=== PATIENT | female | born 1960 | race Caucasian/White ===

== ENCOUNTER → 2018-07-14 10:28 | Outpatient (CLI) | payer OTHER, SELFPAY ==
--- NOTE | 2018-07-14 10:30 | STE_ITS ---
Reason For Study: CHEST PAIN Stress Results Protocol: Mike Protocol Maximum Predicted HR: 161 bpm Target HR: 137 bpm % Maximum Predicted HR: 93 % DurationHeart Rate Stage (mm:ss) (bpm) BP BASELINE 81 128/82 STAGE 1 3:00 105 191/84 STAGE 2 3:00 118 194/84 STAGE 3 1:31 150 / RECOVERY 84 148/84 Stress Duration: 7:31 mm:ss Maximum Stress HR: 150 bpm Baseline Echocardiogram Findings Stress Echo Wall motion Data Resting WM Intermediate WM Stress WM Resting Wall Motion Wall Motion Stress No regional wall motion No regional wall motion abnormalities noted. abnormalities noted. Ejection Fraction 55 %. Ejection Fraction 70 %. Stress Results Normal blood pressure response to exercise. Exercise was stopped due to fatigue. Interpretation Summary Exercise stress echo. Stress protocol. Resting EKG demonstrates normal sinus rhythm with a rate of 64 bpm normal intervals and noted resting blood pressure 128/82 mmHg. The patient exercised according to regular Mike protocol for total duration of 7 minutes and 31 seconds. The maximum heart rate attained was 155 bpm which was 96% of maximum predicted heart rate the maximum workload was 10.1 metabolic equivalents. The patient maintained sinus rhythm throughout the recording at rest there were no ST or T wave changes noted suggest ischemia peak exercise no ST or T wave changes were noted suggest ischemia. The resting blood pressure was 128/82 with a peak blood pressure 194/84. Rate pressure product was 23,400. No clinical angina was noted the test was terminated due to leg fatigue. Stress echocardiographic images. The resting stress echocardiogram demonstrated ejection fraction of 55% with a peak ejection fraction of 70%. No wall motion abnormalities were noted. No ischemia was noted. Conclusion: Normal stress echocardiographic test with no evidence of ischemia. Ordering Physician: Mohamud Juarez Referring Physician: Mohamud Juarez Performed By: Briana Pete, RDCS, RVT
== END ==
PROVIDERS: Family Provider Student in an Organized Health Care Education/Training Program; PCP Student in an Organized Health Care Education/Training Program; Referring Provider Internal Medicine Cardiovascular Disease; Visit Provider Internal Medicine Cardiovascular Disease
DX: I25.10 Atherosclerotic heart disease of native coronary artery without angina pectoris (principal)
CPT/HCPCS: 93017; 93350

== ENCOUNTER → 2020-07-19 09:50 | Outpatient (CLI) | payer OTHER, SELFPAY ==
[2019-06-25 13:23] VITALS: BMI 32.5
== END ==
PROVIDERS: PCP Student in an Organized Health Care Education/Training Program; Referring Provider Internal Medicine Gastroenterology; Visit Provider Internal Medicine Gastroenterology
DX: Z11.59 Encounter for screening for other viral diseases (principal)
CPT/HCPCS: 87635; C9803; U0003

== ENCOUNTER → 2021-06-29 07:07 | Outpatient (CLI) | payer OTHER, SELFPAY ==
--- NOTE | 2021-06-29 17:14 | STRESSREP ---
Stress Test Report Exercise mild ideal perfusion stress test. 60-year-old lady with a history of chest pain pain Stress protocol: Resting EKG demonstrates normal sinus rhythm with a rate of 64 bpm resting blood pressure is 142/84 mmHg. The patient exercised according to regular Mike protocol for total duration of 6 minutes and 11 seconds the maximum heart rate attained was 139 bpm which was 87% of max impact on heart rate the maximum workload was 7.5 metabolic equivalents. At rest there were no ST or T wave changes noted to suggest abnormal flow reserve or ischemia and at peak exercise upsloping ST changes were noted with did not meet the criteria for ischemia. No clinical angina was noted. The maximum blood pressure was 170/70 mmHg. The test was terminated due to dyspnea and fatigue. Myocardial perfusion protocol. 14.0 mCi of technetium 99m sestamibi was injected at rest. The patient exercised according to regular Mike protocol and at peak exercise 44.7 mCi of technetium 99m sestamibi was injected stress images were obtained stress and rest images were reconstructed in comparing the short axis vertical long and horizontal long axis. Gated images were also obtained. Perfusion SPECT analysis: Review of the stress images demonstrate normal uptake of tracer noted in all areas of the myocardium. The resting images similarly demonstrate normal uptake of tracer noted in all areas of the myocardium. No areas of reversibility are noted to suggest ischemia. Gated SPECT analysis: The gated ejection fraction is 66%. Conclusion: Normal exercise myocardial perfusion stress protocol. Preserved ejection fraction. Good functional capacity.
== END ==
PROVIDERS: PCP Student in an Organized Health Care Education/Training Program; Referring Provider Physician Assistant Medical; Visit Provider Physician Assistant Medical
DX: R07.9 Chest pain, unspecified (principal); I25.10 Atherosclerotic heart disease of native coronary artery without angina pectoris; E78.5 Hyperlipidemia, unspecified; I10 Essential (primary) hypertension
CPT/HCPCS: 78452; 93017; A9500; A4216

== ENCOUNTER → 2021-08-21 13:30 | Outpatient (CLI) | payer OTHER, SELFPAY ==
--- NOTE | 2021-08-21 13:34 | MRI_ITS ---
STUDY: MRI RIGHT FOREFOOT WITHOUT CONTRAST REASON FOR EXAM: Female, 60 years old. RT FOOT PAIN, PLANTAR PLATE INJURY,CAPSULITIS TECHNIQUE: Standardized fat and water weighted pulse sequences were obtained in all 3 orthogonal planes. COMPARISON: None. FINDINGS: The first through fourth MTP plantar plates are normal in signal and thickness without a demonstrated tear or intrasubstance signal abnormality. A small 2.9 mm focal tear of the plantar plate beneath the fifth metatarsal head on the tibial side is present, within associated 2 mm posttraumatic cyst beneath the torn fibers. No visualized plantar fibroma or an interdigital neuroma. There is moderate degenerative arthrosis with a joint of effusion of the metatarsophalangeal joint of the hallux with capsular distension. There is a bipartite tibial sesamoid. Normal interphalangeal joint of the hallux. Normal proximal and distal phalanges of the great toe. Normal medial and lateral heads of the flexor hallucis brevis tendons. Normal flexor and extensor hallucis longus tendons. Normal second through fifth metatarsophalangeal (MTP) joints. Normal interphalangeal joints of the second through fifth toes. Normal proximal, middle and distal phalanges of the second through fifth toes. Normal first through fourth intermetatarsal spaces. Normal flexor and extensor tendons of the second through fifth toes. Normal visualized metatarsi. Normal intrinsic muscles of the forefoot. There is no demonstrated soft tissue abnormality. MRI/Lower Ext/No Jt/w/o IMPRESSION: 1. A small 2.9 mm focal tear of the plantar plate beneath the fifth metatarsal head on the tibial side is present, within associated 2 mm posttraumatic cyst beneath the torn fibers. 2. 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 Electronically Signed: Mode Cohen MD at 22:47 EST , Service support ,
== END ==
PROVIDERS: PCP Student in an Organized Health Care Education/Training Program; Visit Provider Podiatrist
DX: M77.51 Other enthesopathy of right foot and ankle (principal); S89.91XA Unspecified injury of right lower leg, initial encounter; M79.671 Pain in right foot
CPT/HCPCS: 73718

== ENCOUNTER 2022-08-01 10:46 | Outpatient (RCR) | payer OTHER, SELFPAY ==
--- NOTE | 2022-08-01 12:54 | HP.PTEVAL_ITS ---
Patient's Visit Information WESTON RODRIGUEZ is a 61 year old F referred to Physical Therapy by Dr. Luis A Brown DPM with a diagnosis of Achilles Tendonitits. Date of Evaluation: 08/01/22 Physical Therapist: Gail Thibodeaux DPT - Visit Plan Frequency: 1x/Week Duration: 4 Weeks Plan: Patient to be compliant with HEP of stretching, eccentrics, night splint, heel lift and orthotics at home- will follow up in 4 weeks or sooner if able to get a new pair of orthotics - Subjective Patient reports that the back of her left heel is really sore- it has been bothering her since last Oct- aggravated by jogging across the street. Pain is located in the heel in the Achilles- no radiating pain- does have some N/T in the toes but that is not new to this issue. Describes the pain as sharp- the pain is mostly there but gets worse at time. Worst: 12/10 Agg: running on it, standing for to long, hard floors. Best: 09/11 Eases: Meloxicam. He gave her a heel lift but she does not wear shoes as often as she should. She works from home and does not wear her shoes or orthotics and she stands all day. They did give her a night splint she wore it for a few days and it didn't help so she stopped wearing it. They did take x-rays but no MRI- showed some heel spurs. They gave her exercises but she has not done a lot of them. Before she gets out of bed in the AM she does move her feet around to get them warmed. Does have pain when she steps out of bed- most noticeable and then if she gets up after sitting for a period of time. Sleep: not disturbed lately but has had times when they bother her at night- laying on her back and resting the heel on the bed. PMHx/Meds: no changes since saw MD- scanned into the chart. - Objective Posture: fair throughout. Gait: no deviation noted- mild pes planus in running shoes. HR/TR: good no pain or deviation- Eccentric no pain or deviation. SLS: 5-10 sec then puts her other foot down for righting. Observation: pes planus increased in SLS. ROM: WFL in all planes of the LE. Strength: Knee: 5/5 Ankle: 5/5. Flex: HS: moderate, Gastroc: moderate, Solues: moderate. Palpation: tender along achilles insertion. Edema: none noted - Balance/Special Test Scores Lower Extremity Functional Score: 59 - Goals Goal 1:: Patient will be I with HEP and progression Goal Time Frame: 4-6 Weeks Goal 2:: Patient will report 80% improvement Goal Time Frame: 4-6 Weeks - Rehabilitation Potential Physical Therapy Diagnosis: Patient presents with hypomobility- she has decreased flexibility and inflammation along the Achilles tendon leading to increased pain with ADL's Rehabilitation Potential: Fair - Anticipated Interventions Patient/Client Instruction: Educate patient on: Benefits of Fitness Program Thank you for the opportunity to evaluate your patient. For Medicare and Medicare HMO plans, please review the plan of care and approve it. It will need to be FAXED BACK to us at [phone] for Medicare purposes. For Medicare only, by signing this I certify the plan of care. Please let me know if there are questions or concerns regarding this plan of care. Physician Signature:____ Date:
--- NOTE | 2022-11-26 08:14 | HP.PT.NRP ---
WESTON RODRIGUEZ was seen in my office for initial evaluation on 08/01/22. The following Plan of Care was established for this patient: Initial Frequency: 1x/Week Initial Duration: 4 Weeks Patient/Client Instruction: Educate patient on: Benefits of Fitness Program This patient was last seen in our office . Pertinent comments regarding their Physical therapy will appear below: Patient has not attended PT in over 30 days- appropriate to be d/c from PT and return to MD as appropriate At this point I will be discontinuing this patient from physical therapy. I would be happy to see this patient again in the future if found appropriate by the physician. Thank you! Gail Thibodeaux DPT Balance/Gait/Functional tests - Balance/Special Test Scores Lower Extremity Functional Score: 59
== END 2022-08-01 19:00 | disposition home or self-care (01) ==
LOC: PT 10:46
PROVIDERS: PCP Student in an Organized Health Care Education/Training Program; Referring Provider Podiatrist; Visit Provider Podiatrist
DX: M76.62 Achilles tendinitis, left leg (principal)
CPT/HCPCS: 97110; 97161

== ENCOUNTER → 2022-08-29 | Outpatient (CLI) | payer OTHER, SELFPAY ==
--- NOTE | 2022-08-29 08:43 | CT_ITS ---
STUDY: CARDIAC CALCIUM SCORING - CT CHEST REASON FOR EXAM: Female, 61 years old. CHEST PAIN-CHEST OVER READ ONLY RADIATION DOSAGE (If Supplied By Facility): CTDIvol = ( 24.25 ) mGy, DLP = ( 1146.41 ) mGycm TECHNIQUE: Axial non-enhanced images were acquired through the heart for the sole purpose of measuring coronary artery calcium. Individualized dose optimization techniques were used for this CT. COMPARISON: None. FINDINGS: This portion of the report is being generated solely for the evaluation of noncoronary artery structures which have been assessed on plain another report. Visualized lungs are unremarkable. Heart is normal in size. Normal pericardium. There are coronary artery calcifications. Normal visualized aortic arch and pulmonary arteries. No evidence of mediastinal or hilar lymphadenopathy. Normal visualized chest wall. There are degenerative changes of the visualized thoracic spine. Mild fatty infiltration of the liver. The upper abdomen is otherwise grossly normal. CT/Limited Chest CT Cardiac Only IMPRESSION: No evidence of significant anatomic abnormality. Electronically Signed: Yadiel Perez DO at 18:24 EST ,
[2022-08-29 09:01] VITALS: BP 144/77; PULSE 54; RESP 16; TEMP 36.3; O2SAT 98; BMI 33.3
[2022-08-29 09:14] VITALS: BP 144/77; PULSE 54
[2022-08-29] MEDS: Nitroglycerin SL (ED/IMG/CATH) 0.4 MG TABLET SL (09:14)
[2022-08-29 09:19] VITALS: BP 131/69; PULSE 63; RESP 16; O2SAT 98
[2022-08-29 09:25] VITALS: BP 112/74; PULSE 52; RESP 16; O2SAT 100
--- NOTE | 2022-09-18 15:09 | CCTA.WCONT ---
CCTA w/Cont Coronary Arteries Date of Study:: 08/29/22 Coronary artery risk After informed consent was obtained the patient was brought to the radiology suite in the postabsorptive nonsedated state. Heart rate was noted to be adequate. The patient was administered 100 cc of intravenous contrast agent. Gated images were obtained and reconstructed and displayed. Calcium score was not obtained due to insurance not approval. LEFT MAIN CORONARY ARTERY: This arose from the left coronary cusp and bifurcates into left anterior descending artery and left circumflex artery. [] LEFT ANTERIOR DESCENDING CORONARY ARTERY: The left anterior descending artery was a medium size vessel with proximal area of calcification as well as mid segment area of calcification. This was noted to be eccentric and moderate in severity. The mid to distal left anterior descending artery was free of any significant stenosis. [] LEFT CIRCUMFLEX CORONARY ARTERY: The left circumflex artery was a nondominant vessel with mild mid segment calcification noted. No high-grade stenosis was noted. [] RIGHT CORONARY ARTERY: The right coronary artery was a dominant vessel arising from the right coronary cusp with mild focal stenosis noted in the midsegment. It terminated with the posterior descending artery and posterior lateral vessel. CORONARY CALCIUM SCORE: Not obtained Conclusion: Moderate calcification noted in the midsegment of the left anterior descending artery and mild calcification noted in the mid circumflex artery. []
== END | disposition home or self-care (01) ==
LOC: CT 08:30
PROVIDERS: PCP Student in an Organized Health Care Education/Training Program; Visit Provider Nurse Practitioner Gerontology
DX: I25.10 Atherosclerotic heart disease of native coronary artery without angina pectoris (principal); E78.5 Hyperlipidemia, unspecified; K76.0 Fatty (change of) liver, not elsewhere classified
CPT/HCPCS: 75574; 76380; Q9967

== ENCOUNTER → 2023-04-01 | Outpatient (CLI) | payer OTHER, SELFPAY ==
--- NOTE | 2023-04-01 12:42 | STRESSREP ---
Stress Test Report Exercise myocardial perfusion stress test. 62-year-old lady with a history of coronary artery disease and chest pain Stress protocol: Resting EKG demonstrates sinus rhythm with a rate of 59 bpm resting blood pressure is 124/82 mmHg. The patient exercised according to the regular Mike protocol for a total duration of 6 minutes attaining a maximum heart rate of 125 bpm which was 80% of maximum predicted heart rate; the maximum workload was 7 metabolic equivalents. At rest there were no ST or T wave changes noted to suggest ischemia and at peak exercise upsloping ST changes only were noted which did not meet the criteria for ischemia. No clinical angina was noted, though the patient did experience some chest tightness which she said got better. The test was terminated due to the target heart rate being achieved/fatigue. The peak blood pressure was 170/80 mmHg. Rate-pressure product was 20,900. Myocardial perfusion protocol. 14.3 mCi of technetium 99m sestamibi was injected at rest. The patient exercised according to regular Mike protocol for total duration of 6 minutes and at peak exercise 44.1 mCi of technetium 99m sestamibi was injected stress images were obtained stress and rest images were reconstructed in comparing the short axis vertical long and horizontal long axis. Gated images were also obtained. Perfusion SPECT analysis: Review of the stress images demonstrate normal uptake of tracer noted in all areas of the myocardium. The resting images similarly demonstrate normal uptake of tracer noted in all areas of the myocardium. No areas of reversibility are noted to suggest ischemia no previous infarct was noted. Gated SPECT analysis: The gated ejection fraction is 74%. Conclusion: Normal exercise myocardial perfusion stress test at a moderate workload Preserved ejection fraction ejection fraction. Mild chest tightness of unclear significance.
== END | disposition home or self-care (01) ==
LOC: CVS 07:18
PROVIDERS: PCP Student in an Organized Health Care Education/Training Program; Referring Provider Internal Medicine Cardiovascular Disease; Visit Provider Internal Medicine Cardiovascular Disease
DX: I25.10 Atherosclerotic heart disease of native coronary artery without angina pectoris (principal); E78.5 Hyperlipidemia, unspecified; I10 Essential (primary) hypertension
CPT/HCPCS: 78452; 93017; A9500; A4216

== ENCOUNTER → 2023-06-05 | Outpatient (CLI) | payer OTHER, SELFPAY ==
--- NOTE | 2023-06-05 12:00 | RAD_ITS ---
STUDY: X-RAY CHEST REASON FOR EXAM: Female, 62 years old. Chest pain. TECHNIQUE: Frontal and lateral views of the chest. COMPARISON: None. FINDINGS: The lungs are clear and expanded. There is no demonstrated pleural abnormality. Normal size heart. Normal mediastinum and francisco. Normal visualized pulmonary arteries. Mild aortic tortuosity. Normal visualized thoracic spine. Normal visualized ribs, clavicles, and shoulders. No abnormality of the visualized soft tissue structures of the upper abdomen. RAD/Chest PA and Lateral IMPRESSION: No active or acute cardiopulmonary disease. Electronically Signed: Antony Jurado MD at 12:41 EDT ,
== END | disposition home or self-care (01) ==
LOC: RAD 11:59
PROVIDERS: PCP Student in an Organized Health Care Education/Training Program; Referring Provider Physician Assistant Medical; Visit Provider Physician Assistant Medical
DX: I25.10 Atherosclerotic heart disease of native coronary artery without angina pectoris (principal); R07.9 Chest pain, unspecified
CPT/HCPCS: 71046

== ENCOUNTER 2023-08-02 07:23 | Day surgery (SDC) | payer OTHER, SELFPAY ==
--- NOTE | 2023-07-31 09:35 | PCM.HP.BLA ---
History and Physical Date of Admission: 08/08/23 Maureen Townsend is a 62-year-old female who presents here today for a cardiac catheterization. She has a history of moderate coronary artery disease, hypertension and hyperlipidemia. She underwent a cardiac catheterization in 2012 which demonstrated 60 to 70% stenosis of a large diagonal vessel. Underwent FFR which was 0.87. In 2017 she underwent a stress test which demonstrated no evidence of ischemia on a stress echo and then a stress test in June 2021 where he exercised for 7.5 METS with no evidence of ischemia. She had a Coronary CT which demonstrated Moderate calcification noted in the midsegment of the left anterior descending artery and mild calcification noted in the mid circumflex artery. She underwent a stress test in march, there was not obvious ischemia but she did have chest pain with exertion. This was concerning for angina. Heart cath was discussed at that time. Pt wanted to think about pursueing this and discuss further at her appt today. She does still have left arm discomfort that does radiate to her chest. This does go away at rest. She has also been diagnosed with a hiatal hernia. She does not have any worsening shortness of breath. She does not have any palpitations. She does not have any lightheadedness or dizziness. Intake Vital Signs See EMR Allergies See EMR Medications See EMR [facility] Medical History Atherosclerosis of coronary artery of [place] heart without angina pectoris Essential (primary) hypertension GERD (gastroesophageal reflux disease) Hiatal hernia HLD (hyperlipidemia) Hypothyroidism Obesity Surgical History History of carpal tunnel surgery History of [facility] History of left heart catheterization (05/07/13) History of thyroid surgery Hx laparoscopic cholecystectomy Family History Mother CAD (coronary artery disease) HypertensionFather CAD (coronary artery disease) Hypertension CVA (cerebral vascular accident)Brother CAD (coronary artery disease) Stents Myocardial infarction, Onset Age: 64Brother CAD (coronary artery disease) CABG Myocardial infarctionOther Atherosclerosis of coronary artery of [place] heart without angina pectoris Essential (primary) hypertension HLD (hyperlipidemia) Social History Smoking Status: Never smoker alcohol intake: never substance use type: does not use caffeine: Yes what type of physical activity do you participate in: walking seatbelt use: sometimes do you feel safe at home: Yes additional social history: [employer] Patient is currently unemployed ROS Const Const: Negative for fatigue, weakness, fever(s) or headache(s) Eyes Eyes: Negative for blind spots, loss of peripheral vision or transient loss of vision ENT ENT: Negative for headache(s), dizziness, tinnitus, Nosebleed/epistaxis or balance problems Cardio Chest Pain: Yes Palpitations: No Edema: None Muscle aches with walking: None Resp Respiratory: Negative for SOB with activity, SOB at rest, SOB orthopnea\SOB lying down or Cough GI GI: Negative nausea, vomiting, heartburn or vomiting blood/hematemesis : Negative for hematuria Musc Musc: Negative for muscle aches/ myalgia, muscle weakness, joint pain or balance problems Neuro Neuro: Negative for dizziness, lightheadedness, near syncope, syncope, orthostatic symptoms, headache(s) or weakness Yoshi Hematologic/Lymphatic: Negative for easy bleeding Endo Endo: Negative for fatigue Cardiology Exam Const Appearance: cooperative, healthy appearing, comfortable, no acute distress and well developed Orientation: alert, awake and oriented x3 Head Head: normal to inspection Ears: hearing grossly normal bilaterally Nose: external nose normal Face and Sinus: face symmetric Mouth: oral mucosae normal, lip normal and moist mucous membranes Eyes General: appearance normal, both eyes and all related structures Eyelids: eyelids normal Conjunctivae: conjunctivae normal Pupils: PERRL EOM: EOM intact bilaterally Neck Neck: normal visual inspection and trachea midline; Negative no JVD Carotids: Negative bruit Chest Chest inspection: normal inspection of the chest Auscultation: Bilateral: Clear to Auscultation Cardio Palpation: normal PMI Rate: regular rate Rhythm: regular rhythm Heart sounds: S1 normal and S2 normal; Negative rub, gallop or murmur GI GI: soft, no hepatosplenomegaly and bowel sounds present Neuro General: patient alert, patient awake, patient oriented x3 and CN's II-XI intact bilaterally Extremities Pulses: Normal: Right Posterior Tibial Pulse, Left Posterior Tibial Pulse, Right Radial Pulse and Left Radial Pulse Lower Extremity Edema: None: Bilateral Psych Psychological: normal affect Supplemental Info Supplemental Information Exercise myocardial perfusion stress test 03/2023: 62-year-old lady with a history of coronary artery disease and chest pain Stress protocol: Resting EKG demonstrates sinus rhythm with a rate of 59 bpm resting blood pressure is 124/82 mmHg. The patient exercised according to the regular Mike protocol for a total duration of 6 minutes attaining a maximum heart rate of 125 bpm which was 80% of maximum predicted heart rate; the maximum workload was 7 metabolic equivalents. At rest there were no ST or T wave changes noted to suggest ischemia and at peak exercise upsloping ST changes only were noted which did not meet the criteria for ischemia. No clinical angina was noted, though the patient did experience some chest tightness which she said got better. The test was terminated due to the target heart rate being achieved/fatigue. The peak blood pressure was 170/80 mmHg. Rate-pressure product was 20,900. Myocardial perfusion protocol. 14.3 mCi of technetium 99m sestamibi was injected at rest. The patient exercised according to regular Mike protocol for total duration of 6 minutes and at peak exercise 44.1 mCi of technetium 99m sestamibi was injected stress images were obtained stress and rest images were reconstructed in comparing the short axis vertical long and horizontal long axis. Gated images were also obtained. Perfusion SPECT analysis: Review of the stress images demonstrate normal uptake of tracer noted in all areas of the myocardium. The resting images similarly demonstrate normal uptake of tracer noted in all areas of the myocardium. No areas of reversibility are noted to suggest ischemia no previous infarct was noted. Gated SPECT analysis: The gated ejection fraction is 74%. Conclusion: Normal exercise myocardial perfusion stress test at a moderate workload Preserved ejection fraction ejection fraction. Mild chest tightness of unclear significance. CTA 09/2022: Moderate calcification noted in the midsegment of the left anterior descending artery and mild calcification noted in the mid circumflex artery. EXERCISE MYOCARDIAL PERFUSION STRESS TEST 06/29/2021 Stress protocol: Resting EKG demonstrates normal sinus rhythm with a rate of 64 bpm resting blood pressure is 142/84 mmHg.? The patient exercised according to regular Mike protocol for total duration of 6 minutes and 11 seconds the maximum heart rate attained was 139 bpm which was 87% of max impact on heart rate the maximum workload was 7.5 metabolic equivalents.? At rest there were no ST or T wave changes noted to suggest abnormal flow reserve or ischemia and at peak exercise upsloping ST changes were noted with did not meet the criteria for ischemia.? No clinical angina was noted.? The maximum blood pressure was 170/70 mmHg.? The test was terminated due to dyspnea and fatigue. Perfusion SPECT analysis: Review of the stress images demonstrate normal uptake of tracer noted in all areas of the myocardium.? The resting images similarly demonstrate normal uptake of tracer noted in all areas of the myocardium.? No areas of reversibility are noted to suggest ischemia. Gated SPECT analysis: The gated ejection fraction is 66%. Conclusion: Normal exercise myocardial perfusion stress protocol. Preserved ejection fraction. Good functional capacity. STRESS ECHOCARDIOGRAM 07/14/2018 ? Stress Echo Wall motion Data ? Resting WM ? Intermediate WM ? Stress WM Resting Wall Motion? Wall Motion Stress No regional wall motion? No regional wall motion abnormalities noted. ? abnormalities noted. Ejection Fraction 55 %.? Ejection Fraction 70 %. Stress Results Normal blood pressure response to exercise. Exercise was stopped due to fatigue. Interpretation Summary Exercise stress echo. Stress protocol. Resting EKG demonstrates normal sinus rhythm with a rate of 64 bpm normal intervals and noted resting blood pressure 128/82 mmHg. The patient exercised according to regular Mike protocol for total duration of 7 minutes and 31 seconds. The maximum heart rate attained was 155 bpm which was 96% of maximum predicted heart rate the maximum workload was 10.1 metabolic equivalents. The patient maintained sinus rhythm throughout the recording at rest there were no ST or T wave changes noted suggest ischemia peak exercise no ST or T wave changes were noted suggest ischemia. The resting blood pressure was 128/82 with a peak blood pressure 194/84. Rate pressure product was 23,400. No clinical angina was noted the test was terminated due to leg fatigue. Stress echocardiographic images. The resting stress echocardiogram demonstrated ejection fraction of 55% with a peak ejection fraction of 70%. No wall motion abnormalities were noted. No ischemia was noted. Conclusion: Normal stress echocardiographic test with no evidence of ischemia. Assessment and Plan Assessment and Plan (1) Atherosclerosis of coronary artery of [place] heart without angina pectoris: Status: Chronic Plan: With patients symptoms of angina on her stress test despite negative images, concerned that this could be a false negative on the images as she does have known CAD and had moderate disease at her last heart cath in 2018. Would like to pursue a diagnostic heart cath. Pt is agreeable with this. (2) Coronary artery calcification seen on CAT scan: Status: Acute (3) Chest pain:
[2023-07-31 10:45] LABS: Absolute Lymphocyte Count 1.84 X10^3/uL (0.83-4.51); Absolute Neutrophil Count 3.7 X10^3/uL (2.0-7.7); Basophil# 0.04 X10^3/uL; Basophil% 0.6 % (0-1); Eosinophils% 3.1 % (0-5); Hematocrit 45.4 % (37-47); Hemoglobin 14.5 g/dL (12.0-15.0); Lymphocyte # 1.84 X10^3/ul (0.83-4.51); Lymphocyte % 28.8 % (19-41); Mean Corp Hgb Conc 31.9 g/dL (32-36); Mean Corpuscular Hgb 30.7 pg (27.0-32.0); Mean Corpuscular Volume 96.2 fL (81-99); Monocyte# 0.59 X10^3/uL; Monocyte% 9.2 % (0-10); NRBC Flagged by Analyzer 0 % (0-5); Platelet Count 226 K/mm3 (150-450); RBC Distribution Width CV 11.9 % (11.6-14.6); RBC Distribution Width SD 42.1 fl (35.1-43.9); Red Blood Count 4.72 M/mm3 (4.2-5.4); White Blood Count 6.4 K/mm3 (4.4-11.0)
[2023-07-31 10:57] LABS: Partial Thromboplast Time 30.1 Seconds (24.1-36.2); Prothrombin Time (Protime)PT. 13.7 SECONDS (11.7-14.9)
[2023-07-31 11:01] LABS: ALB/GLOB Ratio 0.9 RATIO (0.9-2.4); AST(SGOT) 17 U/L (15-37); Alanine Aminotransfer ALT/SGPT 32 U/L (13-56); Albumin, Serum 3.5 g/dL (3.2-5.0); Alkaline Phosphatase 89 U/L (45-117); Anion Gap 3 (5-15); BUN 18 mg/dL (7-18); BUN/Creat Ratio 23.6 RATIO (10-20); Calcium,Total 9.1 mg/dL (8.5-10.1); Chloride 108 mmol/L (98-107); Cholesterol 222 mg/dL (200); Creatinine, Serum 0.76 mg/dL (0.55-1.02); EST Glomerular Filtration Rate 81 mL/min (>60); Est Glom Filt Rate - Afr Amer 98 mL/min (>60); Globulin 3.8 g/dL (2.2-4.2); Glucose 94 mg/dL (74-106); High Density Lipoprotein 61 mg/dL; Potassium 4.5 mmol/L (3.5-5.1); Protein, Total 7.3 g/dL (6.4-8.2); Sodium Level 140 mmol/L (136-145); Triglycerides 122 mg/dL; Very Low Density Lipoprotein 24 mg/dL (5-40)
[2023-08-01 07:41] VITALS: BMI 32.9
--- NOTE | 2023-08-02 09:34 | CL.D_ITS ---
Patient Name: WESTON RODRIGUEZ Study Date: 08/02/2023 Performing: Mohamud Juarez MD Ht: 65 inches 165.1 cm : 1960 Wt: 198 lbs 89.81 kg Age: 62 Gender: female BSA: 1.97 PROCEDURE(S) PERFORMED DC01-(04622)LHC/COR/LV CLINICAL PROFILE AND INDICATIONS Indications: Worsening Angina Heart Failure: None Stress/Imaging Date: 03/13/23Stress Test with SPECT MPI: Positive Intermediate Risk CAD Presentations: Unstable angina. CONCLUSIONS Moderately severe mid LAD disease with mild calcification present and minimal disease in the rest of the vessels. RECOMMENDATIONS Referred for immediate PCI DESCRIPTION OF PROCEDURE The patient arrived to the procedure lab. The risks and benefits of the procedure as well as a full description of our services here and current unavailability of surgical backup were fully explained to the patient and/or their significant other prior to the catheterization. The Timeout was completed, verifying the correct patient and procedure. The patient's procedural site was prepped and draped in the usual fashion. Local anesthetic was given subcutaneously to right radial region with Lidocaine 2%. Using a modified Seldinger technique, arterial access was obtained via the right radial artery, a 6Fr sheath was inserted. Right Coronary Artery selective angiography was then performed in multiple views using a 5 Fr. 4.0 [place] catheter. Left Coronary Artery selective angiography was performed in multiple views using a 5 Fr. 4.0 [place] catheter. Left Ventriculography was performed in MOSER projection using a 5 Fr. Pigtail catheter. LV to AO pullback pressures were then recorded. CORONARY ANGIOGRAPHY DOMINANCE: Right Dominant LEFT HEART ASSESSMENT Left Ventricular Ejection Fraction: by LV Gram 60 % Normal LV wall motion Normal Left Ventricular systolic function LEFT MAIN: Angiographically normal LEFT ANTERIOR DESCENDING ARTERY: Moderate calcification CIRCUMFLEX ARTERY: Mild calcification, Mild luminal irregularities less than 30% RIGHT CORONARY ARTERY: Mild luminal irregularities COMPLICATIONS PROCEDURE MEDICATIONS Fentanyl 50 mcg IV Versed 1 mg IV Versed 1 mg IV Oxygen: 2 L/min via nasal cannula Brilinta 180 mg PO @ 08/02/2023 09:27:05 Heparin given IA 08/02/2023 09:14:18 Heparin 4000 unit(s) IV 08/02/2023 09:30:15 SUMMARY OF HEMODYNAMIC DATA Time AIR REST ECG 07:59:36 AO 140/66 (97) SA 09:17:16 LV 135/4, 13 09:22:38 LV 123/4, 14 09:22:47 LV 122/2, 12 09:23:37 LVp 120/0, 12 09:23:43 AOp 129/56 (84) 09:23:50 Signed By Mohamud Juarez MD On 08/02/2023 09:33:13 Mohamud Juarez MD
--- NOTE | 2023-08-02 10:44 | CL.I_ITS ---
Patient Name: WESTON RODRIGUEZ Study Date: 08/02/2023 Performing: Shanice Lewis MD Ht: 65 inches 165.1 cm : 1960 Wt: 198 lbs 89.81 kg Age: 62 Gender: female BSA: 1.97 PROCEDURE(S) PERFORMED IC12-(23941/[id number])ADRIANE W/WO PTCA, SINGLE CORONARY ARTERY CLINICAL PROFILE AND CO-MORBIDITIES Indications: Worsening Angina Heart Failure: None Stress/Imaging Date: 03/13/23 Stress Test with SPECT MPI: Positive Intermediate Risk CAD Presentations: Unstable angina. CONCLUSIONS Successful ADRIANE to pLAD RECOMMENDATIONS DESCRIPTION OF PROCEDURE The patient arrived to the procedure lab. The risks and benefits of the procedure as well as a full description of our services here and current unavailability of surgical backup were fully explained to the patient and/or their significant other prior to the catheterization. The Timeout was completed, verifying the correct patient and procedure. The patient's procedural site was prepped and draped in the usual fashion. Local anesthetic was given subcutaneously to right radial region with Lidocaine 2% Using a modified Seldinger technique,arterial access was obtained via the right radial artery, a 6Fr sheath was inserted. Right Coronary Artery selective angiography was then performed in multiple views using a 5 Fr. 4.0 [place] catheter. Left Coronary Artery selective angiography was performed in multiple views using a 5 Fr. 4.0 [place] catheter. Left Ventriculography was performed in MOSER projection using a 5 Fr. Pigtail catheter. LV to AO pullback pressures were then recorded.The images were reviewed and options discussed. A decision was then made to proceed with an Intervention, IVUS or other adjunct procedure. xb3 Guide catheter was inserted and engaged into the LCA. bmw Guide wire was advanced to the LAD. xb3 Guide catheter was exchanged for a jl 3.5 runthrough Guide wire was advanced to the LAD 2.5 x 20 sc euphora Balloon catheter was inserted. Balloon catheter was advanced across lesion in the LAD, proximal. PTCA balloon inflated at 8 atms for 12 secs. PTCA balloon inflated at 8 atms for 8 secs. PTCA balloon inflated at 10 atms for 12 secs. Angiogram performed post balloon dilatation. 2.5 x 38 frontier Drug Eluting stent was inserted. Drug Eluting stent was advanced across the lesion in the LAD, proximal. Angiogram performed post stent deployment. 2.75 x 15 nc emerge Balloon catheter was inserted. Balloon catheter was inserted post stent. PTCA balloon inflated at 14 atms for 21 secs. PTCA balloon inflated at 18 atms for 27 secs. Angiogram performed post balloon dilatation. The arterial sheath was pulled and a TR Band was applied for hemostasis INTERVENTION INFORMATION LESION SITE: LAD (Proximal) Lesion Complexity: High/C, chronic total occlusion: No, lesion at bifurcation: Yes, thrombus present: No, lesion length: 35 mm, culprit lesion: Yes, Previously treated lesion: No Pre Stenosis: 80 % Pre intervention RUI flow: 3 PROCEDURE: Drug Eluting Stent with pre and post dilatation Post Stenosis: 0 % Post intervention RUI flow: 3 Lesion Devices: Perez .014 190cm BMW [place] Straight Cordis 6 Fr XB3.0 100cm Guide Catheter Medtronic SC EUPHORA RX 2.5x20 BALLOON Medtronic 6 Fr JL3.5 100cm Guide Catheter Terumo .014 180cm Runthrough Extra Floppy straight Medtronic 2.50 x 38 MATTY FRONTIER ADRIANE [employer] [place] EMERGE MR 2.75x15 BALLOON COMPLICATIONS No Complications PROCEDURE MEDICATIONS Fentanyl 50 mcg IV Versed 1 mg IV Versed 1 mg IV Oxygen: 2 L/min via nasal cannula Brilinta 180 mg PO @ 08/02/2023 09:27:05 Heparin given IA 08/02/2023 09:14:18 Heparin 4000 unit(s) IV 08/02/2023 09:30:15 Nitro 100 mcg IC 08/02/2023 09:56:47 SUMMARY OF HEMODYNAMIC DATA Time AIR REST ECG 07:59:36 AO 140/66 (97) SA 09:17:16 LV 135/4, 13 09:22:38 LV 123/4, 14 09:22:47 LV 122/2, 12 09:23:37 LVp 120/0, 12 09:23:43 AOp 129/56 (84) 09:23:50 Signed By Shanice Lewis MD On 08/02/2023 10:44:16 Shanice Lewis MD
--- NOTE | 2023-08-02 12:12 | CRPHASE1 ---
Patient Communication Patient Information PHII Cardiac Rehab Discussed with Patient:: Yes Guide to Cardiac Rehab Given to Patient:: Yes Cardiac Rehab Facility Choice List Given to Patient:: Yes Communication to Cardiac Rehab Choice Program [facility] CR PHII:: Communication Given to CR Certified Neurodiagnostic Technologist:: Baljeet Lewis Cardiac Rehabilitation Info Program Information Cardiac Rehabilitation Program Information: Cardiac Rehab The cardiac rehab team at [facility] consists of highly skilled exercise physiologists, nurses, respiratory therapists and physicians working together with you. Our purpose is to help you have a full recovery and achieve the goals you set for yourself. Over the years many of our patients have returned to activities they assumed they would never do again! We can help restore your confidence and motivation to make lifestyle changes that can have a significant impact on your health and quality of life! We can help answer questions and concerns you may have about exercise, lifestyle, medications, diet, stress and anxiety which are common following a hospitalization. WE monitor ECG and vital signs during exercise and discuss your progress with you and report to your physician(s). Cardiac Rehab is proven to help reduce readmissions, improve functional capacity and lower recurrence of problems with your heart. Our Cardiac Rehab program is Certified by the [place] [employer]-Vascular and Pulmonary [employer] (AACVPR) and Accredited by the [place] [employer] through our [facility]. You can contact us at . We invite you to call us with your questions or to get started in our program. If you have other questions or concerns be sure to ask your physician/provider during your follow-up visit. WE look forward to seeing you!
--- NOTE | 2023-08-02 12:14 | CRPH1.INSTRU ---
General Education Discussed with Patient CAD and cardiac anatomy and function:: Patient communicates acknowledgment Explanation of diagnoses and procedures:: Patient communicates acknowledgment Sign/Symptoms of NE:: Patient communicates acknowledgment Antiplatelet therapy: Patient communicates acknowledgment Proper use of NTG-SL: Patient communicates acknowledgment Emergency procedures and activation of EMS: Patient communicates acknowledgment Compliance of all prescribed medications: Patient communicates acknowledgment Smoking Risk Factors Patient Nicotine/Smoking Risk Factors Are:: Non-smoker Recommendations Recommendations Include:: Previous smoker; encourage continued cessation Dyslipidemia Risk Factors Patient Dyslipidemia Risk Factors Are:: Total Cholesterol, Triglycerides, HDL and LDL Overweight/Obesity Risk Factors Patient Overweight/Obesity Risk Factors Are:: BMI Normal [18-25 & < 65 years old], BMI Normal [24-29 & > 65 years old], Overweight = 26-29 and Obesity - > or = 30 Recommendations Recommendations Include:: Weight loss of 5-10%, Reduced calorie diet and Exercise 5-7 times/week Response Code Overweight/Obesity:: Patient communicates acknowledgment Hypertension Recommendations Recommendations Include:: Maintain BP <130/85, BP <130/80 if diabetic, DASH dietary guidelines, Decrease/maintain normal body weight and Moderation of ETOH Heart Disease Risk Factors Patient Heart Disease Risk Factors Are:: Family history of heart disease < 65 years old Response Code Heart Disease Response Code:: Patient communicates acknowledgment Diabetes Risk Factors Patient Diabetes Risk Factors Are:: No documented hx of diabetes and Elevated blood sugars Recommendations Recommendations Include:: Diabetic dietary guidelines and Decrease/maintain body weight Metabolic Syndrome Recommendations Recommendations Include:: Encouraged follow-up with Primary Care Physician Sedentary Risk Factors Patient Sedentary Risk Factors Are:: Lack of regular exercise Recommendations Recommendations Include:: Aerobic exercise 5-7 times/week for 20-30 minutes continuously, Benefits of regular exercise, Discussed home walking program and Monitored Outpatient Cardiac Rehab Response Code Sedentary Response Code:: Patient communicates acknowledgment Stress Risk Factors Patient Stress Risk Factors Are:: Patient denies stress as a risk factor Recommendations Recommendations Include:: Identification of stressors, and assessment of coping skills and Stress management techniques Response Code Stress Response Code:: Patient communicates acknowledgment
== END 2023-08-02 15:50 | disposition home or self-care (01) ==
PROVIDERS: Physician Assistant Medical; PCP Student in an Organized Health Care Education/Training Program; Referring Provider Internal Medicine Cardiovascular Disease; Visit Provider Internal Medicine Cardiovascular Disease
DX: I25.10 Atherosclerotic heart disease of native coronary artery without angina pectoris (principal); I10 Essential (primary) hypertension; R53.83 Other fatigue; E78.5 Hyperlipidemia, unspecified; K21.9 Gastro-esophageal reflux disease without esophagitis; K44.9 Diaphragmatic hernia without obstruction or gangrene; E03.9 Hypothyroidism, unspecified; Z82.49 Family history of ischemic heart disease and other diseases of the circulatory system
CPT/HCPCS: 36415; 80053; 80061; 85025; 85610; 85730; 92928; 93005; 93458; 99152; 99153; C1874; J7040; Q9967; C1725; C1769; C1887; C1894; C9600; J1327

== ENCOUNTER 2024-11-13 05:49 | Day surgery (SDC) | payer MEDICARE, OTHER, SELFPAY ==
--- NOTE | 2024-11-12 11:02 | PAT.ANE_ITS ---
Pre-Assessment Diagnosis/Proposed Procedure Planned Operative Procedure(s): RIGHT FOOT BUNIONECTOMY WITH SECOND THIRD AND FOURTH HAMMERTOE REPAIR Anesthesia History Anesthesia History - plastic sewer: Anesthesia History - plastic sewer Hx Hospitalization No 11/12/24 09:26 Any Problems With Anesthesia No 11/12/24 09:26 Cholinesterase deficiency No 11/12/24 09:26 You/Your Family Experience No 11/12/24 09:26 fever (hyperthermia) with Relationship Recent Exposure to Contagious No 08/19/13 06:49 Disease Does patient have nerve No 11/12/24 09:26 stimulator Patient instructed to have device shut off --Does patient have Pacemaker or ICD? When Was Last Pacemaker Check QUESTION #4 FULL TEXT: You/Your Family Experience fever (hyperthermia) with Anesthesia Last Oral Intake Last Oral intake: Last Oral Intake NPO since Meds taken in AM with sips of water? Meds patient instructed to take am of surgery PONV PONV - plastic sewer: PONV - plastic sewer Female Yes 11/12/24 09:26 HX of Motion Sickness Yes 11/12/24 09:26 HX of N/V After Surgery No 11/12/24 09:26 Non-Smoker Yes 11/12/24 09:26 Duration of Surgery greater Yes 11/12/24 09:26 than 60 minutes Number of Risk Factors 4 11/12/24 09:26 PONV Score Severe Risk 11/12/24 09:26 Height & Weight Height & Weight: Anesthesia: Height & Weight Height 5 ft 5 in 08/10/24 11:07 Respiratory Assessment Respiratory Assessment - plastic sewer: Respiratory Tract Infection Hx - plastic sewer Hx Respiratory Tract Infection No 11/12/24 09:26 STOP Sleep Apnea STOP Sleep Apnea - plastic sewer: STOP Sleep Apnea - plastic sewer Hx Hypertension Yes: CONTROLLED WITH MED 11/12/24 09:26 Hx Sleep Apnea No 11/12/24 09:26 CPAP No 08/19/13 08:07 BIPAP No 08/19/13 06:57 Do you snore loudly (louder Yes 11/12/24 09:26 than talking or can be heard Do you often feel tired/ No 11/12/24 09:26 fatigued/ sleepy during daytime? Has anyone observed you stop No 11/12/24 09:26 breathing during sleep? STOP Results Positive 11/12/24 09:26 QUESTION #5 FULL TEXT : Do you snore loudly (louder than talking or can be heard through closed doors)? 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 Specify any problems Hx of Preganancy in last 3 No 11/12/24 09:26 Months Nurse Filling Out Transfusion DSCHRIBER 11/12/24 09:26 & Questions: Date: 11/12/24 11/12/24 09:26 Time: 11/12/24 09:26 Patient unable to answer at this time (ie. confused, unrespo /Reproduction History /Reproductive History - plastic sewer: /Reproductive Hx- plastic sewer Hx Now No 11/12/24 09:26 Gestational Age (in weeks): EDC: Hx Hx Para Hx Section SAB No 11/12/24 09:26 Active Medications Active Medications: Current Medications Generic Name Dose Route Start Last Admin Trade Name Freq PRN Reason Stop Dose Admin Cefazolin Sodium 2 gm/ N/A 20 mls @ 400 mls/hr 11/13/24 07:30 IV 11/13/24 07:32 PREOP ONE [facility] Medical History (Updated 11/12/24 @ 09:34 by Jeri Suresh) Wears glasses Post-menopausal Arthritis Fatty liver High cholesterol Easy bruising Back pain History of hiatal hernia Non-smoker Shortness of breath on exertion History of pain when walking History of stress test Cardiology follow-up encounter GERD (gastroesophageal reflux disease) Hypothyroidism Obesity Atherosclerosis of coronary artery of [place] heart without angina pectoris HLD (hyperlipidemia) Essential (primary) hypertension Home Medications ?Medication ?Instructions ?Recorded ?Last Taken ?Type multivitamin,xt-pbtb-hduiawlh 1 tab PO DAILY 06/25/19 Unknown History (Complete Multivitamin tablet) levothyroxine 112 mcg tablet 112 mcg PO DAILY 07/19/20 08/02/23 History nitroglycerin 0.4 mg sublingual 0.4 mg sublingual Q5-1 5M PRN chest 04/04/23 Unknown Rx tablet (Nitrostat) pain #25 tabs aspirin 81 mg tablet,delayed 81 mg PO DAILY 08/14/23 0 11/08/24 History release metoprolol tartrate 25 mg tablet 12.5 mg (1/2 x 25 mg) PO BID #90 07/29/24 Unknown Rx tabs pravastatin 10 mg tablet 10 mg PO QHS #90 tabs Unknown Rx calcium 600 mg (as 2 tab PO QDAY 08/10/24 Unkno wn History carbonate)-vitamin D3 20 mcg (800 unit) tablet glucosamine 750 ec-mgvnfcydbbt-qyr 1 tab PO BID Unknown History no1 644 mg-C 30 mg-luis 1 mg tablet (Osteo Bi-Flex Triple Strength) turmeric root extract 500 mg 500 mg PO BID 08/10/24 Un known History capsule vitamin B complex 1 tab PO QDAY 08/10/24 Unkno wn History elderberry fruit 200 mg capsule 200 mg PO DAILY Unknown History pantoprazole 40 mg tablet,delayed 40 mg PO DAILY 11/12 Unknown History release (Protonix) zinc gluconate 50 mg tablet 50 mg PO DAILY 11/12/24 Un known History Allergy/AdvReac Type Severity Reaction Status Date / Time triamterene (Triamterene) Allergy Rash Verified 11/12/24 09:23 venom-honey bee (bee venom Allergy Swelling Verified 11/12/24 09:23 (honey bee)) Family History Mother CAD (coronary artery disease) Hypertension Father CAD (coronary artery disease) Hypertension CVA (cerebral vascular accident) Brother CAD (coronary artery disease) Stents Myocardial infarction, Onset Age: 64 Brother CAD (coronary artery disease) CABG Myocardial infarction Other Atherosclerosis of coronary artery of [place] heart without angina pectoris Essential (primary) hypertension HLD (hyperlipidemia) Surgical History (Updated 11/12/24 @ 09:34 by Jeri Suresh) History of esophagogastroduodenoscopy (EGD) Hx of colonoscopy Hx of parathyroidectomy Stented coronary artery (08/02/23) History of left heart catheterization (05/07/13) Hx laparoscopic cholecystectomy History of LAVH History of carpal tunnel surgery Social History Smoking Status: Never smoker alcohol intake: never substance use type: does not use caffeine: Yes what type of physical activity do you participate in: walking seatbelt use: sometimes do you feel safe at home: Yes 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 She underwent a cardiac catheterization in 2012 which demonstrated 60 to 70% stenosis of a large diagonal vessel. Underwent FFR which was 0.87. In 2017 she underwent a stress test which demonstrated no evidence of ischemia on a stress echo and then a stress test in June 2021 where he exercised for 7.5 METS with no evidence of ischemia. She had a Coronary CT which demonstrated Moderate calcification noted in the midsegment of the left anterior descending artery and mild calcification noted in the mid circumflex artery. She underwent a stress test in march, there was not obvious ischemia but she did have chest pain with exertion. This was concerning for angina. On account of continual symptoms despite a negative stress test, she underwent a heart catheterization on 08/02/2023 that showed left main is angiographically normal, LAD with moderate calcification, circumflex with mild luminal irregularities less than 30%, and RCA with mild luminal irregularities. She proceeded with drug-eluting stent to proximal LAD. Ejection fraction was reported at 60%. Recommendation Anesthesia Recommendation Anesthesia recommendation: OPTIMIZED for anesthesia (Cleared by cardiology, clearance in chart )
[2024-11-13] VITALS (11 sets, daily range): BP systolic 116–161; BP diastolic 57–80; PULSE 61–84; RESP 16; TEMP 36.5–37.4; O2SAT 93–97; BMI 34.1
[2024-11-13] MEDS: 0.9% Normal Saline (1000mL) 1,000 ML 15 ML IV (06:35)
--- NOTE | 2024-11-13 07:13 | PCM.PRE.AN2 ---
ASA Classification* ASA Classification ASA Classification: 2 Assessment & Plan Anesthesia* Anesthesia Assessment Anesthesia Assessment: Discussed sedation and/or anesthesia options, risks, benefits, and alternatives with patient/parents/legal guardian/POA. Questions invited. The patient/parents/legal guardian/POA seems to understand and agrees to proceed with anesthesia plan. Reviewed the physical assessment, medical history, allergy history and patient home medications list prior to surgery/procedure/anesthetic and documented any changes. Performed airway and anesthesia risk assessments. Anesthesia Type Anesthesia Type: General and Block Anesthesia Focused Assessment* Temperature: 99.3 F Pulse Rate: 61 Blood Pressure: 134/77 Respiratory Rate: 16 Pulse Ox: 97 Airway Assessment Mouth opens: >3 cm Mallampati Score: II Focused Labs Anesthesia Preop lab: CBC WBC 6.4 K/mm3 (4.4-11.0) 07/31/23 10:24 07/31/23 RBC 4.72 M/mm3 (4.2-5.4) 07/31/23 10:24 07/31/23 Hgb 14.5 g/dL (12.0-15.0) 07/31/23 10:24 07/31/23 Hct 45.4 % (37-47) 07/31/23 10:24 07/31/23 Plt Count 226 K/mm3 (150-450) 07/31/23 10:24 07/31/23 CHEMISTRY Potassium 4.5 mmol/L (3.5-5.1) 07/31/23 10:24 07/31/23 Sodium 140 mmol/L (136-145) 07/31/23 10:24 07/31/23 BUN 18 mg/dL (7-18) 07/31/23 10:24 07/31/23 Creatinine 0.76 mg/dL (0.55-1.02) 07/31/23 10:24 07/31/23 Glucose 94 mg/dL (74-106) 07/31/23 10:24 07/31/23 COAG PT 13.7 SECONDS (11.7-14.9) 07/31/23 10:24 07/31/23 Pre-Assessment Diagnosis/Proposed Procedure Planned Operative Procedure(s): RIGHT FOOT BUNIONECTOMY WITH SECOND THIRD AND FOURTH HAMMERTOE REPAIR Anesthesia History 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 When Was Last Pacemaker Check QUESTION #4 FULL TEXT: You/Your Family Experience fever (hyperthermia) with Anesthesia Last Oral Intake Last Oral intake: Last Oral Intake NPO since 02:00 11/13/24 06:28 Meds taken in AM with sips of Yes 11/13/24 06:28 water? Meds patient instructed to LEVOTHYROXINE 11/13/24 06:28 take am of surgery METOPROLOL PANTOPRAZOLE LAST ASA 11/08/24 PONV PONV - mail caller: PONV - mail caller Female Yes 11/12/24 09:26 HX of Motion Sickness Yes 11/12/24 09:26 HX of N/V After Surgery No 11/12/24 09:26 Non-Smoker Yes 11/12/24 09:26 Duration of Surgery greater Yes 11/12/24 09:26 than 60 minutes Number of Risk Factors 4 11/12/24 09:26 PONV Score Severe Risk 11/12/24 09:26 Height & Weight Height & Weight: Anesthesia: Height & Weight Height 5 ft 5 in 11/13/24 06:28 Weight: 93.1 kg 11/13/24 06:28 Body Mass Index (BMI) 34.1 11/13/24 06:28 Respiratory Assessment Respiratory Assessment - mail caller: Respiratory Tract Infection Hx - mail caller Hx Respiratory Tract Infection No 11/12/24 09:26 STOP Sleep Apnea STOP Sleep Apnea - mail caller: STOP Sleep Apnea - mail caller Hx Hypertension Yes: CONTROLLED WITH MED 11/12/24 09:26 Hx Sleep Apnea No 11/12/24 09:26 CPAP No 08/19/13 08:07 BIPAP No 08/19/13 06:57 Do you snore loudly (louder Yes 11/12/24 09:26 than talking or can be heard Do you often feel tired/ No 11/12/24 09:26 fatigued/ sleepy during daytime? Has anyone observed you stop No 11/12/24 09:26 breathing during sleep? STOP Results Positive 11/12/24 09:26 QUESTION #5 FULL TEXT : Do you snore loudly (louder than talking or can be heard through closed doors)? 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 Specify any problems Hx of Preganancy in last 3 No 11/12/24 09:26 Months Nurse Filling Out Transfusion DSCHRIBER 11/12/24 09:26 & Questions: Date: 11/12/24 11/12/24 09:26 Time: 09:28 11/12/24 09:26 Patient unable to answer at this time (ie. confused, unrespo /Reproduction History /Reproductive History - mail caller: /Reproductive Hx- mail caller Hx Now No 11/12/24 09:26 Gestational Age (in weeks): EDC: Hx Hx Para Hx Section SAB No 11/12/24 09:26 Active Medications Active Medications: Current Medications Generic Name Dose Route Start Last Admin Trade Name Freq PRN Reason Stop Dose Admin Cefazolin Sodium 2 gm/ N/A 20 mls @ 400 mls/hr 11/13/24 07:30 IV 11/13/24 07:32 PREOP ONE Sodium Chloride 1,000 mls @ 15 mls/hr 11/13/24 06:05 11/13/24 06:35 IV 15 mls/hr .Q48H CINTHIA Administration PFSH Medical History Wears glasses Post-menopausal Arthritis Fatty liver High cholesterol Easy bruising Back pain History of hiatal hernia Non-smoker Shortness of breath on exertion History of pain when walking History of stress test Cardiology follow-up encounter GERD (gastroesophageal reflux disease) Hypothyroidism Obesity Atherosclerosis of coronary artery of [place] heart without angina pectoris HLD (hyperlipidemia) Essential (primary) hypertension Home Medications ?Medication ?Instructions ?Recorded ?Last Taken ?Type multivitamin,rl-jedj-qoceebxx 1 tab PO DAILY 06/25/19 11/12/24 History (Complete Multivitamin tablet) levothyroxine 112 mcg tablet 112 mcg PO DAILY 07/19/20 11/13/24 History nitroglycerin 0.4 mg sublingual 0.4 mg sublingual Q5-15M PRN chest 04/04/23 Unknown Rx tablet (Nitrostat) pain #25 tabs aspirin 81 mg tablet,delayed 81 mg PO DAILY 08/14/23 11/08/24 History release metoprolol tartrate 25 mg tablet 12.5 mg (1/2 x 25 mg) PO BID #90 07/29/24 11/13/24 Rx tabs pravastatin 10 mg tablet 10 mg PO QHS #90 tabs 07/29/24 11/12/24 Rx calcium 600 mg (as 2 tab PO QDAY 08/10/24 11/12/24 History carbonate)-vitamin D3 20 mcg (800 unit) tablet glucosamine 750 dq-rtosftratzl-tbn 1 tab PO BID 08/10/24 11/12/24 History no1 644 mg-C 30 mg-luis 1 mg tablet (Osteo Bi-Flex Triple Strength) turmeric root extract 500 mg 500 mg PO BID 08/10/24 11/12/24 History capsule vitamin B complex 1 tab PO QDAY 08/10/24 11/12/24 History elderberry fruit 200 mg capsule 200 mg PO DAILY 11/12/24 11/11/24 History pantoprazole 40 mg tablet,delayed 40 mg PO DAILY 11/12/24 11/13/24 History release (Protonix) zinc gluconate 50 mg tablet 50 mg PO DAILY 11/12/24 11/12/24 History Allergy/AdvReac Type Severity Reaction Status Date / Time triamterene (Triamterene) Allergy Rash Verified 11/12/24 09:23 venom-honey bee (bee venom Allergy Swelling Verified 11/12/24 09:23 (honey bee)) Family History Mother CAD (coronary artery disease) Hypertension Father CAD (coronary artery disease) Hypertension CVA (cerebral vascular accident) Brother CAD (coronary artery disease) Stents Myocardial infarction, Onset Age: 64 Brother CAD (coronary artery disease) CABG Myocardial infarction Other Atherosclerosis of coronary artery of [place] heart without angina pectoris Essential (primary) hypertension HLD (hyperlipidemia) Surgical History History of esophagogastroduodenoscopy (EGD) Hx of colonoscopy Hx of parathyroidectomy Stented coronary artery (08/02/23) History of left heart catheterization (05/07/13) Hx laparoscopic cholecystectomy History of LAVH History of carpal tunnel surgery Social History Smoking Status: Never smoker alcohol intake: never substance use type: does not use caffeine: Yes what type of physical activity do you participate in: walking seatbelt use: sometimes do you feel safe at home: Yes 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
--- NOTE | 2024-11-13 07:30 | RAD_ITS ---
EXAM: XR Right Foot, 2 Views CLINICAL INDICATION: RT FOOT BUNYONECTOMY AND 2ND 3RD AND 4TH HAMMERTOE CORRECTION TECHNIQUE: Frontal and lateral views of the right foot. COMPARISON: No relevant prior studies available. FINDINGS: BONES/JOINTS: Multiple spot images were used intraoperatively. Fixation hardware noted of the 1st tarsometatarsal joint via fixation plate and screws. Fixation screws of the 2nd, 3rd, and 4th middle phalanx. No acute fracture. No dislocation. OTHER FINDINGS: Total fluoroscopy time 121.3 seconds. Total radiation dose 2.29 mGy. 5 spot images were obtained. RAD/Foot 2 Views IMPRESSION: Intraoperative fluoroscopic spot images as above. Please refer to the operativ e note for further details. Reading Location: [facility]
[2024-11-13] MEDS: Cefazolin 2 GM in Syringe IV (07:50)
--- NOTE | 2024-11-13 10:28 | OP.PCM_ITS ---
Operative Report (Standard) Operative Information Date of Procedure: 11/13/24 Pre-Operative Diagnosis: 1) Hallux Valgus, Right foot 2) Hammertoes to digits 2,3,4 right foot Post-Operative Diagnosis: same Surgery/Procedure Performed: 1) Bunionectomy via lapiplasty, right foot 2) hammertoe correction x3 via PIPJ arthrodesis right 2nd, 3rd and 4th toes supervisor instrument maintenance: Yes Structural Draftsman: MAURICIO Tasks completed by conservation assistant: Opening, Closing and Implanting device Type of Anesthesia: General RN Documented Start/Stop Times: Operation Date: 11/13/24 07:30 Case Time Into Pre-Op 11/13/24 06:02 Anesthesia Start 11/13/24 07:35 Into Room 11/13/24 07:35 Procedure Start 11/13/24 07:58 Procedure End 11/13/24 10:10 Anesthesia End 11/13/24 10:14 Out of Room 11/13/24 10:14 Into Recovery 11/13/24 10:17 Procedure Start Time: 07:45 Procedure Stop Time: 10:15 Select all DRAINS/GRAFTS/IMPLANTS that apply: None and Implanted device Implanted device details: [employer] phalinx x3, 2 4 prong speed plates treami Estimated Blood Loss: minimal Specimen collected: No Description of surgery: Preoperative Diagnosis: * Right foot hallux valgus (bunion deformity) * Right first TMT joint arthritis * Hammertoes of the 2nd, 3rd, and 4th toes * Right second to fourth toe deformities requiring correction Postoperative Diagnosis: * Right foot hallux valgus * Right first TMT joint arthritis * Hammertoes of the 2nd, 3rd, and 4th toes Procedure Performed: * Right Foot Bunionectomy via Lapiplasty * First TMT Joint Fusion with 2 Treace Speedplates * Hammertoe Repairs to Toes 2, 3, and 4 * PIPJ Arthrodesis using [employer] Phalanx Implants * MPJ Capsulotomies Indications for Surgery: The patient is a [64] year-old female who presented with significant right foot hallux valgus deformity, associated with first TMT joint arthritis. The patient also exhibited hammertoes affecting the 2nd, 3rd, and 4th toes, leading to difficulty with gait, footwear, and significant discomfort. Conservative treatments, including orthotics and shoe modifications, were unsuccessful in managing the symptoms. Given the severity of the deformity and the failure of conservative management, surgical correction was recommended and consent was obtained. Procedure Details: The patient was positioned supine on the operating table with the right foot draped in a sterile fashion. General anesthesia was administered, and the extremity was prepped and draped in the usual sterile manner. A thigh tourniquet was placed on the right thigh and inflated to 300 mmHg prior to making the incision. Fluoroscopy was used throughout the case for guidance and verification of appropriate alignment and positioning. * Bunionectomy via Lapiplasty: A longitudinal incision was made over the dorsomedial aspect of the first tarsometatarsal joint. Dissection was carried down to the capsule and periosteum. The first TMTJ was exposed, and dissected out. The metatarsal was then repositioned using a Lapiplasty system reducing IM 1,2. A medial release was performed, and the first metatarsal was realigned into proper position. The alignment was confirmed fluoroscopically. * First TMT Joint Fusion with Treace Speedplates: The first TMT joint was identified, and joint surfaces were prepared for fusion. using the guided saw cuts, then flushing, followed by subchondral drilling with a 2.0 drill bit. Two Treace Speedplates were used for fixation of the first TMT joint, placed in a 90/90 orientation for optimal stability. One plate was placed dorsally, and the other plate was placed medially. The joint surfaces were appropriately compressed, and the plates were secured with screws to ensure fusion. The po sition was again confirmed fluoroscopically, and adequate joint alignment was noted. * Hammertoe Repair and PIPJ Arthrodesis: For toes 2, 3, and 4, each toe was approached through a dorsal incision. The appropriate tendons and joint capsules were released to correct the hammertoe deformity. Phalangeal head resections were performed, followed by PIPJ arthrodesis using [employer] Phalanx implants. The implants were secured in place, ensuring proper alignment and fixation. The joints were stabilized in the corrected position, and final alignment was confirmed under fluoroscopy. * MPJ Capsulotomies: Capsular releases were performed at the metatarsophalangeal joints of the second, third, and fourth toes to allow for optimal joint alignment and improve postoperative function. The capsules were re- approximated after the correction of the hammertoe deformities. Hemostasis: Hemostasis was achieved using electrocautery throughout the procedure. No significant bleeding complications were noted. The thigh tourniquet was released prior to the closure of the incisions, and hemostasis was carefully verified. The surgical site was irrigated thoroughly with saline. Closure: The incisions were closed in layers with absorbable sutures for deep tissues and non-absorbable sutures for skin closure. Sterile dressings and a surgical boot were applied to the right foot. Postoperative Plan: * The patient will be placed in a splint for 2 weeks non-weightbearing, then be transferred to a boot for protected weightbearing * Follow-up appointments will be scheduled to monitor the healing of the foot and evaluate fusion at the first TMT joint. * Pain management with NSAIDs and narcotics as needed. * Physical therapy will be initiated once fusion has progressed and weight- bearing is permitted. * The patient will be instructed on wound care and signs of infection to watch for. Complications: There were no intraoperative complications. The patient tolerated the procedure well. Surgical Findings: as dictated above Complications Complications: No
--- NOTE | 2024-11-13 11:00 | PCM.POST.ANE ---
Anesthesia: Postop Eval I Current Vital Signs Temperature: 97.7 F Pulse Rate: 61 Blood Pressure: 116/70 Respiratory Rate: 16 Pulse Ox: 97 Oxygen Delivery Method: Room Air Assessment Airway patent: Yes Spontaneous unlabored respirations: Yes nausea: No Vomiting: No Anesthesia Complication: No Fluid Hydration Crystalloid volume administer (ml): 200 Total IV fluid infused: 200 Progress Note Anesthesia document: Postop Eval 1 completed: Yes
--- NOTE | 2024-11-13 15:15 | PCM.POSTANE2 ---
Anesthesia Postop Eval I Sum Postop Eval Completion status Anesthesia document: Postop Eval 1 completed: Yes Anesthesia Postop Eval I Summary Anesthesia Postop Eval I Summary: Anesthesia Postop Eval I: Assessment Summary Airway patent Yes 11/13/24 14:45 Spontaneous unlabored Yes 11/13/24 14:45 respirations Mental status nausea No 11/13/24 14:45 Vomiting No 11/13/24 14:45 Anesthesia Postop Eval I: Fluid Summary Crystalloid volume administer 200 11/13/24 14:45 (ml) Colloids volume administered ( ml) Blood Product volume administered (ml) Total IV fluid infused 200 11/13/24 14:45 Anesthesia Postop Eval I: Summary Notes Anesthesia Complication No 11/13/24 14:45 Anesthesia Complication Comment: Post-operative progress note Anesthesia: Postop Eval II Evaluation Mental status: Awake Pain Level: 0 nausea: No Vomiting: No
== END 2024-11-13 12:07 | disposition home or self-care (01) ==
LOC: SDC 05:51 → AC 05:52
PROVIDERS: PCP Student in an Organized Health Care Education/Training Program; Referring Provider Podiatrist; Visit Provider Podiatrist
PROC: (CPT 28292; principal; 2024-11-13 07:15)
DX: M20.11 Hallux valgus (acquired), right foot (principal); M20.41 Other hammer toe(s) (acquired), right foot; M19.071 Primary osteoarthritis, right ankle and foot; I25.10 Atherosclerotic heart disease of native coronary artery without angina pectoris; I10 Essential (primary) hypertension; E03.9 Hypothyroidism, unspecified; E78.2 Mixed hyperlipidemia; Z95.5 Presence of coronary angioplasty implant and graft; Z79.02 Long term (current) use of antithrombotics/antiplatelets; Z79.82 Long term (current) use of aspirin; Z79.890 Hormone replacement therapy; Z79.899 Other long term (current) drug therapy
CPT/HCPCS: 28740; 28285 ×3; 28270 ×3; 64450; 73620; 76000; C1713; J2405

== ENCOUNTER → 2024-12-17 | Outpatient (CLI) | payer MEDICARE, OTHER, SELFPAY | END | disposition home or self-care (01) | LOC: LABSPEC 16:33 | PROVIDERS: PCP Student in an Organized Health Care Education/Training Program; Visit Provider Surgery | DX: L97.512 Non-pressure chronic ulcer of other part of right foot with fat layer exposed (principal) | CPT/HCPCS: 87070; 87075; 87077; 87205 ==

== ENCOUNTER 2025-02-02 16:17 | Emergency (ER) | payer MEDICARE, OTHER, SELFPAY ==
[2025-02-02 16:19] VITALS: BP 140/81; PULSE 56; RESP 18; TEMP 36.5; O2SAT 99; BMI 34.1
--- NOTE | 2025-02-02 16:55 | ED.VIS.LOWEX ---
HPI History of Present Illness Chief Complaint: Edema Narrative Narrative: Six 4-year-old female past medical history of coronary artery disease with stenting, states she had foot surgery by Dr. Brown 2 months ago. Over the last few weeks she may have started having increased swelling of her right lower extremity as she has been more immobile. She denies any chest pain or shortness of breath. She went saw her cover maker today who wrote for outpatient ultrasound. She presents to the emergency department with positive DVT study. It was reported that the right peroneal vein is dilated noncompressible from the mid calf to the ankle. The proximal portion is compressible. [facility] Medical History Wears glasses Post-menopausal Arthritis Fatty liver High cholesterol Easy bruising Back pain History of hiatal hernia Non-smoker Shortness of breath on exertion History of pain when walking History of stress test Cardiology follow-up encounter GERD (gastroesophageal reflux disease) Hypothyroidism Obesity Atherosclerosis of coronary artery of pala heart without angina pectoris HLD (hyperlipidemia) Essential (primary) hypertension Home Medications ?Medication ?Instructions ?Recorded ?Last Taken ?Type multivitamin,[id number] 1 tab PO DAILY 06/25/19 11/12/24 History (Complete Multivitamin tablet) levothyroxine 112 mcg tablet 112 mcg PO DAILY 07/19/20 11/13/24 History nitroglycerin 0.4 mg sublingual 0.4 mg sublingual Q5-15M PRN chest 04/04/23 Unknown Rx tablet (Nitrostat) pain #25 tabs metoprolol tartrate 25 mg tablet 12.5 mg (1/2 x 25 mg) PO BID #90 07/29/24 11/13/24 Rx tabs pravastatin 10 mg tablet 10 mg PO QHS #90 tabs 07/29/24 11/12/24 Rx calcium 600 mg (as 2 tab PO QDAY 08/10/24 11/12/24 History carbonate)-vitamin D3 20 mcg (800 unit) tablet glucosamine 750 vj-[id number] 1 tab PO BID 08/10/24 11/12/24 History no1 644 mg-C 30 mg-luis 1 mg tablet (Osteo Bi-Flex Triple Strength) turmeric root extract 500 mg 500 mg PO BID 08/10/24 11/12/24 History capsule vitamin B complex 1 tab PO QDAY 08/10/24 11/12/24 History elderberry fruit 200 mg capsule 200 mg PO DAILY 11/12/24 11/11/24 History pantoprazole 40 mg tablet,delayed 40 mg PO DAILY 11/12/24 11/13/24 History release (Protonix) zinc gluconate 50 mg tablet 50 mg PO DAILY 11/12/24 11/12/24 History acetaminophen 500 mg capsule 500 mg PO Q6H PRN fever or pain 11/13/24 Unknown Rx #30 caps aspirin 81 mg tablet,delayed 162 mg (2 x 81 mg) PO DAILY 14 11/13/24 Unknown Rx release days #28 tabs ibuprofen 600 mg tablet 600 mg PO Q6H PRN fever or pain 11/13/24 Unknown Rx #30 tabs oxycodone 5 mg tablet 5 mg PO Q4H PRN pain 7 days #42 11/13/24 Unknown Rx tabs apixaban 5 mg (74 tabs) tablets in See Rx Instructions PO .COMPLEX 02/02/25 Unknown Rx a dose pack (Eliquis DVT-PE Treat #74 tabs 30D Start) Allergy/AdvReac Type Severity Reaction Status Date / Time triamterene (Triamterene) Allergy Rash Verified 02/02/25 16:18 venom-honey bee (bee venom Allergy Swelling Verified 02/02/25 16:18 (honey bee)) Family History Mother CAD (coronary artery disease) Hypertension Father CAD (coronary artery disease) Hypertension CVA (cerebral vascular accident) Brother CAD (coronary artery disease) Stents Myocardial infarction, Onset Age: 64 Brother CAD (coronary artery disease) CABG Myocardial infarction Other Atherosclerosis of coronary artery of pala heart without angina pectoris Essential (primary) hypertension HLD (hyperlipidemia) Surgical History History of esophagogastroduodenoscopy (EGD) Hx of colonoscopy Hx of parathyroidectomy Stented coronary artery (08/02/23) History of left heart catheterization (05/07/13) Hx laparoscopic cholecystectomy History of LAVH History of carpal tunnel surgery Social History Smoking Status: Never smoker alcohol intake: never substance use type: does not use caffeine: Yes what type of physical activity do you participate in: walking seatbelt use: sometimes do you feel safe at home: Yes additional social history: [employer] Patient is currently unemployed ROS ROS ED ROS Narrative Review of systems positive for right lower extremity swelling postoperatively. Positive pain. No chest pain, no shortness of breath. Denies other symptoms. EXAM Physical Exam Narrative Exam Narrative: Afebrile. Vital signs noted. Nontoxic-appearing. Cardiovascular examination reveals mild bradycardia. Lungs clear to auscultation bilaterally. Abdomen soft and nontender with normoactive bowel sounds. Neurological examination is nonfocal, nonlateralizing. Right lower extremity is wrapped in Lavelle bandage with postoperative shoe. Mild swelling noted diffusely. Const Vital Signs: 02/02/25 16:19 02/02/25 16:27 Temperature 97.7 F L Temperature Source Temporal Pulse Rate 56 L Respiratory Rate 18 Respiratory Pattern Normal Blood Pressure 140/81 H Blood Pressure Mean 100 Pulse Ox 99 Oxygen Delivery Method Room Air MDM MDM MDM Narrative Medical decision making narrative: I do not feel differential diagnosis is applicable here. I do not feel she requires lab work or CT scanning of the chest. I reviewed the venous Doppler report and as stated previously she has a right peroneal vein that is dilated and noncompressible from mid calf to ankle. Although it is below the knee, she will be started on Eliquis and given her first dose of 10 mg here. She was told of the risk of intracranial hemorrhage and GI bleeding. She should stop her baby aspirin as she will be anticoagulated. She was referred to Dr. May for further management of the DVT. Return instructions to the emergency department were reviewed. Disposition is discharged home in stable condition. History & Record Review Discussion w/independent historian: Patient Discharge Plan Triage Chief Complaint: Edema ED Provider: Jason Philip Dx/Rx/DC Orders Clinical Impression: DVT (deep venous thrombosis), History of foot surgery Instructions: ED Deep Vein Thrombosis (DVT) Prescriptions: New Eliquis DVT-PE Treat 30D Start 5 mg (74 tabs) tablets,dose pack See Rx Instructions .ROUTE .COMPLEX Qty: 74 0RF Rx Instructions: orally per package directions No Action Complete Multivitamin Tablet 1 tab PO DAILY levothyroxine 112 mcg tablet 112 mcg PO DAILY Patient Comments: TAKE 1 TABLET BY MOUTH ONCE DAILY turmeric root extract 500 mg capsule 500 mg PO BID Osteo Bi-Flex Triple Strength 750 mg-644 mg- 30 mg-1 mg tablet 1 tab PO BID vitamin B complex Tablet 1 tab PO QDAY calcium carbonate-vitamin D3 600 mg-20 mcg (800 unit) tablet 2 tab PO QDAY elderberry fruit 200 mg capsule 200 mg PO DAILY pantoprazole [Protonix] 40 mg tablet,delayed release (DR/EC) 40 mg PO DAILY zinc gluconate 50 mg tablet 50 mg PO DAILY oxycodone 5 mg tablet 5 mg PO Q4H PRN (Reason: pain) 7 Days Qty: 42 0RF aspirin 81 mg tablet,delayed release (DR/EC) 162 mg PO DAILY 14 Days Qty: 28 0RF acetaminophen 500 mg capsule 500 mg PO Q6H PRN (Reason: fever or pain) Qty: 30 0RF ibuprofen 600 mg tablet 600 mg PO Q6H PRN (Reason: fever or pain) Qty: 30 0RF nitroglycerin [Nitrostat] 0.4 mg tablet, sublingual 0.4 mg sublingual Q5-15M PRN (Reason: chest pain) Qty: 25 3RF Rx Instructions: do not exceed 3 doses per episode metoprolol tartrate 25 mg tablet 12.5 mg PO BID Qty: 90 3RF pravastatin 10 mg tablet 10 mg PO QHS Qty: 90 3RF Primary Care Provider: Vijay Park Referrals: Trevin May MD [Med Staff - Active Staff] - 1-2 Weeks Vijay Park DO [Primary Care Provider] - Activity Restrictions/Additional Instructions: Take your Eliquis as directed. Return with chest pain, shortness of breath, new or worsening symptoms. You may need to stop taking your baby aspirin as you are all already be on a blood thinner. Print Language: Mohawk Disposition Disposition: Home, Self Care
[2025-02-02] MEDS: APIXABAN 5 MG TABLET 10 MG PO (17:03)
== END 2025-02-02 17:15 | disposition home or self-care (01) ==
PROVIDERS: Emergency Provider Emergency Medicine; PCP Student in an Organized Health Care Education/Training Program; Visit Provider Emergency Medicine
DX: I82.401 Acute embolism and thrombosis of unspecified deep veins of right lower extremity (principal); I25.10 Atherosclerotic heart disease of native coronary artery without angina pectoris; E78.00 Pure hypercholesterolemia, unspecified; I10 Essential (primary) hypertension; Z95.5 Presence of coronary angioplasty implant and graft; E03.9 Hypothyroidism, unspecified; Z79.890 Hormone replacement therapy; Z79.899 Other long term (current) drug therapy; K21.9 Gastro-esophageal reflux disease without esophagitis; Z79.82 Long term (current) use of aspirin; Z90.49 Acquired absence of other specified parts of digestive tract
CPT/HCPCS: 99282

== ENCOUNTER → 2025-02-02 | Outpatient (CLI) | payer MEDICARE, OTHER, SELFPAY ==
--- NOTE | 2025-02-02 15:34 | VDLE_ITS ---
Reason For Study Reason For Study: SWELLING RIGHT LEFT GSV is normal. GSV is normal. CFV is compressible, spontaneous, phasic, competent CFV is compressible, spontaneous, phasic, competent, and demonstrates normal augmentation. and demonstrates normal augmentation. FV is compressible, spontaneous, phasic, competent FV is compressible, spontaneous, phasic, competent and demonstrates normal augmentation. and demonstrates normal augmentation. POP V is compressible, spontaneous, phasic, competent POP V is compressible, spontaneous, phasic, competent and demonstrates normal augmentation. and demonstrates normal augmentation. T/P Trunk is compressible. T/P Trunk is compressible. PTV is compressible. PTV is compressible. RT PerV is DILATED & NONCOMPRESSIBLE from mid calf to LT PerV is compressible. ankle. Prox RT PerV is compressible. Procedure This is a venous duplex using B-mode, color flow and spectral Doppler. Exam performed in department. A preliminary report was called and/or faxed to Dr. Brown @ 16:00. Instructed to take PT to ED. VL/Venous Duplex US - Héctor Extrem Interpretation Summary Acute deep vein thrombosis is noted in the right peroneal vein. Deep veins of the left lower extremity are patent and compressible segmentally. There is no evidence of left lower extremity deep vein thrombosis. The bilateral great saphenous veins appear house nt and compressible segmentally. Ordering Physician: Luis A Brown Referring Physician: Vijay Park Performed By: Venessa Maher, ISSACCS, RVT
== END | disposition home or self-care (01) ==
LOC: CVS 14:58
PROVIDERS: PCP Student in an Organized Health Care Education/Training Program; Referring Provider Podiatrist; Visit Provider Podiatrist
DX: M79.604 Pain in right leg (principal); M79.605 Pain in left leg; R22.41 Localized swelling, mass and lump, right lower limb; R22.42 Localized swelling, mass and lump, left lower limb
CPT/HCPCS: 93970

== ENCOUNTER → 2025-03-22 | Outpatient (CLI) | payer MEDICARE, OTHER, SELFPAY ==
--- NOTE | 2025-03-22 10:02 | VDLE_ITS ---
Reason For Study Reason For Study: Pain RLE RIGHT LEFT GSV is normal. CFV is compressible, spontaneous, phasic, competent, CFV is compressible, spontaneous, phasic, competent and demonstrates normal augmentation. and demonstrates normal augmentation. FV is compressible, spontaneous, phasic, competent and demonstrates normal augmentation. POP V is compressible, spontaneous, phasic, competent and demonstrates normal augmentation. T/P Trunk is compressible. PTV is compressible. Rt mid PeroV and Rt SoleusV are DILATED and NON COMPRESSIBLE consistent with acute DVT. SFJ is competent and measures 0.87cm x 0.87 cm. GSV proximal thigh measures 0.42cm x 0.50 cm. GSV at knee measures 0.38cm x 0.46 cm. GSV is competent throughout. SSV mid calf is competent and measures 0.21cm x 0.21 cm. Procedure This is a venous duplex using B-mode, color flow and spectral Doppler. Exam performed in department. A preliminary report was called and/or faxed to Dr. Yadira Gayle. VL/Venous Duplex US, Unilateral Interpretation Summary Acute deep vein thrombosis noted in the right peroneal vein, unchanged from pre vious study. Acute deep vein thrombosis noted in the right soleus vein, new since prior stud y. Negative for reflux. Ordering Physician: Lyssa Montgomery Referring Physician: Vijay Park Performed By: Briana Pete, ISSACCS, RVT
== END | disposition home or self-care (01) ==
PROVIDERS: PCP Student in an Organized Health Care Education/Training Program; Referring Provider Physician Assistant; Visit Provider Physician Assistant
DX: R60.0 Localized edema (principal); I82.409 Acute embolism and thrombosis of unspecified deep veins of unspecified lower extremity
CPT/HCPCS: 93971

== ENCOUNTER → 2025-03-29 | Outpatient (CLI) | payer MEDICARE, OTHER, SELFPAY ==
--- NOTE | 2025-03-29 13:49 | VDLE_ITS ---
Reason For Study Reason For Study: Pain RLE RIGHT LEFT GSV is normal. CFV is compressible, spontaneous, phasic, competent, CFV is compressible, spontaneous, phasic, competent and demonstrates normal augmentation. and demonstrates normal augmentation. FV is compressible, spontaneous, phasic, competent and demonstrates normal augmentation. POP V is compressible, spontaneous, phasic, competent and demonstrates normal augmentation. T/P Trunk is compressible. PTV is compressible. Rt PeroV mid and Rt Soleus V are NON COMPRESSIBLE. Procedure This is a venous duplex using B-mode, color flow and spectral Doppler. Exam performed in department. A preliminary report was called and/or faxed to Lyssa HERNANDEZ. VL/Venous Duplex US, Unilateral Interpretation Summary Acute deep vein thrombosis noted in the right peroneal vein, soleus vein. Unchanged from prior study. Ordering Physician: Lyssa Montgomery Referring Physician: Vijay Park Performed By: Briana Pete, [place], RVT
== END | disposition home or self-care (01) ==
LOC: CVS 13:46
PROVIDERS: PCP Student in an Organized Health Care Education/Training Program; Referring Provider Physician Assistant; Visit Provider Physician Assistant
DX: M79.604 Pain in right leg (principal); I82.409 Acute embolism and thrombosis of unspecified deep veins of unspecified lower extremity
CPT/HCPCS: 93971

== ENCOUNTER → 2025-04-07 | Outpatient (CLI) | payer MEDICARE, OTHER, SELFPAY ==
--- NOTE | 2025-04-07 09:54 | VDLE_ITS ---
Reason For Study Reason For Study: Swelling RIGHT LEFT GSV is normal. CFV is compressible, spontaneous, phasic, competent, CFV is compressible, spontaneous, phasic, competent and demonstrates normal augmentation. and demonstrates normal augmentation. FV is compressible, spontaneous, phasic, competent and demonstrates normal augmentation. POP V is compressible, spontaneous, phasic, competent and demonstrates normal augmentation. T/P Trunk is compressible. PTV is compressible. Rt PeroV mid and Rt Soleus V are NON COMPRESSIBLE. Procedure This is a venous duplex using B-mode, color flow and spectral Doppler. Exam performed in department. VL/Venous Duplex US, Unilateral Interpretation Summary Acute deep vein thrombosis noted in the right peroneal vein, soleus vein. Unchanged from prior study. Ordering Physician: Lyssa Montgomery Referring Physician: Lyssa Montgomery Performed By: Kavya Winters RVT
--- NOTE | 2025-04-07 09:54 | VDLE_ITS ---
Reason For Study Reason For Study: Swelling RIGHT LEFT GSV is normal. CFV is compressible, spontaneous, phasic, competent, CFV is compressible, spontaneous, phasic, competent and demonstrates normal augmentation. and demonstrates normal augmentation. FV is compressible, spontaneous, phasic, competent and demonstrates normal augmentation. POP V is compressible, spontaneous, phasic, competent and demonstrates normal augmentation. T/P Trunk is compressible. PTV is compressible. Rt PeroV mid and Rt Soleus V are NON COMPRESSIBLE. Procedure This is a venous duplex using B-mode, color flow and spectral Doppler. Exam performed in department. VL/Venous Duplex US, Unilateral Interpretation Summary Acute deep vein thrombosis noted in the right peroneal vein, soleus vein. Unchanged from prior study. Ordering Physician: Lyssa Montgomery Referring Physician: Lyssa Montgomery Performed By: Kavya Winters RVT
== END | disposition home or self-care (01) ==
LOC: CVS 09:53
PROVIDERS: PCP Student in an Organized Health Care Education/Training Program; Referring Provider Physician Assistant; Visit Provider Physician Assistant
DX: M79.604 Pain in right leg (principal)
CPT/HCPCS: 93971

== ENCOUNTER → 2025-04-27 | Outpatient (CLI) | payer MEDICARE, OTHER, SELFPAY ==
--- NOTE | 2025-04-27 12:46 | VDLE_ITS ---
Reason For Study Reason For Study: Right leg DVT RIGHT LEFT GSV is normal. CFV is compressible, spontaneous, phasic, competent, CFV is compressible, spontaneous, phasic, competent and demonstrates normal augmentation. and demonstrates normal augmentation. FV is compressible, spontaneous, phasic, competent and demonstrates normal augmentation. POP V is compressible, spontaneous, phasic, competent and demonstrates normal augmentation. T/P Trunk is compressible. PTV is compressible. PeroV is partially compressible and no longer dilated. Soleus V is NONCOMPRESSIBLE. Procedure This is a venous duplex using B-mode, color flow and spectral Doppler. Exam performed in department. Compared to 04/07/2025. VL/Venous Duplex US, Unilateral Interpretation Summary Acute deep vein thrombosis noted in the right peroneal vein, soleus vein. Partial resolution from prior study. Ordering Physician: Lyssa Montgomery Referring Physician: Vijay Park Performed By: Vicenta Cervantes RVT
== END | disposition home or self-care (01) ==
LOC: CVS 12:46
PROVIDERS: PCP Student in an Organized Health Care Education/Training Program; Referring Provider Physician Assistant; Visit Provider Physician Assistant
DX: M79.89 Other specified soft tissue disorders (principal); I82.409 Acute embolism and thrombosis of unspecified deep veins of unspecified lower extremity
CPT/HCPCS: 93971

== ENCOUNTER → 2025-07-20 | Outpatient (CLI) | payer MEDICARE, OTHER, SELFPAY ==
--- OUTSIDE RECORDS SUMMARY | 2025-07-20 07:06 | XMS RPT_ITS | CCD ---
Author Organization [facility] Care Team Providers Care Auto Technician Name Role Phone DeFinNamita lipscomb Y Unavailable Unavailable DeFinIam lipscombumi Y Unavailable Unavailable Vijay Park DO Primary Care Provider Vijay Park DO Primary Care Provider Vijay Park DO Primary Care Provider Vijay Park DO Primary Care Provider Dr. Vijay Park Primary Care Provider Michele WILDER, TOÑO Duval Other Provider Dr. Mohamud Juarez Attending Provider Dr. Vijay Park Primary Care Provider Dr. Mohamud Juarez Attending Provider Dr. Mohamud Juarez Referring Provider Dr. Mohamud Juarez Other Provider Dr. Vijay Park Primary Care Provider Dr. Vijay Park Referring Provider Des HERNANDEZ, PA Susi Faustin Attending Provider Dr. Mohamud Juarez Attending Provider Dr. Mohamud Juarez Referring Provider Dr. Mohamud Juarez Other Provider Vijay Park DO Primary Care Provider Yari Moore APRN.CNP Unavailable Orquidea Leong APRN.CNP Unavailable Park DO, Dr. Vijay Primary Care Provider [phone] Dr. Vijay Park DO Referring Provider Charlie Pham Attending Provider Stephanie DPM, Dr. Gunn Attending Provider Stephanie DPM, Dr. Gunn Referring Provider Xavier MURRAY, Dr. Linares Primary Care Provider Nidhi JONES, Dr. Hernandez Attending Provider Moore RECORDING STUDIO SET UP WORKER.LAST INSERTER, Yari Leal Unavailable Yadira JONES, Dr. Zhong Attending Provider Tamera JONES, Jason Attending Provider Jason Philip MD Emergency Provider Nathaly RECORDING STUDIO SET UP WORKER.LAST INSERTER, Asia Sullivan Unavailable Xavier MURRAY, Dr. Linares Referring Provider Lyssa Delgado Attending Provider Xavier MURRAY, Dr. Linares Primary Care Provider Stephanie DPM, Dr. Gunn Attending Provider Stephanie ARANA, Dr. Gunn Referring Provider Lyssa Delgado Referring Provider [phone] Xavier MURRAY, Dr. Linares Primary Care Provider Charlie Pham Attending Provider YARI MOORE Attending Unavailabl e VIJAY PARK Primary Care Unavailable VIJAY PARK Referring Unavailable VIJAY PARK Primary Care Unavailable VIJAY PARK Referring Unavailable VIAJY PARK Primary Care Unavailable LEIGH PAL Attending Unavailable VIJAY PARK L Referring Unavailable PARKVIJAY L Primary Care Unavailable DARIUSZ TSAI Attending Unavailable DARIUSZ TSAI Referring Unavailable VIJAY PARK Primary Care Unavailable LEIGH PAL Attending Unavailable LEIGH PAL Referring Unavailable VIJAY PARK Primary Care Unavailable PARK, VIJAY L Primary Care Unavailable LEIGH PAL Referring Unavailable PARK, VIJAY L Primary Care Unavailable DARIUSZ TSAI Attending Unavailable PARK, VIJAY L Primary Care Unavailable PARK, VIJAY L Referring Unavailable PARK, VIJAY L Primary Care Unavailable DARIUSZ TSAI Attending Unavailable PARK, VIJAY L Referring Unavailable PARK, VIJAY L Primary Care Unavailable PARK, VIJAY L Referring Unavailable PARK, VIJAY L Primary Care Unavailable MATTHEW BERMEO Attending Unavailable PARK, VIJAY L Primary Care Unavailable YARI MOORE Attending Unavailabl e PARK, VIJAY L Primary Care Unavailable FRANCK DESAI Referring Unavailable PARK, VIJAY L Primary Care Unavailable PARK, VIJAY L Attending Unavailable PARK, VIJAY L Primary Care Unavailable PARK, VIJAY L Referring Unavailable PARK, VIJAY L Primary Care Unavailable Trevin May Attending Unavailable Valentina, Lyssa Referring Unavailable Park, Vijay Primary Care Unavailable Park, Vijay Primary Care Unavailable Montgomery, Lyssa Referring Unavailable Montgomery, Lyssa Attending Unavailable Park, Vijay Primary Care Unavailable Montgomery, Lyssa Attending Unavailable Montgomery, Lyssa Referring Unavailable Trevin May Attending Unavailable Montgomery, Lyssa Referring Unavailable Prak, Vijay Primary Care Unavailable Park, Vijay Primary Care Unavailable Trevin May Attending Unavailable Montgomery, Lyssa Referring Unavailable Park, Vijay Primary Care Unavailable Park, Vijay Referring Unavailable Charlie Pete Attending Unavailable Park, Vijay Referring Unavailable Park, Vijay Primary Care Unavailable Charlie Pete Attending Unavailable Park, Vijay Primary Care Unavailable Park, Vijay Referring Unavailable RoofCharlie Attending Unavailable Park, Vijay Referring Unavailable Park, Vijay Primary Care Unavailable Montgomery, Lyssa Attending Unavailable Park, Vijay Primary Care Unavailable YadiraTrevin Attending Unavailable Montgomery, Lyssa Referring Unavailable Trevin May Attending Unavailable Luis A Brown Referring Unavailable Park, Vijay Primary Care Unavailable Park, Vijay Primary Care Unavailable David Terrell Attending Unavailable Luis A Brown Referring Unavailable Luis A Brown Attending Unavailable Park, Vijay Primary Care Unavailable Montgomery, Lyssa Referring Unavailable Montgomery, Lyssa Attending Unavailable Park, Vijay Primary Care Unavailable Montgomery, Lyssa Referring Unavailable Montgomery, Lyssa Attending Unavailable Park, Vijay Primary Care Unavailable Reodica, Jason Attending Unavailable Vijay Park Primary Care Unavailable Vijay Park Primary Care Unavailable Luis A Brown Referring Unavailable Luis A Brown Attending Unavailable Allergies Allergy Classification Reported Allergen(s) Allergy Type Date of Onset Reaction(s) Facility (2 sources) Bee/Wasp/Ant venom; Translations: [BEESTINGS] allergy to substance 05-05-20 13 [facility] Work Phone: (20 sources) Grass pollen; Translations: [GRASS POLLEN] Drug Allergy 03-14-20 20 Other: See Comments [facility] (20 sources) hydroCHLOROthiazide / Triamterene; Translations: [TRIAMTERENE-HYDROCHLO ROTHIAZID] Drug Allergy 09-01-20 10 Rash [facility] (20 sources) Bees; Translations: [BEES] Propensity to adverse reactions 12-25-19 [facility] Work Phone: (13 sources) Triamterene Drug Allergy 08-29-20 22 [facility] (13 sources) venom-honey bee Allergy to substance 08-29-20 [facility] (1 source) Triamterene Drug Allergy 07-12-20 [facility] (1 source) venom-honey bee Drug allergy (disorder) 07-12-20 [facility] Medications Current Medications Medication Drug Class(es) Dates Sig (Normalized) Sig (Original) acetaminophen 500 mg oral capsule (10 sources) Start: 11-13-2024 take 1 capsule by mouth every six hours as needed for pain Acetaminophen 500 mg capsule Active 500 mg PO EVERY 6 HOURS as needed for fever or pain 30 November 13, 2024 12:00am aspirin 81 mg delayed release oral tablet (20 sources) Nonsteroidal Anti-inflammatory Drug Start: 05-11-2025 take 1 tablet by mouth once daily Aspirin 81 mg tablet,delayed release (DR/EC) Active 81 mg PO DAILY May 11, 2025 9:51am Start: 11-13-2024 End: 05-11-2025 take 2 tablets by mouth once daily Aspirin 81 mg tablet,delayed release (DR/EC) Discontinued 162 mg PO DAILY 28 14 0 November 13, 2024 12:00am May 11, 2025 9:54am Start: 08-14-2023 End: 11-13-2024 take 1 tablet by mouth once daily Aspirin 81 mg tablet,delayed release (DR/EC) Discontinued 81 mg PO DAILY August 14, 2023 4:56pm November 13, 2024 10:24am Start: 06-05-2023 End: 08-14-2023 take 1 tablet by mouth every other day Aspirin 81 mg tablet,delayed release (DR/EC) Discontinued 81 mg PO .qod June 05, 2023 11:01am August 14, 2023 4:56pm Start: 07-16-2013 End: 06-05-2023 take 1 tablet by mouth once daily Aspirin 81 MG tablet Discontinued 81 mg PO DAILY@0800 July 16, 2013 1:00am June 05, 2023 11:01am Start: 05-13-2013 take 1 tablet by jovani th once daily ASPIRIN 81 MG TABS One tablet by mouth daily ASPIRIN [id number] Mohamud Juarez MD Comment on above: Take 81 mg by mouth. aspirin 1000 mg / caffeine 150 mg oral powder (20 sources) Platelet Aggregation Inhibitor, Nonsteroidal Anti-inflammatory Drug, Central Nervous System Stimulant, Methylxanthine Start: 06-05-2023 aspirin-caffeine 1,000-150 mg pwpk .qod 06/05/2023 Active Comment on above: .qod calcium carbonate 1500 mg / cholecalciferol 800 unt oral tablet (20 sources) Vitamin D Start: 08-10-2024 Calcium Carbonate-Vitamin D3 600 mg-20 mcg (800 unit) tablet Active 2 {tbl} PO daily August 10, 2024 12:14pm Start: 07-16-2013 End: 08-10-2024 Calcium Carbonate-Vitamin D3 1 TAB tablet Discontinued 1 {tbl} PO TWICE DAILY WITH MEALS July 16, 2013 1:00am August 10, 2024 12:16pm Start: 07-16-2013 take 1 tablet by jovani th twice daily at mealtime Calcium Carbonate-Vitamin D3 Active 1 TABLET PO TWICE DAILY WITH MEALS July 16, 2013 12:00am Start: 12-05-2012 take 1 tablet by jovani th three times daily Calcium Carbonate-Vitamin D3 500 mg(1,250mg) -600 unit Chew Take 1 tablet by mouth three times daily. 0 12/05/2012 Active Comment on above: Take 1 tablet by jovani th three times daily. clopidogrel 75 mg oral tablet (20 sources) P2Y12 Platelet Inhibitor Start: 06-24-2024 clopidogrel (PLAVIX) 75 mg tablet TAKE 4 TABLETS BY MOUTH ON DAY ONE, THEN TAKE 1 TABLET DAILY BEGINNING ON DAY TWO. 06/24/2024 Active Start: 03-13-2024 End: 10-19-2024 take 2 tablets by mouth once daily Clopidogrel (Plavix) 75 mg tablet Discontinued 75 mg PO DAILY 93 3 March 13, 2024 12:00am October 19, 2024 10:15pm 300mg (4 pills) day 1, 75mg (1 pill) daily starting day 2 Cranberry (1 source) Non-Standardized Food Allergenic Extract, Non-Standardized Plant Allergenic Extract Start: 05-11-2025 take 1 capsule by mouth twice daily at mealtime Cranberry 500 mg capsule Active 500 mg PO TWICE A DAY May 11, 2025 12:00am administer with meals dexamethasone phosphate 1 mg/ml ophthalmic solution (20 sources) Corticosteroid Start: 07-10-2023 take 1 drop(s) into the eye(s) twice daily as needed dexAMETHasone 0.1 % ophthalmic solution Indications: Eczema of external ear, bilateral 1 Drop two times a day as needed. Into bilateral outer ear canal 5 mL 5 07/10/2023 Active Start: 04-18-2021 End: 07-08-2023 take 1 drop(s) into the eye(s) twice daily as needed dexAMETHasone 0.1 % ophthalmic solution Indications: Eczema of external ear, bilateral 1 Drop two times a day as needed. Into bilateral outer ear canal 5 mL 5 07/10/2023 Active Comment on above: 1 Drop twice daily a s needed. Into bilateral outer ear canal 1 Drop two times a d ay as needed. Into bilateral outer ear canal diclofenac sodium 0.01 mg/mg topical gel (20 sources) Nonsteroidal Anti-inflammatory Drug Start: End: apply 0.5 g topically four times daily as needed diclofenac (VOLTAREN) 1 % topical gel Indications: Bilateral hand pain Apply 0.5 g to affected area four times daily as needed. 100 g 1 08/22/2022 Active Comment on above: Apply 0.5 g to affec henrique area four times daily as needed. elderberry fruit 200 mg oral capsule (11 sources) Start: 5 End: 5 take 1 capsule by mouth once daily as needed Elderberry Fruit 200 mg capsule Active 200 mg PO DAILY as needed May 11, 2025 9:52am estradiol 0.1 mg/ml vaginal cream (20 sources) Estrogen Start: 5 estradiol (ESTRACE) 0.01 % (0.1 mg/gram) vaginal cream Use fingertip amount vaginally nightly x 2 weeks then every other night x 2 weeks then 1-3x weekly 1 Tube 3 04/06/2015 Active Comment on above: Use fingertip amount vaginally nightly x 2 weeks then every other night x 2 weeks then 1-3x weekly Cgohssyo-Dtks-Bqw0- C-Luis-Bosw (Osteo Bi-Flex Triple Strength) 750 mg-644 mg- 30 mg-1 mg tablet (10 sources) Start: 4 Yuwnhdvg-Aysv-Ldu4 -C-Luis-Bosw (Osteo Bi-Flex Triple Strength) 750 mg-644 mg- 30 mg-1 mg tablet Active 1 {tbl} PO TWICE A DAY August 10, 2024 1:00am ibuprofen 600 mg oral tablet (10 sources) Nonsteroidal Anti-inflammatory Drug Start: 5 take 1 tablet by mouth every six hours as needed for pain Ibuprofen 600 mg tablet Active 600 mg PO EVERY 6 HOURS as needed for fever or pain 30 November 13, 2024 12:00am 24 hr metoprolol succinate 25 mg extended release oral tablet (20 sources) beta-Adrenergic Eliecer Start: 5 take 1 tablet by mouth once daily Metoprolol Succinate 25 mg tablet extended release 24 hr Active 25 mg PO DAILY May 11, 2025 12:00am Start: 06-13-2021 End: 06-13-2021 take 1 tablet by mouth once daily Metoprolol Tartrate 25 mg tablet Discontinued 25 mg PO DAILY June 13, 2021 11:25am June 13, 2021 11:46am Start: 07-03-2018 End: 05-11-2025 Metoprolol Tartrate 25 mg ta blet Discontinued 12.5 mg PO TWICE A DAY 90 July 29, 2024 9:04am May 11, 2025 10:16am Start: 07-03-2018 End: 06-28-2022 take 12.5 mg by mouth twice daily Metoprolol Tartrate Discontinued 12.5 MG PO TWICE A DAY August 21, 2021 10:15am June 28, 2022 12:01pm Start: 06-19-2018 End: 07-03-2018 Metoprolol Tartrate 50 mg ta blet Discontinued 25 mg PO DAILY June 19, 2018 1:28pm July 03, 2018 11:33am Start: 06-19-2018 End: 07-03-2018 take 25 mg by mouth once daily Metoprolol Tartrate Dis continued 25 MG PO DAILY June 19, 2018 12:28pm July 03, 2018 10:33am Start: 12-08-2013 take 1 tablet by jovani th once daily TOPROL XL 25 MG [id number] One tablet by mouth daily METOPROLOL SUCCINATE [id number] Mohamud Juarez MD Start: 12-08-2013 take 0.5 tablet by m out twice daily METOPROLOL TARTRATE 25 MG TABS 1/2 tablet by mouth twice daily METOPROLOL TARTRATE [id number] Susi Nunes PA-C Start: 07-16-2013 End: 06-19-2018 take 1 tablet by mouth once daily Metoprolol Tartrate 50 MG tablet Discontinued 50 mg PO DAILY July 16, 2013 1:00am June 19, 2018 1:29pm Start: 05-13-2013 take 1 tablet by jovani th once daily TOPROL XL 50 MG [id number] One tablet by mouth daily METOPROLOL SUCCINATE [id number] Mohamud Juarez MD Comment on above: Take 25 mg by mouth once daily. MULTIVIT-MINERALS/FERROUS FUM (MULTI VITAMIN ORAL) (20 sources) MULTIVIT-MINERAL S/FERROUS FUM (MULTI VITAMIN ORAL) Take by mouth. Active MULTIVIT-MINERAL S/FERROUS FUM (MULTI VITAMIN ORAL) Take by mouth. 0 Active Comment on above: Take by mouth. Multivitamin,Oz-Xqmq-Zvzg rals (Complete Multivitamin) tablet (20 sources) Start: 06-25-2019 Multivitamin,T x-Iron-Mine rals (Complete Multivitamin) tablet Active 1 {tbl} PO DAILY June 25, 2019 1:25pm Start: 06-25-2019 take 1 tablet by jovani th once daily Multivitamin,Sn-Ogmg-Mwtrsdaw (Complete Multivitamin) tablet Active 1 TABLET PO DAILY June 25, 2019 12:25pm Start: 06-25-2019 take 1 tablet by jovani th once daily Multivitamin,Rg-Rstt-Udubnenq (Complete Multivitamin) tablet Active 1 TABLET PO DAILY June 25, 2019 1:25pm Start: 10-27-2018 End: 06-25-2019 Multivitamin,Pq-Omwz-Dddggpl s (Complete Multivitamin) tablet Discontinued 1 {tbl} PO DAILY October 27, 2018 1:00am June 25, 2019 1:26pm Start: 10-27-2018 End: 06-25-2019 take 1 tablet by mouth once daily Multivitamin,Oq-Fvpz-Squrpunk (Complete Multivitamin) tablet Discontinued 1 TABLET PO DAILY October 27, 2018 12:00am June 25, 2019 12:26pm Start: 10-27-2018 End: 06-25-2019 take 1 tablet by mouth once daily Multivitamin,Tt-Mqsv-Bwhledzi (Complete Multivitamin) tablet Discontinued 1 TABLET PO DAILY October 27, 2018 1:00am June 25, 2019 1:26pm nitrofurantoin, macrocrystals 25 mg / nitrofurantoin, monohydrate 75 mg oral capsule (1 source) Nitrofuran Antibacterial Start: 11-03-2024 End: 11-08-2024 take 1 capsule by mouth twice daily nitrofurantoin monohydrate and macrocrystal (MACROBID) 100 mg capsule Indications: Burning with urination Take 1 capsule by mouth two times a day for 5 days. 10 capsule 11/03/2024 11/08/2024 Active nitroglycerin 0.4 mg sublingual tablet (12 sources) Nitrate Vasodilator Start: 04-04-2023 Nitroglycerin (Nitrostat) 0.4 mg tablet, sublingual Active 0.4 mg SL every 5 to 15 minutes as needed for chest pain 24 11April 04, 2023 12:00am do not exceed 3 doses per episode Start: 04-04-2023 Nitroglycerin (Nitrostat) 0.4 mg tablet, sublingual Active 0.4 MG SL every 5 to 15 minutes April 03, 2023 11:00pm do not exceed 3 doses per episode pantoprazole 40 mg delayed release oral tablet (20 sources) Proton Pump Inhibitor Start: 11-12-2024 take 1 tablet by mouth once daily Pantoprazole (Protonix) 40 mg tablet,delayed release (DR/EC) Active 40 mg PO DAILY November 12, 2024 12:00am Start: 07-19-2020 End: 06-13-2021 take 1 tablet by mouth once daily Pantoprazole 40 mg tablet,delayed release (DR/EC) Discontinued 40 mg PO DAILY July 19, 2020 1:00am June 13, 2021 11:26am levothyroxine sodium 0.112 mg oral tablet (20 sources) l-Thyroxine Start: 07-19-2020 End: 06-24-2024 take 1 tablet by mouth once daily levothyroxine (SYNTHROID) 112 mcg tablet Take 1 tablet by mouth once daily. 90 tablet 3 06/24/2024 Active Start: 06-19-2018 End: 07-19-2020 Levothyroxine 100 mcg tablet Discontinued 112 ug PO DAILY June 19, 2018 1:26pm July 19, 2020 3:23pm Start: 06-19-2018 End: 07-19-2020 take 112 ug by mouth once daily Levothyroxine Discontinued 112 MCG PO DAILY June 19, 2018 12:26pm July 19, 2020 2:23pm Start: 05-05-2013 End: 06-19-2018 take 1 tablet by mouth once daily Levothyroxine 100 MCG tablet Discontinued 100 ug PO DAILY July 16, 2013 1:00am June 19, 2018 1:29pm Start: 05-05-2013 take 1 tablet by jovani th once daily LEVOTHYROXINE SODIUM 112 MCG TABS One tablet by mouth daily LEVOTHYROXINE SODIUM [id number] Susi Nunes PA-C Comment on above: Take 1 tablet by jovani th once daily. Xymepqm-Qqpr-Vuaae- Oreg-Capryl (1 source) Start: 06-05-2023 take 1 capsule by mouth once daily Fnitpnt-Srvn-Ttawr-O reg-Capryl Active 55892 CAP PO DAILY June 04, 2023 11:00pm Turmeric Root Extract 500 mg capsule (11 sources) Start: 05-11-2025 take 1 capsule by mouth once daily Turmeric Root Extract 500 mg capsule Active 500 mg PO daily May 11, 2025 9:53am Start: 08-10-2024 End: 05-11-2025 take 1 capsule by mouth twice daily Turmeric Root Extract 500 mg capsule Discontinued 500 mg PO TWICE A DAY August 10, 2024 1:00am May 11, 2025 9:54am Start: 08-10-2024 take 1 capsule by mo ut twice daily Turmeric Root Extract 500 mg capsule Active 500 mg PO TWICE A DAY August 10, 2024 1:00am Vitamin B Complex tablet (10 sources) Start: 08-10-2024 Vitamin B Comp kathryn tablet Active 1 {tbl} PO daily August 10, 2024 1:00am Completed/Discontinued Medications Medication Drug Class(es) Dates Sig (Normalized) Sig (Original) acetaminophen 300 mg / HYDROcodone bitartrate 5 mg oral tablet (20 sources) Opioid Agonist Start: 08-19-2013 End: 06-19-2018 Hydrocodone-Acetami nophen 1 EACH tablet Discontinued 1 {tbl} PO EVERY 6 HOURS NEEDED as needed for Pain August 19, 2013 1:00am June 19, 2018 1:26pm Start: 08-19-2013 End: 06-19-2018 take 1 tablet by mouth every six hours as needed Hydrocodone-Acetaminophen Discontinued 1 TABLET PO EVERY 6 HOURS NEEDED August 19, 2013 12:00am June 19, 2018 12:26pm Start: 07-22-2013 End: 08-14-2013 Hydrocodone-Acetaminophen (V icodin 5-300 Mg Tablet) 1 EACH tablet Discontinued 1 - 2 {tbl} PO EVERY 6 HOURS NEEDED as needed for Pain July 22, 2013 1:00am August 14, 2013 10:14am apixaban 5 mg oral tablet (20 sources) Factor Xa Inhibitor Start: 03-03-2025 End: 05-11-2025 take 1 tablet by mouth twice daily Apixaban (Eliquis) 5 mg tablet Discontinued 5 mg PO TWICE A DAY 60 March 03, 2025 12:00am May 11, 2025 9:51am Start: 02-02-2025 apixaban (ELIQ UIS) 5 mg (74 tabs) .COMPLEX 02/02/2025 Active Start: 02-02-2025 End: 02-24-2025 take 1 tablet by mouth once Apixaban (Eliquis Dvt-Pe T reat 30d Start) 5 mg (74 tabs) tablets,dose pack Discontinued 0 PO .COMPLEX 74 0 February 02, 2025 12:00am February 24, 2025 11:42am orally per package directions atenolol 25 mg oral tablet (4 sources) beta-Adrenergic Eliecer Start: 05-05-2013 End: 05-13-2013 take 1 tablet by mouth once daily ATENOLOL 25 MG TABS One tablet by mouth daily ATENOLOL [id number] Mohamud Juarez MD atorvastatin 10 mg oral tablet (6 sources) HMG-CoA Reductase Inhibitor Start: 05-13-2013 End: 06-18-2017 take 1 tablet by mouth every other day ATORVASTATIN CALCIUM 10 MG TABS One tablet by mouth every other day ATORVASTATIN CALCIUM [id number] Mohamud Juarez MD betamethasone 3 mg/ml / betamethasone acetate 3 mg/ml injectable suspension (4 sources) Corticosteroid Start: 02-18-2025 End: 02-18-2025 betamethasone acetate-betamethas one sodium phosphate 6 mg injection (CELESTONE) Start: 02-18-2025 End: 02-18-2025 6 mg, Injection - FOR ORTHO USE ONLY, ONCE, 1 dose, Starting on Giulia 02/18/25 at 0857, Until Giulia 02/18/25 at 0857 calcium carbonate / vitamin D (4 sources) Start: 05-05-2013 take 1 tablet by mouth three times daily CALCIUM + D 600-200 MG-UNIT TABS One tablet by mouth three times daily (had parathyroid removed) CALCIUM CARBONATE-VITAMIN D Mohamud Juarez MD Start: 05-05-2013 take 1 tablet by jovani three times daily CALCIUM + D 600-200 MG-UNIT TABS One tablet by mouth three times daily (had parathyroid removed) CALCIUM CARBONATE-VITAMIN D Mireille Ribeiro RN esomeprazole 20 mg delayed release oral capsule (4 sources) Proton Pump Inhibitor Start: 05-13-2013 End: 06-18-2017 take 1 tablet by mouth once daily NEXIUM 20 MG CPDR One tablet by mouth daily ESOMEPRAZOLE MAGNESIUM [id number] Mohamud Juarez MD glucosamine 1000 mg oral tablet (20 sources) Start: 06-18-2017 take 1 tablet by mouth once daily GLUCOSAMINE HCL TABS One tablet by mouth daily GLUCOSAMINE HCL TABS Mohamud Juarez MD GLUCOSAMINE HCL (GLUCOSAMINE, BULK, MISC) Active GLUCOSAMINE HCL (GLUCOSAMINE, BULK, MISC) 24 hr isosorbide mononitrate 30 mg extended release oral tablet (10 sources) Start: 12-07-2014 End: 03-13-2016 ISOSORBIDE MONONITRATE ER 30 MG [id number] One tablet by mouth daily- pt has not started yet ISOSORBIDE MONONITRATE [id number] Mohamud Juarez MD Start: 12-07-2014 take 1 tablet by jovani th once daily ISOSORBIDE MONONITRATE ER 30 MG [id number] One tablet by mouth daily ISOSORBIDE MONONITRATE [id number] BÁRBARA IrvinC Start: 12-07-2014 take 1 tablet by jovani th once daily IMDUR 30 MG [id number] One tablet by mouth daily ISOSORBIDE MONONITRATE [id number] Mohamud Juarez MD lansoprazole 30 mg extended release oral tablet (2 sources) Proton Pump Inhibitor Start: 05-13-2013 take 1 tablet by mouth once daily LANSOPRAZOLE 30 MG TBDP One tablet by mouth daily LANSOPRAZOLE Mireille Ribeiro RN 10 ml lidocaine hydrochloride 10 mg/ml injection (4 sources) Antiarrhythmic, Amide Local Anesthetic Start: 02-18-2025 End: 02-18-2025 lidocaine (PF) 10 mg/mL (1 %) 4 mL injection (XYLOCAINE) Start: 02-18-2025 End: 02-18-2025 4 mL, Injection - FOR ORTHO USE ONLY, ONCE, 1 dose, Starting on Giulia 02/18/25 at 0857, Until Giulia 02/18/25 at 0857 lisinopril 2.5 mg oral tablet (4 sources) Angiotensin Converting Enzyme Inhibitor Start: 05-05-2013 End: 05-13-2013 take 1 tablet by mouth once daily LISINOPRIL 2.5 MG TABS One tablet by mouth daily LISINOPRIL [id number] Mohamud Juarez MD lovastatin 40 mg oral tablet (4 sources) HMG-CoA Reductase Inhibitor Start: 05-13-2013 End: 03-20-2016 take 1 tablet by mouth once daily at bedtime LOVASTATIN 40 MG TABS One tablet by mouth daily at bedtime LOVASTATIN [id number] Mohamud Juarez MD meloxicam 7.5 mg oral tablet (14 sources) Nonsteroidal Anti-inflammatory Drug Start: 03-14-2020 End: 10-16-2023 take 1 tablet by mouth once daily at mealtime meloxicam (MOBIC) 7.5 mg tablet Indications: Primary osteoarthritis of both knees Take 1 tablet by mouth once daily. Take with food. 30 tablet 3 03/14/2020 10/16/2023 Discontinued Comment on above: Take 1 tablet by jovani th once daily. Take with food. MULTIPLE VITAMIN (2 sources) Start: 03-13-2016 take 1 tablet by mouth once daily MULTIVITAMINS TABS One tablet by mouth daily MULTIPLE VITAMIN Mohamud Juarez MD omeprazole 20 mg delayed release oral capsule (15 sources) Proton Pump Inhibitor Start: 05-13-2013 End: 06-19-2018 take 1 capsule by mouth once daily Omeprazole 20 MG capsule Discontinued 20 mg PO DAILY July 16, 2013 1:00am June 19, 2018 1:29pm oxyCODONE hydrochloride 5 mg oral tablet (10 sources) Opioid Agonist Start: 11-13-2024 End: 05-11-2025 take 1 tablet by mouth every four hours as needed for pain Oxycodone 5 mg tablet Discontinued 5 mg PO Q4H as needed for pain 42 7 0 November 13, 2024 May 11, 2025 9:53am Other acute postprocedural pain Other acute postprocedural pain pravastatin sodium 10 mg oral tablet (20 sources) HMG-CoA Reductase Inhibitor Start: 06-05-2023 End: 07-29-2024 take 1 tablet by mouth at bedtime Pravastatin 10 mg tablet Discontinued 10 mg PO AT BEDTIME 30 3 June 24, 2024 10:58am July 29, 2024 1:37pm Comment on above: Take 10 mg by mouth once daily. rivaroxaban 20 mg oral tablet (6 sources) Factor Xa Inhibitor Start: 02-24-2025 End: 03-03-2025 take 1 tablet by mouth once daily at mealtime Rivaroxaban (Xarelto) 20 mg tablet Discontinued 20 mg PO daily 30 February 24, 2025 12:00am March 03, 2025 11:16am must administer with a meal/food simvastatin 10 mg oral tablet (20 sources) HMG-CoA Reductase Inhibitor Start: 04-18-2021 End: 10-16-2023 take 1 tablet by mouth once daily at bedtime simvastatin (ZOCOR) 10 mg tablet Indications: Coronary artery disease involving modoc coronary artery of modoc heart without angina pectoris Take 1 tablet by mouth daily at bedtime. 90 tablet 1 02/19/2023 10/16/2023 Discontinued Start: 06-25-2019 End: 06-05-2023 take 1 tablet by mouth every other day Simvastatin 10 mg tablet Discontinued 10 mg PO .QOD June 25, 2019 12:00am June 05, 2023 11:30am Start: 06-19-2018 End: 06-25-2019 take 10 mg by mouth at bedtime Simvastatin 20 mg table t Discontinued 10 mg PO AT BEDTIME June 19, 2018 1:29pm June 25, 2019 1:26pm Start: 06-19-2018 End: 06-25-2019 take 10 mg by mouth at bedtime Simvastatin Discontinue d 10 MG PO AT BEDTIME June 19, 2018 12:29pm June 25, 2019 12:26pm Start: 05-13-2013 End: 06-19-2018 take 1 tablet by mouth at bedtime Simvastatin 20 MG tablet Discontinued 20 mg PO AT BEDTIME July 16, 2013 1:00am June 19, 2018 1:29pm Start: 05-13-2013 take 1 tablet by jovani th once daily SIMVASTATIN 20 MG TABS One tablet by mouth daily SIMVASTATIN [id number] Mohamud Juarez MD Comment on above: Take 1 tablet by jovani th daily at bedtime. sulfamethoxazole 800 mg / trimethoprim 160 mg oral tablet (2 sources) Dihydrofolate Reductase Inhibitor Antibacterial, Sulfonamide Antimicrobial Start: 07-16-20 End: 07-21-20 take 1 tablet by mouth twice daily sulfamethoxazole-tr imethoprim (BACTRIM DS) 800-160 mg per tablet Indications: Recurrent UTI (urinary tract infection) Take 1 tablet by mouth twice daily for 5 days. 10 tablet 0 07/16/2022 07/21/2022 Comment on above: Take 1 tablet by jovani th twice daily for 5 days. ticagrelor 90 mg oral tablet (20 sources) Start: 08-02-20 End: 03-13-20 24 take 1 tablet by mouth every twelve hours Ticagrelor 90 mg tablet Discontinued 90 mg PO Q12H 180 3 August 14, 2023 5:29pm March 13, 2024 10:59am End: 09-23-2024 take 1 tablet by mouth twice daily ticagrelor (BRILINTA) 90 mg tablet Take 90 mg by mouth two times a day. 09/23/2024 Discontinued Comment on above: Take 90 mg by mouth two times a day. Yeahbbms-Yfoa-Wlbto- Oreg-Capry 100 mg-150 mg- 50 mg-150 mg capsule (10 sources) Start: 06-05-2023 End: 08-10-2024 take 1 capsule by mouth once daily Omstnrvd-Tedu-Hbctr-Or eg-Capry 100 mg-150 mg- 50 mg-150 mg capsule Discontinued [id number] NMA PO DAILY June 05, 2023 12:00am August 10, 2024 12:15pm zinc gluconate 50 mg oral tablet (10 sources) Start: 11-12-2024 End: 05-11-2025 take 1 tablet by mouth once daily Zinc Gluconate 50 mg tablet Discontinued 50 mg PO DAILY November 12, 2024 12:00am May 11, 2025 9:53am Problems Active Problems Problem Classification Problem Date Documented Da te Episodic/Chronic Acquired foot deformities (1 source) Hallux valgus (acquired), right foot; Translations: [Hallux valgus (acquired), right foot] Onset: 11-27-2024 Chronic Allergic reactions (1 source) Irritant contact dermatitis caused by detergent; Translations: [Irritant contact dermatitis due to detergents] 11-12-2024 Episodic Cardiac dysrhythmias (4 sources) Sinus bradycardia; Translations: [Ventricular premature beats] Onset: 05-05-2013 05-05-2013 Chronic Chronic ulcer of skin (1 source) Non-pressure chronic ulcer of other part of right foot with fat layer exposed; Translations: [Non-pressure chronic ulcer of other part of right foot with fat layer exposed] Onset: 12-18-2024 Chronic Coronary atherosclerosis and other heart disease (20 sources) Atherosclerotic heart disease of [place] coronary artery without angina pectoris; Translations: [Coronary arteriosclerosis] Onset: 05-13-2013 05-13-2013 Chronic Coronary atherosclerosis and other heart disease (13 sources) Stented coronary artery; Translations: [Presence of coronary angioplasty implant and graft] Onset: 08-02-2023 08-14-2023 Episodic Comment on above: [place] 2.5 X 38 mm ADRIANE to pLAD 08/02/2023; Disorders of lipid metabolism (20 sources) Hyperlipidemia; Translations: [Mixed hyperlipidemia] Onset: 12-24-2005 Resolved: 09-10-2008 05-05-2013 Chronic Esophageal disorders (20 sources) Ramirez's esophagus; Translations: [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] Onset: 07-10-2013 07-10-2013 Chronic Essential hypertension (20 sources) Hypertensive disorder; Translations: [Benign essential hypertension] Onset: 12-24-2005 05-05-2013 Chronic Comment on above: CONTROLLED WITH MED Genitourinary symptoms and ill-defined conditions (3 sources) Dysuria; Translations: [Dysuria] Episodic Nonspecific chest pain (16 sources) Chest pain, unspecified; Translations: [Chest pain] Onset: 05-05-2013 05-05-2013 Episodic Nutritional deficiencies (20 sources) Vitamin D deficiency; Translations: [Vitamin D deficiency, unspecified] Onset: 10-16-2023 10-16-2023 Chronic Osteoarthritis (20 sources) Primary gonarthrosis, bilateral; Translations: [Bilateral primary osteoarthritis of knee] Onset: 08-03-2015 08-03-2015 Chronic Other aftercare (1 source) Anticoagulant effect; Translations: [custodial (current) use of anticoagulants] 02-18-2025 Episodic Other connective tissue disease (1 source) Other specified soft tissue disorders; Translations: [Other specified soft tissue disorders] Onset: 05-05-2025 Episodic Other connective tissue disease (1 source) Pain in right leg; Translations: [Pain in right leg] Onset: 04-16-2025 Episodic Other endocrine disorders (20 sources) Hyperparathyroidism; Translations: [Hyperparathyroidism, unspecified] Onset: 12-02-2012 12-02-2012 Chronic Other gastrointestinal disorders (20 sources) Irritable bowel syndrome; Translations: [Irritable bowel syndrome without diarrhea] Onset: 12-24-2005 09-07-2008 Chronic Other lower respiratory disease (2 sources) Cough; Translations: [Acute cough] 08-22-2024 Episodic Other nervous system disorders (20 sources) Carpal tunnel syndrome; Translations: [Carpal tunnel syndrome, unspecified upper limb] Onset: 07-10-2013 07-10-2013 Chronic Other nervous system disorders (2 sources) Other chronic pain; Translations: [Chronic pain of right ankle] Onset: 07-10-2022 Chronic Other nervous system disorders (10 sources) Acute postoperative pain; Translations: [Other acute postprocedural pain] 11-13-2024 Episodic Other non-traumatic joint disorders (11 sources) Joint pain; Translations: [Pain in unspecified joint] 01-08-2025 Episodic Other non-traumatic joint disorders (1 source) Chronic ankle pain; Translations: [Pain in right ankle and joints of right foot] 04-28-2025 Episodic Other non-traumatic joint disorders (1 source) Pain in right ankle and joints of right foot; Translations: [Chronic pain of right ankle] Onset: 04-28-2025 Episodic Other nutritional; endocrine; and metabolic disorders (20 sources) Obesity; Translations: [Obesity, unspecified] Onset: 04-25-2007 09-07-2008 Chronic Other nutritional; endocrine; and metabolic disorders (1 source) Body mass index (BMI) 34.0-34.9, adult; Translations: [Class 1 obesity with body mass index (BMI) of 34.0 to 34.9 in adult, unspecified obesity type, unspecified whether serious comorbidity present] Onset: 09-07-2008 Chronic Other skin disorders (2 sources) Eruption; Translations: [Rash and other nonspecific skin eruption] 04-28-2025 Episodic Other skin disorders (1 source) Rash and other nonspecific skin eruption; Translations: [Rash and nonspecific skin eruption] Onset: 04-28-2025 Episodic Other upper respiratory infections (1 source) Acute upper respiratory infection; Translations: [Acute upper respiratory infection, unspecified] 08-22-2024 Episodic Residual codes; unclassified (1 source) Preoperative state 10-19-2024 Episodic Residual codes; unclassified (8 sources) History of operative procedure on foot; Translations: [Other specified postprocedural states] 02-02-2025 Episodic Systemic lupus erythematosus and connective tissue disorders (2 sources) Mucous membrane dryness; Translations: [Sicca syndrome, unspecified] Onset: 04-28-2025 04-28-2025 Chronic Thyroid disorders (20 sources) Acquired hypothyroidism; Translations: [Hypothyroidism, unspecified] Onset: 09-10-2008 08-03-2015 Chronic Unclassified (14 sources) Body mass index (BMI) 35.0-35.9, adult; Translations: [Body mass index (BMI) 32.0-32.9, adult] Onset: 05-06-2013 Resolved: 08-16-2015 05-13-2013 Chronic Unclassified (6 sources) Long-term drug therapy; Translations: [Long-term (current) use of other medications] Onset: 08-05-2013 Resolved: 06-29-2015 08-05-2013 Unclassified (1 source) Class 1 obesity with body mass index (BMI) of 34.0 to 34.9 in adult, unspecified obesity type, unspecified whether serious comorbidity present; Translations: [Class 1 obesity with body mass index (BMI) of 34.0 to 34.9 in adult, unspecified obesity type, unspecified whether serious comorbidity present] Onset: 09-07-2008 Unclassified (1 source) Acute cough; Translations: [Acute cough] Onset: 08-22-2024 Past or Other Problems Problem Classification Problem Date Documented Da te Episodic/Chronic Abdominal pain (20 sources) Epigastric pain; Translations: [Epigastric pain] Onset: 09-23-2024 09-23-2024 Episodic Acquired foot deformities (20 sources) Acquired deformity of toe; Translations: [Acquired deformities of toe(s), unspecified, unspecified foot] Onset: 04-18-2021 04-18-2021 Episodic Biliary tract disease (20 sources) Biliary dyskinesia; Translations: [Other specified diseases of gallbladder] Onset: 07-10-2013 07-10-2013 Episodic Coagulation and hemorrhagic disorders (20 sources) Spontaneous bruising; Translations: [Spontaneous ecchymoses] Onset: 10-16-2023 10-16-2023 Episodic Diabetes mellitus without complication (20 sources) Impaired fasting glycemia; Translations: [Impaired fasting glucose] Onset: 06-26-2007 09-10-2008 Episodic Headache; including migraine (20 sources) Frequent headache; Translations: [Frequent headaches] Onset: 10-16-2023 10-16-2023 Episodic Immunizations and screening for infectious disease (14 sources) Encounter for immunization; Translations: [Other specified vaccinations against streptococcus pneumoniae [pneumococcus]] Onset: 09-23-2024 09-23-2024 Episodic Malaise and fatigue (2 sources) Fatigue; Translations: [Other fatigue] Onset: 05-06-2013 05-06-2013 Episodic Other aftercare (1 source) custodial (current) use of anticoagulants; Translations: [Anticoagulated on Eliquis] Onset: 02-18-2025 Episodic Other bone disease and musculoskeletal deformities (20 sources) Senile osteopenia; Translations: [Other specified disorders of bone density and structure, unspecified site] Onset: 07-10-2022 Episodic Other bone disease and musculoskeletal deformities (1 source) Other specified disorders of bone density and structure, unspecified site; Translations: [Osteopenia, senile] Onset: 07-10-2022 Episodic Other connective tissue disease (20 sources) Pain of bilateral hands; Translations: [Pain in right hand] Onset: 10-16-2023 Episodic Other connective tissue disease (20 sources) Pain in both feet; Translations: [Pain in right foot] Onset: 10-16-2023 10-16-2023 Episodic Other ear and sense organ disorders (20 sources) Disorder of external ear; Translations: [Acute eczematoid otitis externa, unspecified ear] Onset: 08-03-2015 08-03-2015 Episodic Other ear and sense organ disorders (20 sources) Eczema of external auditory canal; Translations: [Acute eczematoid otitis externa, bilateral] Onset: 04-18-2021 04-18-2021 Episodic Other gastrointestinal disorders (20 sources) History of Ramirez's esophagus; Translations: [Personal history of other diseases of the digestive system] Onset: 08-03-2015 08-03-2015 Episodic Other gastrointestinal disorders (20 sources) Abdominal bloating; Translations: [Abdominal distension (gaseous)] Onset: 09-23-2024 09-23-2024 Episodic Other gastrointestinal disorders (1 source) Abdominal distension (gaseous); Translations: [Bloating] Onset: 09-23-2024 Episodic Other lower respiratory disease (1 source) Cough Onset: 08-22-2024 Episodic Other nervous system disorders (20 sources) Paresthesia of foot ; Translations: [Paresthesia of skin] Onset: 04-18-2021 04-18-2021 Episodic Other non-traumatic joint disorders (20 sources) Pain in right knee; Translations: [Pain in joint, lower leg] Onset: 03-13-2017 03-13-2017 Episodic Other non-traumatic joint disorders (20 sources) Chronic pain of right upper limb; Translations: [Pain in right shoulder] Onset: 10-28-2018 10-28-2018 Episodic Other non-traumatic joint disorders (1 source) Pain in left knee; Translations: [Chronic pain of both knees] Onset: 07-10-2022 Episodic Other non-traumatic joint disorders (1 source) Pain in unspecified joint; Translations: [Arthralgia, unspecified joint] Onset: 01-08-2025 Episodic Other screening for suspected conditions (not mental disorders or infectious disease) (20 sources) Patient encounter status; Translations: [Encounter for screening mammogram for malignant neoplasm of breast] Onset: 10-28-2018 Episodic Phlebitis; thrombophlebitis and thromboembolism (16 sources) Deep venous thrombosis; Translations: [Acute embolism and thrombosis of unspecified deep veins of unspecified lower extremity] Onset: 02-11-2025 02-02-2025 Episodic Residual codes; unclassified (20 sources) Postmenopausal state; Translations: [Asymptomatic menopausal state] Onset: 09-23-2024 09-23-2024 Episodic Residual codes; unclassified (1 source) Asymptomatic menopausal state; Translations: [Post-menopausal] Onset: 09-23-2024 Episodic Residual codes; unclassified (1 source) Localized edema; Translations: [Localized edema] Onset: 03-25-2025 Episodic Unclassified (6 sources) FH: Hypertension; Translations: [Family history of stroke] Onset: 05-06-2013 07-05-2015 Episodic Urinary tract infections (20 sources) Recurrent urinary tract infection; Translations: [Urinary tract infection, site not specified] Onset: 12-24-2005 Resolved: 04-25-2007 Episodic Results Test Name Value Interpretation Reference Range Facility Cardiology Visit Reporton Cardiology Visit Report [facility] [address] [place] [address] OFFICE VISIT Date of Service: 07/12/25 MR#: [id number] Acct: [id number] Name: MAUREEN RODRIGUEZ Rep #: [id number] : 1960 Provider: TOÑO che Age/Sex: 64/F Location: [facility] Status: Signed HPI HPI History of Present Illness Details: Maureen Rodriguez is a 64-year-old female that presents here today for a cardiovascular follow-up. She has a history of moderate coronary artery disease, hypertension and hyperlipidemia. She underwent a cardiac catheterization in 2012 which demonstrated 60 to 70% stenosis of a large diagonal vessel. Underwent FFR which was 0.87. In 2017 she underwent a stress test which demonstrated no evidence of ischemia on a stress echo and then a stress test in June 2021 where he exercised for 7.5 METS with no evidence of ischemia. She had a Coronary CT which demonstrated Moderate calcification noted in the midsegment of the left anterior descending artery and mild calcification noted in the mid circumflex artery. She underwent a stress test in march, there was not obvious ischemia but she did have chest pain with exertion. This was concerning for angina. On account of continual symptoms despite a negative stress test, she underwent a heart catheterization on 08/02/2023 that showed left main is angiographically normal, LAD with moderate calcification, circumflex with mild luminal irregularities less than 30%, and RCA with mild luminal irregularities. She proceeded with drug- eluting stent to proximal LAD. Ejection fraction was reported at 60%. She acknowledges weekly sharp, chest pressure. This occurs almost daily. This is noted when she lies down in bed. She attributes this to her her diet. This is located midsternal and last for minutes. This improves with Tums or other antacid, time, walking, and sitting in a chair. She denies it with exertion. She denies palpitations or lower extremity edema. She states shortness of breath with activity. She denies shortness of breath at rest, orthopnea, cough, or PND. She denies lightheadedness, dizziness, near-syncope, syncope, weakness, or fatigue. 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 Is patient in pain?: No Allergies triamterene (Triamterene) Allergy (Verified 07/12/25 10:05) Rash venom-honey bee (bee venom (honey bee)) Allergy (Verified 07/12/25 10:05) Swelling Medications ???Medication ???Instructions ???Recorded ???Confirmed ???Type multivitamin,zb-thkr-jetxyjj s 1 tab PO DAILY 06/25/19 07/12/25 H istory (Complete Multivitamin tablet) levothyroxine 112 mcg tablet 112 mcg PO DAILY 07/19/20 07/12/25 History nitroglycerin 0.4 mg sublingual 0.4 mg sublingual Q5-15M PRN chest 04/04/23 07/12/25 Rx tablet (Nitrostat) pain #25 tabs pravastatin 10 mg tablet 10 mg PO QHS #90 tabs 07/29/2406/26 Rx calcium 600 mg (as 2 tab PO QDAY 08/10/24 07/12/25 Hi story carbonate)-vitamin D3 20 mcg (800 unit) tablet glucosamine 750 dv-yocllaxadbr-zny 1 tab PO BID 08/10/24 07/12/25 H istory no1 644 mg-C 30 mg-luis 1 mg tablet (Osteo Bi-Flex Triple Strength) vitamin B complex 1 tab PO QDAY 08/10/24 07/12/25 Hi story pantoprazole 40 mg tablet,delayed 40 mg PO DAILY 11/12/24 07/12/25 History release (Protonix) acetaminophen 500 mg capsule 500 mg PO Q6H PRN fever or pain 07/12/25 Rx #30 caps ibuprofen 600 mg tablet 600 mg PO Q6H PRN fever or pain 07/12/25 Rx #30 tabs aspirin 81 mg tablet,delayed 81 mg PO DAILY 05/11/25 07/12/25 H istory release cranberry 500 mg capsule 500 mg PO BID 05/11/25 07/12/25 Hi story elderberry fruit 200 mg capsule 200 mg PO DAILY PRN 05/11/2507/12 History metoprolol succinate 25 mg 25 mg PO DAILY #90 tabs 05/11/25 1 09/11/24 Rx tablet,extended release 24 hr turmeric root extract 500 mg 500 mg PO QDAY 05/11/25 07/12/25 H istory capsule Have you fallen in the past year?: No PFSH Medical History DVT (deep venous thrombosis) Wears glasses Post-menopausal Arthritis Fatty liver High cholesterol Easy bruising Back pain History of hiatal hernia Non-smoker Shortness of breath on exertion History of pain when walking History of stress test Cardiology follow-up encounter GERD (gastroesophageal reflux disease) Hypothyroidism Obesity Atherosclerosis of coronary artery of [place] heart without angin (more content not included)... Normal [facility] CNOVon 06-07-2025 OV Office Visit (ORTHWS ) MAUREEN RODRIGUEZ ([id number]) 1960 F NFR Date Time Provider Department 06/07/25 10:30 AM DARIUSZ TSAI During your visit today, we recorded the following information about you: Dariusz Tsai MD 06/07/2025 12:11 PM Signed AMB ROOMING INTAKE FLOWSHEET DATA Pain Pain Level: 3 Pain Location: Knee-Left (knee right) Description: Sharp, Dull Duration Amount of Time: 5 Duration Units: Weeks Frequency: Continuous Intervention/Comfort measure: Massage, Heat, Medication, Reposition Large Joint Arthro/Inj: bilateral knee joints 06/07/2025 11:03 AM The procedure site was prepped in the usual sterile fashion. Site: bilateral knee joints Medications (Right): 3 mL hyaluronate sodium, stabilized 60 mg/3 mL Medications (Left): 3 mL hyaluronate sodium, stabilized 60 mg/3 mL Outcome: Tolerated well, no immediate complications Post-injection instructions were reviewed with the patient and the patient voiced understanding of these instructions. Informed Consent Consent Obtained: Verbal [place]oy Protocol A moment to CARE was completed. SIGN IN Personnel directly involved with the procedure wore the appropriate PPE. Special Equipment: N/A Patient/Surrogate Stated/Verified: Patient name, Date of , Relevant allergies and Intended procedure TIME OUT Relevant labs, photos, and/or imaging studies have been reviewed. Consent documented and matches the intended procedure. Correct side/site marked and visible. Medications required for procedure verified. No fire risk assessment and interventions applicable. No implant(s) inserted. SIGN OUT No specimen collected. All instruments, equipment, possible retained foreign bodies accounted for. No post-procedure POC communication to the patient or surrogate applicable. No post-procedure POC communication to the patient's multidisciplinary team (including the bedside nurse for hospitalized patients) applicable. Nalini Joe MA 06/07/2025 12:11 PM Signed Durolane injection into bilateral knees. Right knee LOT # [id number] EXP 08/01/2027 Left knee LOT # [id number] EXP 08/01/2027 Nalini Joe MA Allergies As of Date: 06/07/2025 Noted Allergy Reaction BEES 12/24/2005 Comments: possibly GRASS POLLEN 03/14/2020 14 - Other: See Comments Comments: Sneezing, itchy eyes TRIAMTERENE-HYDROCHLOROTHIAZ ID 09/01/2010 2 - Rash Comments: photodermatitis Date Reviewed: 06/07/2025 Reviewed by: Jane Russo MA - Fully Assessed Primary Visit Diagnosis:Primary osteoarthritis of both knees [M17.0] Other Visit Diagnosis:Chronic pain of both knees [M25.561, M25.562, G89.29] Order(s):Large Joint Arthro/Inj: bilateral knee joints [CYS351] Order #: [id number] [] hyaluronate sodium, stabilized syrg 3 mL (DUROLANE)Disp: Rfl: [] hyaluronate sodium, stabilized syrg 3 mL (DUROLANE)Disp: Rfl: Prescriptions as of 06/07/2025 - levothyroxine (SYNTHROID) 112 mcg tablet Take 1 tablet by mouth once daily. - pravastatin (PRAVACHOL) 10 mg tablet Take 10 mg by mouth once daily. - dexAMETHasone 0.1 % ophthalmic solution 1 Drop two times a day as needed. Into bilateral outer ear canal - diclofenac (VOLTAREN) 1 % topical gel Apply 0.5 g to affected area four times daily as needed. - GLUCOSAMINE HCL (GLUCOSAMINE, BULK, MISC) - MULTIVIT-MINERALS/FERROUS FUM (MULTI VITAMIN ORAL) Take by mouth. - estradiol (ESTRACE) 0.01 % (0.1 mg/gram) vaginal cream Use fingertip amount vaginally nightly x 2 weeks then every other night x 2 weeks then 1-3x weekly - metoprolol succinate XL, long acting, 25 mg 24 hr tablet Take 25 mg by mouth once daily. - Aspirin 81 mg Tab Take 81 mg by mouth. - Calcium Carbonate-Vitamin D3 500 mg(1,250mg) -600 unit Chew Take 1 tablet by mouth three times daily. Problem List As Of Date 06/07/2025 Noted Resolved BENIGN HYPERTENSION [I10] 12/24/2005 Hyperlipidemia, mixed [E78.2] 12/24/2005 IRRITABLE COLON [K58.9] 12/24/2005 URIN TRACT INFECTION NOS [N39.0] 12/24/2005 04/25/2007 OBESITY NOS [E66.9] 04/25/2007 IMPAIRED FASTING GLUCOSE [R73.01] 06/26/2007 HYPERLIPIDEMIA NEC/NOS [E78.5] 09/10/2008 09/10/2008 Acquired hypothyroidism [E03.9] 09/10/2008 Hyperparathyroidism [E21.3] 12/02/2012 Carpal tunnel syndrome [G56.00] 07/10/2013 Ramirez esophagus [K22.70] 07/10/2013 Biliary dyskinesia [K82.8] 07/10/2013 Dyslipidemia [E78.5] 08/11/2013 CAD (coronary artery disease) [I25.10] 08/11/2013 Primary osteoarthritis of both knees [M17.0] 08/03/2015 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] 08/03/2015 History of Ramirez's esophagus [Z87.19] 08/03/2015 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 [K22.70] 08/04/2015 Chronic pain of both knees [M25.561, M25.562, G*03/13/2017 Osteoarthritis of knees, bilateral [M17.0] Coronary artery disease involving [place] larson*10/28/2018 Hypothyroidism, acquired [E (more content not included)... Normal [facility] Cardiology Visit Reporton Cardiology Visit Report [facility] [address] [place], [place] [address] OFFICE VISIT Date of Service: 05/11/25 MR#: [id number] Acct: [id number] Name: MAUREEN RODRIGUEZ Rep #: [id number] : 1960 Provider: TOÑO che Age/Sex: 64/F Location: [facility] Status: Signed HPI HPI History of Present Illness Details: Maureen Rodriguez is a 64-year-old female that presents here today for a cardiovascular follow-up. She has a history of moderate coronary artery disease, hypertension and hyperlipidemia. She underwent a cardiac catheterization in 2012 which demonstrated 60 to 70% stenosis of a large diagonal vessel. Underwent FFR which was 0.87. In 2017 she underwent a stress test which demonstrated no evidence of ischemia on a stress echo and then a stress test in June 2021 where he exercised for 7.5 METS with no evidence of ischemia. She had a Coronary CT which demonstrated Moderate calcification noted in the midsegment of the left anterior descending artery and mild calcification noted in the mid circumflex artery. She underwent a stress test in march, there was not obvious ischemia but she did have chest pain with exertion. This was concerning for angina. On account of continual symptoms despite a negative stress test, she underwent a heart catheterization on 08/02/2023 that showed left main is angiographically normal, LAD with moderate calcification, circumflex with mild luminal irregularities less than 30%, and RCA with mild luminal irregularities. She proceeded with drug- eluting stent to proximal LAD. Ejection fraction was reported at 60%. She acknowledges weekly sharp, chest pressure. This occurs 1-2 times per week. This is noted when she lies down in bed. She attributes this to her her diet. This is located midsternal and last for minutes. This improves with Tums or other antacid. She acknowledges palpitations that she describes as skipping and fluttering. She acknowledges right lower foot edema. She denies shortness breath activity, shortness of breath at rest, orthopnea, cough, or PND. She denies lightheadedness, dizziness, near-syncope, syncope, weakness, or fatigue. 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 Is patient in pain?: No Allergies triamterene (Triamterene) Allergy (Verified 05/11/25 09:51) Rash venom-honey bee (bee venom (honey bee)) Allergy (Verified 05/11/25 09:51) Swelling Medications ???Medication ???Instructions ???Recorded ???Confirmed ???Type multivitamin,yu-pift-euuwfor s 1 tab PO DAILY 06/25/19 05/11/25 H istory (Complete Multivitamin tablet) levothyroxine 112 mcg tablet 112 mcg PO DAILY 07/19/20 05/11/25 History nitroglycerin 0.4 mg sublingual 0.4 mg sublingual Q5-15M PRN chest 04/04/23 05/11/25 Rx tablet (Nitrostat) pain #25 tabs pravastatin 10 mg tablet 10 mg PO QHS #90 tabs 07/29/2405/27 Rx calcium 600 mg (as 2 tab PO QDAY 08/10/24 05/11/25 Hi story carbonate)-vitamin D3 20 mcg (800 unit) tablet glucosamine 750 lb-vhfvjjipwka-awq 1 tab PO BID 08/10/24 05/11/25 H istory no1 644 mg-C 30 mg-luis 1 mg tablet (Osteo Bi-Flex Triple Strength) vitamin B complex 1 tab PO QDAY 08/10/24 05/11/25 Hi story pantoprazole 40 mg tablet,delayed 40 mg PO DAILY 11/12/24 05/11/25 History release (Protonix) acetaminophen 500 mg capsule 500 mg PO Q6H PRN fever or pain 05/11/25 Rx #30 caps ibuprofen 600 mg tablet 600 mg PO Q6H PRN fever or pain 05/11/25 Rx #30 tabs aspirin 81 mg tablet,delayed 81 mg PO DAILY 05/11/25 History release cranberry 500 mg capsule 500 mg PO BID 05/11/25 05/11/25 Hi story elderberry fruit 200 mg capsule 200 mg PO DAILY PRN 05/11/2505/11 History metoprolol succinate 25 mg 25 mg PO DAILY #90 tabs 05/11/25 0 05/11/25 Rx tablet,extended release 24 hr turmeric root extract 500 mg 500 mg PO QDAY 05/11/25 05/11/25 H istory capsule Ejection fraction %: 60 Have you fallen in the past year?: No PFSH Medical History DVT (deep venous thrombosis) Wears glasses Post-menopausal Arthritis Fatty liver High cholesterol Easy bruising Back pain History of hiatal hernia Non-smoker Shortness of breath on exertion History of pain when walking History of stress test Cardiology follow-up encounter GERD (gastroesophageal reflux disease) Hypothyroidism Obesity Atherosclerosis of coronary artery of [place] heart without angina pectoris HLD (hyperlipidemia) Essential (more content not included)... Normal [facility] 04-29-2025 [facility] Telephone ([employer]) MAUREEN RODRIGUEZ ([id number]) 1960 F NFR Date Time Provider Department 04/29/25 [facility] During your visit today, we recorded the following information about you: Nadya Amos, KRZYSZTOF 04/29/2025 10:48 AM Signed Patient reports she was seen by Rheumatology yesterday and updated them of the off and on urinary sx's she has been having over the course of several weeks. Urine testing orders were placed by Rheumatology provider and completed by pt. UA result has returned. Culture still pending. Pt was advised by Rheumatology, as copied: Leigh Pal PA-C 04/29/25 9:53 AM Result Note Labs look Ok from Rheum standpoint. Urinalysis is mildly abnormal but not strongly convincing of infection. The culture is pending I would follow up with your primary care provider if you continue to have infectious symptoms. Leigh Pal PA-C Current sx's: -urine frequency -urine urgency -possible low grade temp but has not confirmed this -"a little pain" with urination -reports she feels like she can't concentrate as good as she usually does -reports she has chronic diarrhea but it has increased some -no weakness -no severe fatigue -no back/flank pain -denies confusion -no visible bleeding Patient asking if provider wishes to order anything for her at this time, while awaiting culture? Please advise patient. KRZYSZTOF Mcdermott Jordan L, DO 04/30/2025 4:39 PM Signed Her urine culture is normal appearing, no signs of UTI If she is still not feeling well, needs to be seen by a provider DO Bette Ferrara Sherrie, RN 04/30/2025 4:45 PM Signed Message left for pt to call PCP office back for message below. KRZYSZTOF Mcdermott Michelle, RN 05/01/2025 9:26 AM Signed PATIENT NOTIFIED OF INFORMATION patient is feeling alil better but will see how things go and if not completely better will come to on saturday Allergies As of Date: 04/29/2025 Noted Allergy Reaction BEES 12/24/2005 Comments: possibly GRASS POLLEN 03/14/2020 14 - Other: See Comments Comments: Sneezing, itchy eyes TRIAMTERENE-HYDROCHLOROTHIAZ ID 09/01/2010 2 - Rash Comments: photodermatitis Date Reviewed: 04/28/2025 Reviewed by: Nalini Joe MA - Fully Assessed Reason for Visit: Results [95] urinary symptoms [Other] Prescriptions as of 05/01/2025 - apixaban (ELIQUIS) 5 mg (74 tabs) .COMPLEX - levothyroxine (SYNTHROID) 112 mcg tablet Take 1 tablet by mouth once daily. - pravastatin (PRAVACHOL) 10 mg tablet Take 10 mg by mouth once daily. - dexAMETHasone 0.1 % ophthalmic solution 1 Drop two times a day as needed. Into bilateral outer ear canal - diclofenac (VOLTAREN) 1 % topical gel Apply 0.5 g to affected area four times daily as needed. - GLUCOSAMINE HCL (GLUCOSAMINE, BULK, MISC) - MULTIVIT-MINERALS/FERROUS FUM (MULTI VITAMIN ORAL) Take by mouth. - estradiol (ESTRACE) 0.01 % (0.1 mg/gram) vaginal cream Use fingertip amount vaginally nightly x 2 weeks then every other night x 2 weeks then 1-3x weekly - metoprolol succinate XL, long acting, 25 mg 24 hr tablet Take 25 mg by mouth once daily. - Aspirin 81 mg Tab Take 81 mg by mouth. - Calcium Carbonate-Vitamin D3 500 mg(1,250mg) -600 unit Chew Take 1 tablet by mouth three times daily. 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] 07/10/2013 Biliary dyskinesia [K82.8] 07/10/2013 Dyslipidemia [E78.5] 08/11/2013 CAD (coronary artery disease) [I25.10] 08/11/2013 Primary osteoarthritis of both knees [M17.0] 08/03/2015 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] 08/03/2015 History of Ramirez's esophagus [Z87.19] 08/03/2015 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 [K22.70] 08/04/2015 Chronic pain of both knees [M25.561, M25.562, G*03/13/2017 Osteoarthritis of knees, bilateral [M17.0] Coronary artery disease involving [place] larson*10/28/2018 Hypothyroidism, acquired [E03.9] 10/28/2018 Screening for osteoporosis [Z13.820] 10/28/2018 Chronic right shoulder pain [M25.511, G89.29] 10/28/2018 Acquired deformity of toe [M20.60] 04/18/2021 Paresthesia of foot, bilateral [R20.2] 04/18/2021 Eczema of external ear, 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 Normal [facility] Bacteria Ur Culton Bacteria identified Cx Nom (U) ORGANISM ID: 1 10,000 -<50,000 CFU/ml Mixed microbiota No further workup. Mixed microbiota can be due to???urine???contamination with skin bacteria at time of collection or presence of a long-term urinary catheter. If a new culture is needed, please consider re-education of the patient on proper midstream collection technique or straight catheterization for???urine???collection. Normal [facility] Comment on above: Performed By: #### 2 4356-8, 630-4 ####[facility] LABCLIA [id number] [place] [address] [place] Basic metabolic 2000 panelOr dered By: Emilee Hernandez on 04-28-2025 Anion gap [Moles/Vol] 10 mmol/L 8 - 15 mmol/L [facility] Calcium [Mass/Vol] 10.1 mg/dL 8.5 - 10. 2 mg/dL [facility] Chloride [Moles/Vol] 104 mmol/L 98 - 10 7 mmol/L [facility] CO2 [Moles/Vol] 26 mmol/L 22 - 30 mmol/L [facility] Creatinine [Mass/Vol] 0.81 mg/dL 0.58 - 0.96 mg/dL [facility] GFR/1.73 sq M.predicted among non-blacks MDRD (S/P/Bld) [Vol rate/Area] 80 mL/min/{1.73_m2} - PINF [facility] Comment on above: Estimated Glomerular Filtration Rate (eGFR) is calculated using the 2020 CKD-EPI creatinine equation. This equation utilizes serum creatinine, sex, and age as parameters. The creatinine assay has traceable calibration to isotope dilution-mass spectrometry. Refer to KDIGO guidelines for clinical interpretation. In patients with unstable renal function, e.g. those with acute kidney injury, the eGFR may not accurately reflect actual GFR. Glucose [Mass/Vol] 109 mg/dL High 74 - 99 mg/dL [facility] Comment on above: The [place] Diabete s Association (ADA) provides guidance for cutoff values for fasting glucose and random glucose. The ADA defines fasting as no caloric intake for at least 8 hours. Fasting plasma glucose results between 100 to 125 mg/dL indicate increased risk for diabetes (prediabetes). Fasting plasma glucose results greater than or equal to 126 mg/dL meet the criteria for diagnosis of diabetes. In the absence of unequivocal hyperglycemia, results should be confirmed by repeat testing. In a patient with classic symptoms of hyperglycemia or hyperglycemic crisis, random plasma glucose results greater than or equal to 200 mg/dL meet the criteria for diagnosis of diabetes. Reference: Standards of Medical Care in Diabetes 2016, [place] Diabetes Association. Diabetes Care. 2016.39(Suppl 1). Interpretation and review of laboratory results Abnormal [facility] Potassium [Moles/Vol] 4.5 mmol/L 3.7 - 5.1 mmol/L [facility] Sodium [Moles/Vol] 140 mmol/L 136 - 144 mmol/L [facility] Urea nitrogen [Mass/Vol] 22 mg/dL High 7 - 21 mg/dL [facility] Basic metabolic 2000 panelon 04-28-2025 Anion gap [Moles/Vol] 10 mmol/L Normal 8-15 [facility] Comment on above: Order Comment: Speci men Type: BLOOD SPECIMENOrdering Facility: [facility] Address: [facility] [place] [id number] Performed By: #### 2 4325-3, 29770-1 ####[facility] EDUARDOSYCAMORE MEDICAL CENTERPily [id number] [place] [address] [place] Calcium [Mass/Vol] 10.1 mg/dL Normal 8.5-10.2 [facility] Comment on above: Order Comment: Speci men Type: BLOOD SPECIMENOrdering Facility: [facility] Address: [address] [place] [address] Performed By: #### 2 4325-3, 09833-8 ####[facility] [id number] [place] [address] [place] Chloride [Moles/Vol] 104 mmol/L Normal 98-107 [facility] Comment on above: Order Comment: Speci men Type: BLOOD SPECIMENOrdering Facility: [facility] Address: [address] [place] [address] Performed By: #### 2 4325-3, 84625-4 ####[facility]ITAL[facility]CL[facility] [id number] [place] [address] [place] CO2 [Moles/Vol] 26 mmol/L Normal 22-30 [facility] Comment on above: Order Comment: Speci men Type: BLOOD SPECIMENOrdering Facility: [facility] Address: [address] [place] [address] Performed By: #### 2 4325-3, 17418-9 ####[facility]ITAL[facility]CL[facility] [id number] [place] [address] [place] Creatinine [Mass/Vol] 0.81 mg/dL Normal 0.58-0.96 [facility] Comment on above: Order Comment: Speci men Type: BLOOD SPECIMENOrdering Facility: [facility] Address: [address] [place] [address] Performed By: #### 2 4325-3, 99372-2 ####[facility]ITALNCLIA [id number] [place] [address] [place] eGFRcr SerPlBld CKD-EPI 2020 80 mL/min/1.73m??? Normal >=60 [facility] Comment on above: Order Comment: Speci men Type: BLOOD SPECIMENOrdering Facility: [facility] Address: [address] [place] [address] Result Comment: Ysabel mated Glomerular Filtration Rate (eGFR) is calculated using the 2020 CKD-EPI creatinine equation. This equation utilizes serum creatinine, sex, and age as parameters. The creatinine assay has traceable calibration to isotope dilution-mass spectrometry. Refer to KDIGO guidelines for clinical interpretation. In patients with unstable renal function, e.g. those with acute kidney injury, the eGFR may not accurately reflect actual GFR. Performed By: #### 2 4325-3, 41098-3 ####[facility] [id number] [place] [address] [place] Glucose [Mass/Vol] 109 mg/dL High 74-99 [facility] Comment on above: Order Comment: Verenice sharma Type: BLOOD SPECIMENOrdering Facility: [facility] Address: [address] [place] [address] Result Comment: The [place] Diabetes Association (ADA) provides guidance for cutoff values for fasting glucose and random glucose. The ADA defines fasting as no caloric intake for at least 8 hours. Fasting plasma glucose results between 100 to 125 mg/dL indicate increased risk for diabetes (prediabetes). Fasting plasma glucose results greater than or equal to 126 mg/dL meet the criteria for diagnosis of diabetes. In the absence of unequivocal hyperglycemia, results should be confirmed by repeat testing. In a patient with classic symptoms of hyperglycemia or hyperglycemic crisis, random plasma glucose results greater than or equal to 200 mg/dL meet the criteria for diagnosis of diabetes. Reference: Standards of Medical Care in Diabetes 2016, [place] Diabetes Association. Diabetes Care. 2016.39(Suppl 1). Performed By: #### 2 4325-3, 57520-2 ####[facility] [id number] [place] [address] [place] Potassium [Moles/Vol] 4.5 mmol/L Normal 3.7-5.1 [facility] Comment on above: Order Comment: Verenice sharma Type: BLOOD SPECIMENOrdering Facility: [facility] Address: [address] [place] [id number] Performed By: #### 2 4325-3, 03569-9 ####[facility] LISAKevinNCLIA [id number] [address] [place] Sodium [Moles/Vol] 140 mmol/L Normal 136-144 [facility] Comment on above: Order Comment: Speci men Type: BLOOD SPECIMENOrdering Facility: [facility] Address: [address] [place] [address] Performed By: #### 2 4325-3, 60661-3 ####[facility] LISACLEVELANDNCLIA [id number] [address] [place] Urea nitrogen [Mass/Vol] 22 mg/dL High 7-21 [facility] Comment on above: Order Comment: Speci men Type: BLOOD SPECIMENOrdering Facility: [facility] Address: [address] [place] [address] Performed By: #### 2 4325-3, 67814-2 ####[facility]IT[facility] [id number] [address] [place] CBC W Auto Differential pane l (Bld)on 04-28-2025 Basophils (Bld) [#/Vol] 0.04 10*3/uL [facility] Basophils/100 WBC (Bld) 0.6 % [facility] Differential cell count method Nom (Bld) Auto [facility] Eosinophils (Bld) [#/Vol] 0.35 10*3/uL [facility] Eosinophils/100 WBC (Bld) 4.9 % [facility] Erythrocyte distribution width (RBC) [Ratio] 12.2 % 11.5 - 15.0 % [facility] Hematocrit (Bld) [Volume fraction] 42.9 % 36.0 - 46.0 % [facility] Hemoglobin (Bld) [Mass/Vol] 14.3 g/dL 11.5 - 15.5 g/dL [facility] Immature granulocytes (Bld) [#/Vol] [facility] Immature granulocytes/100 WBC (Bld) 0.1 % [facility] Interpretation and review of laboratory results Abnormal [facility] Lymphocytes (Bld) [#/Vol] 1.63 10*3/uL [facility] Lymphocytes/100 WBC (Bld) 23.0 % [facility] MCH (RBC) [Entitic mass] 31.1 pg 26.0 - 34.0 pg [facility] MCHC (RBC) [Mass/Vol] 33.3 g/dL 30.5 - 36.0 g/dL [facility] MCV (RBC) [Entitic vol] 93.3 fL 80.0 - 100.0 fL [facility] Monocytes (Bld) [#/Vol] 0.62 10*3/uL NINF [facility] Monocytes/100 WBC (Bld) 8.7 % [facility] Neutrophils (Bld) [#/Vol] 4.44 10*3/uL [facility] Neutrophils/100 WBC (Bld) 62.7 % [facility] Nucleated RBC (Bld) [#/Vol] NINF [facility] Nucleated RBC/100 WBC (Bld) [Ratio] 0.0 % /100 WBC [facility] Platelet mean volume (Bld) [Entitic vol] 8.9 fL Low 9.0 - 12.7 fL [facility] Platelets (Bld) [#/Vol] 229 10*3/uL [facility] RBC (Bld) [#/Vol] 4.60 10*6/uL 3.90 - 5.2 0 m/uL [facility] WBC (Bld) [#/Vol] 7.09 10*3/uL [facility] Basophils (Bld) [#/Vol] 0.04 10*3/uL Normal <0.11 [facility] Comment on above: Order Comment: Speci men Type: BLOOD SPECIMENOrdering Facility: [facility] Address: [address] [place], [place] [address] Performed By: #### 5 7021-8 ####[facility] EDUARDO BEERUI [id number] [place] [id number] [place] [address] [place] Basophils/100 WBC (Bld) 0.6 % Normal [facility] Comment on above: Order Comment: Speci men Type: BLOOD SPECIMENOrdering Facility: [facility] Address: [address] [place] [address] Performed By: #### 5 7021-8 ####[facility] ROHITWNCLIA [id number] [place] [address] [place] Differential cell count method Nom (Bld) Auto Normal [facility] Comment on above: Order Comment: Speci men Type: BLOOD SPECIMENOrdering Facility: [facility] Address: [address] [place] [address] Performed By: #### 5 7021-8 ####[facility] MILLSARANCLIA [id number] [place] [address] [place] Eosinophils (Bld) [#/Vol] 0.35 10*3/uL Normal <0.46 [facility] Comment on above: Order Comment: Speci men Type: BLOOD SPECIMENOrdering Facility: [facility] Address: [address] [place] [address] Performed By: #### 5 7021-8 ####[facility] CENTERWNCLIA [id number] [place] [address] [place] Eosinophils/100 WBC (Bld) 4.9 % Normal [facility] Comment on above: Order Comment: Speci men Type: BLOOD SPECIMENOrdering Facility: [facility] Address: [address] [place] [address] Performed By: #### 5 7021-8 ####[facility] CENTERWNCLIA [id number] [place] [address] [place] Erythrocyte distribution width (RBC) [Ratio] 12.2 % Normal 11.5-15.0 [facility] Comment on above: Order Comment: Speci men Type: BLOOD SPECIMENOrdering Facility: [facility] Address: [address] [place] [address] Performed By: #### 5 7021-8 ####[facility] [id number] [place] [address] [place] Hematocrit (Bld) [Volume fraction] 42.9 % Normal 36.0-46.0 [facility] Comment on above: Order Comment: Speci men Type: BLOOD SPECIMENOrdering Facility: [facility] Address: [address] [place] [address] Performed By: #### 5 7021-8 ####[facility] [id number] [place] [address] [place] Hemoglobin (Bld) [Mass/Vol] 14.3 g/dL Normal 11.5-15.5 [facility] Comment on above: Order Comment: Speci men Type: BLOOD SPECIMENOrdering Facility: [facility] Address: [address] [place] [address] Performed By: #### 5 7021-8 ####[facility] [id number] [place] [address] [place] Immature granulocytes (Bld) [#/Vol] 10*3/uL Normal <0.10 [facility] Comment on above: Order Comment: Speci men Type: BLOOD SPECIMENOrdering Facility: [facility] Address: [address] [place] [address] Performed By: #### 5 7021-8 ####[facility] [id number] [place] [address] [place] Immature granulocytes/100 WBC (Bld) 0.1 % Normal [facility] Comment on above: Order Comment: Speci men Type: BLOOD SPECIMENOrdering Facility: [facility] Address: [address] [place] [address] Performed By: #### 5 7021-8 ####[facility] [id number] [place] [address] [place] Lymphocytes (Bld) [#/Vol] 1.63 10*3/uL Normal 1.00-4.00 [facility] Comment on above: Order Comment: Speci men Type: BLOOD SPECIMENOrdering Facility: [facility] Address: [address] [place] [address] Performed By: #### 5 7021-8 ####[facility] [id number] [address] STATES [facility] Lymphocytes/100 WBC (Bld) 23.0 % Normal [facility] Comment on above: Order Comment: Speci men Type: BLOOD SPECIMENOrdering Facility: [facility] Address: [address] [place] [address] Performed By: #### 5 7021-8 ####[facility] [id number] [place] [address] [place] MCH (RBC) [Entitic mass] 31.1 pg Normal 26.0-34.0 [facility] Comment on above: Order Comment: Speci men Type: BLOOD SPECIMENOrdering Facility: [facility] Address: [address] [place] [address] Performed By: #### 5 7021-8 ####[facility] [id number] [address] [place] MCHC (RBC) [Mass/Vol] 33.3 g/dL Normal 30.5-36.0 [facility] Comment on above: Order Comment: Speci men Type: BLOOD SPECIMENOrdering Facility: [facility] Address: [address] [place] [address] Performed By: #### 5 7021-8 ####[facility] [id number] [address] [place] MCV (RBC) [Entitic vol] 93.3 fL Normal 80.0-100.0 [facility] Comment on above: Order Comment: Speci men Type: BLOOD SPECIMENOrdering Facility: [facility] Address: [address] [place] [address] Performed By: #### 5 7021-8 ####[facility] MILLTOWNCLIA [id number] [place] [address] [place] Monocytes (Bld) [#/Vol] 0.62 10*3/uL Normal <0.87 [facility] Comment on above: Order Comment: Speci men Type: BLOOD SPECIMENOrdering Facility: [facility] Address: [address] [place] [address] Performed By: #### 5 7021-8 ####[facility] MILLTOWNCLIA [id number] [place] [address] [place] Monocytes/100 WBC (Bld) 8.7 % Normal [facility] Comment on above: Order Comment: Speci men Type: BLOOD SPECIMENOrdering Facility: [facility] Address: [address] [place] [address] Performed By: #### 5 7021-8 ####[facility] CENTERWNCLIA [id number] [place] [address] [place] Neutrophils (Bld) [#/Vol] 4.44 10*3/uL Normal 1.45-7.50 [facility] Comment on above: Order Comment: Speci men Type: BLOOD SPECIMENOrdering Facility: [facility] Address: [address] [place] [address] Performed By: #### 5 7021-8 ####[facility] MILLTOWNCLIA [id number] [place] [address] [place] Neutrophils/100 WBC (Bld) 62.7 % Normal [facility] Comment on above: Order Comment: Speci men Type: BLOOD SPECIMENOrdering Facility: [facility] Address: [address] [place] [address] Performed By: #### 5 7021-8 ####[facility] MILLTOWNCLIA [id number] [place] [address] [place] Nucleated RBC (Bld) [#/Vol] 10*3/uL Normal <0.01 [facility] Comment on above: Order Comment: Speci men Type: BLOOD SPECIMENOrdering Facility: [facility] Address: [address] [place] [address] Performed By: #### 5 7021-8 ####[facility] HOSPITALRUI [id number] [place] [address] [place] Nucleated RBC/100 WBC (Bld) [Ratio] 0.0 /100 WBC Normal [facility] Comment on above: Order Comment: Speci men Type: BLOOD SPECIMENOrdering Facility: [facility] Address: [address] [place] [address] Performed By: #### 5 7021-8 ####[facility] HOSPITALRUI [id number] [place] [address] [place] Platelet mean volume (Bld) [Entitic vol] 8.9 fL Low 9.0-12.7 [facility] Comment on above: Order Comment: Speci men Type: BLOOD SPECIMENOrdering Facility: [facility] Address: [address] [place] [address] Performed By: #### 5 7021-8 ####[facility] HOSPITALRUI [id number] [place] [address] [place] Platelets (Bld) [#/Vol] 229 10*3/uL Normal 150-400 [facility] Comment on above: Order Comment: Speci men Type: BLOOD SPECIMENOrdering Facility: [facility] Address: [address] [place] [address] Performed By: #### 5 7021-8 ####[facility] HOSPITALSARALIA [id number] [place] [address] [place] RBC (Bld) [#/Vol] 4.60 10*6/uL Normal 3.90-5.20 [facility] Comment on above: Order Comment: Speci men Type: BLOOD SPECIMENOrdering Facility: [facility] Address: [address] [place] [address] Performed By: #### 5 7021-8 ####[facility] HOSPITALNCLIA [id number] [place] [address] [place] [facility] [place] WBC (Bld) [#/Vol] 7.09 10*3/uL Normal 3.70-11.00 [facility] Comment on above: Order Comment: Speci men Type: BLOOD SPECIMENOrdering Facility: [facility] Address: [address] [place] [address] Performed By: #### 5 7021-8 ####[facility]ITALNCLAKE[facility] [id number] [address] [facility] CNOVon 04-28-2025 CNOV Office Visit (RHWSTR ) MAUREEN RODRIGUEZ ([id number]) 1960 F NFR Date Time Provider Department 04/28/25 10:00 AM LEIGH PAL RHWSTR During your visit today, we recorded the following information about you: Pulse Blood pressure Weight 55/minute 117/75 92.9 kg Leigh Pal PA-C 04/28/2025 10:56 AM Signed Rheumatology FOLLOW UP VISIT Date of Service: 04/28/2025 Patient: Maureen Rodriguez Medical Record: [id number] Primary Care Physician: Vijay Park DO Last Rheumatology visit: 01/21/2025 (with Leigh Pal) History of Present Illness Maureen Rodriguez is a 64 year old White female who presents on 04/28/2025 for an in-person visit for evaluation of established patient. She is currently taking diclofenac sodium. Maureen reports a current pain level of 2 . She describes the pain as Tingling. The pain is Intermittent . Interventions tried include Other: See comment (none). Maureen is RF positive - 21 (10/19/2024) and CCP negative - 13.5 (10/19/2024). Her most recent ASHLEY was negative (11/01/2014). Still has issues from R foot bunion surgery 11/13/24 done by external environmental air specialist DVT also in R leg in January after our last visit Only took 1 month of Eliquis. Now just taking baby aspirin BID due to cost. Ultrasound every few weeks to see progression Rash on R inner lower leg - non itchy. Resolving itself. Had Knee injectoins with some improvement in knee pain. Not complete esolution Planning to get another set of injections. Joint pain: bilateral knees, bilateral hands (PIPs) R ankle Frequent UTIs/ Dysuria. Symptoms come and go. Admits trying gluten avoiding diet, and feels joint pain does improve some. HPI per AI Maureen Rodriguez is a 64-year-old female with a history of bunion surgery, presenting for evaluation of persistent right foot and ankle pain, joint pain, recurrent UTIs, and xerostomia. Maureen underwent bunion surgery on 11/13, involving correction of three toes and the bunion on the right foot. Since the surgery, she has experienced persistent discomfort in the entire foot, describing it as "not right" but not severely painful. She attributes this to the surgery and notes that the issues began postoperatively. She also reports new-onset right ankle pain, which she believes is due to altered gait post-surgery. The pain is located on the top and side of the ankle and was not present before the surgery. She is currently seeing a foot and ankle specialist who has suggested steroid injections to aid in healing. On 02/02, she was diagnosed with a DVT in the right lower leg and was initially prescribed Eliquis for one month. Due to insurance issues, she switched to taking baby aspirin twice daily. She has been undergoing regular ultrasounds to monitor the DVT's progression. Recently, she developed a rash on the right inner leg, which she describes as red and dark but not pruritic. The rash appeared after a day of heat exposure and walking at a fair and is now resolving. She also reports ongoing joint pain in both knees and the PIP joints of her hands, with the middle finger being the most tender. She experiences morning stiffness lasting about 30 minutes, which improves with movement. She has been receiving knee injections, which have provided partial relief. She takes acetaminophen for pain management and cannot take NSAIDs due to her cardiac history and current anticoagulation therapy. She has a low positive rheumatoid factor but normal inflammatory markers in the past. Additionally, she reports recurrent UTI symptoms over the past few months, with symptoms currently present. She was treated for a UTI before her surgery. She also experiences significant xerostomia, which sometimes disrupts her sleep. She notes minimal dry eyes. She has a history of indigestion-type chest pain and is scheduled to see her engineering analyst next month. She has been trying to limit gluten intake and reports that it seems to help with her joint pain, though she has not been strictly gluten-free. Pain Evaluation 10/22/2024 01/18/2025 01/21/2025 02/16/2025 04/28/2025 Pain Evaluation Pain Score 3 2 4 2 Location -- Knee-Right Generalized Knee-Left -- Location Comment Bilateral knees Legs Description Aching;Sharp;Burning;Itching Aching;Sore;Stiffness Burning;Dull;Pressure;Stiffn ess;Tenderness Tingling Duration (#) 5 -- Duration (Timeframe) Years Months Months Frequency Continuous Continuous Continuous Intermittent Intervention Medication Heat;Massage;Pillow support;Positioning Medication;Heat;Massage;Pill ow support Other: See comment Data saved with a previous flowsheet row definition Rheum/Ortho Arthrocentesis Injections (last 5) 02/18/2025 08:57 Injection History Medication - Right 6 mg betamethasone acetate-betamethasone sodium phosphate 6 mg/mL Medication - Left 6 mg betamethasone acetate-betam (more content not included)... Normal [facility] CRP SerPl-ncon 04-28-2025 CRP [Mass/Vol] mg/L Normal <0.9 [facility] Comment on above: Order Comment: Speci men Type: BLOOD SPECIMENOrdering Facility: [facility] Address: [facility] [place] [address] Performed By: #### 1 988-5 ####[facility] LABIA [id number] [place] [id number] [place] ESR Westergren method (Bld) [Velocity]on 04-28-2025 ESR (Bld) [Velocity] 10 mm/h [facility] Interpretation and review of laboratory results Normal [facility] ESR (Bld) [Velocity] 10 mm/h Normal 0-20 [facility] Comment on above: Order Comment: Speci men Type: BLOOD SPECIMENOrdering Facility: [facility] Address: [address] [place] [address] Performed By: #### 4 537-7 ####[facility] LABIA [id number] [place] [address] [place] HBV core Ab Ser Qlon 025 HBV core Ab Ql (S) Negative Normal Negative [facility] Comment on above: Order Comment: Speci men Type: BLOOD SPECIMENOrdering Facility: [facility] Address: [address] [place] [address] Result Comment: No e vidence of current or past infection with Hepatitis B virus. Should recent infection be suspected, repeat testing may be considered 3-4 weeks after this draw. Performed By: #### 2 2322-2, 5195-3, 95528-8 ####[facility] LABIA [id number] [place] [address] [place] HBV surface Ab Ql (S)on 04-03 HBV surface Ab Qn (S) <8.00 Normal [facility] Comment on above: Order Comment: Speci men Type: BLOOD SPECIMENOrdering Facility: [facility] Address: [address] [place] [address] Result Comment: <8 m IU/mL: No serological evidence of immunity to Hepatitis B Virus. >/= 8 to <12 mIU/mL: No serological evidence of immunity to Hepatitis B Virus. >/= 12 mIU/mL: Consistent with serological evidence of immunity to Hepatitis B Virus. Performed By: #### 2 2322-2, 5195-3, 56995-3 ####[facility] LABIA [id number] [address] OF [place] HBV surface Ab Ser Qlon 04-03 HBV surface Ab Ql (S) Negative Normal [facility] Comment on above: Order Comment: Speci men Type: BLOOD SPECIMENOrdering Facility: [facility] Address: [address] [place] [address] Result Comment: No s erological evidence of immunity to Hepatitis B Virus. Performed By: #### 2 2322-2, 5195-3, 01927-7 ####[facility]ENTERIA [id number] [address] [facility] HBV surface Ag Ser Qlon 04-03 HBV surface Ag Ql (S) Negative Normal Negative [facility] Comment on above: Order Comment: Speci men Type: BLOOD SPECIMENOrdering Facility: [facility] Address: [address] [place] [address] Performed By: #### 2 2322-2, 5195-3, 85093-1 ####[facility] CENTERIA [id number] [address] [place] HCV Ab Ser Qlon 04-28-2025 HCV Ab Ql (S) Negative Normal Negative [facility] Comment on above: Order Comment: Speci men Type: BLOOD SPECIMENOrdering Facility: [facility] Address: [address] [place] [address] Result Comment: The result suggests no evidence of infection with Hepatitis C virus. Should recent infection be suspected, repeat testing may be considered 4-6 weeks after this draw. Performed By: #### 1 6128-1 ####[facility] LABIA [id number] [address] [place] Hepatic function 2000 panelo n 04-28-2025 Albumin [Mass/Vol] 4.1 g/dL 3.9 - 4.9 g/dL [facility] ALP [Catalytic activity/Vol] 116 U/L 34 - 123 U/L [facility] ALT [Catalytic activity/Vol] 19 U/L 7 - 38 U/L [facility] AST [Catalytic activity/Vol] 16 U/L 13 - 35 U/L [facility] Bilirubin [Mass/Vol] 0.3 mg/dL 0.2 - 1 .3 mg/dL [facility] Bilirubin.conjugated [Mass/Vol] 0.1 mg/dL NINF - 0.3 mg/dL [facility] Interpretation and review of laboratory results Normal [facility] Protein [Mass/Vol] 6.9 g/dL 6.3 - 8.0 g/dL [facility] Albumin [Mass/Vol] 4.1 g/dL Normal 3.9-4.9 [facility] Comment on above: Order Comment: Speci men Type: BLOOD SPECIMENOrdering Facility: [facility] Address: [address] [place] [address] Performed By: #### 2 4325-3, 69756-4 ####[facility] CENTERWPAYNESVILLE HOSPITALA [id number] [place] [address] [place] ALP [Catalytic activity/Vol] 116 U/L Normal 34-123 [facility] Comment on above: Order Comment: Speci men Type: BLOOD SPECIMENOrdering Facility: [facility] Address: [address] [place] [address] Performed By: #### 2 4325-3, 66832-3 ####[facility] MILLWMELIA [id number] [place] [address] [place] ALT [Catalytic activity/Vol] 19 U/L Normal 7-38 [facility] Comment on above: Order Comment: Speci men Type: BLOOD SPECIMENOrdering Facility: [facility] Address: [address] [place] [address] Performed By: #### 2 4325-3, 54089-4 ####[facility] MILLTOWNCLIA [id number] [place] [address] [place] AST [Catalytic activity/Vol] 16 U/L Normal 13-35 [facility] Comment on above: Order Comment: Speci men Type: BLOOD SPECIMENOrdering Facility: [facility] Address: [address] [place] [address] Performed By: #### 2 4325-3, 76370-1 ####[facility] HOSPITALNCMARYSE [id number] [place] [address] [place] Bilirubin [Mass/Vol] 0.3 mg/dL Normal 0.2-1.3 [facility] Comment on above: Order Comment: Speci men Type: BLOOD SPECIMENOrdering Facility: [facility] Address: [address] [place] [address] Performed By: #### 2 4325-3, 00037-6 ####[facility] HOSPITALNCMARYSE [id number] [place] [address] [place] Bilirubin.conjugated [Mass/Vol] 0.1 mg/dL Normal <0.3 [facility] Comment on above: Order Comment: Speci men Type: BLOOD SPECIMENOrdering Facility: [facility] Address: [address] [place] [address] Performed By: #### 2 4325-3, 09238-4 ####[facility]ITALANJALIA [id number] [place] [address] [place] Protein [Mass/Vol] 6.9 g/dL Normal 6.3-8.0 [facility] Comment on above: Order Comment: Speci men Type: BLOOD SPECIMENOrdering Facility: [facility] Address: [address] [place], [place] [address] Performed By: #### 2 4325-3, 28055-0 ####[facility] HOSPITALNCLIA [id number] [place] [address] [place] Urinalysis complete panel (U )on 04-28-2025 Bacteria LM.HPF (Urine sed) [#/Area] Negative Negative /HPF [facility] Bilirubin Ql (U) Negative Negative [facility] Clarity (Unsp spec) Clear Clear [facility] Color (U) Yellow Yellow [facility] Epithelial cells LM.HPF (Urine sed) [#/Area] None Seen /HPF [facility] Glucose Test strip (U) [Mass/Vol] Negative Negative [facility] Hemoglobin Ql (U) Negative Negative [facility] Hyaline casts (Urine sed) [#/Area] 0 /[LPF] 0 /LPF [facility] Interpretation and review of laboratory results Abnormal [facility] Ketones Ql (U) Negative Negative [facility] Leukocyte esterase Test strip Ql (U) 2+ Abnormal Negative [facility] Nitrite Ql (U) Negative Negative [facility] pH (U) 5.5 [pH] 5.0 - 8.0 [facility] Protein (U) [Mass/Vol] Negative Negative [facility] RBC LM.HPF (Urine sed) [#/Area] 0-2 /HPF 0-2 /HPF [facility] Specific gravity (U) [Rel density] 1.017 1.005 - 1.030 [facility] Urobilinogen Ql (U) 0.2 EU/dL 0.2-1.0 EU/dL [facility] WBC LM.HPF (Urine sed) [#/Area] /[HPF] Abnormal 0-5 /HPF [facility] This test was develo ped and its performance characteristics determined by [facility] Pathology and Laboratory Medicine [place] (-[facility]). It has not been cleared or approved by the FDA. [facility] is regulated under CLIA as qualified to perform high-complexity testing. This test is used for clinical purposes. It should not be regarded as investigational or for research. [facility] Bacteria LM.HPF (Urine sed) [#/Area] Negative Normal Negative [facility] Comment on above: Order Comment: Speci men Type: URINE SPECIMENOrdering Facility: [facility] Address: [address] [place] [address] Performed By: #### 2 4356-8, 630-4 ####[facility] LABCLIA [id number] [id number], [place] [address] [place] Bilirubin Ql (U) Negative Normal Negative [facility] Comment on above: Order Comment: Speci men Type: URINE SPECIMENOrdering Facility: [facility] Address: [facility] [place] [address] Performed By: #### 2 4356-8, 630-4 ####[facility] LABCLIA [id number] [place] [address] [place] Clarity (Unsp spec) Clear Normal Clear [facility] Comment on above: Order Comment: Speci men Type: URINE SPECIMENOrdering Facility: [facility] Address: [address] [place] [address] Performed By: #### 2 4356-8, 630-4 ####[facility] LABCLIA [id number] [address], [address] STATES OF [facility] Color (U) Yellow Normal Yellow [facility] Comment on above: Order Comment: Speci men Type: URINE SPECIMENOrdering Facility: [facility] Address: [address] [place] [address] Performed By: #### 2 4356-8, 630-4 ####[facility] LABCLIA [id number] [address] [place] Epithelial cells LM.HPF (Urine sed) [#/Area] None Seen Normal [facility] Comment on above: Order Comment: Speci men Type: URINE SPECIMENOrdering Facility: [facility] Address: [address] [place] [address] Performed By: #### 2 4356-8, 630-4 ####[facility] LABCLIA [id number] [place] [id number] [place] Glucose Test strip (U) [Mass/Vol] Negative Normal Negative [facility] Comment on above: Order Comment: Speci men Type: URINE SPECIMENOrdering Facility: [facility] Address: [address] [place] [address] Performed By: #### 2 4356-8, 630-4 ####[facility] LABCLIA [id number] [address] [place] [address] [place] Hemoglobin Ql (U) Negative Normal Negative [facility] Comment on above: Order Comment: Speci men Type: URINE SPECIMENOrdering Facility: [facility] Address: [address] [place] [address] Performed By: #### 2 4356-8, 630-4 ####[facility] LABCLIA [id number] [address] [place] [address] [place] Hyaline casts (Urine sed) [#/Area] 0 /[LPF] Normal 0 /LPF [facility] Comment on above: Order Comment: Speci men Type: URINE SPECIMENOrdering Facility: [facility] Address: [address] [place] [address] Performed By: #### 2 4356-8, 630-4 ####[facility] LABCLIA [id number] [address], [place] [address] [place] Ketones Ql (U) Negative Normal Negative [facility] Comment on above: Order Comment: Speci men Type: URINE SPECIMENOrdering Facility: [facility] Address: [address] [place] [address] Performed By: #### 2 4356-8, 630-4 ####[facility] LABCLIA [id number] [address] [place] [address] [place] Leukocyte esterase Test strip Ql (U) 2+ Abnormal Negative [facility] Comment on above: Order Comment: Speci men Type: URINE SPECIMENOrdering Facility: [facility] Address: [address] [place], [place] [address] Performed By: #### 2 4356-8, 630-4 ####[facility] LABCLIA [id number] [address] [place] [address] [place] Nitrite Ql (U) Negative Normal Negative [facility] Comment on above: Order Comment: Speci men Type: URINE SPECIMENOrdering Facility: [facility] Address: [address] [place] [address] Performed By: #### 2 4356-8, 630-4 ####[facility] LABIA [id number] [address] [address] [place] pH (U) 5.5 [pH] Normal 5.0-8.0 [facility] Comment on above: Order Comment: Speci men Type: URINE SPECIMENOrdering Facility: [facility] Address: [address] [place] [address] Performed By: #### 2 4356-8, 630-4 ####[facility] LABIA [id number] [place] [address] [place] Protein (U) [Mass/Vol] Negative Normal Negative [facility] Comment on above: Order Comment: Speci men Type: URINE SPECIMENOrdering Facility: [facility] Address: [address] [place] [address] Performed By: #### 2 4356-8, 630-4 ####[facility] LABIA [id number] [place] [address] [place] RBC LM.HPF (Urine sed) [#/Area] 0-2 /HPF Normal 0-2 /HPF [facility] Comment on above: Order Comment: Speci men Type: URINE SPECIMENOrdering Facility: [facility] Address: [address] [place] [address] Performed By: #### 2 4356-8, 630-4 ####[facility] LABIA [id number] [address], [facility] [place] Specific gravity (U) [Rel density] 1.017 Normal 1.005-1.030 [facility] Comment on above: Order Comment: Speci men Type: URINE SPECIMENOrdering Facility: [facility] Address: [address] [place] [address] Performed By: #### 2 4356-8, 630-4 ####[facility] LABCLIA [id number] [place] [id number] [place] Urobilinogen Ql (U) 0.2 EU/dL Normal 0.2-1.0 EU/dL [facility] Comment on above: Order Comment: Speci men Type: URINE SPECIMENOrdering Facility: [facility] Address: [address] [place] [address] Performed By: #### 2 4356-8, 630-4 ####[facility] LABIA [id number] [place] [id number] [place] WBC LM.HPF (Urine sed) [#/Area] /[HPF] Abnormal 0-5 /HPF [facility] Comment on above: Order Comment: Speci men Type: URINE SPECIMENOrdering Facility: [facility] Address: [address] [place] [address] Performed By: #### 2 4356-8, 630-4 ####[facility] LABIA [id number] [place] [id number] [place] Venous duplex ultrasound rep ortOrdered By: Trevin May on 04-28-2025 US Vein [facility] [address] [facility] [place] [address] Venous Duplex US, Unilateral 04/27/25 1258 MR#: [id number] Acct: [id number] Name: MAUREEN RODRIGUEZ Rep #:[id number] : 1960 64 From: Trevin Fox Attending Dr: MARY Estarda Stat us: REG CLI Ordering Dr: Lyssa Montgomery Date: Location: CVS Sex: F C Admitted: Reason For Study Reason For Study: Right leg DVT RIGHT LEFT GSV is normal. CFV is compressible, spontaneous, phasic, competent, CFV is compressible, spontaneous, phasic, competent and demonstrates normal augmentation. and demonstrates normal augmentation. FV is compressible, spontaneous, phasic, competent and demonstrates normal augmentation. POP V is compressible, spontaneous, phasic, competent and demonstrates normal augmentation. T/P Trunk is compressible. PTV is compressible. PeroV is partially compressible and no longer dilated. Soleus V is NONCOMPRESSIBLE. Procedure This is a venous duplex using B-mode, color flow and spectral Doppler. Exam performed in department. Compared to 04/07/2025. VL/Venous Duplex US, Unilateral Interpretation Summary Acute deep vein thrombosis noted in the right peroneal vein, soleus vein. Partial resolution from prior study. Ordering Physician: Lyssa Montgomery Referring Physician: Vijay Park Performed By: Vicenta Cervantes Harper 04/28/251851 Date _ Trevin May MD CC: MARY Estrada; DO Jacquelin Ruiz Date Dictated: 04/27/251257 Date Transcribed: 04/28/251851 Inspector Rag Sorting: Signed [facility] Work Phone: Venous Duplex US, Unilateral on 04-27-2025 Venous Duplex US, Unilateral [facility] [address] [place] [address] Venous Duplex US, Unilateral 04/27/25 1258 MR#: [id number] Acct: [id number] Name: MAUREEN RODRIGUEZ ANN Rep #: [id number] : 1960 64 From: Trevin May MD Attending Dr: MARY Estrada Status: REG CLI Ordering Dr: Lyssa Montgomery Date: 04/27/25 Location: CVS Sex: F C Admitted: Reason For Study Reason For Study: Right leg DVT RIGHT LEFT GSV is normal. CFV is compressible, spontaneous, phasic, competent, CFV is compressible, spontaneous, phasic, competent and demonstrates normal augmentation. and demonstrates normal augmentation. FV is compressible, spontaneous, phasic, competent and demonstrates normal augmentation. POP V is compressible, spontaneous, phasic, competent and demonstrates normal augmentation. T/P Trunk is compressible. PTV is compressible. PeroV is partially compressible and no longer dilated. Soleus V is NONCOMPRESSIBLE. Procedure This is a venous duplex using B-mode, color flow and spectral Doppler. Exam performed in department. Compared to 04/07/2025. VL/Venous Duplex US, Unilateral Interpretation Summary Acute deep vein thrombosis noted in the right peroneal vein, soleus vein. Partial resolution from prior study. Ordering Physician: Lyssa Montgomery Referring Physician: Vijay Park Performed By: Vicenta Cervantes, T 04/28/251851 Date Trevin aMy MD CC: MARY Estrada; Dr. Vijay Park DO Date Dictated: 04/27/25 1258 Date Transcribed: 04/28/251851 Inspector Rag Sorting: Signed Normal [facility] Venous Duplex US, Unilateral on 04-07-2025 Venous Duplex US, Unilateral [facility] [address] [place] [address] Venous Duplex US, Unilateral 04/07/25 1001 MR#: [id number] Acct: [id number] Name: MAUREEN RODRIGUEZ Rep #: [id number] : 1960 64 From: Trevin May MD Attending Dr: MARY Estrada Status: REG CLI Ordering Dr: Lyssa Montgomery Date: 04/07/25 Location: CVS Sex: F C Admitted: Reason For Study Reason For Study: Swelling RIGHT LEFT GSV is normal. CFV is compressible, spontaneous, phasic, competent, CFV is compressible, spontaneous, phasic, competent and demonstrates normal augmentation. and demonstrates normal augmentation. FV is compressible, spontaneous, phasic, competent and demonstrates normal augmentation. POP V is compressible, spontaneous, phasic, competent and demonstrates normal augmentation. T/P Trunk is compressible. PTV is compressible. Rt PeroV mid and Rt Soleus V are NON COMPRESSIBLE. Procedure This is a venous duplex using B-mode, color flow and spectral Doppler. Exam performed in department. VL/Venous Duplex US, Unilateral Interpretation Summary Acute deep vein thrombosis noted in the right peroneal vein, soleus vein. Unchanged from prior study. Ordering Physician: Lyssa Montgomery Referring Physician: Lyssa Montgomery Performed By: Kavya Winters, MARV 04/07/25 1109 Date Trevin May MD CC: MARY Estrada; Dr. Vijay Park DO Date Dictated: 04/07/25 1001 Date Transcribed: 04/07/251108 Inspector Rag Sorting: Signed Normal [facility] Venous duplex ultrasound rep ortOrdered By: Trevin May on 04-07-2025 US Vein [facility] [address] [place] [address] Venous Duplex US, Unilateral 04/07/25 1001 MR#: [id number] Acct: [id number] Name: MAUREEN RODRIGUEZ Rep #:[id number] : 1960 64 From: Trevin Fox Attending Dr: MARY Estrada Stat us: REG CLI Ordering Dr: Lyssa Montgomery Date: Location: CVS Sex: F C Admitted: Reason For Study Reason For Study: Swelling RIGHT LEFT GSV is normal. CFV is compressible, spontaneous, phasic, competent, CFV is compressible, spontaneous, phasic, competent and demonstrates normal augmentation. and demonstrates normal augmentation. FV is compressible, spontaneous, phasic, competent and demonstrates normal augmentation. POP V is compressible, spontaneous, phasic, competent and demonstrates normal augmentation. T/P Trunk is compressible. PTV is compressible. Rt PeroV mid and Rt Soleus V are NON COMPRESSIBLE. Procedure This is a venous duplex using B-mode, color flow and spectral Doppler. Exam performed in department. VL/Venous Duplex US, Unilateral Interpretation Summary Acute deep vein thrombosis noted in the right peroneal vein, soleus vein. Unchanged from prior study. Ordering Physician: Lyssa Montgomery Referring Physician: Lyssa Montgomery Performed By: Kavya Winters, T 04/07/25 1109 Date _ Trevin May MD CC: MARY Estrada; Dr. Vijay Park, ~ Date Dictated: 04/07/25 1001 Date Transcribed: 04/07/25 110 Inspector Rag Sorting: Signed [facility] Work Phone: Venous Duplex US, Unilateral on 03-29-2025 Venous Duplex US, Unilateral [facility] [address] [place] [address] Venous Duplex US, Unilateral 03/29/25 1358 MR#: [id number] Acct: [id number] Name: MAUREEN RODRIGUEZ Rep #: [id number] : 1960 64 From: Trevin May MD Attending Dr: MARY Estrada Status: REG CLI Ordering Dr: Lyssa Montgomery Date: 03/29/25 Location: CVS Sex: F C Admitted: Reason For Study Reason For Study: Pain RLE RIGHT LEFT GSV is normal. CFV is compressible, spontaneous, phasic, competent, CFV is compressible, spontaneous, phasic, competent and demonstrates normal augmentation. and demonstrates normal augmentation. FV is compressible, spontaneous, phasic, competent and demonstrates normal augmentation. POP V is compressible, spontaneous, phasic, competent and demonstrates normal augmentation. T/P Trunk is compressible. PTV is compressible. Rt PeroV mid and Rt Soleus V are NON COMPRESSIBLE. Procedure This is a venous duplex using B-mode, color flow and spectral Doppler. Exam performed in department. A preliminary report was called and/or faxed to Lyssa HERNANDEZ. VL/Venous Duplex US, Unilateral Interpretation Summary Acute deep vein thrombosis noted in the right peroneal vein, soleus vein. Unchanged from prior study. Ordering Physician: Lyssa Montgomery Referring Physician: Vijay Park Performed By: Chasity Pete, LAYTON, RVT 03/29/25 1719 Date Trevin May MD CC: MARY Estrada; Dr. Vijay Park DO Date Dictated: 03/29/25 1358 Date Transcribed: 03/29/251718 Inspector Rag Sorting: Signed Normal [facility] Venous duplex ultrasound rep ortOrdered By: Trevin May on 03-29-2025 US Vein [facility] [address] [place] [address] Venous Duplex US, Unilateral 03/29/25 1358 MR#: [id number] Acct: [id number] Name: MAUREEN RODRIGUEZ Rep #:[id number] : 1960 64 From: Trevin Fox Attending Dr: MARY Estrada Stat us: REG CLI Ordering Dr: Lyssa Montgomery Date: Location: CVS Sex: F C Admitted: Reason For Study Reason For Study: Pain RLE RIGHT LEFT GSV is normal. CFV is compressible, spontaneous, phasic, competent, CFV is compressible, spontaneous, phasic, competent and demonstrates normal augmentation. and demonstrates normal augmentation. FV is compressible, spontaneous, phasic, competent and demonstrates normal augmentation. POP V is compressible, spontaneous, phasic, competent and demonstrates normal augmentation. T/P Trunk is compressible. PTV is compressible. Rt PeroV mid and Rt Soleus V are NON COMPRESSIBLE. Procedure This is a venous duplex using B-mode, color flow and spectral Doppler. Exam performed in department. A preliminary report was called and/or faxed to Lyssa HERNANDEZ. VL/Venous Duplex US, Unilateral Interpretation Summary Acute deep vein thrombosis noted in the right peroneal vein, soleus vein. Unchanged from prior study. Ordering Physician: Lyssa Montgomery Referring Physician: Vijay Park Performed By: Chasity Pete, LAYTON, RVT 03/29/25 171 Date _ Trevin May MD CC: MARY Estrada; Dr. Vijay Park, ~ Date Dictated: 03/29/25 1358 Date Transcribed: 03/29/251718 Inspector Rag Sorting: Signed [facility] Work Phone: Venous Duplex US, Unilateral on 03-22-2025 Venous Duplex US, Unilateral [facility] [address] [place] [address] Venous Duplex US, Unilateral 03/22/25 1010 MR#: [id number] Acct: [id number] Name: MAUREEN RODRIGUEZ Rep #: [id number] : 1960 64 From: Trevin May MD Attending Dr: MARY Estrada Status: REG CLI Ordering Dr: Lyssa Montgomery Date: 03/22/25 Location: CVS Sex: F C Admitted: Reason For Study Reason For Study: Pain RLE RIGHT LEFT GSV is normal. CFV is compressible, spontaneous, phasic, competent, CFV is compressible, spontaneous, phasic, competent and demonstrates normal augmentation. and demonstrates normal augmentation. FV is compressible, spontaneous, phasic, competent and demonstrates normal augmentation. POP V is compressible, spontaneous, phasic, competent and demonstrates normal augmentation. T/P Trunk is compressible. PTV is compressible. Rt mid PeroV and Rt SoleusV are DILATED and NON COMPRESSIBLE consistent with acute DVT. SFJ is competent and measures 0.87cm x 0.87 cm. GSV proximal thigh measures 0.42cm x 0.50 cm. GSV at knee measures 0.38cm x 0.46 cm. GSV is competent throughout. SSV mid calf is competent and measures 0.21cm x 0.21 cm. Procedure This is a venous duplex using B-mode, color flow and spectral Doppler. Exam performed in department. A preliminary report was called and/or faxed to Dr. Yadira Gayle. VL/Venous Duplex US, Unilateral Interpretation Summary Acute deep vein thrombosis noted in the right peroneal vein, unchanged from previous study. Acute deep vein thrombosis noted in the right soleus vein, new since prior study. Negative for reflux. Ordering Physician: Lyssa Montgomery Referring Physician: Vijay Park Performed By: Chasity Pete, LAYTON, RVT 03/22/25 1210 Date Trevin May MD CC: MARY Estrada; Dr. Vijay Park DO Date Dictated: 03/22/25 1010 Date Transcribed: 03/22/25 1210 Inspector Rag Sorting: Signed Normal [facility] Venous duplex ultrasound rep ortOrdered By: Trevin May on 03-22-2025 US Vein [facility] [address] [place] [address] Venous Duplex US, Unilateral 03/22/25 1010 MR#: [id number] Acct: [id number] Name: MAUREEN RODRIGUEZ Rep #:[id number] : 1960 64 From: Trevin Fox Attending Dr: MARY Estrada Stat us: REG CLI Ordering Dr: Lyssa Montgomery Date: Location: CVS Sex: F C Admitted: Reason For Study Reason For Study: Pain RLE RIGHT LEFT GSV is normal. CFV is compressible, spontaneous, phasic, competent, CFV is compressible, spontaneous, phasic, competent and demonstrates normal augmentation. and demonstrates normal augmentation. FV is compressible, spontaneous, phasic, competent and demonstrates normal augmentation. POP V is compressible, spontaneous, phasic, competent and demonstrates normal augmentation. T/P Trunk is compressible. PTV is compressible. Rt mid PeroV and Rt SoleusV are DILATED and NON COMPRESSIBLE consistent with acute DVT. SFJ is competent and measures 0.87cm x 0.87 cm. GSV proximal thigh measures 0.42cm x 0.50 cm. GSV at knee measures 0.38cm x 0.46 cm. GSV is competent throughout. SSV mid calf is competent and measures 0.21cm x 0.21 cm. Procedure This is a venous duplex using B-mode, color flow and spectral Doppler. Exam performed in department. A preliminary report was called and/or faxed to Dr. Yadira Gayle. VL/Venous Duplex US, Unilateral Interpretation Summary Acute deep vein thrombosis noted in the right peroneal vein, unchanged from previous study. Acute deep vein thrombosis noted in the right soleus vein, new since prior study. Negative for reflux. Ordering Physician: Lyssa Montgomery Referring Physician: Vijay Park Performed By: Chasity Pete, LAYTON, RVT 03/22/25 1210 Date _ Trevin May MD CC: MARY Estrada; Dr. Vijay Park DO ~ Date Dictated: 03/22/25 1010 Date Transcribed: 03/22/25 1210 Inspector Rag Sorting: Signed [facility] Work Phone: /[facility] 02-23-2025 /[facility] Vascular Surgery [facility] [address] [place] [address] OFFICE VISIT Date of Service: 02/24/25 MR#: [id number] Acct: [id number] Name: MAUREEN RODRIGUEZ Rep #: [id number] : 1960 Provider: MARY Estrada Age/Sex: 64/F Location: [facility] Status: Signed Intake Vital Signs 02/02/25 16:19 02/24/25 11:15 Height 5 ft 5 in Weight: 205 lb 1.6 oz 204 lb BMI 34.1 BP 140/81 H 139/82 H Blood Pressure Location Lt brachial Position Sitting Respiration 18 16 Pulse 56 L 67 Pulse Source Monitor Temp 97.7 F L 98 F Temp Source Temporal Temporal Pulse Oximetry (%) 99 98 Oxygen Delivery Method room air Intake Visit Reasons: Consult DVT/[facility] ED F/U Chief Complaint: establish care Is patient in pain?: Yes Allergies triamterene (Triamterene) Allergy (Verified 02/24/25 11:17) Rash venom-honey bee (bee venom (honey bee)) Allergy (Verified 02/24/25 11:17) Swelling Medications ???Medication ???Instructions ???Recorded ???Confirmed ???Type multivitamin,rs-qnzs-jugqhbe s 1 tab PO DAILY 06/25/19 02/24/25 H istory (Complete Multivitamin tablet) levothyroxine 112 mcg tablet 112 mcg PO DAILY 07/19/20 02/24/25 History nitroglycerin 0.4 mg sublingual 0.4 mg sublingual Q5-15M PRN chest 04/04/23 02/24/25 Rx tablet (Nitrostat) pain #25 tabs metoprolol tartrate 25 mg tablet 12.5 mg (1/2 x 25 mg) PO BID #90 1 09/28/23 02/24/25 Rx tabs pravastatin 10 mg tablet 10 mg PO QHS #90 tabs 07/29/24 Rx calcium 600 mg (as 2 tab PO QDAY 08/10/24 02/24/25 Hi story carbonate)-vitamin D3 20 mcg (800 unit) tablet glucosamine 750 wx-wmdkdtzebmp-ysc 1 tab PO BID 08/10/24 02/24/25 H istory no1 644 mg-C 30 mg-luis 1 mg tablet (Osteo Bi-Flex Triple Strength) turmeric root extract 500 mg 500 mg PO BID 08/10/24 02/24/25 Hi story capsule vitamin B complex 1 tab PO QDAY 08/10/24 02/24/25 Hi story elderberry fruit 200 mg capsule 200 mg PO DAILY 11/12/24 02/24/25 History pantoprazole 40 mg tablet,delayed 40 mg PO DAILY 11/12/24 02/24/25 History release (Protonix) zinc gluconate 50 mg tablet 50 mg PO DAILY 11/12/24 02/24/25 H istory acetaminophen 500 mg capsule 500 mg PO Q6H PRN fever or pain 02/24/25 Rx #30 caps aspirin 81 mg tablet,delayed 162 mg (2 x 81 mg) PO DAILY 14 02/24/25 Rx release days #28 tabs ibuprofen 600 mg tablet 600 mg PO Q6H PRN fever or pain 02/24/25 Rx #30 tabs oxycodone 5 mg tablet 5 mg PO Q4H PRN pain 7 days #42 02/24/25 Rx tabs rivaroxaban 20 mg tablet (Xarelto) 20 mg PO QDAY #30 tabs 02/24/25 02/24/25 Rx Is last menstrual period known: No Post menopausal: Yes Patient : No Have you fallen in the past year?: No PFSH Medical History (Updated 02/24/25 @ 12:44 by MARY Estrada) DVT (deep venous thrombosis) Wears glasses Post-menopausal Arthritis Fatty liver High cholesterol Easy bruising Back pain History of hiatal hernia Non-smoker Shortness of breath on exertion History of pain when walking History of stress test Cardiology follow-up encounter GERD (gastroesophageal reflux disease) Hypothyroidism Obesity Atherosclerosis of coronary artery of [place] heart without angina pectoris HLD (hyperlipidemia) Essential (primary) hypertension Surgical History History of esophagogastroduodenoscopy (EGD) Hx of colonoscopy Hx of parathyroidectomy Stented coronary artery (08/02/23) History of left heart catheterization (05/07/13) Hx laparoscopic cholecystectomy History of LAVH History of carpal tunnel surgery Family History Mother CAD (coronary artery disease) Hypertension Father CAD (coronary artery disease) Hypertension CVA (cerebral vascular accident) Brother CAD (coronary artery disease) Stents Myocardial infarction, Onset Age: 64 Brother CAD (coronary artery disease) CABG Myocardial infarction Other Atherosclerosis of coronary artery of [place] heart without angina pectoris Essential (primary) hypertension HLD (hyperlipidemia) Social History Smoking Status: Never smoker alcohol intake: never substance use type: does not use caffeine: Yes what type of physical activity do you participate in: walking seatbelt use: sometimes do you feel safe at home: Yes 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 HPI HPI HPI: MAUREEN RODRIGUEZ, is a 64 F who presents to the office today for follow-up from recent ER visit 02/02/25 where she was diagnosed with acute DVT R peroneal vein. She was initiated on Eliquis which (more content not included)... Normal [facility] CNOVon 02-18-2025 [facility] Office Visit (ORTHWS ) MAUREEN RODRIGUEZ ([id number]) 1960 F NFR Date Time Provider Department 02/18/25 8:00 AM DARIUSZ TSAI During your visit today, we recorded the following information about you: Dariusz Tsai MD 02/18/2025 9:06 AM Addendum Dariusz Tsai MD Department of Orthopaedics Orthopaedics [address] [facility] [address] Dept: [phone] Dept February 18, 2025 CHIEF COMPLAINT: Follow Up and Knee Pain of the Right Knee and Follow Up and Knee Pain of the Left Knee (17 weeks post visit OA bilateral knees) HPI: HPI Patient here for follow up OA bilateral knees. Patient recently had foot surgery and was positive for DVT in her right leg on 02/02. She is currently on Eliquis. Patient wants to discuss having cortisone injections. Taking Tylenol for the pain and helps dull the pain. ASSESSMENT: M25.561, M25.562, G89.29 Chronic pain of both knees (primary encounter diagnosis) M17.0 Primary osteoarthritis of both knees I82.4Y9 Acute deep vein thrombosis (DVT) of proximal vein of lower extremity, unspecified laterality (HCC) Z79.01 Anticoagulated on Eliquis PLAN: Patient would Like to try cortisone injections today. We discussed the possibility of viscosupplementation as well. OBJECTIVE: Ms. Maureen Rodriguez is a pleasant 64 year old in no apparent distress. Gen:There were no vitals taken for this visit. nl development, non obese, no deformities ENT: Normocephalic, normal hearing, moist mucosa CV: Pulses:DP/PT= 2+ and symmetric, capillary refill < 2 secs, no peripheral edema/varicosities Skin: no rash, bruising or lesions. Good turgor. Psych: cooperative and appropriate, alert and oriented x 3, good mood and affect. Musculoskeletal: Mild worsening of her varus, TTP over the medial joint lines, scant, BL effusions. In addition to the comprehensive evaluation, assessment and plan outlined above, and as a distinct and separate element to the visit today, separate from her post-op DVT, we have made the determination to proceed with an injection to aid in the management of the patient's condition. We discussed the risks, benefits, alternatives and expected outcomes of this injection in detail, and the patient agreed to proceed. The procedure was performed as detailed below. Large Joint Arthro/Inj: bilateral knee joints 02/18/2025 8:57 AM The procedure site was prepped in the usual sterile fashion. Site: bilateral knee joints Medications (Right): 6 mg betamethasone acetate-betamethasone sodium phosphate 6 mg/mL Medications (Left): 6 mg betamethasone acetate-betamethasone sodium phosphate 6 mg/mL Anesthetics (Right): 4 mL lidocaine (PF) 10 mg/mL (1 %) Anesthetics (Left): 4 mL lidocaine (PF) 10 mg/mL (1 %) Outcome: Tolerated well, no immediate complications Post-injection instructions were reviewed with the patient and the patient voiced understanding of these instructions. Informed Consent Consent Obtained: Verbal [place] Protocol A moment to CARE was completed. SIGN IN Personnel directly involved with the procedure wore the appropriate PPE. Special Equipment: N/A Patient/Surrogate Stated/Verified: Patient name, Date of , Relevant allergies and Intended procedure TIME OUT Relevant labs, photos, and/or imaging studies have been reviewed. Consent documented and matches the intended procedure. Correct side/site marked and visible. Medications required for procedure verified. No fire risk assessment and interventions applicable. No implant(s) inserted. SIGN OUT No specimen collected. All instruments, equipment, possible retained foreign bodies accounted for. No post-procedure POC communication to the patient or surrogate applicable. No post-procedure POC communication to the patient's multidisciplinary team (including the bedside nurse for hospitalized patients) applicable. 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 Eczema of both external ears Essential hypertension, benign 2002 Hyperparathyroidism (HCC) Impaired fasting blood sugar 10/2014 a1c 5.7% Irritable bowel syndrome resolved mostly with cholecystectomy Osteoarthritis of knees, bilateral Other and unspecified hyperlipidemia Other premature beats 2003 symptomatic in past, atenolol helps Other specified acquired hypothyroidism 09/10/2008 Snoring Past Surgical History: PAST SURGICAL HISTORY Procedure Laterality Date ; PARATHYROIDECTOMY/EXPL PARATHYRD 12/2012 BUNIONECTOMY, LAPIDUS-TYPE Right 11/13/2024 COLONOSCOPY FLX DX W/COLLJ SPEC WHEN PFRMD 07/08/2013 Colonoscopy COLONOSCOPY FLX DX W/COLLJ SPEC WHEN PFRMD 08/05/2015 EGD 07/08/2013 (more content not included)... Normal [facility] Large Joint Arthro/Inj: bila teral knee jointson 02-18-2025 Dariusz Tsai MD 02/18/2025 9:06 AM Large Joint Arthro/Inj: bilateral knee joints 02/18/2025 8:57 AM The procedure site was prepped in the usual sterile fashion. Site: bilateral knee joints Medications (Right): 6 mg betamethasone acetate-betamethasone sodium phosphate 6 mg/mL Medications (Left): 6 mg betamethasone acetate-betamethasone sodium phosphate 6 mg/mL Anesthetics (Right): 4 mL lidocaine (PF) 10 mg/mL (1 %) Anesthetics (Left): 4 mL lidocaine (PF) 10 mg/mL (1 %) Outcome: Tolerated well, no immediate complications Post-injection instructions were reviewed with the patient and the patient voiced understanding of these instructions. Informed Consent Consent Obtained: Verbal [place] Protocol A moment to CARE was completed. SIGN IN Personnel directly involved with the procedure wore the appropriate PPE. Special Equipment: N/A Patient/Surrogate Stated/Verified: Patient name, Date of , Relevant allergies and Intended procedure TIME OUT Relevant labs, photos, and/or imaging studies have been reviewed. Consent documented and matches the intended procedure. Correct side/site marked and visible. Medications required for procedure verified. No fire risk assessment and interventions applicable. No implant(s) inserted. SIGN OUT No specimen collected. All instruments, equipment, possible retained foreign bodies accounted for. No post-procedure POC communication to the patient or surrogate applicable. No post-procedure POC communication to the patient's multidisciplinary team (including the bedside nurse for hospitalized patients) applicable. [facility] Venous duplex ultrasound rep ortOrdered By: Trevin May on 02-04-2025 US Vein [facility] Services [address] [place] [address] Venous Duplex US - Héctor Extrem 02/02/25 1538 MR#: [id number] Acct: [id number] Name: MAUREEN RODRIGUEZ Rep #:[id number] : 1960 64 From: Trevin Fox Attending Dr: Dr. Luis A Brown DPM Status: REG CLI Ordering Dr: Luis A Brown DPM Date: 02/02/25 Location: [facility]S Sex: F C Admitted: Reason For Study Reason For Study: SWELLING RIGHT LEFT GSV is normal. GSV is normal. CFV is compressible, spontaneous, phasic, competent CFV is compressible, spontaneous, phasic, competent, and demonstrates normal augmentation. and demonstrates normal augmentation. FV is compressible, spontaneous, phasic, competent FV is compressible, spontaneous, phasic, competent and demonstrates normal augmentation. and demonstrates normal augmentation. POP V is compressible, spontaneous, phasic, competent POP V is compressible, spontaneous, phasic, competent and demonstrates normal augmentation. and demonstrates normal augmentation. T/P Trunk is compressible. T/P Trunk is compressible. PTV is compressible. PTV is compressible. RT PerV is DILATED & NONCOMPRESSIBLE from mid calf to LT PerV is compressible. ankle. Prox RT PerV is compressible. Procedure This is a venous duplex using B-mode, color flow and spectral Doppler. Exam performed in department. A preliminary report was called and/or faxed to Dr. Brown @ 16:00. Instructed to take PT to ED. VL/Venous Duplex US - Héctor Extrem Interpretation Summary Acute deep vein thrombosis is noted in the right peroneal vein. Deep veins of the left lower extremity are patent and compressible segmentally. There is no evidence of left lower extremity deep vein thrombosis. The bilateral great saphenous veins appear patent and compressible segmentally. Ordering Physician: Luis A Brown Referring Physician: Vijay Park Performed By: Venessa Maher, LAYTON, RVT 02/04/25 1046 Date _ Trevin May MD CC: DPRoxie Brown; DO Jacquelin Ruiz Date Dictated: 02/02/25 1538 Date Transcribed: 02/04/25 1046 Inspector Rag Sorting: Signed [facility] Work Phone: Emergency Department Summary on 02-02-2025 Emergency Department Summary [facility] Medical Records Department [address] [place] [address] Emergency Department Summary 02/02/25 MR#: [id number] Acct: [id number] Name: MAUREEN RODRIGUEZ ANN Rep #: [id number] : 1960 64 From: Jason Philip MD PCP: Dr. Vijay Park, DO Status:REG ER Location: ED HPI History of Present Illness Chief Complaint: Edema Narrative Narrative: Six 4-year-old female past medical history of coronary artery disease with stenting, states she had foot surgery by Dr. Brown 2 months ago. Over the last few weeks she may have started having increased swelling of her right lower extremity as she has been more immobile. She denies any chest pain or shortness of breath. She went saw her adobe developer today who wrote for outpatient ultrasound. She presents to the emergency department with positive DVT study. It was reported that the right peroneal vein is dilated noncompressible from the mid calf to the ankle. The proximal portion is compressible. [facility] Medical History Wears glasses Post-menopausal Arthritis Fatty liver High cholesterol Easy bruising Back pain History of hiatal hernia Non-smoker Shortness of breath on exertion History of pain when walking History of stress test Cardiology follow-up encounter GERD (gastroesophageal reflux disease) Hypothyroidism Obesity Atherosclerosis of coronary artery of [place] heart without angina pectoris HLD (hyperlipidemia) Essential (primary) hypertension Home Medications ???Medication ???Instructions ???Recorded ???Last Taken ???Type multivitamin,du-ppzl-pkvgqyt s 1 tab PO DAILY 06/25/19 11/12/24 H istory (Complete Multivitamin tablet) levothyroxine 112 mcg tablet 112 mcg PO DAILY 07/19/20 11/13/24 History nitroglycerin 0.4 mg sublingual 0.4 mg sublingual Q5-15M PRN chest 04/04/23 Unknown Rx tablet (Nitrostat) pain #25 tabs metoprolol tartrate 25 mg tablet 12.5 mg (1/2 x 25 mg) PO BID #90 1 09/28/23 11/13/24 Rx tabs pravastatin 10 mg tablet 10 mg PO QHS #90 tabs 07/29/24 Rx calcium 600 mg (as 2 tab PO QDAY 08/10/24 11/12/24 Hi story carbonate)-vitamin D3 20 mcg (800 unit) tablet glucosamine 750 kz-jmzkptmpvvy-qfl 1 tab PO BID 08/10/24 11/12/24 H istory no1 644 mg-C 30 mg-luis 1 mg tablet (Osteo Bi-Flex Triple Strength) turmeric root extract 500 mg 500 mg PO BID 08/10/24 11/12/24 Hi story capsule vitamin B complex 1 tab PO QDAY 08/10/24 11/12/24 Hi story elderberry fruit 200 mg capsule 200 mg PO DAILY 11/12/24 11/11/24 History pantoprazole 40 mg tablet,delayed 40 mg PO DAILY 11/12/24 11/13/24 History release (Protonix) zinc gluconate 50 mg tablet 50 mg PO DAILY 11/12/24 11/12/24 H istory acetaminophen 500 mg capsule 500 mg PO Q6H PRN fever or pain Unknown Rx #30 caps aspirin 81 mg tablet,delayed 162 mg (2 x 81 mg) PO DAILY 14 Unknown Rx release days #28 tabs ibuprofen 600 mg tablet 600 mg PO Q6H PRN fever or pain Unknown Rx #30 tabs oxycodone 5 mg tablet 5 mg PO Q4H PRN pain 7 days #42 Unknown Rx tabs apixaban 5 mg (74 tabs) tablets in See Rx Instructions PO .COMPLEX 02/02/25 Unknown Rx a dose pack (Eliquis DVT-PE Treat #74 tabs 30D Start) Allergy/AdvReac Type Severity Reaction Status Date / Time triamterene (Triamterene) Allergy Rash Verified 02/02/25 16:18 venom-honey bee (bee venom Allergy Swelling Verified 02/02/25 16:18 (honey bee)) Family History Mother CAD (coronary artery disease) Hypertension Father CAD (coronary artery disease) Hypertension CVA (cerebral vascular accident) Brother CAD (coronary artery disease) Stents Myocardial infarction, Onset Age: 64 Brother CAD (coronary artery disease) CABG Myocardial infarction Other Atherosclerosis of coronary artery of [place] heart without angina pectoris Essential (primary) hypertension HLD (hyperlipidemia) Surgical History History of esophagogastroduodenoscopy (EGD) Hx of colonoscopy Hx of parathyroidectomy Stented coronary artery (08/02/23) History of left heart catheterization (05/07/13) Hx laparoscopic cholecystectomy History of LAVH History of carpal tunnel surgery Social History Smoking Status: Never smoker alcohol intake: never substance use type: does not use caffeine: Yes what type of physical activity do you participate in: walking seatbelt use: sometimes do you feel safe at home: Yes 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 Normal [facility] Venous Duplex US - Héctor Extre mon 02-02-2025 Venous Duplex US - Héctor Extrem [facility] [address] [place] [address] Venous Duplex US - Héctor Extrem 02/02/25 1538 MR#: [id number] Acct: [id number] Name: MAUREEN RODRIGUEZ Rep #: [id number] : 1960 64 From: Trevin May MD Attending Dr: Dr. Luis A Brown, DPM Status: R EG CLI Ordering Dr: Luis A Brown DPM Date: 02/02/25 Location: CVS Sex: F C Admitted: Reason For Study Reason For Study: SWELLING RIGHT LEFT GSV is normal. GSV is normal. CFV is compressible, spontaneous, phasic, competent CFV is compressible, spontaneous, phasic, competent, and demonstrates normal augmentation. and demonstrates normal augmentation. FV is compressible, spontaneous, phasic, competent FV is compressible, spontaneous, phasic, competent and demonstrates normal augmentation. and demonstrates normal augmentation. POP V is compressible, spontaneous, phasic, competent POP V is compressible, spontaneous, phasic, competent and demonstrates normal augmentation. and demonstrates normal augmentation. T/P Trunk is compressible. T/P Trunk is compressible. PTV is compressible. PTV is compressible. RT PerV is DILATED NONCOMPRESSIBLE from mid calf to LT PerV is compressible. ankle. Prox RT PerV is compressible. Procedure This is a venous duplex using B-mode, color flow and spectral Doppler. Exam performed in department. A preliminary report was called and/or faxed to Dr. Brown @ 16:00. Instructed to take PT to ED. VL/Venous Duplex US - Héctor Extrem Interpretation Summary Acute deep vein thrombosis is noted in the right peroneal vein. Deep veins of the left lower extremity are patent and compressible segmentally. There is no evidence of left lower extremity deep vein thrombosis. The bilateral great saphenous veins appear patent and compressible segmentally. Ordering Physician: Luis A Brown Referring Physician: Vijay Park Performed By: Venessa Maher RDCS, RVT 02/04/25 1046 Date Trevin May MD CC: DPRoxie Brown; Dr. Vijay Park DO Date Dictated: 02/02/25 1538 Date Transcribed: 02/04/25 104 Inspector Rag Sorting: Signed [facility] 01-21-2025 [facility] Office Visit (RHWSTR ) MAUREEN RODRIGUEZ ([id number]) 1960 F NFR Date Time Provider Department 01/21/25 1:00 PM LEIGH PAL RHWSTR During your visit today, we recorded the following information about you: Pulse Respiration Blood pressure Weight 66/minute 17/minute 158/88 92.9 kg Leigh Pal PA-C 01/21/2025 4:09 PM Signed Rheumatology CONSULTATION Date of Service: 01/21/2025 Patient: Maureen Rodriguez Medical Record: [id number] Primary Care Physician: Vijay Park DO Last Rheumatology visit: None at [facility] Referring Provider: Vijay Park [address] [facility] [address] Maureen Rodriguez is here today at request of Dr. Park specifically for consultation of my opinion in regards to the chief complaint listed below. Correspondence will be shared today via the [place] electronic health record or through regular mail, where applicable. Recording using [employer] software for draft documentation of the visit was discussed with the patient/authorized energy conservation representative; all questions welcomed and answered. Patient/authorized energy conservation representative agreed to proceed History of Present Illness Maureen is a 64-year-old female with a history of carpal tunnel syndrome, chronic knee pain, chronic shoulder pain, frequent headaches, HTN, HLD, CAD, eczema, IBS, Ramirez's esophagus, hypothyroidism, hypoparathyroidism, dyslipidemia, osteopenia, obesity, and vitamin D deficiency, presenting for evaluation of joint pain. Maureen reports a current pain level of 2 (Generalized). She describes the pain as Aching, Sore, Stiffness. The pain is Continuous . Interventions tried include Heat, Massage, Pillow support, Positioning. She is currently taking diclofenac sodium. Maureen is RF positive - 21 (10/19/2024) and CCP negative - 13.5 (10/19/2024). Her most recent ASHLEY was negative (11/01/2014). Maureen reports a long-standing history of joint pain that has gradually worsened over the years. The most affected areas are the PIP joints of both hands, with the right third PIP joint being the most painful. She experiences sharp pain in this joint occasionally. She also reports pain in her knees, right shoulder, and lower back. She notes that her knees and hands sometimes feel swollen, particularly in the mornings. Morning stiffness lasts until she starts moving around. Maureen rates her knee pain as 3-4/10 at its worst and mentions that it sometimes keeps her from sleeping. She has tried acetaminophen and Voltaren gel with minimal relief. She cannot take ibuprofen due to her history of Ramirez's esophagus and a heart stent placed in 2022. She has a family history of polymyalgia rheumatica in her mother. She denies any history of rheumatoid arthritis, lupus, Crohn's disease, or ulcerative colitis in her family. She denies oral or nasal ulcers, Raynaud's phenomenon, fevers, inflamed eyes, iritis or uveitis. She reports dry mouth and occasional itching in her eyes. She also reports occasional diarrhea and constipation but denies any blood in her stool. She denies foot pain but mentions that her knees have been hurting more since her bunion surgery on 11/13/2024. She has an appointment for knee injections on 02/18/2025. She denies any history of miscarriages or blood clots but mentions occasional numbness and tingling in the tips of her toes, particularly the big toes. She denies any unintentional weight loss but reports occasional night sweats and hot flashes. 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 She is with two grown children in their 30s. She denies smoking, alcohol use, vaping, or drug use. Recent lab work showed a low positive rheumatoid factor (21) with a negative CCP antibody. Other autoimmune workup including Sjogren's and lupus antibodies were negative. Inflammation markers (CRP and ESR) were normal. X-rays of her hands and feet showed osteoarthritis. Pain Evaluation 09/22/2024 10/19/2024 10/22/2024 01/18/2025 01/21/2025 Pain Evaluation Pain Score 4 3 2 Location Knee-Right Knee-Right -- Knee-Right Generalized Location Comment Bilateral knees Description Burning;Dull;Radiating;Tende rness Burning;Itching;Radiating;So re;Stiffness;Tenderness Aching;Sharp;Burning;Itching Aching;Sore;Stiffness Duration (#) 5 Duration (Timeframe) Months Years Months Frequency Continuous Continuous Continuous Continuous Intervention Heat Heat;Massage;Pillow support;Positioning Medication Heat;Massage;Pillow support;Positioning Patient-Entered Data PROMIS Assessments 10/15/2023 09/22/2024 01/18/2025 PROMIS Global Health - (T-Scores - the mean of general population = 50. Five points is a clinically meaningful difference.) Physical T-Score 47.7 44.9 47.7 Mental T-Score 50.8 48.3 43.5 10/15/2023 09/22/2024 01/18/2025 PROMIS CAT Pain Interference PROMIS Pain Interference T-Score ( (more content not included)... Normal [facility] CNPNon 01-21-2025 CNPN Telephone (FAMPWS) MAUREEN RODRIGUEZ ([id number]) 1960 F NFR Date Time Provider Department 01/21/25 [facility] During your visit today, we recorded the following information about you: Mica Cheung MA 01/21/2025 3:29 PM Signed Pt received a message from Dr. Park that states her recent xrays of her hands and feet "show that she has significant osteoarthritis, no signs of rheumatoid arthritis or other inflammatory arthritis". Pt was previously scheduled to see Rheumatology/Immun Disease and has appt for 01/21. Pt asking Dr. Park, if she needs to cancel this Rheumatology appt then? Please advise patient using MyChart, as she is experiencing phone issues. KRZYSZTOF Mcdermott Jordan L, DO 01/22/2025 12:13 PM Signed No, I want her to keep that appt with Film Historian DO Trish Ferrara Susan LPN 01/22/2025 2:27 PM Signed Pt. informed via my Chart. Allergies As of Date: 01/21/2025 Noted Allergy Reaction BEES 12/24/2005 Comments: possibly GRASS POLLEN 03/14/2020 14 - Other: See Comments Comments: Sneezing, itchy eyes TRIAMTERENE-HYDROCHLOROTHIAZ ID 09/01/2010 2 - Rash Comments: photodermatitis Date Reviewed: 01/21/2025 Reviewed by: Susu Ariza, KRZYSZTOF - Fully Assessed Prescriptions as of 01/22/2025 - levothyroxine (SYNTHROID) 112 mcg tablet Take 1 tablet by mouth once daily. - pravastatin (PRAVACHOL) 10 mg tablet Take 10 mg by mouth once daily. - dexAMETHasone 0.1 % ophthalmic solution 1 Drop two times a day as needed. Into bilateral outer ear canal - diclofenac (VOLTAREN) 1 % topical gel Apply 0.5 g to affected area four times daily as needed. - GLUCOSAMINE HCL (GLUCOSAMINE, BULK, MISC) - MULTIVIT-MINERALS/FERROUS FUM (MULTI VITAMIN ORAL) Take by mouth. - estradiol (ESTRACE) 0.01 % (0.1 mg/gram) vaginal cream Use fingertip amount vaginally nightly x 2 weeks then every other night x 2 weeks then 1-3x weekly - metoprolol succinate XL, long acting, 25 mg 24 hr tablet Take 25 mg by mouth once daily. - Aspirin 81 mg Tab Take 81 mg by mouth. - Calcium Carbonate-Vitamin D3 500 mg(1,250mg) -600 unit Chew Take 1 tablet by mouth three times daily. Problem List As Of Date 01/21/2025 Noted Resolved BENIGN HYPERTENSION [I10] 12/24/2005 Hyperlipidemia, mixed [E78.2] 12/24/2005 IRRITABLE COLON [K58.9] 12/24/2005 URIN TRACT INFECTION NOS [N39.0] 12/24/2005 04/25/2007 OBESITY NOS [E66.9] 04/25/2007 IMPAIRED FASTING GLUCOSE [R73.01] 06/26/2007 HYPERLIPIDEMIA NEC/NOS [E78.5] 09/10/2008 09/10/2008 Acquired hypothyroidism [E03.9] 09/10/2008 Hyperparathyroidism [E21.3] 12/02/2012 Carpal tunnel syndrome [G56.00] 07/10/2013 Ramirez esophagus [K22.70] 07/10/2013 Biliary dyskinesia [K82.8] 07/10/2013 Dyslipidemia [E78.5] 08/11/2013 CAD (coronary artery disease) [I25.10] 08/11/2013 Primary osteoarthritis of both knees [M17.0] 08/03/2015 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] 08/03/2015 History of Ramirez's esophagus [Z87.19] 08/03/2015 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 [K22.70] 08/04/2015 Chronic pain of both knees [M25.561, M25.562, G*03/13/2017 Osteoarthritis of knees, bilateral [M17.0] Coronary artery disease involving modoc larson*10/28/2018 Hypothyroidism, acquired [E03.9] 10/28/2018 Screening for osteoporosis [Z13.820] 10/28/2018 Chronic right shoulder pain [M25.511, G89.29] 10/28/2018 Acquired deformity of toe [M20.60] 04/18/2021 Paresthesia of foot, bilateral [R20.2] 04/18/2021 Eczema of external ear, 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] 04/18/2021 Osteopenia, senile [M85.80] 07/10/2022 Frequent headaches [R51.9] 10/16/2023 Vitamin D deficiency [E55.9] 10/16/2023 Spontaneous bruising [R23.3] 10/16/2023 Bilateral hand pain [M79.641, M79.642] 10/16/2023 Foot pain, bilateral [M79.671, M79.672] 10/16/2023 Abdominal pain, epigastric [R10.13] 09/23/2024 Bloating [R14.0] 09/23/2024 Post-menopausal [Z78.0] 09/23/2024 Encounter Status:Closed by KAREN MCMILLAN LPN on 01/22/25 Normal [facility] IBRAHIMA SCREENING W TOMOon 01-08 IBRAHIMA SCREENING W SHARI * * *Final Report* * * DATE OF EXAM: Jan 08 2025 9:28AM [facility] 0582 - [facility] SCREENING W SHARI / PROCEDURE REASON: Encounter for screening mammogram for malignant neoplasm of breast * * * * Physician Interpretation * * * * RESULT: [facility] [address] [id number] #[id number] - [facility] SCREENING W SHARI HISTORY: 64 year-old patient seen for screening. Patient is asymptomatic in both breasts. Patient states no personal history of breast cancer. COMPARISON STUDIES: The present examination has been compared to prior imaging studies dated 03/15/2016 (mammogram), 04/02/2017 (mammogram), 06/24/2018 (mammogram), 07/19/2022 (mammogram) and 11/06/2023 (mammogram). MAMMOGRAM TECHNIQUE: The study was acquired using full field digital technology and interpreted from soft copy. Digital Breast Tomosynthesis (DBT) images were obtained and used to assist in the interpretation of this examination. MAMMOGRAM FINDINGS: The breasts are almost entirely fatty. No suspicious masses, calcifications or other abnormalities are seen in either breast. There are no significant interval changes. IMPRESSION: There is no mammographic evidence of malignancy in either breast. Routine screening mammogram is recommended. Annual mammogram will be due in 1 year. BI-RADS Category 1: Negative RISK: Based on the Tyrer-Cuzick (TC) risk assessment model, this patient has a 4.9% lifetime risk of developing breast cancer, meaning they are at average risk for developing breast cancer. However, this is only an estimate based on available history provided on the patient's questionnaire. We encourage all patients to talk with their providers about these results, further recommendations for managing breast health, and appropriate supplemental screening options if the patient has dense breast tissue. Interpreting Radiologist: Andree Ashley M.D. Electronically signed on: 01/10/2025 Inspector Rag Sorting: LAVERNE Transcribe Date/Time: Jan 08 2025 9:17A Dictated by: ANDREE ASHLEY MD This examination was interpreted and the report reviewed and electronically signed by: ANDREE ASHLEY MD on Jan 10 2025 4:32PM EST [id number] Normal [facility] XR FOOT 3V AP/LAT/OBL BILon 01-08-2025 XR FOOT 3V AP/LAT/OBL HÉCTOR * * *Final Report* * * DATE OF EXAM: Jan 08 2025 9:06AM [id number] - XR FOOT 3V AP/LAT/OBL HÉCTOR / PROCEDURE REASON: multiple diagnoses * * * * Physician Interpretation * * * * PROCEDURE: Bilateral hands and feet INDICATION: Rheumatoid factor positive Arthralgia, unspecified joint .PT STATES BILAT HAND PAIN POSSIBLE RA (accession [id number]), PT STATES BILAT FOOT PAIN POSSIBLE RA (accession [id number]) TECHNIQUE: XR HAND 3V PA/LAT/OBL HÉCTOR, XR FOOT 3V AP/LAT/OBL HÉCTOR COMPARISON: Right hand 06/08/2020, bilateral hands 11/01/2014, right foot 01/25/2010 FINDINGS: Bilateral hands: Normal bone mineralization. No fracture or dislocation. Joint spaces are maintained. No erosions or focal soft tissue swelling. Mild osteoarthritic spurring of all DIP joints bilaterally and mild bilateral 1st CMC joint osteoarthrosis. Bilateral feet: On the right, there is 1st TMT joint arthrodesis with intact fixation hardware. Cannulated screws bridge the 2nd, 3rd and 4th PIP joints. Bilaterally there is mild osteopenia. Significant osteoarthritic change in the right tibiotalar joint with mild right-sided posterior subtalar joint osteoarthrosis. Minimal osteoarthritic changes seen in the left toes. No erosions or focal soft tissue swelling. Bilateral calcaneal spurs. IMPRESSION: Degenerative osteoarthritis. No radiographic evidence for inflammatory arthritis Inspector Rag Sorting: [facility] Transcribe Date/Time: Jan 13 2025 8:04A Dictated by : VERONA GROVES MD This examination was interpreted and the report reviewed and electronically signed by: VERONA GROVES MD on Jan 13 2025 8:08AM EST [id number] Normal [facility] XR HAND 3V PA/LAT/OBL BILon 01-08-2025 XR HAND 3V PA/LAT/OBL HÉCTOR * * *Final Report* * * DATE OF EXAM: Jan 08 2025 9:05AM [id number] - XR HAND 3V PA/LAT/OBL HÉCTOR / PROCEDURE REASON: multiple diagnoses * * * * Physician Interpretation * * * * PROCEDURE: Bilateral hands and feet INDICATION: Rheumatoid factor positive Arthralgia, unspecified joint .PT STATES BILAT HAND PAIN POSSIBLE RA (accession [id number]), PT STATES BILAT FOOT PAIN POSSIBLE RA (accession [id number]) TECHNIQUE: XR HAND 3V PA/LAT/OBL HÉCTOR, XR FOOT 3V AP/LAT/OBL HÉCTOR COMPARISON: Right hand 06/08/2020, bilateral hands 11/01/2014, right foot 01/25/2010 FINDINGS: Bilateral hands: Normal bone mineralization. No fracture or dislocation. Joint spaces are maintained. No erosions or focal soft tissue swelling. Mild osteoarthritic spurring of all DIP joints bilaterally and mild bilateral 1st CMC joint osteoarthrosis. Bilateral feet: On the right, there is 1st TMT joint arthrodesis with intact fixation hardware. Cannulated screws bridge the 2nd, 3rd and 4th PIP joints. Bilaterally there is mild osteopenia. Significant osteoarthritic change in the right tibiotalar joint with mild right-sided posterior subtalar joint osteoarthrosis. Minimal osteoarthritic changes seen in the left toes. No erosions or focal soft tissue swelling. Bilateral calcaneal spurs. IMPRESSION: Degenerative osteoarthritis. No radiographic evidence for inflammatory arthritis Inspector Rag Sorting: PSCJuve Transcribe Date/Time: Jan 13 2025 8:04A Dictated by : VERONA GROVES MD This examination was interpreted and the report reviewed and electronically signed by: VERONA GROVES MD on Jan 13 2025 8:08AM EST [id number] Normal [facility] Culture, Anaerobic Any Sourc imani 12-22-2024 CUAN No anaerobic bacteri a isolated. Normal [facility] Comment on above: Performed By: #### M 100.4001, M100.2000, M100.3000 ####[facility] [id number] [place] [place], [address] Wound Cultureon 12-20-2024 #2 Clinical correlat ion necessary, Possible skin contamination. Wound Culture Staphylococcus aureus Amount Growth 2+ Staphylococcus epidermidis Staphylococcus epidermidis Staphylococcus aureus: REACTION cefOXitin Susc Islt NEG Doxycycline Islt NAHOMY <=0.5 Clindamycin Islt NAHOMY R Clindamycin.induced Susc Islt POS Erythromycin Islt NAHOMY >=8 R Gentamicin Islt NAHOMY <=0.5 S Linezolid Islt NAHOMY 2 S Moxifloxacin Islt NAHOMY <=0.25 S Oxacillin Susc Islt 0.5 S Tetracycline Islt NAHOMY <=1 S TMP SMX Islt NAHOMY <=10 S Vancomycin Islt NAHOMY <=0.5 S Staphylococcus epidermidis: REACTION cefOXitin Susc Islt POS Doxycycline Islt NAHOMY >=16 Clindamycin Islt NAHOMY 0.25 S Clindamycin.induced Susc Islt NEG Erythromycin Islt NAHOMY >=8 R Gentamicin Islt NAHOMY <=0.5 S Linezolid Islt NAHOMY 2 S Oxacillin Susc Islt >=4 R Tetracycline Islt NAHOMY >=16 R TMP SMX Islt NAHOMY 160 R Vancomycin Islt NAHOMY 1 S Normal [facility] Comment on above: Performed By: #### M 100.4001, M100.2000, M100.3000 ####[facility] [address] [place], [address] Gram Stainon 12-18-2024 GS Positive Normal [facility] Comment on above: Performed By: #### M 100.4001, M100.2000, M100.3000 ####[facility] [address] [place], [address] Anaerobic cultureOrdered By: David Terrell on 12-17-2024 Bacteria identified Anaer cx Nom (Unsp spec) No anaerobic bacteria isolated. [facility] Gram stainOrdered By: Paul Terrell on 12-17-2024 Microscopic observation Gram stain Nom (Unsp spec) [facility] Routine wound cultureOrdered By: David Terrell on 12-17-2024 Microbial culture, routine Staphylococcus epidermidis Abnormal [facility] Foot 2 Viewson 11-13-2024 Foot 2 Views [facility] Imaging Services [address] [place] [address] Foot 2 Views MR#: [id number] Acct: [id number] Name: MAUREEN RODRIGUEZ Rep #: [id number] : 1960 F 64 From: Cesar Ingram MD PCP: Dr. Vijay Park, DO Status: [facility] Study: Foot 2 Views Date of Exam: 11/13/24 Exam# [id number] Ordering Dr: Luis A Brown DPRoxie EXAM: XR Right Foot, 2 Views CLINICAL INDICATION: RT FOOT BUNYONECTOMY AND 2ND 3RD AND 4TH HAMMERTOE CORRECTION TECHNIQUE: Frontal and lateral views of the right foot. COMPARISON: No relevant prior studies available. FINDINGS: BONES/JOINTS: Multiple spot images were used intraoperatively. Fixation hardware noted of the 1st tarsometatarsal joint via fixation plate and screws. Fixation screws of the 2nd, 3rd, and 4th middle phalanx. No acute fracture. No dislocation. OTHER FINDINGS: Total fluoroscopy time 121.3 seconds. Total radiation dose 2.29 mGy. 5 spot images were obtained. RAD/Foot 2 Views IMPRESSION: Intraoperative fluoroscopic spot images as above. Please refer to the operative note for further details. Reading Location: [facility] CC: SUMIT Brown; Dr. Vijay Park DO Inspector Rag Sorting: Signed [facility] MR/POSTOP.ANEon 11-13-2024 MR/POSTOP.[facility] Medical Records Department [address] [place] [address] Anesthesia Postop Eval I 11/13/24 1100 MR#: [id number] Acct: [id number] Name: MAUREEN RODRIGUEZ Rep #: [id number] : 1960 64 From: Gigi Rodriguez MD PCP: Dr. Vijay Park, Status:[facility] Y Race: C Location: [facility] Anesthesia: Postop Eval I Current Vital Signs Temperature: 97.7 F Pulse Rate: 61 Blood Pressure: 116/70 Respiratory Rate: 16 Pulse Ox: 97 Oxygen Delivery Method: Room Air Assessment Airway patent: Yes Spontaneous unlabored respirations: Yes nausea: No Vomiting: No Anesthesia Complication: No Fluid Hydration Crystalloid volume administer (ml): 200 Total IV fluid infused: 200 Progress Note Anesthesia document: Postop Eval 1 completed: Yes 11/13/24 1445 Date [facility] Signature[facility] Date CC: Signed [facility] MR/[id number] 11-13-2024 MR/POSTOPAN2 [facility] Medical Records Department [address] [place] [address] Anesthesia Postop Eval II 11/13/24 1515 MR#: [id number] Acct: [id number] Name: MAUREEN RODRIGUEZ Rep #: [id number] : 1960 64 From: Gigi Rodriguez MD PCP: Dr. Vijay Park, DO Status:[facility] Y Race: C Location: [facility] Anesthesia Postop Eval I Sum Postop Eval Completion status Anesthesia document: Postop Eval 1 completed: Yes Anesthesia Postop Eval I Summary Anesthesia Postop Eval I Summary: Anesthesia Postop Eval I: Assessment Summary Airway patent Yes 11/13/24 14:45 Spontaneous unlabored Yes 11/13/24 14:45 respirations Mental status nausea No 11/13/24 14:45 Vomiting No 11/13/24 14:45 Anesthesia Postop Eval I: Fluid Summary Crystalloid volume administer 200 11/13/24 14:45 (ml) Colloids volume administered ( ml) Blood Product volume administered (ml) Total IV fluid infused 200 11/13/24 14:45 Anesthesia Postop Eval I: Summary Notes Anesthesia Complication No 11/13/24 14:45 Anesthesia Complication Comment: Post-operative progress note Anesthesia: Postop Eval II Evaluation Mental status: Awake Pain Level: 0 nausea: No Vomiting: No 11/13/24 1515 Date Gigi Rodriguez MD Cosign Signature: Date CC: Signed Normal [facility] Operative Reporton 5 Operative Report [facility] Medical Records Department [address] [place] [address] Operative Report 11/13/24 1028 MR#: [id number] Acct: [id number] Name: MAUREEN RODRIGUEZ ANN Rep #: [id number] : 1960 64 From: Luis A Brown DPM PCP: Dr. Vijay Park, DO Status:[facility] Location: AC AC06-1 Operative Report (Standard) Operative Information Date of Procedure: 11/13/24 Pre-Operative Diagnosis: 1) Hallux Valgus, Right foot 2) Hammertoes to digits 2,3,4 right foot Post-Operative Diagnosis: same Surgery/Procedure Performed: 1) Bunionectomy via lapiplasty, right foot 2) hammertoe correction x3 via PIPJ arthrodesis right 2nd, 3rd and 4th toes global process owner: Yes Laboratory Technical Specialist: MAURICIO Tasks completed by first sampler: Opening, Closing and Implanting device Type of Anesthesia: General RN Documented Start/Stop Times: Operation Date: 11/13/24 07:30 Case Time Into Pre-Op 11/13/24 06:02 Anesthesia Start 11/13/24 07:35 Into Room 11/13/24 07:35 Procedure Start 11/13/24 07:58 Procedure End 11/13/24 10:10 Anesthesia End 11/13/24 10:14 Out of Room 11/13/24 10:14 Into Recovery 11/13/24 10:17 Procedure Start Time: 07:45 Procedure Stop Time: 10:15 Select all DRAINS/GRAFTS/IMPLANTS that apply: None and Implanted device Implanted device details: ReadWave phalinx x3, 2 4 prong speed plates treami Estimated Blood Loss: minimal Specimen collected: No Description of surgery: Preoperative Diagnosis: * Right foot hallux valgus (bunion deformity) * Right first TMT joint arthritis * Hammertoes of the 2nd, 3rd, and 4th toes * Right second to fourth toe deformities requiring correction Postoperative Diagnosis: * Right foot hallux valgus * Right first TMT joint arthritis * Hammertoes of the 2nd, 3rd, and 4th toes Procedure Performed: * Right Foot Bunionectomy via Lapiplasty * First TMT Joint Fusion with 2 Treace Speedplates * Hammertoe Repairs to Toes 2, 3, and 4 * PIPJ Arthrodesis using Anergis Phalanx Implants * MPJ Capsulotomies Indications for Surgery: The patient is a [64] year-old female who presented with significant right foot hallux valgus deformity, associated with first TMT joint arthritis. The patient also exhibited hammertoes affecting the 2nd, 3rd, and 4th toes, leading to difficulty with gait, footwear, and significant discomfort. Conservative treatments, including orthotics and shoe modifications, were unsuccessful in managing the symptoms. Given the severity of the deformity and the failure of conservative management, surgical correction was recommended and consent was obtained. Procedure Details: The patient was positioned supine on the operating table with the right foot draped in a sterile fashion. General anesthesia was administered, and the extremity was prepped and draped in the usual sterile manner. A thigh tourniquet was placed on the right thigh and inflated to 300 mmHg prior to making the incision. Fluoroscopy was used throughout the case for guidance and verification of appropriate alignment and positioning. * Bunionectomy via Lapiplasty: A longitudinal incision was made over the dorsomedial aspect of the first tarsometatarsal joint. Dissection was carried down to the capsule and periosteum. The first TMTJ was exposed, and dissected out. The metatarsal was then repositioned using a Lapiplasty system reducing IM 1,2. A medial release was performed, and the first metatarsal was realigned into proper position. The alignment was confirmed fluoroscopically. * First TMT Joint Fusion with Treace Speedplates: The first TMT joint was identified, and joint surfaces were prepared for fusion. using the guided saw cuts, then flushing, followed by subchondral drilling with a 2.0 drill bit. Two Treace Speedplates were used for fixation of the first TMT joint, placed in a 90/90 orientation for optimal stability. One plate was placed dorsally, and the other plate was placed medially. The joint surfaces were appropriately compressed, and the plates were secured with screws to ensure fusion. The position was again confirmed fluoroscopically, and adequate joint alignment was noted. * Hammertoe Repair and PIPJ Arthrodesis: For toes 2, 3, and 4, each toe was approached through a dorsal incision. The appropriate tendons and joint capsules were released to correct the hammertoe deformity. Phalangeal head resections were performed, followed by PIPJ arthrodesis us (more content not included)... Normal [facility] Bacteria Ur Culton 5 Bacteria identified Cx Nom (U) ORGANISM ID: 1 10,000 -<50,000 CFU/ml Normal urogenital bruno Normal [facility] Comment on above: Performed By: #### 6 30-4 ####[facility] [id number] [place] [address] [place] CNOVon 11-12-2024 CNOV Office Visit (FAMPWS ) MAUREEN RODRIGUEZ ([id number]) 1960 F NFR Date Time Provider Department 11/12/24 11:40 AM YARI MOORE During your visit today, we recorded the following information about you: Pulse Respiration Blood pressure Weight 72/minute 12/minute 110/82 93.6 kg Yari Moore APRN.LAST INSERTER 11/12/2024 12:56 PM Signed Chief Complaint Patient presents with: Rash: On thighs, knees and ankles for a few days , itches HPI Maureen Rodriguez is a 64 year old female who presents here today for Above Complaints. Maureen is an established patient of Dr. Xavier DO. Concerns today... Per triage from yesterday: Patient calls for rash. Nurse triage recommends homecare. Patient requests provider recommendation d/t upcoming surgery. Appt scheduled. Care advice reviewed. Patient verbalized understanding. Reason for Disposition Mild localized rash Answer Assessment - Initial Assessment Questions 1. APPEARANCE of RASH: Patient reports rash to bilateral ankles and upper legs. Red and slightly red. Rash is itchy. Patient completed antibiotic for UTI on Saturday. Reports that she had flu symptoms all of last week (chills, fever, nausea, vomiting, diarrhea) all subsided as of Saturday as well. 2. LOCATION: Bilateral ankles and upper thigh areas. 3. NUMBER: Several 4. SIZE: Several small areas but each area not as big as a coin 5. ONSET: Yesterday 6. ITCHING:Moderate 7. PAIN: - MILD (1-3): Doesn't interfere with normal activities 8. OTHER SYMPTOMS: No fever Answer Assessment - Initial Assessment Questions Selected in Error. Protocols used: Rash or Redness - [id number], Wound Infection [id number]" In office today... Pt reports a rash on her knees, ankles, and feet. States she noticed it a couple days ago and it started after sleeping in her bedsheets that she washed with Tide laundrey detergent. Pt thinks this is the cause, as she is "sensitive" to a lot of things and had allergic reactions to Tide as a child. Pt states the rash has been improving. Is using calamine lotion which is helping. Pt was concerned that the rash would interfere with her having her foot surgery tomorrow. Pt states she had a UTI one week ago, c/o burning with urination. Was given Macrobid 100mg BID for 5 days. Pt states in the past week she has had fever and chills that would come and go. Took tylenol one time and thinks this helped, has not had fever/chills since Saturday11/08/24. Pt states she is still experiencing mild burning with urination and that it never completely went away since onset. Denies back/flank pain. Past medical history, appointments, medications, allergies reviewed. Previous Medical History PAST MEDICAL HISTORY Diagnosis Date Arrhythmia Ramirez's esophagus determined by endoscopy Coronary artery disease minimal, no surgical procedure, Dr. 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 Eczema of both external ears Essential hypertension, benign 2002 Hyperparathyroidism (HCC) Impaired fasting blood sugar 10/2014 a1c 5.7% Irritable bowel syndrome resolved mostly with cholecystectomy Osteoarthritis of knees, bilateral Other and unspecified hyperlipidemia Other premature beats 2002 symptomatic in past, atenolol helps Other specified acquired hypothyroidism 09/10/2008 Snoring Previous Surgical History PAST SURGICAL HISTORY Procedure Laterality Date ; PARATHYROIDECTOMY/EXPL PARATHYRD 12/2012 COLONOSCOPY FLX DX W/COLLJ SPEC WHEN PFRMD 07/08/2013 Colonoscopy COLONOSCOPY FLX DX W/COLLJ SPEC WHEN PFRMD 08/05/2015 EGD 07/08/2013 EGD TRANSORAL BIOPSY SINGLE/MULTIPLE 08/05/2015 HEART CATHETERIZATION 04/2013 LAPS SURG CHOLECYSTECTOMY W/CHOLANGIOGRAPHY 07/22/2013 NEUROPLASTY AND/TRANSPOS MEDIAN NRV CARPAL TUNNE ~2005 Carpal tunnel decomp- right wrist NEUROPLASTY AND/TRANSPOS MEDIAN NRV CARPAL TUNNE 08/19/2013 LEFT PT ED HEART AND VASCULAR 08/02/2023 1 stent heart VAGINAL HYSTERECTOMY UTERUS 250 GM/< 2004 due to bleeding, no cancer, still has both ovaries Family History FAMILY HISTORY Problem Relation Age of Onset Hypertension Mother Cancer Mother skin - not melanoma Thyroid Mother hyperthyroidism (had thyroidectomy) Coronary Artery Disease Mother Heart Mother other (Poly Myalgia Rheumatica (PMR)) Mother Hypertension Father Heart Father PA age 75 other (Dementia) Father Allergies Sister food Heart Brother heart attack Heart Brother PA age 56 Hypertension Brother other (nephrolithiasis) Brother x 2 Heart Maternal Grandmother CAD, age 79 other (Other) Paternal Grandmother age 74, unknown cause other (pancreatic cancer) Paternal Grandfather at 86 Heart Paternal Uncle PA x 2 uncles Prostate Cancer Paternal Uncle Patient Allergies ALLERGIES Allergen Reactions Bees possibly Grass Pollen (more content not included)... Normal [facility] MR/PAT.Domenic 11-12-2024 MR/PAT.[facility] Medical Records Department [address] [place] [address] PAT - Anesthesia 11/12/24 1102 MR#: [id number] Acct: [id number] Name: MAUREEN RODRIGUEZ Rep #: [id number] : 1960 64 From: Kieran Bedoya MD PCP: Dr. 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 When Was Last Pacemaker Check QUESTION #4 FULL TEXT: You/Your Family Experience fever (hyperthermia) with Anesthesia Last Oral Intake Last Oral intake: Last Oral Intake NPO since Meds taken in AM with sips of water? Meds patient instructed to take am of surgery PONV PONV - deck lid fitter: PONV - deck lid fitter Female Yes 11/12/24 09:26 HX of Motion Sickness Yes 11/12/24 09:26 HX of N/V After Surgery No 11/12/24 09:26 Non-Smoker Yes 11/12/24 09:26 Duration of Surgery greater Yes 11/12/24 09:26 than 60 minutes Number of Risk Factors 4 11/12/24 09:26 PONV Score Severe Risk 11/12/24 09:26 Height Weight Height Weight: Anesthesia: Height Weight Height 5 ft 5 in 08/10/24 11:07 Respiratory Assessment Respiratory Assessment - deck lid fitter: Respiratory Tract Infection Hx - deck lid fitter Hx Respiratory Tract Infection No 11/12/24 09:26 STOP Sleep Apnea STOP Sleep Apnea - deck lid fitter: STOP Sleep Apnea - deck lid fitter Hx Hypertension Yes: CONTROLLED WITH MED 11/12/24 09:26 Hx Sleep Apnea No 11/12/24 09:26 CPAP No 08/19/13 08:07 BIPAP No 08/19/13 06:57 Do you snore loudly (louder Yes 11/12/24 09:26 than talking or can be heard Do you often feel tired/ No 11/12/24 09:26 fatigued/ sleepy during daytime? Has anyone observed you stop No 11/12/24 09:26 breathing during sleep? STOP Results Positive 11/12/24 09:26 QUESTION #5 FULL TEXT : Do you snore loudly (louder than talking or can be heard through closed doors)? 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 Specify any problems Hx of Preganancy in last 3 No 11/12/24 09:26 Months Nurse Filling Out Transfusion DSCHRIBER 11/12/24 09:26 Questions: Date: 11/12/24 11/12/24 09:26 Time: :11/12/24 09:26 Patient unable to answer at this time (ie. confused, unrespo /Reproduction History /Reproductive History - deck lid fitter: /Reproductive Hx- deck lid fitter Hx Now No 11/12/24 09:26 Gestational Age (in weeks): EDC: Hx Hx Para Hx Section SAB No 11/12/24 09:26 Active Medications Active Medications: Current Medications Generic Name Dose Route Start Last Admin Trade Name Freq PRN Reason Stop Dose Admin Cefazolin Sodium 2 gm/ N/A 20 mls @ 400 mls/hr 11/13/24 07:30 IV 11/13/24 07:32 PREOP ONE [facility] Medical History (Updated 11/12/24 @ 09:34 by Jeri Suresh) Wears glasses Post-menopausal Arthritis Fatty liver High cholesterol Easy bruising Back pain History of hiatal hernia Non-smoker Shortness of breath on exertion History of pain when walking History of stress test Cardiology follow-up encounter GERD (gastroesophageal reflux disease) Hypothyroidism Obesity Atherosclerosis of coronary artery of [place] heart without angina pectoris HLD (hyperlipidemia) Essential (primary) hypertension Home Medications ???Medication ???Instructions ???Recorded ???Last Taken ???T (more content not included)... Normal [facility] UA DIP, URINE (POC)on 2024 BILIRUBIN UA (POCT) Negative Negative [facility] CLARITY UA (POCT) Clear [facility] COLOR UA (POCT) Yellow [facility] GLUCOSE UA (POCT) Negative Negative mg/dL [facility] Hemoglobin Ql (U) Negative Negative [facility] KETONE UA (POCT) Negative Negative mg/dL [facility] LEUKOCYTES UA (POCT) Negative Negative [facility] NITRITE UA (POCT) Negative Negative [facility] PH UA (POCT) 6 4.5 - 8.0 [facility] Protein Ql (U) Negative Negative mg/dL [facility] SPECIFIC GRAVITY UA (POCT) 1.025 1.005 - 1.030 [facility] UROBILINOGEN UA (POCT) 0.2 Normal E.U./dL [facility] Location:[facility], [address] [place], [address] [facility] POINT OF CARE [facility] CNOVon 11-03-2024 CNOV Office Visit (FAMPWS ) MAUREEN RODRIGUEZ ([id number]) 1960 F NFR Date Time Provider Department 11/03/24 12:00 PM MATTHEW BERMEO During your visit today, we recorded the following information about you: Pulse Blood pressure Weight 62/minute 127/75 93 kg Matthew Bermeo APRN.LAST INSERTER 11/03/2024 12:30 PM Signed Chief Complaint Patient presents with: UTI HPI Maureen Rodriguez is a 64 year old female who presents here today for Above Complaints.. Patient presents today for frequency, urgency, burning x5 days. Patient states she took a bath and started noticing her symptoms a few days after that. Patient states she has been nauseated a couple of times and has noticed some chills and a fever. She tried Azol which helped with her symptoms. She has had UTI in the past and this does feel similar to those times. Patient states she is currently sexually active. She is having more discharge and some slight itching but hasn't noticed any redness. Patient denies seeing blood in her urine, back pain, pelvic pressure and abdominal pressure. Past medical history, appointments, medications, allergies reviewed. Previous Medical History PAST MEDICAL HISTORY Diagnosis Date Arrhythmia Ramirez's esophagus determined by endoscopy Coronary artery disease minimal, no surgical procedure, Dr. 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 Eczema of both external ears Essential hypertension, benign 2002 Hyperparathyroidism (HCC) Impaired fasting blood sugar 10/2014 a1c 5.7% Irritable bowel syndrome resolved mostly with cholecystectomy Osteoarthritis of knees, bilateral Other and unspecified hyperlipidemia Other premature beats 2003 symptomatic in past, atenolol helps Other specified acquired hypothyroidism 09/10/2008 Snoring Previous Surgical History PAST SURGICAL HISTORY Procedure Laterality Date ; PARATHYROIDECTOMY/EXPL PARATHYRD 12/2012 COLONOSCOPY FLX DX W/COLLJ SPEC WHEN PFRMD 07/08/2013 Colonoscopy COLONOSCOPY FLX DX W/COLLJ SPEC WHEN PFRMD 08/05/2015 EGD 07/08/2013 EGD TRANSORAL BIOPSY SINGLE/MULTIPLE 08/05/2015 HEART CATHETERIZATION 04/2013 LAPS SURG CHOLECYSTECTOMY W/CHOLANGIOGRAPHY 07/22/2013 NEUROPLASTY AND/TRANSPOS MEDIAN NRV CARPAL TUNNE ~2005 Carpal tunnel decomp- right wrist NEUROPLASTY AND/TRANSPOS MEDIAN NRV CARPAL TUNNE 08/19/2013 LEFT PT ED HEART AND VASCULAR 08/02/2023 1 stent heart VAGINAL HYSTERECTOMY UTERUS 250 GM/< 2004 due to bleeding, no cancer, still has both ovaries Family History FAMILY HISTORY Problem Relation Age of Onset Hypertension Mother Cancer Mother skin - not melanoma Thyroid Mother hyperthyroidism (had thyroidectomy) Coronary Artery Disease Mother Heart Mother other (Poly Myalgia Rheumatica (PMR)) Mother Hypertension Father Heart Father PA age 75 other (Dementia) Father Allergies Sister food Heart Brother heart attack Heart Brother PA age 56 Hypertension Brother other (nephrolithiasis) Brother x 2 Heart Maternal Grandmother CAD, age 79 other (Other) Paternal Grandmother age 74, unknown cause other (pancreatic cancer) Paternal Grandfather at 86 Heart Paternal Uncle PA x 2 uncles Prostate Cancer Paternal Uncle Patient Allergies ALLERGIES Allergen Reactions Bees possibly Grass Pollen Other: See Comments Sneezing, itchy eyes Triamterene-Hydroch* Rash photodermatitis Current Medications Current Outpatient Medications on File Prior to Visit Medication Sig clopidogrel (PLAVIX) 75 mg tablet TAKE 4 TABLETS BY MOUTH ON DAY ONE, THEN TAKE 1 TABLET DAILY BEGINNING ON DAY TWO. levothyroxine (SYNTHROID) 112 mcg tablet Take 1 tablet by mouth once daily. pravastatin (PRAVACHOL) 10 mg tablet Take 10 mg by mouth once daily. aspirin-caffeine 1,000-150 mg pwpk .qod (Patient not taking: Reported on 10/22/2024) dexAMETHasone 0.1 % ophthalmic solution 1 Drop two times a day as needed. Into bilateral outer ear canal (Patient not taking: Reported on 10/19/2024) diclofenac (VOLTAREN) 1 % topical gel Apply 0.5 g to affected area four times daily as needed. dexAMETHasone 0.1 % ophthalmic solution 1 Drop twice daily as needed. Into bilateral outer ear canal GLUCOSAMINE HCL (GLUCOSAMINE, BULK, MISC) MULTIVIT-MINERALS/FERROUS FUM (MULTI VITAMIN ORAL) Take by mouth. estradiol (ESTRACE) 0.01 % (0.1 mg/gram) vaginal cream Use fingertip amount vaginally nightly x 2 weeks then every other night x 2 weeks then 1-3x weekly metoprolol succinate XL, long acting, 25 mg 24 hr tablet Take 25 mg by mouth once daily. Aspirin 81 mg Tab Take 81 mg by mouth. Calcium Carbonate-Vitamin D3 500 mg(1,250mg) -600 unit Chew Take 1 tablet by mouth three times daily. No current facility-administered medications on file prior to visit. Social History Social History Tobacco Use Smoking status: Never Smokeless tobac (more content not included)... Normal [facility] CNPNon 11-03-2024 CNPN Telephone (FAMWS) MAUREEN RODRIGUEZ ([id number]) 1960 F NFR Date Time Provider Department 11/03/24 [facility] During your visit today, we recorded the following information about you: Nadya Amos RN 11/03/2024 9:50 AM Signed Patient calling with concern for urinary symptoms that began approximately 5 days ago. Appt made with available provider today for evaluation. Symptoms include: urinary frequency, burning, painful urination, slight nausea and pt having hot/cold episodes. Denies back/flank pain, visible blood in urine, or other sx's. Nadya Amos RN Allergies As of Date: 11/03/2024 Noted Allergy Reaction BEES 12/24/2005 Comments: possibly GRASS POLLEN 03/14/2020 14 - Other: See Comments Comments: Sneezing, itchy eyes TRIAMTERENE-HYDROCHLOROTHIAZ ID 09/01/2010 2 - Rash Comments: photodermatitis Date Reviewed: 10/22/2024 Reviewed by: Dariusz Tsai MD - Fully Assessed Reason for Visit: Patient Update [1234] Prescriptions as of 11/03/2024 - clopidogrel (PLAVIX) 75 mg tablet TAKE 4 TABLETS BY MOUTH ON DAY ONE, THEN TAKE 1 TABLET DAILY BEGINNING ON DAY TWO. - levothyroxine (SYNTHROID) 112 mcg tablet Take 1 tablet by mouth once daily. - pravastatin (PRAVACHOL) 10 mg tablet Take 10 mg by mouth once daily. - aspirin-caffeine 1,000-150 mg pwpk .qod - dexAMETHasone 0.1 % ophthalmic solution 1 Drop two times a day as needed. Into bilateral outer ear canal - diclofenac (VOLTAREN) 1 % topical gel Apply 0.5 g to affected area four times daily as needed. - dexAMETHasone 0.1 % ophthalmic solution 1 Drop twice daily as needed. Into bilateral outer ear canal - GLUCOSAMINE HCL (GLUCOSAMINE, BULK, MISC) - MULTIVIT-MINERALS/FERROUS FUM (MULTI VITAMIN ORAL) Take by mouth. - estradiol (ESTRACE) 0.01 % (0.1 mg/gram) vaginal cream Use fingertip amount vaginally nightly x 2 weeks then every other night x 2 weeks then 1-3x weekly - metoprolol succinate XL, long acting, 25 mg 24 hr tablet Take 25 mg by mouth once daily. - Aspirin 81 mg Tab Take 81 mg by mouth. - Calcium Carbonate-Vitamin D3 500 mg(1,250mg) -600 unit Chew Take 1 tablet by mouth three times daily. Problem List As Of Date 11/03/2024 Noted Resolved BENIGN HYPERTENSION [I10] 12/24/2005 Hyperlipidemia, mixed [E78.2] 12/24/2005 IRRITABLE COLON [K58.9] 12/24/2005 URIN TRACT INFECTION NOS [N39.0] 12/24/2005 04/25/2007 OBESITY NOS [E66.9] 04/25/2007 IMPAIRED FASTING GLUCOSE [R73.01] 06/26/2007 HYPERLIPIDEMIA NEC/NOS [E78.5] 09/10/2008 09/10/2008 Acquired hypothyroidism [E03.9] 09/10/2008 Hyperparathyroidism [E21.3] 12/02/2012 Carpal tunnel syndrome [G56.00] 07/10/2013 Ramirez esophagus [K22.70] 07/10/2013 Biliary dyskinesia [K82.8] 07/10/2013 Dyslipidemia [E78.5] 08/11/2013 CAD (coronary artery disease) [I25.10] 08/11/2013 Primary osteoarthritis of both knees [M17.0] 08/03/2015 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] 08/03/2015 History of Ramirez's esophagus [Z87.19] 08/03/2015 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 [K22.70] 08/04/2015 Chronic pain of both knees [M25.561, M25.562, G*03/13/2017 Osteoarthritis of knees, bilateral [M17.0] Coronary artery disease involving modoc larson*10/28/2018 Hypothyroidism, acquired [E03.9] 10/28/2018 Screening for osteoporosis [Z13.820] 10/28/2018 Chronic right shoulder pain [M25.511, G89.29] 10/28/2018 Acquired deformity of toe [M20.60] 04/18/2021 Paresthesia of foot, bilateral [R20.2] 04/18/2021 Eczema of external ear, 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] 04/18/2021 Osteopenia, senile [M85.80] 07/10/2022 Frequent headaches [R51.9] 10/16/2023 Vitamin D deficiency [E55.9] 10/16/2023 Spontaneous bruising [R23.3] 10/16/2023 Bilateral hand pain [M79.641, M79.642] 10/16/2023 Foot pain, bilateral [M79.671, M79.672] 10/16/2023 Abdominal pain, epigastric [R10.13] 09/23/2024 Bloating [R14.0] 09/23/2024 Post-menopausal [Z78.0] 09/23/2024 Encounter Status:Closed by NADYA AMOS on 11/03/24 Normal [facility] URINALYSIS, REFLEX MICROSCOP ICon 11-03-2024 Bacteria LM.HPF (Urine sed) [#/Area] Negative Normal Negative [facility] Comment on above: Order Comment: Speci men Type: URINE SPECIMENOrdering Facility: [facility] Address: [address] [place] [address] Performed By: #### L [id number] ####[facility] [id number] [place] [address] [place] Bilirubin Ql (U) 1+ Abnormal Negative [facility] Comment on above: Order Comment: Speci men Type: URINE SPECIMENOrdering Facility: [facility] Address: [address] [place] [address] Result Comment: Sugg est correlation with clinical findings and serum bilirubin if clinically indicated. Performed By: #### L [id number] ####[facility] [id number] [place] [address] [place] Clarity (Unsp spec) Clear Normal Clear [facility] Comment on above: Order Comment: Speci men Type: URINE SPECIMENOrdering Facility: [facility] Address: [address] [place] [address] Performed By: #### L [id number] ####[facility] [id number] [place] [address] [place] Color (U) Victoria Abnormal Yellow [facility] Comment on above: Order Comment: Speci men Type: URINE SPECIMENOrdering Facility: [facility] Address: [address] [place] [address] Performed By: #### L [id number] ####[facility] [id number] [place] [address] [place] Epithelial cells LM.HPF (Urine sed) [#/Area] None Seen Normal [facility] Comment on above: Order Comment: Speci men Type: URINE SPECIMENOrdering Facility: [facility] Address: [address] [place] [address] Performed By: #### L [id number] ####[facility] [id number] [place] [address] [place] Glucose Test strip (U) [Mass/Vol] Negative Normal Negative [facility] Comment on above: Order Comment: Speci men Type: URINE SPECIMENOrdering Facility: [facility] Address: [address] [place] [address] Performed By: #### L [id number] ####[facility] [id number] [place] [id number] [place] Hemoglobin Ql (U) Negative Normal Negative [facility] Comment on above: Order Comment: Speci men Type: URINE SPECIMENOrdering Facility: [facility] Address: [address] [place] [address] Performed By: #### L [id number] ####[facility] [id number] [place] [id number] [place] Hyaline casts (Urine sed) [#/Area] 0 /[LPF] Normal 0 /LPF [facility] Comment on above: Order Comment: Speci men Type: URINE SPECIMENOrdering Facility: [facility] Address: [address] [place] [address] Performed By: #### L [id number] ####[facility] [id number] [place] [address] [place] Ketones Ql (U) Negative Normal Negative [facility] Comment on above: Order Comment: Speci men Type: URINE SPECIMENOrdering Facility: [facility] Address: [address] [place] [address] Performed By: #### L [id number] ####[facility] [id number] [place] [address] [place] Leukocyte esterase Test strip Ql (U) 2+ Abnormal Negative [facility] Comment on above: Order Comment: Speci men Type: URINE SPECIMENOrdering Facility: [facility] Address: [address] [place] [address] Performed By: #### L [id number] ####[facility] [id number] [place] [address] [place] Nitrite Ql (U) Negative Normal Negative [facility] Comment on above: Order Comment: Speci men Type: URINE SPECIMENOrdering Facility: [facility] Address: [address] [place] [address] Performed By: #### L [id number] ####[facility] [id number] [place] [address] [place] pH (U) 5.0 [pH] Normal <8.5 [facility] Comment on above: Order Comment: Speci men Type: URINE SPECIMENOrdering Facility: [facility] Address: [address] [place] [address] Performed By: #### L [id number] ####[facility] [id number] [place] [address] [place] Protein (U) [Mass/Vol] Trace Abnormal Negative [facility] Comment on above: Order Comment: Speci men Type: URINE SPECIMENOrdering Facility: [facility] Address: [address] [place] [address] Performed By: #### L [id number] ####[facility] [id number] [place] [address] [place] RBC LM.HPF (Urine sed) [#/Area] 11-20 /HPF Abnormal 0-2 /HPF [facility] Comment on above: Order Comment: Speci men Type: URINE SPECIMENOrdering Facility: [facility] Address: [address] [place] [address] Performed By: #### L [id number] ####[facility] [id number] [place] [address] [place] Specific gravity (U) [Rel density] 1.015 Normal 1.005-1.030 [facility] Comment on above: Order Comment: Speci men Type: URINE SPECIMENOrdering Facility: [facility] Address: [address] [place] [address] Performed By: #### L [id number] ####[facility] [id number] [address] [place] Urobilinogen Ql (U) 1.0 EU/dL Normal 0.2-1.0 EU/dL [facility] Comment on above: Order Comment: Speci men Type: URINE SPECIMENOrdering Facility: [facility] Address: [address] [place] [address] Performed By: #### L [id number] ####[facility] [id number] [place] [address] [place] WBC LM.HPF (Urine sed) [#/Area] 0-5 /HPF Normal 0-5 /HPF [facility] Comment on above: Order Comment: Speci men Type: URINE SPECIMENOrdering Facility: [facility] Address: [address] [place] [address] Performed By: #### L [id number] ####[facility] [id number] [address] [facility] CNPNon 11-02-2024 CNPN Telephone (FAMWS) MAUREEN RODRIGUEZ ([id number]) 1960 F NFR Date Time Provider Department [facility]02[facility] visit today, we recorded the following information about you: Sandra Mcwilliams, KRZYSZTOF 11/02/2024 9:33 AM Signed Dee Dee from [facility] calling in to check on preop clearance form. She is asking for the office visit note, lab results and the actual preop clearance form. Per Jennifer in Yari Moore's office, preop clearance form ready to be faxed. I will fax OV note and labs to [phone]. Roxie Vora, KRZYSZTOF 11/03/2024 2:52 PM Signed Dee Dee - [facility] states she never received the preop clearance form- please fax to fax # [phone] Faxed EKG to Dee Dee per request. Roxie Vora, RN 11/04/2024 10:33 AM Signed Dee Dee- [facility] states she still hasn't received the Pre Op Clearance form. Jennifer Crenshaw LPN 11/04/2024 5:52 PM Signed Refaxed again to number provided on form. Allergies As of Date: 11/02/2024 Noted Allergy Reaction BEES 12/24/2005 Comments: possibly GRASS POLLEN 03/14/2020 14 - Other: See Comments Comments: Sneezing, itchy eyes TRIAMTERENE-HYDROCHLOROTHIAZ ID 09/01/2010 2 - Rash Comments: photodermatitis Date Reviewed: 10/22/2024 Reviewed by: Dariusz Tsai MD - Fully Assessed Reason for Visit: Pre op clearance [Other] Prescriptions as of 11/04/2024 - nitrofurantoin monohydrate and macrocrystal (MACROBID) 100 mg capsule Take 1 capsule by mouth two times a day for 5 days. - clopidogrel (PLAVIX) 75 mg tablet TAKE 4 TABLETS BY MOUTH ON DAY ONE, THEN TAKE 1 TABLET DAILY BEGINNING ON DAY TWO. - levothyroxine (SYNTHROID) 112 mcg tablet Take 1 tablet by mouth once daily. - pravastatin (PRAVACHOL) 10 mg tablet Take 10 mg by mouth once daily. - aspirin-caffeine 1,000-150 mg pwpk .qod - dexAMETHasone 0.1 % ophthalmic solution 1 Drop two times a day as needed. Into bilateral outer ear canal - diclofenac (VOLTAREN) 1 % topical gel Apply 0.5 g to affected area four times daily as needed. - dexAMETHasone 0.1 % ophthalmic solution 1 Drop twice daily as needed. Into bilateral outer ear canal - GLUCOSAMINE HCL (GLUCOSAMINE, BULK, MISC) - MULTIVIT-MINERALS/FERROUS FUM (MULTI VITAMIN ORAL) Take by mouth. - estradiol (ESTRACE) 0.01 % (0.1 mg/gram) vaginal cream Use fingertip amount vaginally nightly x 2 weeks then every other night x 2 weeks then 1-3x weekly - metoprolol succinate XL, long acting, 25 mg 24 hr tablet Take 25 mg by mouth once daily. - Aspirin 81 mg Tab Take 81 mg by mouth. - Calcium Carbonate-Vitamin D3 500 mg(1,250mg) -600 unit Chew Take 1 tablet by mouth three times daily. Problem List As Of Date 11/02/2024 Noted Resolved BENIGN HYPERTENSION [I10] 12/24/2005 Hyperlipidemia, mixed [E78.2] 12/24/2005 IRRITABLE COLON [K58.9] 12/24/2005 URIN TRACT INFECTION NOS [N39.0] 12/24/2005 04/25/2007 OBESITY NOS [E66.9] 04/25/2007 IMPAIRED FASTING GLUCOSE [R73.01] 06/26/2007 HYPERLIPIDEMIA NEC/NOS [E78.5] 09/10/2008 09/10/2008 Acquired hypothyroidism [E03.9] 09/10/2008 Hyperparathyroidism [E21.3] 12/02/2012 Carpal tunnel syndrome [G56.00] 07/10/2013 Ramirez esophagus [K22.70] 07/10/2013 Biliary dyskinesia [K82.8] 07/10/2013 Dyslipidemia [E78.5] 08/11/2013 CAD (coronary artery disease) [I25.10] 08/11/2013 Primary osteoarthritis of both knees [M17.0] 08/03/2015 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] 08/03/2015 History of Ramirez's esophagus [Z87.19] 08/03/2015 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 [K22.70] 08/04/2015 Chronic pain of both knees [M25.561, M25.562, G*03/13/2017 Osteoarthritis of knees, bilateral [M17.0] Coronary artery disease involving modoc larson*10/28/2018 Hypothyroidism, acquired [E03.9] 10/28/2018 Screening for osteoporosis [Z13.820] 10/28/2018 Chronic right shoulder pain [M25.511, G89.29] 10/28/2018 Acquired deformity of toe [M20.60] 04/18/2021 Paresthesia of foot, bilateral [R20.2] 04/18/2021 Eczema of external ear, 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] 04/18/2021 Osteopenia, senile [M85.80] 07/10/2022 Frequent headaches [R51.9] 10/16/2023 Vitamin D deficiency [E55.9] 10/16/2023 Spontaneous bruising [R23.3] 10/16/2023 Bilateral hand pain [M79.641, M79.642] 10/16/2023 Foot pain, bilateral [M79.671, M79.672] 10/16/2023 Abdominal pain, epigastric [R10.13] 09/23/2024 Bloating [R14.0] 09/23/2024 Post-menopausal [Z78.0] 09/23/2024 Encounter Status:Closed by SANDRA MCWILLIAMS on 11/02/24 Normal [facility] BD DXA - AXIAL SKELETONon BD DXA - AXIAL SKELETON * * *Final Report* * * DATE OF EXAM: Oct 30 2024 9:23AM WRJuve [id number] - BD DXA - AXIAL SKELETON / PROCEDURE REASON: multiple diagnoses * * * * Physician Interpretation * * * * EXAMINATION: DXA BONE DENSITOMETRY BD DXA - AXIAL SKELETON PATIENT DEMOGRAPHICS: Age: 64 years, Gender: Female SCANNER INFORMATION: DXA Model: [employer] C [id number] Date Scanned: 10/30/2024 9:23 AM CLINICAL HISTORY: DIAGNOSTIC Osteopenia, senile Screening for osteoporosis Post-menopausal . RISK FACTORS FOR OSTEOPOROSIS AND ASSOCIATED FRACTURES REPORTED BY THIS PATIENT: Please refer to Bone Health Questionnaire in the EMR CURRENT THERAPY: Please refer to Bone Health Questionnaire in the EMR TECHNICAL LIMITATIONS: None RESULTS: Lumbar spine (L1, L2, L3, L4): 1.195 g/cm2, T-score 1.3, Z-score 3.2 Lumbar spine: 2021: 1.178 g/cm2 No statistically significant change Right Femoral Neck: 0.894 g/cm2, T-score 0.4, Z-score 2.0 Right Total Hip: 1.120 g/cm2, T-score 1.5, Z-score 2.7 Left Femoral Neck: 0.831 g/cm2, T-score -0.2, Z-score 1.4 Left Femoral Neck: 2021: 0.883 g/cm2 Statistically significant decrease Left Total Hip: 1.094 g/cm2, T-score 1.2, Z-score 2.5 Left Total Hip: 2021: 1.115 g/cm2 No statistically significant change CHANGE IS STATISTICALLY SIGNIFICANT IN THE SPINE OR HIP IF GREATER THAN OR EQUAL TO 0.04 g/cm2 VERTEBRAL FRACTURE ASSESSMENT Not performed. IMPRESSION: THE LOWEST T-SCORE IS -0.2 IN THE LEFT HIP 1) DIAGNOSIS (based on BMD alone): NORMAL BONE DENSITY Caution: Medical conditions other than osteoporosis may cause low bone density, such as osteomalacia or renal osteodystrophy. Clinical correlation is necessary. 2) FRACTURE RISK (based on FRAX): 10-year absolute fracture risk: - major osteoporotic fracture = 6.5 % - hip fracture = 0.3 % - A diagnosis of Osteoporosis, a 10 year probability of hip fracture greater than or equal to 3% or a 10 year probability of any major osteoporosis-related fracture greater than or equal to 20% should be considered for treatment. - DXA scanner generated FRAX calculations may slightly differ from online FRAX calculations due to differences in software versions. - All recommendations and calculations are to be considered as guidelines and should not replace sound clinical judgement - Caution: Fracture risk may be increased independent of BMD in patients with corticosteroid use, age greater than 65 years, or a history of prior fragility fracture. RECOMMENDATIONS: Follow-up in 2 years or as clinically indicated. Patients that are taking corticosteroids, are transplant recipients or have hyperparathyroidism should have annual follow-up. Follow-up scans should always be done on the same machine for accurate comparison. FOR MORE INFORMATION ABOUT DIAGNOSIS AND TREATMENT: [facility]:? www.ccf.org/arthritis/osteo National Osteoporosis Foundation:? www.nof.org International Society of Clinical Densitometry www.iscd.org Inspector Rag Sorting: BILLY Transcribe Date/Time: Nov 02 2024 9:47A Dictated by : MIESHA KWAN MD This examination was interpreted and the report reviewed and electronically signed by: MIESHA KWAN MD on Nov 02 2024 9:49AM EST [id number] -0.2 Normal [facility] CNOVon 10-22-2024 CNOV Office Visit (SKYLA ) MAUREEN RODRIGUEZ ([id number]) 1960 F NFR Date Time Provider Department 10/22/24 9:00 AM DARIUSZ TSAI During your visit today, we recorded the following information about you: Dariusz Tsai MD 11/17/2024 10:39 PM Signed Dariusz Tsai MD Department of Orthopaedics Orthopaedics [address] [facility] [address] Dept: [phone] Dept October 22, 2024 CHIEF COMPLAINT: New and Knee Pain of the Right Knee and New and Knee Pain of the Left Knee (Referred by Dr. Park) HPI Patient here for evaluation bilateral knee pain. At times her right knee is worse than her left, but today she is having more pain in her left knee. She is having all over pain in her knee. Her pain is worse on the posterior aspect. She is retired. Taking Tylenol for the pain and only helps take the edge off. She has only tried the Voltaren gel a few times. X-rays done on 09/30/24. ASSESSMENT: M17.0 Primary osteoarthritis of both knees (primary encounter diagnosis) M25.561, M25.562, G89.29 Chronic pain of both knees PLAN: We reviewed non-op and op for knee OA. On Plavix so she has to be careful with Nsaids. We discussed injections, strengthening, etc. Will continue to monitor patient for Chronic pain of both knees Primary osteoarthritis of both knees (primary encounter diagnosis), patient to schedule visit as per follow up discussed. FOLLOW UP INSTRUCTIONS: As needed OBJECTIVE: Ms. Maureen Rodriguez is a pleasant 64 year old in no apparent distress. Gen:There were no vitals taken for this visit. nl development, non obese, no deformities ENT: Normocephalic, normal hearing, moist mucosa CV: Pulses:DP/PT= 2+ and symmetric, capillary refill < 2 secs, no peripheral edema/varicosities Skin: no rash, bruising or lesions. Good turgor. Psych: cooperative and appropriate, alert and oriented x 3, good mood and affect. Musculoskeletal: Patient walks with mild antalgia, normal station. Hip motion without pain. Each knee with scant effusion. Patella tracks normally. There is no patellar crepitance. No pain along the medial or lateral facets. Range of motion 5-120, each. Positive medial, without lateral joint line pain on palpation. Ligamentous exam stable on varus and valgus stress testing at 0 and 30 degrees, with some medial widening with valgus stress. Robson's examination is negative. Posterior drawer is negative. Negative McMurrays, without palpable click. Extremity is warm and well perfused. Sensation is grossly intact to light touch, subjectively. IMAGING: IMPRESSION: Moderate-severe medial compartment osteoarthritis in both knees progressed since 06/08/2020. Inspector Rag Sorting: PSCB Transcribe Date/Time: Oct 02 2024 2:58P Dictated by : DAYA BARRIOS DO This examination was interpreted and the report reviewed and electronically signed by: DAYA BARRIOS DO on Oct 02 2024 3:00PM EST Results-Findings * * *Final Report* * * DATE OF EXAM: Sep 30 2024 10:31AM WRX [id number] - XR KNEE 4V AP/PA/LAT/MERCH HÉCTOR / PROCEDURE REASON: multiple diagnoses * * * * Physician Interpretation * * * * EXAMINATION: XR KNEE 4V AP/PA/LAT/MERCH HÉCTOR PATIENT/TECHNOLOGIST PROVIDED HISTORY: PT STATES BILAT KNEE PAIN > ON RIGHT CLINICAL INFORMATION: 64 years old Female with Chronic pain of both knees TECHNIQUE: XR KNEE 4V AP/PA/LAT/MERCH HÉCTOR Laterality: BILATERAL Number of different views (projections): 4 views of each knee COMPARISON: Radiographs 06/08/2020 RESULT: Small tricompartmental osteophytes with moderate-severe medial compartment joint space narrowing in both knees with near xjuo-pj-ilxf contact progressed since 06/08/2020. No joint effusion in either knee. No acute fracture. 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 Eczema of both external ears Essential hypertension, benign 2002 Hyperparathyroidism (HCC) Impaired fasting blood sugar 10/2014 a1c 5.7% Irritable bowel syndrome resolved mostly with cholecystectomy Osteoarthritis of knees, bilateral Other and unspecified hyperlipidemia Other premature beats 2003 symptomatic in past, atenolol helps Other specified acquired hypothyroidism 09/10/2008 Snoring Past Surgical History: PAST SURGICAL HISTORY Procedure Laterality Date ; PARATHYROIDECTOMY/EXPL PARATHYRD 12/2012 COLONOSCOPY FLX DX W/COLLJ SPEC WHEN PFRMD 07/08/2013 Colonoscopy COLONOSCOPY FLX DX W/COLLJ SPEC WHEN PFRMD 08/05/2015 EGD 07/08/2013 EGD TRANSORAL BIOPSY SINGLE/MULTIPLE 08/05/2015 HEART CATHETERIZATION 04/2013 LAPS SURG CHOLECYSTECTOMY W/CHOLANGIOGRAPHY 07/22/2013 NEUROPLASTY AND/TRANSPOS MEDIAN (more content not included)... Normal [facility] 25(OH)D3 SerPl-mCncon 2024 25-hydroxyvitamin D3 [Mass/Vol] 53.0 ng/mL Normal 31.0-80.0 [facility] Comment on above: Order Comment: Speci men Type: BLOOD SPECIMENOrdering Facility: [facility] Address: [address] [place] [address] Result Comment: Clas sification of 25 OH Vitamin D status: Deficiency/Insufficiency: < or = 30 ng/ml. Sufficiency/Optimal Levels: 31-80 ng/mL Toxicity: > 100 ng/mL. Test performed by chemiluminescent immunoassay. Performed By: #### 1 989-3 ####[facility] [id number] [place] [address] [place] CBC W Auto Differential pane l (Bld)on 10-19-2024 Basophils (Bld) [#/Vol] 0.04 10*3/uL Normal <0.11 [facility] Comment on above: Order Comment: Speci men Type: BLOOD SPECIMENOrdering Facility: [facility] Address: [address] [place] [address] Performed By: #### 5 7021-8, 4537-7 ####[facility] [id number] [place] [address] [place] Basophils/100 WBC (Bld) 0.7 % Normal [facility] Comment on above: Order Comment: Speci men Type: BLOOD SPECIMENOrdering Facility: [facility] Address: [address] [place] [address] Performed By: #### 5 7021-8, 4537-7 ####[facility] [id number] [place] [address] [place] Differential cell count method Nom (Bld) Auto Normal [facility] Comment on above: Order Comment: Speci men Type: BLOOD SPECIMENOrdering Facility: [facility] Address: [address] [place] [address] Performed By: #### 5 7021-8, 4537-7 ####[facility] [id number] [place] [address] [place] Eosinophils (Bld) [#/Vol] 0.26 10*3/uL Normal <0.46 [facility] Comment on above: Order Comment: Speci men Type: BLOOD SPECIMENOrdering Facility: [facility] Address: [address] [place] [address] Performed By: #### 5 7021-8, 4536-7 ####[facility] [id number] [place] [address] [place] Eosinophils/100 WBC (Bld) 4.5 % Normal [facility] Comment on above: Order Comment: Speci men Type: BLOOD SPECIMENOrdering Facility: [facility] Address: [address] [place] [address] Performed By: #### 5 7021-8, 4536-7 ####[facility] LABCLIA [id number] [place] [address] [place] Erythrocyte distribution width (RBC) [Ratio] 12.1 % Normal 11.5-15.0 [facility] Comment on above: Order Comment: Speci men Type: BLOOD SPECIMENOrdering Facility: [facility] Address: [address] [place] [address] Performed By: #### 5 7021-8, 4536-7 ####[facility] LABCLIA [id number] [place] [address] [place] Hematocrit (Bld) [Volume fraction] 45.0 % Normal 36.0-46.0 [facility] Comment on above: Order Comment: Speci men Type: BLOOD SPECIMENOrdering Facility: [facility] Address: [address] [place] [address] Performed By: #### 5 7021-8, 7-7 ####[facility] LABCLIA [id number] [place] [id number] [place] Hemoglobin (Bld) [Mass/Vol] 14.9 g/dL Normal 11.5-15.5 [facility] Comment on above: Order Comment: Speci men Type: BLOOD SPECIMENOrdering Facility: [facility] Address: [address] [place] [address] Performed By: #### 5 7021-8, 4537-7 ####[facility] LABCLIA [id number] [place] [address] [place] Immature granulocytes (Bld) [#/Vol] 10*3/uL Normal <0.10 [facility] Comment on above: Order Comment: Speci men Type: BLOOD SPECIMENOrdering Facility: [facility] Address: [address] [place] [address] Performed By: #### 5 7021-8, 4537-7 ####[facility] LABCLIA [id number] [place] [address] [place] Immature granulocytes/100 WBC (Bld) 0.2 % Normal [facility] Comment on above: Order Comment: Speci men Type: BLOOD SPECIMENOrdering Facility: [facility] Address: [address] [place] [address] Performed By: #### 5 7021-8, 4537-7 ####[facility] LABCLIA [id number] [place] [address] [place] Lymphocytes (Bld) [#/Vol] 1.72 10*3/uL Normal 1.00-4.00 [facility] Comment on above: Order Comment: Speci men Type: BLOOD SPECIMENOrdering Facility: [facility] Address: [address] [place] [address] Performed By: #### 5 7021-8, 4537-7 ####[facility] LABCLIA [id number] [place] [address] [place] Lymphocytes/100 WBC (Bld) 29.5 % Normal [facility] Comment on above: Order Comment: Speci men Type: BLOOD SPECIMENOrdering Facility: [facility] Address: [address] [place] [address] Performed By: #### 5 7021-8, 4537-7 ####[facility] LABCLIA [id number] [place] [address] [place] MCH (RBC) [Entitic mass] 31.3 pg Normal 26.0-34.0 [facility] Comment on above: Order Comment: Speci men Type: BLOOD SPECIMENOrdering Facility: [facility] Address: [address] [place] [address] Performed By: #### 5 7021-8, 4537-7 ####[facility] LABCLIA [id number] [place] [address] [place] MCHC (RBC) [Mass/Vol] 33.1 g/dL Normal 30.5-36.0 [facility] Comment on above: Order Comment: Speci men Type: BLOOD SPECIMENOrdering Facility: [facility] Address: [address] [place] [address] Performed By: #### 5 7021-8, 4537-7 ####[facility] LABCLIA [id number] [place] [address] [place] MCV (RBC) [Entitic vol] 94.5 fL Normal 80.0-100.0 [facility] Comment on above: Order Comment: Speci men Type: BLOOD SPECIMENOrdering Facility: [facility] Address: [address] [place] [address] Performed By: #### 5 7021-8, 4537-7 ####[facility] LABCLIA [id number] [place] [address] [place] Monocytes (Bld) [#/Vol] 0.61 10*3/uL Normal <0.87 [facility] Comment on above: Order Comment: Speci men Type: BLOOD SPECIMENOrdering Facility: [facility] Address: [address] [place] [address] Performed By: #### 5 7021-8, 7-7 ####[facility] LABCLIA [id number] [place] [address] [place] Monocytes/100 WBC (Bld) 10.5 % Normal [facility] Comment on above: Order Comment: Speci men Type: BLOOD SPECIMENOrdering Facility: [facility] Address: [address] [place] [address] Performed By: #### 5 7021-8, 4536-7 ####[facility] LABCLIA [id number] [place] [address] [place] Neutrophils (Bld) [#/Vol] 3.19 10*3/uL Normal 1.45-7.50 [facility] Comment on above: Order Comment: Speci men Type: BLOOD SPECIMENOrdering Facility: [facility] Address: [address] [place] [address] Performed By: #### 5 7021-8, 4536-7 ####[facility] LABCLIA [id number] [place] [address] [place] Neutrophils/100 WBC (Bld) 54.6 % Normal [facility] Comment on above: Order Comment: Speci men Type: BLOOD SPECIMENOrdering Facility: [facility] Address: [address] [place] [address] Performed By: #### 5 7021-8, 4536-7 ####[facility] LABCLIA [id number] [place] [address] [place] Nucleated RBC (Bld) [#/Vol] 10*3/uL Normal <0.01 [facility] Comment on above: Order Comment: Speci men Type: BLOOD SPECIMENOrdering Facility: [facility] Address: [address] [place] [address] Performed By: #### 5 7021-8, 4536-7 ####[facility] LABCLIA [id number] [place] [address] [place] Nucleated RBC/100 WBC (Bld) [Ratio] 0.0 /100 WBC Normal [facility] Comment on above: Order Comment: Speci men Type: BLOOD SPECIMENOrdering Facility: [facility] Address: [address] [place] [address] Performed By: #### 5 7021-8, 4537-7 ####[facility] LABIA [id number] [place] [address] [place] Platelet mean volume (Bld) [Entitic vol] 9.4 fL Normal 9.0-12.7 [facility] Comment on above: Order Comment: Speci men Type: BLOOD SPECIMENOrdering Facility: [facility] Address: [address] [place] [address] Performed By: #### 5 7021-8, 4537-7 ####[facility] LABIA [id number] [place] [address] [place] Platelets (Bld) [#/Vol] 225 10*3/uL Normal 150-400 [facility] Comment on above: Order Comment: Speci men Type: BLOOD SPECIMENOrdering Facility: [facility] Address: [address] [place] [address] Performed By: #### 5 7021-8, 4537-7 ####[facility] LABIA [id number] [place] [address] [place] RBC (Bld) [#/Vol] 4.76 10*6/uL Normal 3.90-5.20 [facility] Comment on above: Order Comment: Speci men Type: BLOOD SPECIMENOrdering Facility: [facility] Address: [address] [place] [address] Performed By: #### 5 7021-8, 4537-7 ####[facility] LABIA [id number] [place] [address] [place] WBC (Bld) [#/Vol] 5.83 10*3/uL Normal 3.70-11.00 [facility] Comment on above: Order Comment: Verenice sharma Type: BLOOD SPECIMENOrdering Facility: [facility] Address: [address] [place] [address] Performed By: #### 5 7021-8, 4537-7 ####[facility] LABCLIA [id number] [address] [place] [employer] HLA-DQ GENOTYPE on 10-19-2024 CELIAC CATEGORY Category 7 Normal [facility] Comment on above: Order Comment: Verenice sharma Type: BLOOD SPECIMENOrdering Facility: [facility] Address: [address] [place] [address] Result Comment: KORY ZAMBRANO DQ HAPLOTYPE RELATIVE RISK Category 7 DQ2.2 AND DQ2.5 Extremely High Category 7 DQ2.5 AND DQ2.5 Extremely High Category 6 DQ2.2 AND DQA1*05, DQB1*03:01 Very High Category 5 DQ2.2 AND DQ8 Very High Category 5 DQ2.5 AND DQ8 Very High Category 4 DQ8 AND DQ8 High Category 3 DQ2.5 AND DQA1*05, DQB1*03:01 High Category 3 DQ2.5 AND DQA1*02:01, DQB1*03:03 High Category 3 DQ2.5 AND DQA1*03, DQB1*02 High Category 3 DQ2.5 AND OTHER LOW RISK ALLELE High Category 3 DQ2.2 AND DQA1*05, DQB1*03:03 High Category 2 DQ8 AND OTHER LOW RISK ALLELE Moderate Category 1 DQ2.2 AND OTHER LOW RISK ALLELE Low Category 0 NEGATIVE FOR DQ2.2 Negative Category 0 NEGATIVE FOR DQ2.5 Negative Category 0 NEGATIVE FOR DQ8 Negative DQ2.2 = DQA1*02:01, DQB1*02:02 DQ2.5 = DQA1*05, DQB1*02:01 DQ8 = DQA1*03, DQB1*03:02 The identification of one of these HLA-DQ genotypes is not, by itself, sufficient for the diagnosis of celiac disease, since both DQ2 and DQ8 are relatively common in the general population. The strongest reported HLA associations with celiac disease include DQ2 (DQ2.5 or DQA1*05-DQB1*02:01 & DQA2.2 or DQA1*02:01-DQB1*02:02) and DQ8 (DQA1*03:01/DQB1*03:02). This test is useful for family members of celiac patients and patients with negative serology results. This testing can rule out celiac disease with high negative predictive value (NPV) of 95-100% depending on the ethnic background. In cases of an ambiguous HLA allele assignment where multiple rare alleles cannot be excluded, the most common HLA allele is reported. References: 1. Alena L, Sharita J, Jcarlos Khalil, et al. Cost-effective HLA typing with tagging SNPs predicts celiac disease risk haplotypes in the Marshallese, Persian and Cymraes populations. Immunogenetics. 2009 Dec;61(4):247-56. 2. Amber GRACE. Celiac disease: dissecting a complex inflammatory disorder. Perla Rev Immunol. 2002 May;2(9):647-55. 3. Jj E, Harish HS, Ruth Ann CA, et al. Risk of pediatric celiac disease according to HLA haplotype and country. N Engl J Med. 2014 ;371(1):42-9. HLA typing performed by PCR-RSSOP and/or NGS. This test was developed and its performance characteristics determined by [email or web address]. The test has not been cleared or approved by the [place] FDA. However, FDA approval was not necessary since this lab is certified under CLIA for high complexity testing. Test performed by: [facility], [address] [place] [address]., [place] [address]. CLIA [id number]. Performed By: #### C XAVI ####[facility]IESCLIA [id number] [address] [place] CELIAC RISK HAPLOTYPE Positive Normal [facility] Comment on above: Order Comment: Speci men Type: BLOOD SPECIMENOrdering Facility: [facility] Address: [address] [place] [address] Performed By: #### C XAVI ####[facility]sCLIA [id number] [address] [place] HLA-DQA1 GENOTYPE HLA-DQA1*: 05, 02:01 Normal [facility] Comment on above: Order Comment: Speci men Type: BLOOD SPECIMENOrdering Facility: [facility] Address: [address] [place] [address] Performed By: #### C XAVI ####[facility]OR[facility]IESCLIA [id number] [place] [address] [place] [facility] [place] HLA-DQB1 GENOTYPE HLA-DQB1*: 02:01, 02:02 Normal [facility] Comment on above: Order Comment: Speci men Type: BLOOD SPECIMENOrdering Facility: [facility] Address: [address] [place] [address] Performed By: #### C XAVI ####[facility]OR[facility]IESCLIA [id number] [address] CELIAC SCREENon 10-19-2024 GLIAD DEAMIDATED IGA QUAL Negative Normal Negative, Test not Indicated [facility] Comment on above: Order Comment: Speci men Type: BLOOD SPECIMENOrdering Facility: [facility] Address: [address] [place] [address] Result Comment: This is used as an aid in diagnosis of celiac disease. Clinical correlation is required. The following results were obtained with an [employer] QUANTA Lite Gliadin IgA ONIEL Gliadin. Gliadin IgA values obtained with different manufacturers' assay methods may not be used interchangeably. The magnitude of the reported IgA levels cannot be correlated to an endpoint titer. Performed By: #### L [id number] ####[facility] LABCLIA [id number] [address] [place] Gliadin peptide IgA Qn (S) 3 Units Normal <20 [facility] Comment on above: Order Comment: Speci [facility] Type: BLOOD SPECIMENOrdering Facility: [facility] Address: [address] [place] [address] Performed By: #### L [id number] ####[facility] LABCLIA [id number] [address] [place] INTERPRETATION No serological evide nce of celiac disease, however, if celiac disease is clinically suspected and patient is not on gluten-free diet, histological diagnosis may be considered. HLA testing may help with risk assessment. Normal [facility] Comment on above: Order Comment: Verenice sharma Type: BLOOD SPECIMENOrdering Facility: [facility] Address: [address] [place] [address] Performed By: #### L [id number] ####[facility] LABCLIA [id number] [address] TRANSGLUTAMINASE IGA ABS INTERPRETATION Negative Normal Negative [facility] Comment on above: Order Comment: Verenice sharma Type: BLOOD SPECIMENOrdering Facility: [facility] Address: [address] [place] [address] Result Comment: The following results were obtained with [employer]ite R h-tTG IgA ONIEL.???R h-tTG IgA values obtained with different manufacturers' assay methods may not be used interchangeably. The magnitude of the reported IgA levels cannot be corelated to an endpoint???concentration. This is used as an aid in diagnosis of celiac disease. Clinical correlation is required. Performed By: #### L [id number] ####[facility] LABIA [id number] [address] [place] tTG IgA Qn (S) <2 Normal <4 [facility] Comment on above: Order Comment: Verenice sharma Type: BLOOD SPECIMENOrdering Facility: [facility] Address: [address] [place] [address] Performed By: #### L [id number] ####[facility] LABIA [id number] [address] [place] CNOVon 10-19-2024 CNOV Office Visit (FAMPWS ) MAUREEN RODRIGUEZ ([id number]) 1960 F NFR Date Time Provider Department 10/19/24 9:00 AM YARI MOORE During your visit today, we recorded the following information about you: Pulse Respiration Blood pressure Weight 52/minute 12/minute 112/58 93.6 kg Height 1.68 m Yari Moore, BRYANNA.LAST INSERTER 10/19/2024 9:44 AM Signed Chief Complaint Patient presents with: Pre-Op Exam: Foot surgery HPI Maureen Rodriguez is a 64 year old female who presents here today for Above Complaints. Maureen is an established patient of Dr. Xavier DO. Concerns today.. Pre-op clearance. Scheduled on 11/13/24 for R foot bunionectomy with second, third, and fourth hammertoe repair with [facility]. Anticipated anesthesia: general with popliteal/saphenous nerve block. Hx of previous anesthesia problems: No. Family hx of anesthesia problems: No. Current signs of infection: No. Chest pain: No. Only heart burn symptoms occassionally which is her baseline. Resolves with TUMS. Shortness of breath: No. Known sleep apnea: No. Hx of clotting issues: No. On Plavix d/t cardiac stent in 2022. Current bleeding or bruising: No. Had routine wellness exam on 09/23/[address] Park. Pt does report mild occasionally headaches that resolve on their own after a few minutes. Otherwise, no new symptoms since last visit. Got lab work done today, ordered at last visit. HTN -- well controlled on current regimen. Last 14 Encounter BP Readings: Date: BP: 10/19/2024 112/58 09/23/2024 116/80 08/22/2024 140/82 10/16/2023 120/60 07/10/2022 136/80 04/18/2021 120/84 03/14/2020 112/74 10/28/2018 100/60 09/18/2017 116/80 03/13/2017 110/60 09/12/2016 120/80 03/09/2016 110/70 08/03/2015 100/60 07/13/2015 109/60 Hypothyroidism -- stable, no new symptoms. Labs done today. Knee pain -- following with Dr. Tsai ( has appointment this week) d/t osteoarthritis. Follows with cardiology for CAD. Taking her plavix, pravstatin, and metoprolol. No recent symptoms. Past medical history, appointments, medications, allergies reviewed. Previous Medical History PAST MEDICAL HISTORY Diagnosis Date Arrhythmia Ramirez's esophagus determined by endoscopy Coronary artery disease minimal, no surgical procedure, Dr. 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 Eczema of both external ears Essential hypertension, benign 2002 Hyperparathyroidism (HCC) Impaired fasting blood sugar 10/2014 a1c 5.7% Irritable bowel syndrome resolved mostly with cholecystectomy Osteoarthritis of knees, bilateral Other and unspecified hyperlipidemia Other premature beats 2003 symptomatic in past, atenolol helps Other specified acquired hypothyroidism 09/10/2008 Snoring Previous Surgical History PAST SURGICAL HISTORY Procedure Laterality Date ; PARATHYROIDECTOMY/EXPL PARATHYRD 12/2012 COLONOSCOPY FLX DX W/COLLJ SPEC WHEN PFRMD 07/08/2013 Colonoscopy COLONOSCOPY FLX DX W/COLLJ SPEC WHEN PFRMD 08/05/2015 EGD 07/08/2013 EGD TRANSORAL BIOPSY SINGLE/MULTIPLE 08/05/2015 HEART CATHETERIZATION 04/2013 LAPS SURG CHOLECYSTECTOMY W/CHOLANGIOGRAPHY 07/22/2013 NEUROPLASTY AND/TRANSPOS MEDIAN NRV CARPAL TUNNE ~2005 Carpal tunnel decomp- right wrist NEUROPLASTY AND/TRANSPOS MEDIAN NRV CARPAL TUNNE 08/19/2013 LEFT PT ED HEART AND VASCULAR 08/02/2023 1 stent heart VAGINAL HYSTERECTOMY UTERUS 250 GM/< 2004 due to bleeding, no cancer, still has both ovaries Family History FAMILY HISTORY Problem Relation Age of Onset Hypertension Mother Cancer Mother skin - not melanoma Thyroid Mother hyperthyroidism (had thyroidectomy) Coronary Artery Disease Mother Heart Mother other (Poly Myalgia Rheumatica (PMR)) Mother Hypertension Father Heart Father PA age 75 other (Dementia) Father Allergies Sister food Heart Brother heart attack Heart Brother PA age 56 Hypertension Brother other (nephrolithiasis) Brother x 2 Heart Maternal Grandmother CAD, age 79 other (Other) Paternal Grandmother age 74, unknown cause other (pancreatic cancer) Paternal Grandfather at 86 Heart Paternal Uncle PA x 2 uncles Prostate Cancer Paternal Uncle Patient Allergies ALLERGIES Allergen Reactions Bees possibly Grass Pollen Other: See Comments Sneezing, itchy eyes Triamterene-Hydroch* Rash photodermatitis Current Medications Current Outpatient Medications on File Prior to Visit Medication Sig clopidogrel (PLAVIX) 75 mg tablet TAKE 4 TABLETS BY MOUTH ON DAY ONE, THEN TAKE 1 TABLET DAILY BEGINNING ON DAY TWO. levothyroxine (SYNTHROID) 112 mcg tablet Take 1 tablet by mouth once daily. pravastatin (PRAVACHOL) 10 mg tablet Take 10 mg by mouth once daily. aspirin-caffeine 1,000-150 mg pwpk .qod dexAMETHasone 0.1 % ophthalmic solution 1 Drop two times (more content not included)... Normal [facility] CRP SerPl-mCncon 10-19-2024 CRP [Mass/Vol] mg/L Normal <0.9 [facility] Comment on above: Order Comment: Speci men Type: BLOOD SPECIMENOrdering Facility: [facility] Address: [address] [place] [address] Performed By: #### 1 988-5, 74956-1 ####[facility] LABCLIA [id number] [address] [place] Comprehensive metabolic 2000 panelon 10-19-2024 Albumin [Mass/Vol] 4.2 g/dL Normal 3.9-4.9 [facility] Comment on above: Order Comment: Seani edith Type: BLOOD SPECIMENOrdering Facility: [facility] Address: [address] [place] [address] Performed By: #### 2 4323-8, 3024-7, 3016-3 ####[facility]ORYCLIA [id number] [address] [place]#### 61224-7 ####[facility]ORATORYCLIA [id number] [place] [address] [place] [facility] LABCLIA [id number] [place] [address] [place] ALP [Catalytic activity/Vol] 101 U/L Normal 34-123 [facility] Comment on above: Order Comment: Speci men Type: BLOOD SPECIMENOrdering Facility: [facility] Address: [address] [place] [address] Performed By: #### 2 4323-8, 3024-7, 3016-3 ####[facility]ORATORYCLIA [id number] [place] [address] [place]#### 52355-0 ####[facility]OR[facility]ORYCLIA [id number] [place] [address] [place] [facility] LABCLIA [id number] [place] [address] [place] ALT With P-5'-P [Catalytic activity/Vol] 23 U/L Normal 7-38 [facility] Comment on above: Order Comment: Speci men Type: BLOOD SPECIMENOrdering Facility: [facility] Address: [address] [place] [address] Performed By: #### 2 4323-8, 4-7, 6-3 ####[facility]ORYCLIA [id number] [address] [place]#### 89885-1 ####[facility]ORYCLIA [id number] [place], [place] [address] [place] [address] LABCLIA [id number] [address] [place] Anion gap [Moles/Vol] 11 mmol/L Normal 8-15 [facility] Comment on above: Order Comment: Speci men Type: BLOOD SPECIMENOrdering Facility: [facility] Address: [facility] [place] [address] Performed By: #### 2 4323-8, 3024-7, 6-3 ####[facility]ORATORYCLIA [id number] [place] [address] [place]#### 28091-0 ####[facility]ORYCLIA [id number] [place] [address] [place] [facility] LABCLIA [id number] [place] [address] [place] AST With P-5'-P [Catalytic activity/Vol] 25 U/L Normal 13-35 [facility] Comment on above: Order Comment: Speci men Type: BLOOD SPECIMENOrdering Facility: [facility] Address: [address] [place] [address] Performed By: #### 2 4323-8, 3024-7, 3016-3 ####[facility]ORATORYCLIA [id number] [place] [address] [place]#### 30453-6 ####[facility]ORATORYCLIA [id number] [place], [place] [address] [place] [address] [facility] LABCLIA [id number] [place] [address] [place] Bilirubin [Mass/Vol] 0.4 mg/dL Normal 0.2-1.3 [facility] Comment on above: Order Comment: Speci men Type: BLOOD SPECIMENOrdering Facility: [facility] Address: [address] [place] [address] Performed By: #### 2 4323-8, 7, 3 ####[facility]ATORYCLIA [id number] [place] [address] [place]#### 79689-0 ####[facility]ORYCLIA [id number] [place], [place] [address] [place] [address] [place] [facility] LABCLIA [id number] [place] [address] [place] Calcium [Mass/Vol] 9.9 mg/dL Normal 8.5-10.2 [facility] Comment on above: Order Comment: Speci men Type: BLOOD SPECIMENOrdering Facility: [facility] Address: [address] [place] [address] Performed By: #### 2 4323-8, 3024-7, 6-3 ####[facility]ORATORYCLIA [id number] [place] [address] [place]#### 23129-5 ####[facility]ORYCLIA [id number] [place] [address] [place] [facility] LABCLIA [id number] [place] [address] [place] Chloride [Moles/Vol] 105 mmol/L Normal 98-107 [facility] Comment on above: Order Comment: Speci men Type: BLOOD SPECIMENOrdering Facility: [facility] Address: [address] [place] [address] Performed By: #### 2 4323-8, 3024-7, 3016-3 ####[facility]ORATORYCLIA [id number] [place] [address] [place]#### 34937-4 ####[facility]ORATORYCLIA [id number] [place], [place] [address] [place] [address] [place] [facility] LABCLIA [id number] [place] [address] [place] CO2 [Moles/Vol] 24 mmol/L Normal 22-30 [facility] Comment on above: Order Comment: Speci men Type: BLOOD SPECIMENOrdering Facility: [facility] Address: [address] [place] [address] Performed By: #### 2 4323-8, 3024-7, 3016-3 ####[facility]ORATORYCLIA [id number] [place] [address] [place]#### 33316-7 ####[facility]ORATORYCLIA [id number] [place] [address] [place] [facility] LABCLIA [id number] [place] [address] [place] [place] Creatinine [Mass/Vol] 0.80 mg/dL Normal 0.58-0.96 [facility] Comment on above: Order Comment: Speci men Type: BLOOD SPECIMENOrdering Facility: [facility] Address: [address] [place] [address] Performed By: #### 2 4323-8, 3024-7, 3016-3 ####[facility] LABORATORYCLIA [id number] [address]#### [address]23[address]-7 ####[facility] LABORATORYIA [id number] [place], [place] [address] [place] [address] LABCLIA [id number] [address] Creatinine and Glomerular filtration rate.predicted panel (S/P/Bld) 81 mL/min/1.73m??? Normal >=60 [facility] Comment on above: Order Comment: Speci men Type: BLOOD SPECIMENOrdering Facility: [facility] Address: [address] [place] [address] Result Comment: Ysabel mated Glomerular Filtration Rate (eGFR) is calculated using the 2020 CKD-EPI creatinine equation. This equation utilizes serum creatinine, sex, and age as parameters. The creatinine assay has traceable calibration to isotope dilution-mass spectrometry. Refer to KDIGO guidelines for clinical interpretation. In patients with unstable renal function, e.g. those with acute kidney injury, the eGFR may not accurately reflect actual GFR. Performed By: #### 2 4323-8, 3024-7, 3016-3 ####[facility] LABORATORYCLIA [id number] [address]#### [address]-7 ####[facility] LABORATORYCLIA [id number] [address] LABCLIA [id number] [address] [place] Glucose [Mass/Vol] 94 mg/dL Normal 74-99 [facility] Comment on above: Order Comment: Verenice sharma Type: BLOOD SPECIMENOrdering Facility: [facility] Address: [address] [place] [address] Result Comment: The [place] Diabetes Association (ADA) provides guidance for cutoff values for fasting glucose and random glucose. The ADA defines fasting as no caloric intake for at least 8 hours. Fasting plasma glucose results between 100 to 125 mg/dL indicate increased risk for diabetes (prediabetes). Fasting plasma glucose results greater than or equal to 126 mg/dL meet the criteria for diagnosis of diabetes. In the absence of unequivocal hyperglycemia, results should be confirmed by repeat testing. In a patient with classic symptoms of hyperglycemia or hyperglycemic crisis, random plasma glucose results greater than or equal to 200 mg/dL meet the criteria for diagnosis of diabetes. Reference: Standards of Medical Care in Diabetes 2016, Swiss Diabetes Association. Diabetes Care. 2016.39(Suppl 1). Performed By: #### 2 4323-8, 7, 3 ####[facility] LABORATORYCLIA [id number] [address] [place]#### [address]-6 ####[facility] LABORATORYCLIA [id number] [address] [facility] LABCLIA [id number] [place] [address] [place] Potassium [Moles/Vol] 4.5 mmol/L Normal 3.7-5.1 [facility] Comment on above: Order Comment: Speci men Type: BLOOD SPECIMENOrdering Facility: [facility] Address: [address] [place] [address] Performed By: #### 2 4328, 3024-03, 3 ####[facility] LABORATORYCLIA [id number] [address] [place]#### 08[address]-3 ####[facility] LABORATORYCLIA [id number] [place], [place] [address] [place] [address] [facility] LABCLIA [id number] [place] [address] [place] Protein [Mass/Vol] 7.1 g/dL Normal 6.3-8.0 [facility] Comment on above: Order Comment: Speci men Type: BLOOD SPECIMENOrdering Facility: [facility] Address: [address] [place] [address] Performed By: #### 2 432-8, 3024-03, 3016-3 ####[facility]ORATORYCLIA [id number] [place] [address] [place]#### 21258-3 ####[facility] LABORATORYCLIA [id number] [place] [address] [place] [facility] LABCLIA [id number] [address] [address] [place] Sodium [Moles/Vol] 140 mmol/L Normal 136-144 [facility] Comment on above: Order Comment: Speci men Type: BLOOD SPECIMENOrdering Facility: [facility] Address: [address] [place] [address] Performed By: #### 2 4323-8, 7, 3 ####[facility] LABORATORYCLIA [id number] [place] [address] [place]#### 61310-0 ####[facility] LABORATORYCLIA [id number] [place] [address] [place] [facility] LABCLIA [id number] [place] [address] [place] Urea nitrogen [Mass/Vol] 13 mg/dL Normal 7-21 [facility] Comment on above: Order Comment: Speci men Type: BLOOD SPECIMENOrdering Facility: [facility] Address: [address] [place] [address] Performed By: #### 2 4323-8, 7, 3015-3 ####[facility]ORATORYCLIA [id number] [place] [address] [place]#### 84720-5 ####[facility] LABORATORYCLIA [id number] [place] [address] [place] [facility] LABCLIA [id number] [place] [id number] [place] Cyclic citrullinated peptide IgG Qnon 10-19-2024 CCP ANTIBODY IGG QUALITATIVE Negative Normal Negative [facility] Comment on above: Order Comment: Speci men Type: BLOOD SPECIMENOrdering Facility: [facility] Address: [address] [place] [address] Performed By: #### 3 3935-8 ####[facility] LABCLIA [id number] [address] [place] DNA double strand Ab IA Qn ( S)on 10-19-2024 DNA ANTIBODY 106 IU/mL Normal <=200 [facility] Comment on above: Order Comment: Speci men Type: BLOOD SPECIMENOrdering Facility: [facility] Address: [address] [place] [address] Result Comment: Nega tive: <200 IU/mL Equivocal: 201-300 IU/mL Moderate Positive: 301-800 IU/mL Strong Positive: >801 IU/mL Performed By: #### 3 2677-7 ####[facility] LABCLIA [id number] [place] [address] [place] DNA ANTIBODY QUALITATIVE INTERPRETATION Negative Normal Negative [facility] Comment on above: Order Comment: Speci men Type: BLOOD SPECIMENOrdering Facility: [facility] Address: [address] [place] [address] Performed By: #### 3 2677-7 ####[facility] LABCLIA [id number] [place] [address] [place] ECG COMPLETEon 10-19-2024 ECG COMPLETE Ventricular Rate : 4 9 BPM Atrial Rate : 49 BPM P-R Interval : 188 ms QRS Duration : 84 ms Q-T Interval : 450 ms QTC Calculation(Bazett) : 406 ms Calculated P [place] : 33 degrees Calculated R [place] : -4 degrees Calculated T [place] : 16 degrees SINUS BRADYCARDIA OTHERWISE NORMAL ECG Confirmed by MD CHINA, QARAB ([id number]) on 10/20/2024 1:05:50 PM NAME : MAUREEN RODRIGUEZ PID : [id number] : 1960 Gender : Female Race : ORD : [id number] Procedure Date : Oct 19 2024 09:21:30 Edit Date : Oct 20 2024 13:05:52 Diagnosis: SINUS BRADYCARDIA OTHERWISE NORMAL ECG Confirmed by MD ATKINSON QARAB ([id number]) on 10/20/2024 1:05:50 PM Test Reason : pre op Location : 185 : [facility] Overread By : MD ATKINSON QARAB Edited By : MD ATKINSON QARAB Referred By : , Acquired by : jenniferpily crenshaw event specialist product demonstrator, Normal [facility] TOVA AUTOMATIC OUTSOLE CUTTER Ab Ser-aCncon 2024 Ribonucleoprotein extractable nuclear Ab Qn (S) <0.2 Normal <1.0 [facility] Comment on above: Order Comment: Specmarlen sharma Type: BLOOD SPECIMENOrdering Facility: [facility] Address: [address] [place] [address] Performed By: #### 2 9374-6, 69407-7, 33367-8 ####[facility] LABIA [id number] [place] [address] [place] TOVA SS-A Ab Ser-aCncon 10-19 Sjogrens syndrome-A extractable nuclear Ab Qn (S) <0.2 Normal <1.0 [facility] Comment on above: Order Comment: Verenice sharma Type: BLOOD SPECIMENOrdering Facility: [facility] Address: [address] [place] [address] Result Comment: Test Methodology: Multiplex flow immunoassay. Performed By: #### 2 9374-6, 66610-5, 97032-9 ####[facility] LABIA [id number] [place] [address] [place] TOVA SS-B Ab Ser-aCncon 10-19 Sjogrens syndrome-B extractable nuclear Ab Qn (S) <0.2 Normal <1.0 [facility] Comment on above: Order Comment: Verenice sharma Type: BLOOD SPECIMENOrdering Facility: [facility] Address: [address] [place] [address] Result Comment: Anti -SSB (anti-La) antibody is used as an aid in diagnosis of a variety of systemic autoimmune diseases, especially for Sjogren's syndrome and systemic lupus erythematosus. Clinical correlation is required. Test Methodology: Multiplex flow immunoassay. Performed By: #### 2 9374-6, 06249-2, 48485-4 ####[facility] LABIA [id number] [address] [place] ESR Westergren method (Bld) [Velocity]on 10-19-2024 ESR (Bld) [Velocity] 8 mm/h Normal 0-20 [facility] Comment on above: Order Comment: Speci men Type: BLOOD SPECIMENOrdering Facility: [facility] Address: [address] [place] [address] Performed By: #### 5 7021-8, 4537-7 ####[facility] LABIA [id number] [address] HbA1c (Bld)on 10-19-2024 Average glucose Estimated from glycated hemoglobin (Bld) [Mass/Vol] 108 mg/dL Normal [facility] Comment on above: Order Comment: Verenice sharma Type: BLOOD SPECIMENOrdering Facility: [facility] Address: [address] [place] [address] Result Comment: eAG: (Estimated average glucose) is a calculated value from HgbA1c and is energy conservation representative of the average blood glucose level in the last 2-3 month period. Performed By: #### 5 5454-3 ####[facility] LABIA [id number] [address] [facility] HbA1c (Bld) [Mass fraction] 5.4 % Normal 4.3-5.6 [facility] Comment on above: Order Comment: Verenice sharma Type: BLOOD SPECIMENOrdering Facility: [facility] Address: [address] [place] [address] Result Comment: Amer ican Diabetes Association guidelines indicate that patients with HgbA1c in the range 5.7-6.4% are at increased risk for development of diabetes, and intervention by lifestyle modification may be beneficial. HgbA1c greater or equal to 6.5% is considered diagnostic of diabetes. Performed By: #### 5 5454-3 ####[facility] LABCLIA [id number] [address] [place] IgA SerPl-mCncon 10-19-2024 IgA [Mass/Vol] 174 mg/dL Normal 70-400 [facility] Comment on above: Order Comment: Speci men Type: BLOOD SPECIMENOrdering Facility: [facility] Address: [address] [place] [address] Performed By: #### 2 458-8 ####[facility] LABCLIA [id number] [place] [address] [place] Lipid 1996 panelon Cholesterol [Mass/Vol] 176 mg/dL Normal <200 [facility] Comment on above: Order Comment: Speci men Type: BLOOD SPECIMENOrdering Facility: [facility] Address: [address] [place] [address] Result Comment: <200 mg/dL, Desirable 200-239 mg/dL, Borderline high >239 mg/dL, High Performed By: #### 2 4323-8, 3024-7, 3016-3 ####[facility] LABORATORYCLIA [id number] [address] [place]#### 01536-3 ####[facility] LABORATORYCLIA [id number] [address] STATES OF [facility] LABCLIA [id number] [address] [place] Cholesterol in HDL [Mass/Vol] 51 mg/dL Normal >39 [facility] Comment on above: Order Comment: Speci men Type: BLOOD SPECIMENOrdering Facility: [facility] Address: [address] [place] [address] Result Comment: 40-5 9 mg/dL, Acceptable >59 mg/dL, High: Negative risk factor for coronary heart disease <40 mg/dL, Low: Positive risk factor for coronary heart disease Performed By: #### 2 4323-8, 3024-7, 3016-3 ####[facility] LABORATORYCLIA [id number] [address] [place]#### 92738-9 ####[facility] LABORATORYCLIA [id number] [address] STATES OF [facility] LABCLIA [id number] [address] [place] Cholesterol in LDL [Mass/Vol] 97 mg/dL Normal <100 [facility] Comment on above: Order Comment: Speci men Type: BLOOD SPECIMENOrdering Facility: [facility] Address: [address] [place] [address] Result Comment: <100 mg/dL, Optimal 100-129 mg/dL, Near optimal/above optimal 130-159 mg/dL, Borderline high 160-189 mg/dL, High >189 mg/dL, Very high Secondary prevention optimal LDL Cholesterol levels are recommended to be < 70 mg/dL Performed By: #### 2 4323-8, 3024-7, 3016-3 ####[facility] LABORATORYCLIA [id number] [address] [place]#### 92382-4 ####[facility] LABORATORYCLIA [id number] [address] STATES [facility] LABCLIA [id number] [place] [address] [place] Cholesterol in LDL/Cholesterol in HDL [Mass ratio] 1.90 {ratio} Normal <2.54 [facility] Comment on above: Order Comment: Speci men Type: BLOOD SPECIMENOrdering Facility: [facility] Address: [address] [place] [address] Result Comment: Omar du: 1. National Cholesterol Education Program ATP III Guideline At-A-Glance Quick Desk Reference: National Heart, Lung, and Blood [place]. National Institutes of Health. 2001: NIH Publication No. 01-3305. 2. An International Atherosclerosis Society position paper: global recommendations for the management of dyslipidemia: executive summary, Atherosclerosis. 2014: 232(2):410-413. Performed By: #### 2 3-8, 3023-, 3 ####[facility] LABORATORYCLIA [id number] [place] [address] [place]#### 01505-2 ####[facility] LABORATORYCLIA [id number] [place] [address] [place] [facility] LABCLIA [id number] [place] [address] [place] Cholesterol in VLDL [Mass/Vol] 28 mg/dL Normal <30 [facility] Comment on above: Order Comment: Speci men Type: BLOOD SPECIMENOrdering Facility: [facility] Address: [address] [place] [address] Performed By: #### 2 4322-8, 3024-03, 3015-11 ####[facility] LABORATORYCLIA [id number] [address] [place]#### 47499-3 ####[facility] LABORATORYCLIA [id number] [place] [address] [place] [facility] LABCLIA [id number] [place] [address] [place] Cholesterol non HDL [Mass/Vol] 125 mg/dL Normal <130 [facility] Comment on above: Order Comment: Speci men Type: BLOOD SPECIMENOrdering Facility: [facility] Address: [address] [place] [address] Result Comment: <130 mg/dL, Optimal 130-159 mg/dL, Near optimal/above optimal 160-189 mg/dL, Borderline high 190-219 mg/dL, High >219 mg/dL, Very high Secondary prevention optimal non HDL Cholesterol levels are recommended to be <100 mg/dL Performed By: #### 2 4322-8, 3024-03, 3015-11 ####[facility] LABORATORYCLIA [id number] [place] [address] [place]#### 75893-2 ####[facility] LABORATORYCLIA [id number] [place] [address] [facility] LABCLIA [id number] [address] [address] [place] Cholesterol.total/Ch olesterol in HDL [Mass ratio] 3.45 {ratio} Normal <5.10 [facility] Comment on above: Order Comment: Speci men Type: BLOOD SPECIMENOrdering Facility: [facility] Address: [address] [place] [address] Performed By: #### 2 4323-8, 3023-7, 6-3 ####[facility] LABORATORYCLIA [id number] [place] [address] [place]#### 04590-4 ####[facility] LABORATORYCLIA [id number] [place], [place] [address] [place] [address] [place] [facility] LABCLIA [id number] [place] [address] [place] FASTING TIME 11 hrs Normal [facility] Comment on above: Order Comment: Speci men Type: BLOOD SPECIMENOrdering Facility: [facility] Address: [address] [place] [address] Performed By: #### 2 4323-8, 3023-7, 3015-3 ####[facility] LABORATORYCLIA [id number] [place] [address] [place]#### 85106-8 ####[facility] LABORATORYCLIA [id number] [place] [address] [place] [facility] LABCLIA [id number] [place] [address] [place] Triglyceride [Mass/Vol] 138 mg/dL Normal <150 [facility] Comment on above: Order Comment: Speci men Type: BLOOD SPECIMENOrdering Facility: [facility] Address: [address] [place] [address] Result Comment: <150 mg/dL, Normal 150-199 mg/dL, Borderline high 200-499 mg/dL, High >499 mg/dL, Very high Performed By: #### 2 4323-8, 3024-7, 3016-3 ####[facility] LABORATORYCLIA [id number] [place] [address] [place]#### 55995-2 ####[facility] LABORATORYCLIA [id number] [place] [address] [place] [facility] LABCLIA [id number] [place] [address] [place] Rheumatoid fact SerPl-aCncon 10-19-2024 Rheumatoid factor Qn 21 [IU]/mL High <16 [facility] Comment on above: Order Comment: Speci men Type: BLOOD SPECIMENOrdering Facility: [facility] Address: [address] [place] [address] Performed By: #### 1 988-5, 26402-7 ####[facility] LABCLIA [id number] [place] [address] [place] Ribonucleoprotein extractabl e nuclear Ab Qn (S)on 10-19-2024 ANTI-AUTOMATIC OUTSOLE CUTTER QUAL Negative Normal Negative [facility] Comment on above: Order Comment: Speci men Type: BLOOD SPECIMENOrdering Facility: [facility] Address: [address] [place] [address] Performed By: #### 2 9374-6, 73115-3, 54862-4 ####[facility] LABCLIA [id number] [place] [address] [place] Sjogrens syndrome-A extracta ble nuclear Ab Qn (S)on 10-19-2024 SSA ANTIBODY QUAL Negative Normal Negative [facility] Comment on above: Order Comment: Speci men Type: BLOOD SPECIMENOrdering Facility: [facility] Address: [address] [place] [address] Performed By: #### 2 9374-6, 93548-8, 73290-3 ####[facility] LABCLIA [id number] [place] [address] [place] Sjogrens syndrome-B extracta ble nuclear Ab Qn (S)on 10-19-2024 SSB ANTIBODY QUAL Negative Normal Negative [facility] Comment on above: Order Comment: Speci men Type: BLOOD SPECIMENOrdering Facility: [facility] Address: [address] [place] [address] Performed By: #### 2 9374-6, 92637-4, 02166-8 ####[facility] LABCLIA [id number] [place] [address] [place] T4 Free SerPl-mCncon 025 Free T4 [Mass/Vol] 1.5 ng/dL Normal 0.9-1.7 [facility] Comment on above: Order Comment: Speci men Type: BLOOD SPECIMENOrdering Facility: [facility] Address: [address] [place] [address] Performed By: #### 2 4323-8, 3023-7, 3015-3 ####[facility] LABORATORYCLIA [id number] [address] [place]#### 69927-2 ####[facility]ORATORYCLIA [id number] [address] LABCLIA [id number] [place] [address] [place] TSH SerPl-aCncon 10-19-2024 TSH Qn 3.420 m[IU]/L Normal 0.270-4.200 [facility] Comment on above: Order Comment: Speci men Type: BLOOD SPECIMENOrdering Facility: [facility] Address: [address] [place] [address] Performed By: #### 2 4323-8, 3023-7, 6-3 ####[facility] LABORATORYCLIA [id number] [address] [place]#### [address]-2 ####[facility]ORATORYCLIA [id number] [address] [facility] LABCLIA [id number] [place] [address] [place] cCP IgG SerPl-aCncon 10-19- 025 Cyclic citrullinated peptide IgG Qn <15 Normal <20 [facility] Comment on above: Order Comment: Speci men Type: BLOOD SPECIMENOrdering Facility: [facility] Address: [address] [place] [address] Performed By: #### 3 3935-8 ####[facility] LABCLIA [id number] [place] [address] [facility] [place] CNPNon 10-02-2024 [facility] MAUREEN RODRIGUEZ ([id number]) 1960 F NFR Date Time Provider Department 10/02/24 [facility] PARK [facility] During your visit today, we recorded the following information about you: Vijay Park DO 10/02/2024 5:31 PM Signed Please let her know that her xrays of her knees show IMPRESSION: Moderate-severe medial compartment osteoarthritis in both knees progressed since 06/08/2020. Recommend follow up with Orthopedics specialist for opinion as next steps DO [place] Linda M, LPN 10/05/2024 9:58 AM Signed Left message to return call for results, Chasity Arthur MA 10/06/2024 9:05 AM Signed Patient notified and verbalized understanding. Scheduled with Jarrod on 10/22/24. .Chasity Arthur MA Allergies As of Date: 10/02/2024 Noted Allergy Reaction BEES 12/24/2005 Comments: possibly GRASS POLLEN 03/14/2020 14 - Other: See Comments Comments: Sneezing, itchy eyes TRIAMTERENE-HYDROCHLOROTHIAZ ID 09/01/2010 2 - Rash Comments: photodermatitis Date Reviewed: 09/23/2024 Reviewed by: Karen Mcmillan LPN - Fully Assessed Reason for Visit: Results [95] Prescriptions as of 10/06/2024 - clopidogrel (PLAVIX) 75 mg tablet TAKE 4 TABLETS BY MOUTH ON DAY ONE, THEN TAKE 1 TABLET DAILY BEGINNING ON DAY TWO. - levothyroxine (SYNTHROID) 112 mcg tablet Take 1 tablet by mouth once daily. - pravastatin (PRAVACHOL) 10 mg tablet Take 10 mg by mouth once daily. - aspirin-caffeine 1,000-150 mg pwpk .qod - dexAMETHasone 0.1 % ophthalmic solution 1 Drop two times a day as needed. Into bilateral outer ear canal - diclofenac (VOLTAREN) 1 % topical gel Apply 0.5 g to affected area four times daily as needed. - dexAMETHasone 0.1 % ophthalmic solution 1 Drop twice daily as needed. Into bilateral outer ear canal - GLUCOSAMINE HCL (GLUCOSAMINE, BULK, MISC) - MULTIVIT-MINERALS/FERROUS FUM (MULTI VITAMIN ORAL) Take by mouth. - estradiol (ESTRACE) 0.01 % (0.1 mg/gram) vaginal cream Use fingertip amount vaginally nightly x 2 weeks then every other night x 2 weeks then 1-3x weekly - metoprolol succinate XL, long acting, 25 mg 24 hr tablet Take 25 mg by mouth once daily. - Aspirin 81 mg Tab Take 81 mg by mouth. - Calcium Carbonate-Vitamin D3 500 mg(1,250mg) -600 unit Chew Take 1 tablet by mouth three times daily. Problem List As Of Date 10/02/2024 Noted Resolved BENIGN HYPERTENSION [I10] 12/24/2005 Hyperlipidemia, mixed [E78.2] 12/24/2005 IRRITABLE COLON [K58.9] 12/24/2005 URIN TRACT INFECTION NOS [N39.0] 12/24/2005 04/25/2007 OBESITY NOS [E66.9] 04/25/2007 IMPAIRED FASTING GLUCOSE [R73.01] 06/26/2007 HYPERLIPIDEMIA NEC/NOS [E78.5] 09/10/2008 09/10/2008 Acquired hypothyroidism [E03.9] 09/10/2008 Hyperparathyroidism [E21.3] 12/02/2012 Carpal tunnel syndrome [G56.00] 07/10/2013 Ramirez esophagus [K22.70] 07/10/2013 Biliary dyskinesia [K82.8] 07/10/2013 Dyslipidemia [E78.5] 08/11/2013 CAD (coronary artery disease) [I25.10] 08/11/2013 Primary osteoarthritis of both knees [M17.0] 08/03/2015 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] 08/03/2015 History of Ramirez's esophagus [Z87.19] 08/03/2015 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 [K22.70] 08/04/2015 Chronic pain of both knees [M25.561, M25.562, G*03/13/2017 Osteoarthritis of knees, bilateral [M17.0] Coronary artery disease involving modoc larson*10/28/2018 Hypothyroidism, acquired [E03.9] 10/28/2018 Screening for osteoporosis [Z13.820] 10/28/2018 Chronic right shoulder pain [M25.511, G89.29] 10/28/2018 Acquired deformity of toe [M20.60] 04/18/2021 Paresthesia of foot, bilateral [R20.2] 04/18/2021 Eczema of external ear, 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] 04/18/2021 Osteopenia, senile [M85.80] 07/10/2022 Frequent headaches [R51.9] 10/16/2023 Vitamin D deficiency [E55.9] 10/16/2023 Spontaneous bruising [R23.3] 10/16/2023 Bilateral hand pain [M79.641, M79.642] 10/16/2023 Foot pain, bilateral [M79.671, M79.672] 10/16/2023 Abdominal pain, epigastric [R10.13] 09/23/2024 Bloating [R14.0] 09/23/2024 Post-menopausal [Z78.0] 09/23/2024 Encounter Status:Closed by CHASITY ARTHUR on 10/06/24 [facility] XR KNEE 4V AP/PA/LAT/MERCH B ILon 09-30-2024 XR KNEE 4V AP/PA/LAT/MERCH HÉCTOR * * *Final Report* * * DATE OF EXAM: Sep 30 2024 10:31AM WRX [id number] - XR KNEE 4V AP/PA/LAT/MERCH HÉCTOR / PROCEDURE REASON: multiple diagnoses * * * * Physician Interpretation * * * * EXAMINATION: XR KNEE 4V AP/PA/LAT/MERCH HÉCTOR PATIENT/TECHNOLOGIST PROVIDED HISTORY: PT STATES BILAT KNEE PAIN > ON RIGHT CLINICAL INFORMATION: 64 years old Female with Chronic pain of both knees TECHNIQUE: XR KNEE 4V AP/PA/LAT/MERCH HÉCTOR Laterality: BILATERAL Number of different views (projections): 4 views of each knee COMPARISON: Radiographs 06/08/2020 RESULT: Small tricompartmental osteophytes with moderate-severe medial compartment joint space narrowing in both knees with near ctfy-vb-cfid contact progressed since 06/08/2020. No joint effusion in either knee. No acute fracture. IMPRESSION: Moderate-severe medial compartment osteoarthritis in both knees progressed since 06/08/2020. Inspector Rag Sorting: BILLY Transcribe Date/Time: Oct 02 2024 2:58P Dictated by : DAYA BARRIOS DO This examination was interpreted and the report reviewed and electronically signed by: DAYA BARRIOS DO on Oct 02 2024 3:00PM EST [id number] Normal [facility] CNPNon 09-28-2024 [facility] MAUREEN RODRIGUEZ ([id number]) 1960 F NFR Date Time Provider Department 09/28/24 [facility] During your visit today, we recorded the following information about you: Allergies As of Date: 09/28/2024 Noted Allergy Reaction BEES 12/24/2005 Comments: possibly GRASS POLLEN 03/14/2020 14 - Other: See Comments Comments: Sneezing, itchy eyes TRIAMTERENE-HYDROCHLOROTHIAZ ID 09/01/2010 2 - Rash Comments: photodermatitis Date Reviewed: 09/23/2024 Reviewed by: Karen Mcmillan LPN - Fully Assessed Prescriptions as of 11/20/2024 - clopidogrel (PLAVIX) 75 mg tablet TAKE 4 TABLETS BY MOUTH ON DAY ONE, THEN TAKE 1 TABLET DAILY BEGINNING ON DAY TWO. - levothyroxine (SYNTHROID) 112 mcg tablet Take 1 tablet by mouth once daily. - pravastatin (PRAVACHOL) 10 mg tablet Take 10 mg by mouth once daily. - aspirin-caffeine 1,000-150 mg pwpk .qod - dexAMETHasone 0.1 % ophthalmic solution 1 Drop two times a day as needed. Into bilateral outer ear canal - diclofenac (VOLTAREN) 1 % topical gel Apply 0.5 g to affected area four times daily as needed. - dexAMETHasone 0.1 % ophthalmic solution 1 Drop twice daily as needed. Into bilateral outer ear canal - GLUCOSAMINE HCL (GLUCOSAMINE, BULK, MISC) - MULTIVIT-MINERALS/FERROUS FUM (MULTI VITAMIN ORAL) Take by mouth. - estradiol (ESTRACE) 0.01 % (0.1 mg/gram) vaginal cream Use fingertip amount vaginally nightly x 2 weeks then every other night x 2 weeks then 1-3x weekly - metoprolol succinate XL, long acting, 25 mg 24 hr tablet Take 25 mg by mouth once daily. - Aspirin 81 mg Tab Take 81 mg by mouth. - Calcium Carbonate-Vitamin D3 500 mg(1,250mg) -600 unit Chew Take 1 tablet by mouth three times daily. Problem List As Of Date 09/28/2024 Noted Resolved BENIGN HYPERTENSION [I10] 12/24/2005 Hyperlipidemia, mixed [E78.2] 12/24/2005 IRRITABLE COLON [K58.9] 12/24/2005 URIN TRACT INFECTION NOS [N39.0] 12/24/2005 04/25/2007 OBESITY NOS [E66.9] 04/25/2007 IMPAIRED FASTING GLUCOSE [R73.01] 06/26/2007 HYPERLIPIDEMIA NEC/NOS [E78.5] 09/10/2008 09/10/2008 Acquired hypothyroidism [E03.9] 09/10/2008 Hyperparathyroidism [E21.3] 12/02/2012 Carpal tunnel syndrome [G56.00] 07/10/2013 Ramirez esophagus [K22.70] 07/10/2013 Biliary dyskinesia [K82.8] 07/10/2013 Dyslipidemia [E78.5] 08/11/2013 CAD (coronary artery disease) [I25.10] 08/11/2013 Primary osteoarthritis of both knees [M17.0] 08/03/2015 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] 08/03/2015 History of Ramirez's esophagus [Z87.19] 08/03/2015 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 [K22.70] 08/04/2015 Chronic pain of both knees [M25.561, M25.562, G*03/13/2017 Osteoarthritis of knees, bilateral [M17.0] Coronary artery disease involving [place] larson*10/28/2018 Hypothyroidism, acquired [E03.9] 10/28/2018 Screening for osteoporosis [Z13.820] 10/28/2018 Chronic right shoulder pain [M25.511, G89.29] 10/28/2018 Acquired deformity of toe [M20.60] 04/18/2021 Paresthesia of foot, bilateral [R20.2] 04/18/2021 Eczema of external ear, 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] 04/18/2021 Osteopenia, senile [M85.80] 07/10/2022 Frequent headaches [R51.9] 10/16/2023 Vitamin D deficiency [E55.9] 10/16/2023 Spontaneous bruising [R23.3] 10/16/2023 Bilateral hand pain [M79.641, M79.642] 10/16/2023 Foot pain, bilateral [M79.671, M79.672] 10/16/2023 Abdominal pain, epigastric [R10.13] 09/23/2024 Bloating [R14.0] 09/23/2024 Post-menopausal [Z78.0] 09/23/2024 Encounter Status:Closed by ORQUIDEA LEONG on 11/20/24 [facility] Domi 09-23-2024 CNOV Office Visit (FAMPWS ) MAUREEN RODRIGUEZ ([id number]) 1960 F NFR Date Time Provider Department 09/23/24 2:00 PM VIJAY PARK [facility] During your visit today, we recorded the following information about you: Temperature Pulse Respiration Blood pressure 97.3 degrees 64/minute 16/minute 116/80 Weight 93.4 kg Vijay Park, DO 09/23/2024 3:03 PM Signed Protein shakes daily Use protein whey powder- example brand is [employer] Can mix this with water or milk etc Goal of 75-100 grams of protein a day Work on losing 30-35 lbs If struggling to do this, consider Metformin or Topamax medication to help Intermittent fasting at least 15 hours a day of fast, at least 3-4 days a week Good source for you tube or pod casts or book is [facility] Dr.W[facility] Dr.Pierce Lugo Get xrays of knees done Yogurt options Two Good brand Chobani [employer]ik[employer] triple zero or high protein Vijay Park, DO 09/23/2024 9:01 PM Signed Maureen A Kristian is a 64 year old female here for a Medicare wellness visit. Medicare Health Risk Assessment General Health Good Exercise: Minutes/Day 30 min Exercise: Days/Week 5 days Alcohol: Daily Use Monthly or less Alcohol: Drinks/Day 1 or 2 Alcohol: 6 or more drinks Never Feel off balance no Concerns: Teeth/Dentures no Concerns: Sexual function no Troubled by feelings no Frequency: Eating healthy diet yes ADLs requiring help no Safety precautions in home/vehicle yes Smoke, vape, chews tobacco no Difficulty hearing no Difficulty seeing Has glasses Current Providers Specialists: I have reviewed specialist-related care of the patient in the medical record. Medical/Family history review Reviewed and updated problem list, medical/surgical/family/soci al history, medications, and allergies. Opioid use review Opioid Medications (last 90 days) No data to display Anxiety/Depression screening PHQ-2 Score: 0 (Lower risk for depression) MILLER-7 Score: 1 (Minimal Anxiety) Recommendation: no further intervention at this time Cognitive screening Cognitive screening reviewed and No further action needed (score 3-5). Functional Observation Was the patient's Timed Up AND Go test unsteady or >= 12 seconds? No Advance Care Planning Surrogate decision maker and/or advance care plan documented Measurements BP 116/80 Pulse 64 Temp 36.3 ?C (97.3 ?F) (Temporal) Resp 16 Wt 93.4 kg (206 lb) BMI 34.95 kg/m? Vision Screening: Follows with optometry/ophthalmology Assessment/Plan Medicare annual wellness visit, subsequent (Z00.00) - Counseled on healthy diet and regular exercise - Fall avoidance information provided - Personalized prevention plan provided - Discussed need for and benefit of weight loss. BMI 34.95 kg/(m2) DO Xavier Ferrara Jordan L, DO 09/23/2024 9:01 PM Signed CC: Maureen Rodriguez is a 64 year old female who presents to the office for follow up HPI: Upper abdominal bloating and intermittent gassiness. Feels that she may have a food intolerance. Hasn't been able to figure out what she may be sensitive to with food. No vomiting, no blood in stool. Does have occasional diarrhea/loose stools as well. HTN, well controlled, no CP or dyspnea or dizziness. Had recent cardiac stent last year and continues routine follow up with [employer], CAD, taking Plavix and pravastatin and metoprolol., no recent symptoms, Had recent cardiac stent last year and continues routine follow up with [employer] Hx of osteopenia, willing to have bone density follow up Hypothyroidism,taking levothyroxine 112 mcg, willing to have blood work recheck TSH Date Value Ref Range Status 11/06/2023 1.440 0.270 - 4.200 mIU/L Final Knee pain, b/l, last xrays >4-5 years ago, feels her pain is worsening to the point that she is limiting her physical activity. She has been gaining weight due to this and knows need to lose the weight as well. Interested in new xrays and referral to specialist for opinion. IFG, need for diet control, knows need to lose weight too PAST MEDICAL HISTORY Diagnosis Date Arrhythmia Ramirez's esophagus determined by endoscopy Coronary artery disease minimal, no surgical procedure, Dr. 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 Eczema of both external ears Essential hypertension, benign 2003 Hyperparathyroidism (HCC) Impaired fasting blood sugar 10/2014 a1c 5.7% Irritable bowel syndrome resolved mostly with cholecystectomy Osteoarthritis of knees, bilateral Other and unspecified hyperlipidemia Other premature beats 2003 symptomatic in past, atenolol helps Other specified acquired hypothyroidism 09/10/2008 Snoring PAST SURGICAL HISTORY Procedure Laterality Date ; PARATHYROIDECTOMY/EXPL PARATHYRD 12/2012 COLONOSCOPY FLX DX W/COLLJ SPEC WHEN PFRMD 07/08/2013 Colonoscopy COLONOSCOPY (more content not included)... Normal [facility] CNOVon 08-22-2024 CNOV Office Visit (UCTR ) MAUREEN RODRIGUEZ ([id number]) 1960 F NFR Date Time Provider Department 08/22/24 10:15 AM FRANCK DESAI [facility] During your visit today, we recorded the following information about you: Temperature Pulse Respiration Blood pressure 98.3 degrees 73/minute 21/minute 140/82 Weight 93.3 kg Franck Desai MD 08/22/2024 12:31 PM Signed Patient presents with: Cough: Sore throat, sneezing, chills, diarrhea, body aches, fever, head congestion x 11 days HPI: Feeling sick for 11 days with waxing and waning symptoms. Positive symptoms: Cough, sleep disturbance from cough, slight shortness of breath/Chest pain, Sore throat, Sinus pressure (not bad today), Nasal Congestion, Rhinorrhea (not colored), sneezing, Feverish/Chills (last experienced a few days ago), Body Aches, Malaise, Headache, Diarrhea, some nausea, Negative symptoms: Vomiting, OTC: Cold Medicine MEDICATIONS: Current Outpatient Medications Medication Sig clopidogrel (PLAVIX) 75 mg tablet TAKE 4 TABLETS BY MOUTH ON DAY ONE, THEN TAKE 1 TABLET DAILY BEGINNING ON DAY TWO. levothyroxine (SYNTHROID) 112 mcg tablet Take 1 tablet by mouth once daily. pravastatin (PRAVACHOL) 10 mg tablet Take 10 mg by mouth once daily. aspirin-caffeine 1,000-150 mg pwpk .qod dexAMETHasone 0.1 % ophthalmic solution 1 Drop two times a day as needed. Into bilateral outer ear canal diclofenac (VOLTAREN) 1 % topical gel Apply 0.5 g to affected area four times daily as needed. dexAMETHasone 0.1 % ophthalmic solution 1 Drop twice daily as needed. Into bilateral outer ear canal GLUCOSAMINE HCL (GLUCOSAMINE, BULK, MISC) MULTIVIT-MINERALS/FERROUS FUM (MULTI VITAMIN ORAL) Take by mouth. estradiol (ESTRACE) 0.01 % (0.1 mg/gram) vaginal cream Use fingertip amount vaginally nightly x 2 weeks then every other night x 2 weeks then 1-3x weekly metoprolol succinate XL, long acting, 25 mg 24 hr tablet Take 25 mg by mouth once daily. Aspirin 81 mg Tab Take 81 mg by mouth. Calcium Carbonate-Vitamin D3 500 mg(1,250mg) -600 unit Chew Take 1 tablet by mouth three times daily. ticagrelor (BRILINTA) 90 mg tablet Take 90 mg by mouth two times a day. (Patient not taking: Reported on 08/22/2024) No current facility-administered medications for this visit. ALLERGIES: ALLERGIES Allergen Reactions Bees possibly Grass Pollen Other: See Comments Sneezing, itchy eyes Triamterene-Hydroch* Rash photodermatitis VITALS: BP 140/82 Pulse 73 Temp 36.8 ?C (98.3 ?F) Resp 21 Wt 93.3 kg (205 lb 11 oz) SpO2 98% BMI 34.90 kg/m? PHYSICAL EXAM: GEN: mildly ill appearing HEENT: PERRL, EOMI, conjunctiva clear Ears: canals clear. TMs without erythema, bulge, or effusion Sinuses: non-tender frontal sinus, non-tender maxillary sinuses Throat: moist mucous membranes, mild erythema, no exudate Neck: supple, no thyromegaly, no lymphadenopathy HEART: regular rate, regular rhythm, no murmurs LUNGS: slight left lower lung wheeze - otherwise clear to auscultation, no crackles, no increased WOB ASSESSMENT/PLAN: 1. Acute cough - ICD9: 786.2, ICD10: R05.1 (primary diagnosis) 2. URI, acute - ICD9: 465.9, ICD10: J06.9 - XR CHEST 2V FRONTAL/LAT - no pneumonia. - suspect viral URI, potentially multiple stacked illnesses. - Discussed supportive care treatment with rest, cold medicine, and analgesia. - Discussed contagiousness risk (24h fever free + 5 days). - May be treated for secondary bacterial sinusitis if sinus symptoms worsen. Franck Desai MD Allergies As of Date: 08/22/2024 Noted Allergy Reaction BEES 12/24/2005 Comments: possibly GRASS POLLEN 03/14/2020 14 - Other: See Comments Comments: Sneezing, itchy eyes TRIAMTERENE-HYDROCHLOROTHIAZ ID 09/01/2010 2 - Rash Comments: photodermatitis Date Reviewed: 08/22/2024 Reviewed by: Robyn Rincon MA - Fully Assessed Reason for Visit: Cough [28] Cmt: Sore throat, sneezing, chills, diarrhea, body aches, fever, head congestion x 11 days Primary Visit Diagnosis:Acute cough [R05.1] Other Visit Diagnosis:URI, acute [J06.9] Order(s):XR CHEST 2V FRONTAL/LAT [[id number]] Order #: [id number] FUTURE Prescriptions as of 08/22/2024 - clopidogrel (PLAVIX) 75 mg tablet TAKE 4 TABLETS BY MOUTH ON DAY ONE, THEN TAKE 1 TABLET DAILY BEGINNING ON DAY TWO. - levothyroxine (SYNTHROID) 112 mcg tablet Take 1 tablet by mouth once daily. - pravastatin (PRAVACHOL) 10 mg tablet Take 10 mg by mouth once daily. - ticagrelor (BRILINTA) 90 mg tablet Take 90 mg by mouth two times a day. - aspirin-caffeine 1,000-150 mg pwpk .qod - dexAMETHasone 0.1 % ophthalmic solution 1 Drop two times a day as needed. Into bilateral outer ear canal - diclofenac (VOLTAREN) 1 % topical gel Apply 0.5 g to affected area four times daily as needed. - dexAMETHasone 0.1 % ophthalmic solution 1 Drop twice daily as (more content not included)... Normal [facility] XR CHEST 2V FRONTAL/LATon XR CHEST 2V FRONTAL/LAT * * *Final Report* * * DATE OF EXAM: Aug 22 2024 11:40AM WOX [id number] - XR CHEST 2V FRONTAL/LAT / PROCEDURE REASON: Acute cough * * * * Physician Interpretation * * * * EXAMINATION: CHEST RADIOGRAPH (2 VIEW FRONTAL and LATERAL) CLINICAL HISTORY: Acute cough MQ: XC2_6 EXAM DATE/TIME: 08/22/2024 11:40 AM COMPARISON: No relevant prior studies available. RESULT: Lines, tubes, and devices: None. Lungs and pleura: No consolidation. No lung mass. No pleural effusion. No pneumothorax. Cardiomediastinal silhouette: Normal cardiomediastinal silhouette. Bones and soft tissues: Unremarkable. IMPRESSION: No acute radiographic abnormality. Inspector Rag Sorting: PSCB Transcribe Date/Time: Aug 22 2024 12:22P Dictated by : MARIANA GALAVIZ MD This examination was interpreted and the report reviewed and electronically signed by: MARIANA GALAVIZ MD on Aug 22 2024 12:23PM EST [id number] Normal [facility] XR Chest PA and Lateralon IMPRESSION: No acute radiographic abnormality. Inspector Rag Sorting: PSCB Transcribe Date/Time: Aug 22 2024 12:22P Dictated by : MARIANA GALAVIZ MD This examination was interpreted and the report reviewed and electronically signed by: MARIANA GALAVIZ MD on Aug 22 2024 12:23PM EST DIVISION OF RADIOLOGY * * *Final Report* * * DATE OF EXAM: Aug 22 2024 11:40AM WOX [id number] - XR CHEST 2V FRONTAL/LAT / PROCEDURE REASON: Acute cough * * * * Physician Interpretation * * * * EXAMINATION: CHEST RADIOGRAPH (2 VIEW FRONTAL & LATERAL) CLINICAL HISTORY: Acute cough MQ: XC2_6 EXAM DATE/TIME: 08/22/2024 11:40 AM COMPARISON: No relevant prior studies available. RESULT: Lines, tubes, and devices: None. Lungs and pleura: No consolidation. No lung mass. No pleural effusion. No pneumothorax. Cardiomediastinal silhouette: Normal cardiomediastinal silhouette. Bones and soft tissues: Unremarkable. DIVISION OF RADIOLOGY Provider, [facility] - 08/22/2024 * * *Final Report* * * DATE OF EXAM: Aug 22 2024 11:40AM WOX [id number] - XR CHEST 2V FRONTAL/LAT / PROCEDURE REASON: Acute cough * * * * Physician Interpretation * * * * EXAMINATION: CHEST RADIOGRAPH (2 VIEW FRONTAL & LATERAL) CLINICAL HISTORY: Acute cough MQ: XC2_6 EXAM DATE/TIME: 08/22/2024 11:40 AM COMPARISON: No relevant prior studies available. RESULT: Lines, tubes, and devices: None. Lungs and pleura: No consolidation. No lung mass. No pleural effusion. No pneumothorax. Cardiomediastinal silhouette: Normal cardiomediastinal silhouette. Bones and soft tissues: Unremarkable. IMPRESSION IMPRESSION: No acute radiographic abnormality. Inspector Rag Sorting: PSCB Transcribe Date/Time: Aug 22 2024 12:22P Dictated by : MARIANA GALAVIZ MD This examination was interpreted and the report reviewed and electronically signed by: MARIANA GALAVIZ MD on Aug 22 2024 12:23PM EST [facility] Radiology Study observation (narrative) [facility] XR Chest PA and LateralOrder ed By: [facility] Provider on 08-22-2024 [facility] Cardiology Visit Reporton Cardiology Visit Report [facility] [address] [place] [address] OFFICE VISIT Date of Service: 08/10/24 MR#: [id number] Acct: [id number] Name: MAUREEN RODRIGUEZ ANN Rep #: [id number] 1 : 1960 Provider: TOÑO che Age/Sex: 63/F Location: [facility] [place] Status: Signed HPI HPI History of Present Illness Details: Maureen Rodriguez is a 63-year-old female that presents here today for a cardiovascular follow-up. She has a history of moderate coronary artery disease, hypertension and hyperlipidemia. She underwent a cardiac catheterization in 2012 which demonstrated 60 to 70% stenosis of a large diagonal vessel. Underwent FFR which was 0.87. In 2017 she underwent a stress test which demonstrated no evidence of ischemia on a stress echo and then a stress test in June 2021 where he exercised for 7.5 METS with no evidence of ischemia. She had a Coronary CT which demonstrated Moderate calcification noted in the midsegment of the left anterior descending artery and mild calcification noted in the mid circumflex artery. She underwent a stress test in march, there was not obvious ischemia but she did have chest pain with exertion. This was concerning for angina. On account of continual symptoms despite a negative stress test, she underwent a heart catheterization on 08/02/2023 that showed left main is angiographically normal, LAD with moderate calcification, circumflex with mild luminal irregularities less than 30%, and RCA with mild luminal irregularities. She proceeded with drug- eluting stent to proximal LAD. Ejection fraction was reported at 60%. She acknowledges chest burning sensation. This is noted with meals. This happens twice per week. This is located left side of her chest and last for minutes. This improves with Tums. She acknowledges palpitations that seem to be more prevalent over the last 2 weeks. She describes this as fast. She acknowledges shortness of breath with activity such walking up hill or splitting wood. She denies shortness of breath at rest or orthopnea. She denies lightheadedness, dizziness, near- syncope, syncope, weakness, and fatigue. 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 Is patient in pain?: No Allergies triamterene (Triamterene) Allergy (Verified 08/10/24 11:14) Rash venom-honey bee (bee venom (honey bee)) Allergy (Verified 08/10/24 11:14) Swelling Medications ???Medication ???Instructions ???Recorded ???Confirmed ???Type multivitamin,um-ldna-circbud s 1 tab PO DAILY 06/25/19 08/10/24 History (Complete Multivitamin tablet) levothyroxine 112 mcg tablet 112 mcg PO DAILY 07/19/20 08/10/24 History nitroglycerin 0.4 mg sublingual 0.4 mg sublingual Q5-15M PRN chest 04/04/23 08/10/24 Rx tablet (Nitrostat) pain #25 tabs aspirin 81 mg tablet,delayed 81 mg PO DAILY 08/14/23 08/10/24 History release clopidogrel 75 mg tablet (Plavix) 75 mg PO DAILY #93 tabs 03/13/24 08/10/24 Rx metoprolol tartrate 25 mg tablet 12.5 mg (1/2 x 25 mg) PO BID #90 07/29/24 08/10/24 Rx tabs pravastatin 10 mg tablet 10 mg PO QHS #90 tabs 07/29/24 08/10/24 Rx calcium 600 mg (as 1 tab PO QDAY 08/10/24 08/10/24 History carbonate)-vitamin D3 20 mcg (800 unit) tablet glucosamine 750 dd-dklksgvenwo-lqz 1 tab PO BID 08/10/24 08/10/24 History no1 644 mg-C 30 mg-luis 1 mg tablet (Osteo Bi-Flex Triple Strength) turmeric root extract 500 mg 500 mg PO BID 08/10/24 08/10/24 History capsule vitamin B complex 1 tab PO QDAY 08/10/24 08/10/24 History Ejection fraction %: 60 Have you fallen in the past year?: No PFSH Medical History GERD (gastroesophageal reflux disease) Hiatal hernia Hypothyroidism Obesity Atherosclerosis of coronary artery of [place] heart without angina pectoris HLD (hyperlipidemia) Essential (primary) hypertension Surgical History Stented coronary artery (08/02/23) History of left heart catheterization (05/07/13) Hx laparoscopic cholecystectomy History of LAVH History of thyroid surgery History of carpal tunnel surgery Family History Mother CAD (coronary artery disease) Hypertension Father CAD (coronary artery disease) Hypertension CVA (cerebral vascular accident) Brother CAD (coronary artery disease) Stents Myocardial infarction, Onset Age: 64 Brother CAD (coronary artery disease) CABG Myocardial infarction Other Atherosclerosis of coronary artery of [place] heart without angina pectoris Ess (more content not included)... Normal [facility] Absolute lymphocyte countOrd ered By: Susi Nunes on 07-31-2023 Lymphocytes Auto (Unsp spec) [#/Vol] 1.84 10*3/uL 0.83-4.51 [facility] Basophil percentageOrdered B y: Susi Nunes on 07-31-2023 Basophils/100 WBC (Bld) 0.6 % 0-1 [facility] Bilirubin [Mass/Vol] 0.50 mg/dL 0.20-1.00 [facility] Comment on above: For patients on eltr ombopag therapy, use of Dimension [place] TBIL is not recommended. Chloride [Moles/Vol] 108 mmol/L 98-107 [facility] Cholesterol [Mass/Vol] 222 mg/dL <200 [facility] Comment on above: <200 mg/dL Desirable 200-240 mg/dL Borderline >240 mg/dL High Risk Eosinophils/100 WBC (Bld) 3.1 % 0-5 [facility] Glucose [Mass/Vol] 94 mg/dL 74-106 [facility] Neutrophils (Bld) [#/Vol] 3.7 10*3/uL 2.0-7.7 [facility] Neutrophils/100 WBC (Bld) 58.0 % 47-70 [facility] Potassium [Moles/Vol] 4.5 mmol/L 3.5-5.1 [facility] Protein [Mass/Vol] 7.3 g/dL 6.4-8.2 [facility] Sodium [Moles/Vol] 140 mmol/L 136-145 [facility] Triglyceride [Mass/Vol] 122 mg/dL <199 [facility] Comment on above: The drugs N-Acetylcy steine and Metamizole may falsely depress this assay.Serum Triglycerides Reference Interval Normal <150 mg/dL Borderline high 150 - 199 mg/dL High 200 - 499 mg/dL Very High > or = 500 mg/dL WBC (Bld) [#/Vol] 6.4 10*3/uL 4.4-11.0 [facility] Blood erythrocytes count (nu mber/volume)Ordered By: Susi Nunes on 07-31-2023 RBC (Bld) [#/Vol] 4.72 10*6/uL 4.2-5.4 [facility] Blood hemoglobin measurement (mass/volume)Ordered By: Susi Nunes on 07-31-2023 Hemoglobin (Bld) [Mass/Vol] 14.5 g/dL 12.0-15.0 [facility] Blood lymphocytes/100 leukoc ytesOrdered By: Susi Nunes on 07-31-2023 Lymphocytes/100 WBC (Bld) 28.8 % 19-41 [facility] Blood monocytes/100 leukocyt esOrdered By: Susi Nunes on 07-31-2023 Monocytes/100 WBC (Bld) 9.2 % 0-10 [facility] Blood platelet mean volumeOr dered By: Susi Nunes on 07-31-2023 Platelet mean volume (Bld) [Entitic vol] 9.0 fL 6.2-12.0 [facility] Determination of erythrocyte mean corpuscular volume (MCV)Ordered By: Susi Nunes on 07-31-2023 MCV (RBC) [Entitic vol] 96.2 fL 81-99 [facility] Hematocrit Auto (Bld) [Volum e fraction]Ordered By: Susi Nunes on 07-31-2023 Hematocrit (Bld) [Volume fraction] 45.4 % 37-47 [facility] INR in Blood by Coagulation assayOrdered By: Susi Nunes on 07-31-2023 INR Coag (Bld) [Relative time] 1.0 {INR} [facility] Laboratory - Chemistry and C hemistry - challengeOrdered By: Susi Nunes on 07-31-2023 ALP [Catalytic activity/Vol] 89 U/L 45-117 [facility] ALT [Catalytic activity/Vol] 32 U/L 13-56 [facility] CO2 [Moles/Vol] 29.0 mmol/L 21.0-32.0 [facility] Globulin (S) [Mass/Vol] 3.8 g/dL 2.2-4.2 [facility] Urea nitrogen/Creatinine [Mass ratio] 23.6 mg/mg 10-20 [facility] Laboratory - CoagulationOrde red By: Susi Nunes on 07-31-2023 aPTT Coag (Bld) [Time] 30.1 s 24.1-36.2 [facility] PT Coag (PPP) [Time] 13.7 s 11.7-14.9 [facility] Laboratory - Hematology and Cell countsOrdered By: Susi Nunes on 07-31-2023 Erythrocyte distribution width (RBC) [Entitic vol] 42.1 fL 35.1-43.9 [facility] Erythrocyte distribution width (RBC) [Ratio] 11.9 % 11.6-14.6 [facility] Immature granulocytes/100 WBC (Bld) 0.300 % 0.0-0.9 [facility] Comment on above: IG% - Immature Granu locytes (promyelocytes, myelocytes and metamyelocytes) > 1% indicates that a LEFT SHIFT is Present. MCH (RBC) [Entitic mass] 30.7 pg 27.0-32.0 [facility] Nucleated RBC/100 WBC (Bld) [Ratio] 0 % 0-5 [facility] MCHC Auto (RBC) [Mass/Vol]Or dered By: Susi Nunes on 07-31-2023 MCHC (RBC) [Mass/Vol] 31.9 g/dL 32-36 [facility] No Panel InformationOrdered By: Susi Nunes on 07-31-2023 Estimated GFR (MDRD) Amer 98 mL/min >60 [facility] Comment on above: GFR Calc Estimated GFR (MDRD) Non-Af Amer 81 mL/min >60 [facility] Comment on above: Non- GFR Calc Platelets bldOrdered By: Nahomy Nunes on 07-31-2023 Platelets (Bld) [#/Vol] 226 10*3/uL 150-450 [facility] Serum or plasma albumin nasima urement (mass/volume)Ordered By: Susi Nunes on 07-31-2023 Albumin [Mass/Vol] 3.5 g/dL 3.2-5.0 [facility] Serum or plasma albumin/glob ulin mass ratioOrdered By: Susi Nunes on 07-31-2023 Albumin/Globulin [Mass ratio] 0.9 {ratio} 0.9-2.4 [facility] Serum or plasma calcium nasima urement (mass/volume)Ordered By: Susi Nunes on 07-31-2023 Calcium [Mass/Vol] 9.1 mg/dL 8.5-10.1 [facility] Serum or plasma cholesterol in HDL measurement (mass/volume)Ordered By: Susi Nunes on 07-31-2023 Cholesterol in HDL [Mass/Vol] 61 mg/dL >40 [facility] Comment on above: The drugs N-Acetylcy steine and Metamizole may falsely depress this assay. Reference Range HDL <40 mg/dL Low HDL Cholesterol HDL >or= 60 mg/dL High HDL Cholesterol Serum or plasma cholesterol in VLDL measurement (mass/volume)Ordered By: Susi Nunes on 07-31-2023 Cholesterol in VLDL [Mass/Vol] 24 mg/dL 5-40 [facility] Serum or plasma creatinine m easurement (mass/volume)Ordered By: Susi Nunes on 07-31-2023 Creatinine [Mass/Vol] 0.76 mg/dL 0.55-1.02 [facility] Comment on above: The validity of the calculated GFR & GFRAA in patients over 70 years has not been determined. Clinical correlation is essential. Serum or plasma low density lipoprotein (LDL) cholesterol measurement (mass/volume)Ordered By: Susi Nunes on 07-31-2023 Cholesterol in LDL [Mass/Vol] 137 mg/dL 0-130 [facility] Serum or plasma urea nitroge n measurement (mass/volume)Ordered By: Susi Nunes on 07-31-2023 Urea nitrogen [Mass/Vol] 18 mg/dL 7-18 [facility] Thin prep Papanicolaou smear with manual screeningOrdered By: Susi Nunes on 07-31-2023 Thin prep Papanicolaou smear with manual screening 17 U/L 15-37 [facility] Thin prep Papanicolaou smear with manual screening 3 5-15 [facility] IBRAHIMA SCREENINGon 07-19-2022 [facility] No Panel Informationon 06-05 [facility] Office Visiton 06-18-2017 Documentation of current medications (procedure) Done Invalid Interpretation Code [employer] Work Phone: Fall risk assessment No Invalid Interpretation Code [facility] Work Phone: Chart Maintenanceon 03-13-20 16 Left ventricular Ejection fraction 65 % Invalid Interpretation Code [facility] Work Phone: Office Visiton 03-13-2016 Tobacco use CPHS Never smoker Invalid Interpretation Code [facility] Work Phone: Office Visit: [facility] 08-16-20 15 Dietary management education, guidance, and counseling (procedure) yes Invalid Interpretation Code [facility] Work Phone: Lab Report: Lipid Profileon 06-29-2015 Cholesterol 164 mg/dL Invalid Interpretation Code 200 [facility] Work Phone: [phone] HDL Cholesterol 57 mg/dL Invalid Interpretation Code [facility] Work Phone: [phone] LDL Cholesterol 96 mg/dL Invalid Interpretation Code 0-130 [facility] Work Phone: [phone] Triglyceride 57 mg/dL Invalid Interpretation Code [facility] Work Phone: [phone] very low density lipoproteins 11 mg/dL Invalid Interpretation Code 5-40 [facility] Work Phone: [phone] Lab Report: Liver Profileon 06-29-2015 Alanine aminotransferase (ALT) 27 U/L Invalid Interpretation Code 12-78 [facility] Work Phone: [phone] Albumin 3.8 g/dL Invalid Interpretation Code 3.4-5.0 [facility] Work Phone: [phone] Alkaline phosphatase (ALP) 75 U/L Invalid Interpretation Code 50-136 [facility] Work Phone: [phone] Aspartate aminotransferase (AST) 23 U/L Invalid Interpretation Code 15-37 [facility] Work Phone: [phone] Bilirubin (direct) 0.18 mg/dL Invalid Interpretation Code 0.00-0.30 [facility] Work Phone: [phone] Bilirubin (total) 0.70 mg/dL Invalid Interpretation Code 0.20-1.00 [facility] Work Phone: [phone] Globulin 3.7 g/dL High 2.3-3.5 [facility] Work Phone: [phone] Protein 7.5 g/dL Invalid Interpretation Code 6.4-8.2 [facility] Work Phone: [phone] External Other: [employer] thod of Contacton 12-16-2014 methcontact phone Invalid Interpretation Code [facility] Work Phone: [phone] Lab Report: Basic Metabolic Profile (BMP)on 12-15-2014 Anion gap 4 mmol/L Critically low 5-15 [facility] Work Phone: [phone] BUN/Creatinine Ratio 22.5 RATIO Critically high 10-20 [facility] Work Phone: [phone] Calcium 8.2 mg/dL Critically low 8.5-10.1 [facility] Work Phone: [phone] Chloride 106 mmol/L Invalid Interpretation Code 98-107 [facility] Work Phone: [phone] CO2 29.0 mmol/L Invalid Interpretation Code 21.0-32.0 [facility] Work Phone: [phone] Creatinine 0.8 mg/dL Invalid Interpretation Code 0.6-1.0 [facility] Work Phone: [phone] eGFR (non-black) 79 mL/min/{1.73_m2} Invalid Interpretation Code >60 [facility] Work Phone: [phone] eGFR (non-black) 96 mL/min/{1.73_m2} Invalid Interpretation Code >60 [facility] Work Phone: [phone] Glucose mass conc 89 mg/dL Invalid Interpretation Code 70-[address] [facility] Phone: [phone] Potassium molar conc 4.2 mmol/L Invalid Interpretation Code 3.5-5.1 [facility] Work Phone: [phone] Sodium 139 mmol/L Invalid Interpretation Code 136-145 [facility] Work Phone: [phone] Urea nitrogen 18 mg/dL Invalid Interpretation Code 7-[address] [facility] Phone: [phone] Office Visiton 12-07-2014 cardiac risk group C Invalid Interpretation Code [facility] Phone: [phone] General cardiovascular disease 10Y risk [#] [place].D[place]ost[place] o N/A Invalid Interpretation Code [facility] Phone: [phone] Lab Report: [facility] 01-28-20 14 ALK 85 U/L Normal 45-117 [facility] Work Phone: [phone] Clinical Lists Update: 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 Hematocrit (HCT) 41.3 % Invalid Interpretation Code [facility] Work Phone: [phone] Hemoglobin mass conc (Bld) 14.1 g/dL Invalid Interpretation Code [facility] Work Phone: [phone] Platelets 205 10*3/mm3 Invalid Interpretation Code [facility] Work Phone: WBC (Leukocytes) 7.32 10*3/uL Invalid Interpretation Code [facility] Work Phone: [phone] EKG Report: [facility] ECG Obse rvationson 05-06-2013 EKG QRS axis -1 deg Invalid Interpretation Code [facility] Work Phone: [phone] Interpretation Sinus Bradycardia WI THIN NORMAL LIMITS Invalid Interpretation Code [facility] Work Phone: [phone] P [place] 26 deg Invalid Interpretation Code [facility] Work Phone: [phone] NM Interval 168 ms Invalid Interpretation Code [facility] Work Phone: [phone] Pulse (Heart Rate) 427 ms Invalid Interpretation Code [facility] Work Phone: [phone] Pulse (Heart Rate) 52 /min Invalid Interpretation Code [facility] Work Phone: [phone] QRS Duration 92 ms Invalid Interpretation Code [facility] Work Phone: [phone] QT Interval new path ms Invalid Interpretation Code [facility] Work Phone: [phone] T [place] 30 deg Invalid Interpretation Code [facility] Work Phone: [phone] Lab Report: [facility]Con 05-06-2013 Erythrocytes (RBC) 4.77 10*6/uL Normal 4.2-5.[address] [facility] Work Phone: [phone] Lab Report: PTon 05-06-2013 INR Coag RelTime (PPP) 1.1 {INR} Normal [facility] Work Phone: [phone] PTP 13.5 SECONDS Normal 11.9-14.4 [facility] Work Phone: [phone] Vital Signs Date Time Vital Sign Value Performing Clinician Facility 05-11-2025 09:38-0400 Body height 165.[address] Vijay Park DO Work Phone: [facility] 05-11-2025 09:38-0400 Body mass index (BMI) [Ratio] 34.6 kg/m2 Dr. Vijay Park DO Work Phone: [facility] 05-11-2025 09:38-0400 Body weight 94.[address] Vijay Park DO Work Phone: [facility] 05-11-2025 09:38-0400 Diastolic blood pressure 73 mm[Hg] Dr. Vijay Park DO Work Phone: [facility] 05-11-2025 09:38-0400 Heart rate 59 /min Dr. Vijay Park DO Work Phone: [facility] 05-11-2025 09:38-0400 Respiratory rate 16 /min Dr. Vijay Park DO Work Phone: [facility] 05-11-2025 09:38-0400 Systolic blood pressure 111 mm[Hg] Dr. Vijay Park DO Work Phone: [facility] 04-28-2025 09:42-0400 Body mass index (BMI) [Ratio] 32.91 kg/m2 Leigh Demarco PA-C Work Phone: [facility] 04-28-2025 09:42-0400 Body weight 92.9 kg Leigh Demarco PA-C Work Phone: [facility] 04-28-2025 09:42-0400 Diastolic blood pressure 75 mm[Hg] Leigh Demarco PA-C Work Phone: [facility] 04-28-2025 09:42-0400 Heart rate 55 /min Leigh Demarco PA-C Work Phone: [facility] 04-28-2025 09:42-0400 SaO2% (BldA) [Mass fraction] 97 % Eligh Demarco PA-C Work Phone: [facility] 04-28-2025 09:42-0400 Systolic blood pressure 117 mm[Hg] Leigh Demarco PA-C Work Phone: [facility] 02-24-2025 11:15-0400 Body temperature 98 [degF] Dr. Vijay Park DO Work Phone: [facility] 02-24-2025 11:15-0400 Body weight 92.[address] Vijay Park DO Work Phone: 9(666)567-210720 [place] [address] 02-24-2025 11:15-0400 Diastolic blood pressure 82 mm[Hg] Dr. Vijay Park DO Work Phone: 4(272)565-475662 [place] [address] 02-24-2025 11:15-0400 Heart rate 67 /min Dr. Vijay Park DO Work Phone: 9(212)314-887162 [place] [address] 02-24-2025 11:15-0400 Respiratory rate 16 /min Dr. Vijay Park DO Work Phone: 3(923)336-123962 [place] [address] 02-24-2025 11:15-0400 SaO2% (BldA) [Mass fraction] 98 % Dr. Vijay Park DO Work Phone: 4(882)554-252962 [place] [address] 02-24-2025 11:15-0400 Systolic blood pressure 139 mm[Hg] Dr. Vijay Park DO Work Phone: 2(601)933-112762 [place] [address] 02-02-2025 16:19-0400 Body height 165.[address] Vijay Park DO Work Phone: 7(325)834-185762 [place] [address] 02-02-2025 16:19-0400 Body mass index (BMI) [Ratio] 34.1 kg/m2 Dr. Vijay Park DO Work Phone: 3(318)890-040962 [place] [address] 02-02-2025 16:19-0400 Body temperature 97.7 [degF] Dr. Vijay Park DO Work Phone: 0(946)563-362362 [place] [address] 02-02-2025 16:19-0400 Body weight 93.[address] Vijay Park DO Work Phone: 9(026)783-758362 [place] [address] 02-02-2025 16:19-0400 Diastolic blood pressure 81 mm[Hg] Dr. Vijay Park DO Work Phone: 9(189)789-941862 [place] [address] 02-02-2025 16:19-0400 Heart rate 56 /min Dr. Vijay Park DO Work Phone: 3(581)524-016462 [place] [address] 02-02-2025 16:19-0400 Respiratory rate 18 /min Dr. Vijay Park DO Work Phone: 3(421)677-962320 [place] [address] 02-02-2025 16:19-0400 SaO2% (BldA) [Mass fraction] 99 % Dr. Vijay Park DO Work Phone: 8(515)667-105720 [place] [address] 02-02-2025 16:19-0400 Systolic blood pressure 140 mm[Hg] Dr. Vijay Park DO Work Phone: 3(220)856-918462 [place] [address] 11-13-2024 14:45-0400 Body temperature 97.7 [degF] Dr. Vijay Park DO Work Phone: 1(279)986-204262 [place] [address] 11-13-2024 14:45-0400 Diastolic blood pressure 70 mm[Hg] Dr. Vijay Park DO Work Phone: 4(200)672-294062 [place] [address] 11-13-2024 14:45-0400 Heart rate 61 /min Dr. Vijay Park DO Work Phone: 5(868)898-744762 [place] [address] 11-13-2024 14:45-0400 Respiratory rate 16 /min Dr. Vijay Park DO Work Phone: 0(521)500-617162 [place] [address] 11-13-2024 14:45-0400 SaO2% (BldA) [Mass fraction] 97 % Dr. Vijay Park DO Work Phone: 0(669)114-193262 [place] [address] 11-13-2024 14:45-0400 Systolic blood pressure 116 mm[Hg] Dr. Vijay Park DO Work Phone: 7(553)628-979462 [place] [address] 11-13-2024 06:28-0400 Body height 165.[address] Vijay Park DO Work Phone: 6(935)258-032662 [place] [address] 11-13-2024 06:28-0400 Body mass index (BMI) [Ratio] 34.1 kg/m2 Dr. Vijay Park DO Work Phone: 2(566)944-045462 [place] [address] 11-13-2024 06:28-0400 Body weight 93.[address] Vijay Park DO Work Phone: 9(796)437-931362 [place] [address] 11-12-2024 11:39-0400 Body mass index (BMI) [Ratio] 33.16 kg/m2 Yari Moore [employer] UP WORKER.[employer] INSERTER Work Phone: [facility] 11-12-2024 11:39-0400 Body weight 93.6 kg Yari Moore [employer]ORDING [employer]UDIO SET UP WORKER.LAST INSERTER Work Phone: [facility] 11-12-2024 11:39-0400 Diastolic blood pressure 82 mm[Hg] Yari Moore [employer]ORDING [employer]UDIO SET UP WORKER.LAST INSERTER Work Phone: [facility] 11-12-2024 11:39-0400 Heart rate 72 /min Yari Moore [employer]ORDING [employer]UDIO SET UP WORKER.LAST INSERTER Work Phone: [facility] 11-12-2024 11:39-0400 Respiratory rate 12 /min Yari Moore [employer]ORDING [employer]UDIO SET UP WORKER.LAST INSERTER Work Phone: [facility] 11-12-2024 11:39-0400 SaO2% (BldA) [Mass fraction] 96 % Yari Moore RECORDING STUDIO SET UP WORKER.LAST INSERTER Work Phone: [facility] 11-12-2024 11:39-0400 Systolic blood pressure 110 mm[Hg] Yari Moore RECORDING STUDIO SET UP WORKER.LAST INSERTER Work Phone: [facility] 11-03-2024 12:01-0500 Body mass index (BMI) [Ratio] 32.95 kg/m2 Matthew Bermeo RECORDING STUDIO SET UP WORKER.LAST INSERTER Work Phone: [facility] 11-03-2024 12:01-0500 Body weight 93 kg Matthew Bermeo RECORDING STUDIO SET UP WORKER.LAST INSERTER Work Phone: [facility] 11-03-2024 12:01-0500 Diastolic blood pressure 75 mm[Hg] Matthew Bermeo RECORDING STUDIO SET UP WORKER.LAST INSERTER Work Phone: [facility] 11-03-2024 12:01-0500 Heart rate 62 /min Matthew Bermeo RECORDING STUDIO SET UP WORKER.LAST INSERTER Work Phone: [facility] 11-03-2024 12:01-0500 Systolic blood pressure 127 mm[Hg] Matthew Bermeo RECORDING STUDIO SET UP WORKER.LAST INSERTER Work Phone: [facility] 10-19-2024 08:54-0500 Body height 168 cm Yari Moore RECORDING STUDIO SET UP WORKER.LAST INSERTER Work Phone: [facility] 10-19-2024 08:54-0500 Body mass index (BMI) [Ratio] 33.17 kg/m2 Yari Moore RECORDING [employer]UDIO SET UP WORKER.LAST INSERTER Work Phone: [facility] 10-19-2024 08:54-0500 Body weight 93.62 kg Yari Moore RECORDING STUDIO SET UP WORKER.LAST INSERTER Work Phone: [facility] 10-19-2024 08:54-0500 Diastolic blood pressure 58 mm[Hg] Yari Moore RECORDING STUDIO SET UP WORKER.LAST INSERTER Work Phone: [facility] 10-19-2024 08:54-0500 Heart rate 52 /min Yari Moore RECORDING STUDIO SET UP WORKER.LAST INSERTER Work Phone: [facility] 10-19-2024 08:54-0500 Respiratory rate 12 /min Yari Moore RECORDING STUDIO SET UP WORKER.LAST INSERTER Work Phone: [facility] 10-19-2024 08:54-0500 SaO2% (BldA) [Mass fraction] 97 % Yari Moore RECORDING STUDIO SET UP WORKER.LAST INSERTER Work Phone: [facility] 10-19-2024 08:54-0500 Systolic blood pressure 112 mm[Hg] Yari Moore RECORDING STUDIO SET UP WORKER.LAST INSERTER Work Phone: [facility] 09-23-2024 14:05-0500 Body mass index (BMI) [Ratio] 34.95 kg/m2 Vijay Park DO Work Phone: [facility] 09-23-2024 14:05-0500 Body temperature 97.3 [degF] Vijay Park DO Work Phone: [facility] 09-23-2024 14:05-0500 Body weight 93.44 kg Vijay Park DO Work Phone: [facility] 09-23-2024 14:05-0500 Diastolic blood pressure 80 mm[Hg] Vijay Park DO Work Phone: [facility] 09-23-2024 14:05-0500 Heart rate 64 /min Vijay Park DO Work Phone: [facility] 09-23-2024 14:05-0500 Respiratory rate 16 /min Vijay Park DO Work Phone: [facility] 09-23-2024 14:05-0500 Systolic blood pressure 116 mm[Hg] Vijay Park DO Work Phone: [facility] 08-22-2024 11:10-0500 Body mass index (BMI) [Ratio] 34.9 kg/m2 Franck Desai MD Work Phone: [facility] 08-22-2024 11:10-0500 Body temperature 98.29 [degF] Franck Desai MD Work Phone: [facility] 08-22-2024 11:10-0500 Body weight 93.3 kg Franck Desai MD Work Phone: [facility] 08-22-2024 11:10-0500 Diastolic blood pressure 82 mm[Hg] Franck Desai MD Work Phone: [facility] 08-22-2024 11:10-0500 Heart rate 73 /min Franck Desai MD Work Phone: [facility] 08-22-2024 11:10-0500 Respiratory rate 21 /min Franck Desai MD Work Phone: [facility] 08-22-2024 11:10-0500 SaO2% (BldA) [Mass fraction] 98 % Franck Desai MD Work Phone: [facility] 08-22-2024 11:10-0500 Systolic blood pressure 140 mm[Hg] Franck Desai MD Work Phone: [facility] 08-10-2024 11:07-0500 Body mass index (BMI) [Ratio] 33.7 kg/m2 Dr. Vijay Park DO Work Phone: [facility] 08-10-2024 11:07-0500 Body weight 92.[address] Vijay Park DO Work Phone: [facility] 08-10-2024 11:07-0500 Diastolic blood pressure 78 mm[Hg] Dr. Vijay Park DO Work Phone: [facility] 08-10-2024 11:07-0500 Heart rate 62 /min Dr. Vijay Park DO Work Phone: [facility] 08-10-2024 11:07-0500 Respiratory rate 16 /min Dr. Vijay Park DO Work Phone: [facility] 08-10-2024 11:07-0500 Systolic blood pressure 120 mm[Hg] Dr. Vijay Park DO Work Phone: [facility] 10-16-2023 10:27-0500 Body height 163.5 cm Vijay Park DO Work Phone: [facility] 10-16-2023 10:27-0500 Body temperature 97.3 [degF] Vijay Park DO Work Phone: [facility] 10-16-2023 10:27-0500 Body weight 90.72 kg Vijay Park DO Work Phone: [facility] 10-16-2023 10:27-0500 Diastolic blood pressure 60 mm[Hg] Vijay Park DO Work Phone: [facility] 10-16-2023 10:27-0500 Heart rate 60 /min Vijay Park DO Work Phone: [facility] 10-16-2023 10:27-0500 Systolic blood pressure 120 mm[Hg] Vijay Park DO Work Phone: [facility] 08-02-2023 07:56-0500 Body height 165.[address] Vijay Park Work Phone: [facility] 08-02-2023 07:56-0500 Body weight 89.[address] Vijay Park Work Phone: 5(240)021-098198 [address] 08-01-2023 07:41-0500 Body mass index (BMI) [Ratio] 32.9 kg/m2 Dr. Vijay Park Work Phone: 0(227)717-547562 [place] [address] 06-05-2023 10:58-0400 Body mass index (BMI) [Ratio] 32.9 kg/m2 Dr. Vijay Park Work Phone: 7(287)663-290462 [place] [address] 06-05-2023 10:58-0400 Body weight 89.[address] Vijay Park Work Phone: 5(440)337-310362 [place] [address] 06-05-2023 10:58-0400 Diastolic blood pressure 82 mm[Hg] Dr. Vijay Park Work Phone: 5(023)921-242562 [place] [address] 06-05-2023 10:58-0400 Heart rate 58 /min Dr. Vijay Park Work Phone: 4(099)832-161762 [place] [address] 06-05-2023 10:58-0400 Respiratory rate 18 /min Dr. Vijay Park Work Phone: 4(743)867-370962 [place] [address] 06-05-2023 10:58-0400 SaO2% (BldA) [Mass fraction] 95 % Dr. Vijay Park Work Phone: 7(334)471-773562 [place] [address] 06-05-2023 10:58-0400 Systolic blood pressure 119 mm[Hg] Dr. Vijay Park Work Phone: 1(565)284-190862 [place] [address] 08-29-2022 09:25-0500 Diastolic blood pressure 74 mm[Hg] Dr. Vijay Park Work Phone: 9(611)791-435562 [place] [address] 08-29-2022 09:25-0500 Heart rate 52 /min Dr. Vijay Park Work Phone: 9(966)543-764562 [place] [address] 08-29-2022 09:25-0500 Respiratory rate 16 /min Dr. Vijay Park Work Phone: 8(691)478-438262 [place] [address] 08-29-2022 09:25-0500 SaO2% (BldA) [Mass fraction] 100 % Dr. Vijay Park Work Phone: 6(072)074-734062 [place] [address] 08-29-2022 09:25-0500 Systolic blood pressure 112 mm[Hg] Dr. Vijay Park Work Phone: 8(780)506-926362 [place] [address] 08-29-2022 09:01-0500 Body height 165.[address] Vijay Park Work Phone: 5(380)206-146362 [place] [address] 08-29-2022 09:01-0500 Body mass index (BMI) [Ratio] 33.3 kg/m2 Dr. Vijay Park Work Phone: 8(466)367-729862 [place] [address] 08-29-2022 09:01-0500 Body temperature 97.4 [degF] Dr. Vijay Park Work Phone: 5(996)058-320962 [place] [address] 08-29-2022 09:01-0500 Body weight 90.[address] Vijay Park Work Phone: 6(697)423-355320 [place] [address] 06-18-2017 13:12-0400 BMI (Body Mass Index) 31.45 kg/m2 Namita DeFinis [facility] Work Phone: 06-18-2017 13:12-0400 BP Diastolic 60 mm[Hg] Harumi DeFinis [facility] Work Phone: 06-18-2017 13:12-0400 BP Diastolic 62 mm[Hg] Harumi DeFinis [facility] Work Phone: 06-18-2017 13:12-0400 BP Systolic 120 mm[Hg] Harumi DeFinis [facility] Work Phone: 06-18-2017 13:12-0400 BP Systolic 124 mm[Hg] Harumi DeFinis [facility] Work Phone: 06-18-2017 13:12-0400 Height 165.1 cm Harumi DeFinis [facility] Work Phone: 06-18-2017 13:12-0400 Pulse (Heart Rate) 60 /min Harumi DeFinis [facility] Work Phone: 06-18-2017 13:12-0400 Respiratory Rate 16 /min Harumi DeFinis [facility] Work Phone: 06-18-2017 13:12040 Weight 85.73 kg [facility] Work Phone: 03-13-2016 13:240400 BSA (Body Surface Area) 1.89 m2 [facility] Work Phone: Encounters Encounter Date Encounter Type Care Provider Facility Start: 07-12-2025 End: 07-12-2025 ambulatory Vijay Park Facility:[facility] Start: 06-07-2025 End: 06-07-2025 ambulatory DARIUSZ TSAI Facility:[facility] Start: 05-17-2025 End: 05-17-2025 ambulatory Liza Mauricio MA [facility] [place] [facility] Start: 05-17-2025 End: 05-17-2025 [facility] [place] [facility] Comment on above: Population Health Na vigation Outreach [facility] Start: 05-11-2025 End: 05-11-2025 Patient encounter procedure Charlie LUNDBERG [facility] Group Work Phone: Start: 05-11-2025 End: 05-11-[address] Vijay Park DO Work Phone: -[facility] Start: 04-29-2025 End: 05-01-2025 Telephone encounter Vijay Park DO Work Phone: [facility] [place] Comment on above: Results; urinary sym ptoms Start: 04-28-2025 End: 04-28-2025 Patient encounter procedure Leigh Pal PA-C Work Phone: Rheumatology Comment on above: Rheumatoid factor po sitive (Primary Dx); Arthralgia, unspecified joint; Rash and nonspecific skin eruption; Primary osteoarthritis of both knees; Primary osteoarthritis of both feet; Chronic pain of right ankle; Sicca syndrome (HCC) Start: 04-28-2025 End: 04-28-2025 ambulatory LEIGH PAL Facility:[facility] Start: 04-27-2025 Non-patient / Non-visit Dr. Trevin luna MD -[facility] Start: 04-27-2025 End: 04-27-[address] Vijay Park DO Work Phone: -Cardiovascular Services Start: 04-27-2025 End: 04-27-2025 Patient encounter procedure Lyssa HERNANDEZ -Cardiovascular Services Work Phone: Start: 04-27-2025 End: 04-27-2025 ambulatory Vijay Park Facility:[facility] Start: 04-22-2025 End: 04-22-2025 E-mail encounter from caregiver Leigh aPl PA-C Work Phone: Rheumatology Start: 04-22-2025 End: 04-22-2025 Patient encounter procedure Leigh Pal PA-C Work Phone: Rheumatology Comment on above: Upcoming Rheumatolog y Appointment Start: 04-12-2025 End: 04-12-2025 ambulatory [facility] [place] [facility] Start: 04-12-2025 End: 04-12-2025 Patient encounter procedure Liza Mauricio MA [facility] [place] [facility] Comment on above: Population Health Na vigation Outreach ([facility] ) Start: 04-07-2025 Non-patient / Non-visit Dr. Trevin luna MD -[facility] Start: 04-07-2025 End: 04-07-[address] Vijay Park DO Work Phone: -Cardiovascular Services Start: 04-07-2025 End: 04-07-2025 Patient encounter procedure Lyssa HERNANDEZ -Cardiovascular Services Work Phone: Start: 04-07-2025 End: 04-07-2025 ambulatory Vijay Park Facility:[facility] Start: 03-29-2025 Non-patient / Non-visit Dr. Trevin luna MD -[facility] Start: 03-29-2025 End: 03-29-[address] Vijay Park DO Work Phone: -Cardiovascular Services Start: 03-29-2025 End: 03-29-2025 Patient encounter procedure Lyssa HERNANDEZ -Cardiovascular Services Work Phone: Start: 03-29-2025 End: 03-29-2025 ambulatory Lyssa [place] Facility:[facility] Start: 03-22-2025 Non-patient / Non-visit Dr. Trevin luna MD -[facility] Start: 03-22-2025 End: 03-22-[address] Vijay Park DO Work Phone: -Cardiovascular Services Start: 03-22-2025 End: 03-22-2025 Patient encounter procedure Lyssa HERNANDEZ -Cardiovascular Services Work Phone: Start: 03-22-2025 End: 03-22-2025 ambulatory Lyssa [place] Facility:[facility] Start: 03-08-2025 End: 03-08-2025 ambulatory [facility] Start: 03-08-2025 End: 03-08-2025 Patient encounter procedure Liza Mauricio MA [facility] [place] [facility] Comment on above: Population [facility] Start: 02-24-2025 End: 02-24-2025 Patient encounter procedure Lyssa HERNANDEZ -[facility] Work Phone: Start: 02-24-2025 End: 02-24-[address] Vijay Park DO Work Phone: [facility] Work Phone: Start: 02-18-2025 End: 02-18-2025 Patient encounter procedure Dariusz Tsai MD Work Phone: Orthopaedics Comment on above: Chronic pain of both knees (Primary Dx); Primary osteoarthritis of both knees; Acute deep vein thrombosis (DVT) of proximal vein of lower extremity, unspecified laterality (HCC); Anticoagulated on Eliquis Start: 02-18-2025 End: 02-18-2025 ambulatory DARIUSZ TSAI Facility:[facility] Start: 02-02-2025 End: 02-02-2025 Emergency department patient visit Dr. Jason Philip MD -Emergency Department Work Phone: Start: 02-02-2025 Non-patient / Non-visit Dr. Trevin luna MD -[facility] Start: 02-02-2025 End: 02-02-[address] Vijay Park DO Work Phone: [facility] Start: 02-02-2025 End: 02-02-[address] Luis A Brown DPM -Cardiovascular Services Work Phone: Comment on above: Population Health Na vigation Outreach [facility] Start: 02-02-2025 End: 02-02-2025 ambulatory Luis A Brown Facility:[facility] Start: 01-21-2025 End: 01-21-2025 ambulatory LEIGH PAL Facility:[facility] Start: 01-18-2025 End: 01-18-2025 E-mail encounter from caregiver Leigh Pal PA-C Work Phone: Rheumatology Start: 01-18-2025 End: 01-18-2025 Patient encounter procedure Leigh Pal PA-C Work Phone: Rheumatology Comment on above: Upcoming Rheumatolog y Appointment Start: 01-13-2025 End: 03-15-2025 Follow-up encounter Vijay Park DO Work Phone: [facility] [place] Start: 01-11-2025 End: 01-11-2025 Follow-up encounter Vijay Park DO Work Phone: [facility] [place] Start: 01-08-2025 ambulatory VIJAY PARK Facil ity:[facility] Start: 01-08-2025 End: 01-08-2025 Subsequent hospital visit by physician [facility] Comment on above: Rheumatoid factor po sitive [R76.8] Start: 12-17-2024 End: 12-17-[address] Vijay Park DO Work Phone: [facility] Work Phone: Start: 12-17-2024 End: 12-17-[address] David Terrell MD -Laboratory, Specimen Work Phone: Start: 12-17-2024 End: 12-17-2024 ambulatory Vijay Park Facility:[facility] Start: 11-16-2024 End: 01-16-2025 Follow-up encounter Yari Moore RECORDING STUDIO SET UP WORKER.LAST INSERTER Work Phone: [facility] Start: 11-13-2024 End: 11-13-2024 Admission to same day surgery center Dr. Luis A Brown DP -Surgical Day Care Start: 11-13-2024 End: 11-13-[address] Vijay Park DO Work Phone: [facility] Work Phone: Start: 11-12-2024 End: 11-12-2024 ambulatory YARI MOORE Facility:[facility] Start: 11-12-2024 End: 11-12-2024 Office outpatient visit 25 minutes Yari Moore RECORDING STUDIO SET UP WORKER.LAST INSERTER Work Phone: [facility] Comment on above: Irritant contact mimi matitis due to detergent (Primary Dx); Dysuria Start: 11-11-2024 End: 11-11-2024 ambulatory Vijay Park DO Work Phone: [facility] Comment on above: Rash Start: 11-11-2024 End: 01-11-2025 Follow-up encounter Vijay Park DO Work Phone: [facility] Start: 11-05-2024 End: 01-05-2025 Follow-up encounter Orquidea Leong RECORDING STUDIO SET UP WORKER.LAST INSERTER Work Phone: [facility] Start: 11-03-2024 End: 11-03-2024 Telephone encounter Vijay Park DO Work Phone: [facility] Comment on above: Patient Update Start: 11-03-2024 End: 11-03-2024 ambulatory MATTHEW BERMEO Facility:[facility] Start: 11-03-2024 End: 11-03-2024 Patient encounter procedure Matthew Bermeo RECORDING STUDIO SET UP WORKER.LAST INSERTER Work Phone: [facility] [place] Comment on above: Burning with urinati on (Primary Dx) Start: 11-02-2024 End: 11-02-2024 Telephone encounter Yari Moore APRN.CNP Work Phone: Family [facility] [place] Comment on above: Pre op clearance Start: 10-30-2024 End: 10-30-2024 ambulatory IVJAY BOUDREAUXRISON Facility:[facility] Start: 10-30-2024 End: 10-30-2024 Subsequent hospital visit by physician Bone Density [facility] Work Phone: Radiology Comment on above: Osteopenia, senile [ M85.80] Start: 10-22-2024 End: 10-22-2024 ambulatory DARIUSZ TSAI Facility:[facility] Start: 10-22-2024 End: 10-22-2024 Patient encounter procedure Dariusz Tsai MD Work Phone: Orthopaedics Comment on above: Primary osteoarthrit is of both knees (Primary Dx); Chronic pain of both knees Start: 10-19-2024 End: 10-19-2024 Office outpatient visit 25 minutes Yari Moore APRN.LAST INSERTER Work Phone: 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 Comment on above: Results Start: 09-30-2024 End: 09-30-2024 ambulatory VIJAY L PARK Facility:[facility] Start: 09-30-2024 End: 09-30-2024 Subsequent hospital visit by physician Xr [facility] Espinal Work Phone: Radiology Comment on above: Chronic pain of both knees [M25.561, M25.562, G89.29] Start: 09-28-2024 End: 11-20-2024 Telephone encounter Vijay Park Work Phone: [facility] Start: 09-23-2024 End: 09-23-2024 ambulatory VIJAY PARK Facility:[facility] Start: 09-23-2024 End: 09-23-2024 Patient encounter procedure Vijay Park DO Work Phone: [facility] [place] Comment on above: Medicare annual well ness visit, subsequent (Primary Dx); Chronic pain of both knees; Osteopenia, senile; Need for pneumococcal 20-valent conjugate vaccination; Encounter for screening mammogram for malignant neoplasm of breast; Screening for osteoporosis; Post-menopausal; Impaired fasting glucose; Hypothyroidism, acquired; Vitamin D deficiency; Hyperlipidemia, mixed; Bloating; Abdominal pain, epigastric; Class 1 obesity with body mass index (BMI) of 34.0 to 34.9 in adult, unspecified obesity type, unspecified whether serious comorbidity present Start: 08-22-2024 End: 08-22-2024 ambulatory FRANCK DESAI Facility:[facility] Start: 08-22-2024 End: 08-22-2024 Subsequent hospital visit by physician Kris [facility] Work Phone: Radiology Comment on above: Acute cough [R05.1] Start: 08-22-2024 End: 08-22-2024 ambulatory VIJAY PARK Facility:[facility] Start: 08-22-2024 End: 08-22-2024 Patient encounter procedure Franck Desai MD Work Phone: [facility] Comment on above: Acute cough (Primary Dx); URI, acute Start: 08-10-2024 End: 08-10-2024 Patient encounter procedure Charlie LUNDBERG -[facility] Work Phone: Start: 08-10-2024 End: 08-10-2024 ambulatory Vijay Xavier Facility:[facility] Start: 06-24-2024 End: 06-24-2024 Refill Yari Moore LAST INSERTER Work Phone: [facility] Comment on above: Refill Request Start: 11-13-2023 Telephone encounter Vijay de DO Work Phone: [facility] Comment on above: Results Start: 11-07-2023 Documentation procedure Mammog adebayo Coordinator [facility] Start: 11-07-2023 Letter encounter Mammography Coordinator [facility] Department Start: 11-06-2023 End: 11-06-2023 Subsequent hospital visit by physician Screen Mammo [facility] Mammogram Comment on above: Encounter for screen ing mammogram for breast cancer [Z12.31] Start: 10-16-2023 End: 10-16-2023 Patient encounter procedure Vijay Park DO Work Phone: [facility] Comment on above: Hypothyroidism, acqu ired (Primary Dx); Spontaneous bruising; Vitamin D deficiency; Hyperparathyroidism (HCC); Frequent headaches; 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 Vijay Park Work Phone: [facility]-Log Washer/Special Procedures Work Phone: Start: 08-02-2023 End: 08-02-[address] Vijay Park Work Phone: [facility] Work Phone: Start: 07-31-2023 Non-patient / Non-visit Dr. Kelsy Park Work Phone: [facility] Start: 07-08-2023 Refill Vijay merritt DO Work Phone: [facility] Comment on above: Refill Request Start: 06-05-2023 End: 06-05-[address] Vijay Park Work Phone: [facility] Work Phone: Start: 06-05-2023 End: 06-05-[address] Vijay Park Work Phone: [facility] Work Phone: Start: 04-01-2023 Non-patient / Non-visit Dr. Kelsy Park Work Phone: [facility] Start: 04-01-2023 End: 04-01-[address] Vijay Park Work Phone: [facility] Work Phone: Start: 04-01-2023 End: 04-01-[address] Vijay Park Work Phone: [facility]-Cardiovascula r Services Work Phone: Start: 02-18-2023 Refill Yari Moore APRN.CNP Work Phone: [facility] Comment on above: Refill Request Start: 09-18-2022 Non-patient / Non-visit Dr. Kelsy Park Work Phone: [facility] Start: 08-29-2022 End: 08-29-[address] Vijay Park Work Phone: [facility] Start: 08-21-2022 Refill Vijay merritt DO Work Phone: [facility] Comment on above: Refill Request Start: 08-01-2022 End: 08-01-[address] Vijay Park Work Phone: [facility] Work Phone: Start: 08-01-2022 End: 08-01-[address] Vijay Park Work Phone: [facility]-Physical Therapy Start: 07-19-2022 End: 07-19-2022 Subsequent hospital visit by physician Screen Mammo [facility] Mammogram Comment on above: Encounter for screen ing mammogram for breast cancer [Z12.31] Start: 07-16-2022 Telephone encounter Vijay de DO Work Phone: [facility] Comment on above: Results; Orders Start: 07-11-2022 Telephone encounter Vijay de DO Work Phone: [facility] Comment on above: UTI s/s Start: 06-06-2022 Chart abstracting Vijay mitchell DO Work Phone: [facility] Start: 06-05-2022 Telephone encounter Vijay de DO Work Phone: Internal Medicine [place] Comment on above: Question (bone densi ty/) Start: 06-05-2022 End: 06-05-2022 Subsequent hospital visit by physician Bone Density [facility] Work Phone: Radiology Comment on above: Osteopenia, senile [ M85.80] Start: 04-19-2022 Refill Vijay merritt DO Work Phone: [facility] Comment on above: Refill Request Start: 02-28-2022 ambulatory Vijay merritt DO Work Phone: Internal Medicine [place] Start: 02-05-2022 Refill Yari khalil RECORDING STUDIO SET UP WORKER.LAST INSERTER Work Phone: [facility] Comment on above: Refill Request Start: 10-28-2018 Patient encounter status Earl Linton RECORDING STUDIO SET UP WORKER.LAST INSERTER Work Phone: [facility] Work Phone: Procedures Date Procedure Procedure Detail Performing Clinician Start: 02-18-2025 Arthrocentesis aspir &/inj major jt/bursa w/o us Dariusz Tsai MD Work Phone: Start: 12-17-[address] Vijay Park DO Work Phone: Start: 12-17-2024 Gram stain microscopy D daren Park DO Work Phone: Start: 12-17-2024 End: 12-17-2024 Microbial culture, routine Dr. Vijay abrams DO Work Phone: Start: 11-13-[address] Vijay Park DO Work Phone: Start: 11-13-2024 Fluoroscopic guidance Dominique Park DO Work Phone: Start: 11-13-2024 X-ray of foot, two views Dr. Vijay Park DO Work Phone: Start: 11-12-2024 Urnls dip stick/tabl et rgnt auto w/o microscopy Yari Moore RECORDING STUDIO SET UP WORKER.LAST INSERTER Work Phone: Start: 10-19-2024 Ecg routine ecg w/le ast 12 lds i&r only Yari Moore RECORDING STUDIO SET UP WORKER.LAST INSERTER Work Phone: Start: 10-19-2024 Lipid 1996 panel - S luis alberto or Plasma Bone Wstr Work Phone: Start: 08-22-2024 Radiologic exam ches t 2 views Franck Deasi MD Work Phone: Start: 03-18-2024 Lipid 1996 panel - S luis alberto or Plasma Yari Moore RECORDING STUDIO SET UP WORKER.LAST INSERTER Work Phone: Start: 06-05-2023 Plain chest X-ray Dr. Drake Park Work Phone: Start: 04-01-2023 Radionuclide imaging of perfusion of myocardium under exercise stress Dr. Vijay Park Work Phone: Start: 08-29-2022 CT angiography of co ronary arteries Dr. Vijay Park Work Phone: Start: 07-19-2022 End: 07-19-2022 Mammography Bulk Order Provider Start: 07-12-2022 Lipid 1996 panel - S luis alberto or Plasma Screen Wstr Start: 06-05-2022 Dxa bone density raymond dy 1/> sites axial skel Vijay Park DO Work Phone: Start: 04-18-2021 Adult depression scr eening assessment Yari Linton RECORDING STUDIO SET UP WORKER.LAST INSERTER Work Phone: Start: 06-24-2018 Mammography Yari sierra RECORDING STUDIO SET UP WORKER.LAST INSERTER Work Phone: Start: 06-18-2017 End: 06-18-2017 SEM MANAGER Mohamud Juarez MD Start: 06-18-2017 End: 06-18-2017 Follow Up Appt 1 year Mohamud Juarez MD Start: 03-13-2016 End: 03-13-2016 Follow Up Appt 1 year Mohamud Juarez MD Start: 03-13-2016 End: 03-13-2016 MMM Mohamud Juarez MD Start: 12-29-2015 End: 03-06-2017 *Hepatic Function Panel Roxie Segura Start: 12-29-2015 End: 03-06-2017 Lipid 1996 panel - Serum or Plasma Mohamud Juarez MD Start: 08-16-2015 End: 08-16-2015 SEM MANAGER Susi Nunes PA-C Work Phone: Start: 08-16-2015 End: 08-16-2015 Follow Up Appt 6 months Susi torrez PA-C Work Phone: Start: 08-05-2015 Colonoscopy Yari sierra RECORDING STUDIO SET UP WORKER.LAST INSERTER Work Phone: Start: 07-05-2015 End: 07-06-2015 Documentation of current medications Susi Nunes PA-C Work Phone: Start: 07-05-2015 End: 07-05-2015 Follow Up Appt 6 weeks Susi obrien PA-C Work Phone: Start: 07-05-2015 End: 07-05-2015 MMM Susi Nunes PA-C Work Phone: Start: 06-16-2015 End: 06-29-2015 *Hepatic Function Panel Roxie Segura Start: 06-16-2015 End: 06-29-2015 Lipid 1996 panel - Serum or Plasma Mohamud Juarez MD Start: 12-07-2014 End: 12-15-2014 *BMP Mohamud Juarez MD Start: 12-07-2014 End: 12-15-2014 *Hepatic Function Panel Roxie Segura Start: 12-07-2014 End: 12-08-2014 Documentation of current medications Mohamud Juarez MD Start: 12-07-2014 End: 12-07-2014 Follow Up Appt 6 months Roxie Segura Start: 12-07-2014 End: 12-15-2014 Lipid 1996 panel - Serum or Plasma Mohamud Juarez MD Start: 12-07-2014 End: 12-07-2014 MMM Mohamud Juarez MD Start: 12-07-2014 End: 12-15-2014 Nuclear stress test -exercise Mohamud Juarez MD Start: 07-03-2014 End: 12-15-2014 *Hepatic Function Panel Roxie Segura Start: 07-03-2014 End: 12-15-2014 Lipid 1996 panel - Serum or Plasma Mohamud Juarez MD Start: 01-27-2014 End: 01-27-2014 *Hepatic Function Panel Roxie Segura Start: 01-27-2014 End: 01-27-2014 Lipid 1996 panel - Serum or Plasma Mohamud Juarez MD Start: 12-08-2013 End: 12-08-2013 PETRA Juarez MD Start: 12-08-2013 End: 12-08-2013 Follow Up Appt 1 year Mohamud Juarez MD Start: 08-05-2013 End: 08-05-2013 PETRA Nunes PA-C Work Phone: Start: 08-05-2013 End: 08-05-2013 Follow Up Appt 4 months Susi torrez PA-C Work Phone: Start: 05-13-2013 End: 08-05-2013 *Hepatic Function Panel Roxie Segura Start: 05-13-2013 End: 05-13-2013 Follow Up Appt 2 months Roxie Segura Start: 05-13-2013 End: 08-05-2013 Lipid 1996 panel - Serum or Plasma Mohamud Juarez MD Start: 05-13-2013 End: 05-13-2013 MMM Mohamud Juarez MD Start: 05-06-2013 End: 05-06-2013 *BMP Mohamud Juarez MD Start: 05-06-2013 End: 05-06-2013 CBC W Auto Differential panel - Blood Mohamud Juarez MD Start: 05-06-2013 End: 05-13-2013 Chest x-ray Mohamud Juarez MD Start: 05-06-2013 End: 05-13-2013 PETRA Juarez MD Start: 05-06-2013 End: 05-13-2013 Ecg routine ecg w/least 12 lds w/i&r Mohamud Juarez MD Start: 05-06-2013 End: 05-06-2013 INR in Platelet poor plasma by Coagulation assay Mohamud Juarez MD Start: 05-06-2013 End: 05-13-2013 Left Heart Cath Mohamud Juarez MD Plan of Treatment Date Care Activity Detail Author Start: 2033 RSV Vaccine (1 - 1-dose 75+ series) RSV Vaccine (1 - 1-dose 75+ series) [facility] Start: 10-19-2029 Lipid panel Lipid Screening [facility] Start: 03-18-2029 Lipid panel Lipid Screening [facility] Start: 04-28-2028 Diabetes Screening Diabetes Screening [facility] Start: 10-19-2027 Diabetes Screening Diabetes Screening [facility] Start: 07-12-2027 Lipid 1996 panel - Serum or Plasma Lipid Screening [facility] Start: 07-12-2027 Lipid panel Lipid Screening [facility] Start: 07-12-2027 LIPID SCREEN LIPID SCREEN [facility] Start: 11-05-2026 Diabetes Screening Diabetes Screening [facility] Start: 04-18-2026 LIPID SCREEN LIPID SCREEN [facility] Start: 01-08-2026 Screening for malignant neoplasm of breast Mammogram Screening [facility] Start: 11-12-2025 Annual PCP Team Chronic Disease Visit Annual PCP Team Chronic Disease Visit [facility] Start: 11-03-2025 Annual PCP Team Chronic Disease Visit Annual PCP Team Chronic Disease Visit [facility] Start: 11-03-2025 BP Controlled (<130/80) BP Controlled (<130/80) [facility] Start: 10-19-2025 Annual PCP Team Chronic Disease Visit Annual PCP Team Chronic Disease Visit [facility] Start: 10-19-2025 BP Controlled (<130/80) BP Controlled (<130/80) [facility] Start: 10-19-2025 Covid-19 Vaccine ( season) Covid-19 Vaccine () [facility] Comment on above: Postponed from 05/03/2024 (Declined at t his time) Start: 10-19-2025 Hepatitis B surface antibody level LDL Cholesterol [facility] Start: 10-19-2025 Shingrix Vaccine (1 of 2) Shingrix Vaccine (1 of 2) [facility] Comment on above: Postponed from 2008 (Declined at t his time) Start: 10-19-2025 Urine microalbumin profile DTaP,Tdap,Td Vaccine (1 - Tdap) [facility] Comment on above: Postponed from 1977 (Declined at t his time) Start: 09-23-2025 Annual PCP Team Chronic Disease Visit Annual PCP Team Chronic Disease Visit [facility] Start: 09-23-2025 Medicare Annual Wellness Visit Medicare Annual Wellness Visit [facility] Start: 08-05-2025 Colonoscopy COLONOSCOPY [facility] Start: 08-05-2025 COLORECTAL CANCER SCREENING COLORECTAL CANCER SCREENING [facility] Start: 08-05-2025 Screening for malignant neoplasm of colon [facility] Start: 07-12-2025 DIABETES SCREEN DIABETES SCREEN [facility] Start: 07-12-2025 Diabetes Screening Diabetes Screening [facility] Start: 06-07-2025 End: 06-07-2025 Patient encounter procedure 06/07/2025 10:30 AM EDT Office Visit Orthopaedics [address] [place], [place] [id number] Dariusz Tsai MD [address] [place], [place] [id number] injection Orthopaedics Comment on above: injection Start: 05-03-2025 Influenza vaccination Influenza Vaccine (#1) [place] Josiane montalvo Start: 04-28-2025 End: 07-28-2025 C reactive protein [Mass/volume] in Serum or Plasma [facility] Work Phone: Comment on above: Expected: 04/28/2025, Expires: Start: 04-28-2025 End: 04-28-2025 Patient encounter procedure 04/28/2025 10:00 AM EDT Office Visit Rheumatology [address] [place] [address] Leigh Pal PA-C [address] [place], [place] [id number] 3 - 4 month follow up joint Rheumatology Comment on above: 3 - 4 month follow up joint Start: 03-18-2025 Hepatitis B surface antibody level LDL Cholesterol [facility] Start: 02-18-2025 End: 02-18-2025 Patient encounter procedure 02/18/2025 8:00 AM EDT Office Visit Orthopaedics [address] [place] [address] Dariusz Tsai MD [address] [place] [address] B/L knee pain Orthopaedics Comment on above: B/L knee pain Start: 02-02-2025 [facility] Start: 01-21-2025 End: 01-21-2025 Patient encounter procedure 01/21/2025 1:00 PM EDT Office Visit Rheumatology [address] [place] [address] Leigh Pal PA-C [address] [place] [address] Dx: Rheumatoid factor positive [R76.8]; Arthralgia, unspecified joint [M25.50] Rheumatology Comment on above: Dx: Rheumatoid factor positive [R76.8]; Arthralgia, unspecified joint [M25.50] Start: 12-17-2024 Source specific culture [facility] Start: 12-17-2024 Anaerobic Culture Anaerobic Culture [facility] Start: 12-17-2024 Microscopic observation [Identifier] in Unspecified specimen by Gram stain [facility] Start: 12-17-2024 Wound Culture Wound Culture [facility] Start: 11-13-2024 Anes open proc bones lower leg/ankle/foot nos ANESTH LOWER LEG BONE SURG [facility] Start: 11-13-2024 Arthrodesis midtarsometatarsal single joint FUSION OF FOOT BONES [facility] Start: 11-13-2024 Capsul mttarphlngl jt w/wo tenorrhaphy ea jt spx RELEASE OF FOOT CONTRACTURE [facility] Start: 11-13-2024 Correction hammertoe REPAIR OF HAMMERTOE [facility] Start: 11-13-2024 Injection aa&/strd other peripheral nerve/branch NJX AA&/STRD OTHER PN/BRANCH [facility] Start: 11-13-2024 Catheterization of vein [facility] Start: 11-13-2024 Neurovascular assessment [facility] Start: 11-13-2024 Patient discharge [facility] Start: 11-13-2024 Procedure discontinued [facility] Start: 11-13-2024 Provision of mobility device [facility] Start: 11-13-2024 Vital signs measurements [facility] Start: 11-13-2024 [facility] Start: 11-13-2024 X-ray of foot, two views Foot 2 Views [facility] Start: 11-13-2024 XR Foot 2 Views [facility] Start: 11-12-2024 End: 11-12-2024 Patient encounter procedure 11/12/2024 11:40 AM EDT Office Visit Family [facility] [address] [place] [address] Yari Moore, RECORDING STUDIO SET UP WORKER.LAST INSERTER [address] [place], [place] [id number] Haley. See triage 11/11/24. [facility] Comment on above: Haley. See triage 11/11/24. Start: 11-05-2024 Screening for malignant neoplasm of breast Mammogram Screening [facility] Start: 10-30-2024 End: 10-30-2024 Patient encounter procedure 10/30/2024 8:55 AM EST Appointment Radiology [address] [place] [id number] Osteopenia, senile [M85.80]; Screening for osteoporosis [Z13.820]; Post-menopausal [Z78.0] Radiology Comment on above: Osteopenia, senile [M85.80]; Screening f or osteoporosis [Z13.820]; Post-menopausal [Z78.0] Start: 10-22-2024 End: 10-22-2024 Patient encounter procedure 10/22/2024 9:00 AM EST Office Visit Orthopaedics [address] [place] [address] Dariusz Tsai MD [address] [facility] [place] [address] Chronic pain of both knees [M25.561, M25.562, G89.29] Orthopaedics Comment on above: Chronic pain of both knees [M25.561, M25 .562, G89.29] Start: 10-19-2024 End: 10-19-2024 Patient encounter procedure 10/19/2024 9:00 AM EST Office Visit Family Medicine [facility] [address] [place] [address] Yari Moore APRN.LAST INSERTER [address] [facility] [address] Pre op Foot surgery Family [facility] Comment on above: Pre op Foot surgery Start: 10-16-2024 Annual PCP Team Chronic Disease Visit Annual PCP Team Chronic Disease Visit [facility] Start: 10-16-2024 BP Controlled (<130/80) BP Controlled (<130/80) [facility] in Start: 10-16-2024 Covid-19 Vaccine ( season) Covid-19 Vaccine () [facility] Comment on above: Postponed from 05/03/2023 (Declined at t his time) Start: 09-29-2024 End: 09-29-2024 Patient encounter procedure 09/29/2024 10:30 AM EST Appointment Mammogram [address] [place] [address] Encounter for screening mammogram for malignant neoplasm of breast [Z12.31] Mammogram Comment on above: Encounter for screening mammogram for ma lignant neoplasm of breast [Z12.31] Start: 09-23-2024 End: 12-23-2024 25-hydroxyvitamin D3 [Mass/volume] in Serum or Plasma VITAMIN D 25 HYDROXY Lab Routine Vitamin D deficiency Expected: 09/23/2024, Expires: 12/23/2024 [facility] Comment on above: Expected: 09/23/2024, Expires: Start: 09-23-2024 End: 12-23-2024 CBC W Auto Differential panel - Blood COMPLETE BLOOD COUNT AND DIFFERENTIAL Lab Routine Hypothyroidism, acquired Expected: 09/23/2024, Expires: 12/23/2024 [facility] Comment on above: Expected: 09/23/2024, Expires: Start: 09-23-2024 End: 12-23-2024 CELIAC COMPREHENSIVE PANEL CELIAC COMPREHENSIVE PANEL Lab Routine Abdominal pain, epigastric Expected: 09/23/2024, Expires: 12/23/2024 [facility] Comment on above: Expected: 09/23/2024, Expires: Start: 09-23-2024 End: 12-23-2024 Comprehensive metabolic 2000 panel - Serum or Plasma COMPREHENSIVE METABOLIC PANEL Lab Routine Hypothyroidism, acquired Expected: 09/23/2024, Expires: 12/23/2024 [facility] Comment on above: Expected: 09/23/2024, Expires: Start: 09-23-2024 End: 12-23-2024 Hemoglobin A1c in Blood HEMOGLOBIN A1C Lab Routine Impaired fasting glucose Expected: 09/23/2024, Expires: 12/23/2024 [facility] Comment on above: Expected: 09/23/2024, Expires: Start: 09-23-2024 End: 12-23-2024 Lipid 1996 panel - Serum or Plasma LIPID PANEL BASIC Lab Routine Hyperlipidemia, mixed Expected: 09/23/2024, Expires: 12/23/2024 [facility] Comment on above: Expected: 09/23/2024, Expires: Start: 09-23-2024 End: 09-23-2024 Patient encounter procedure 09/23/2024 2:00 PM EST Office Visit Family Medicine [facility] [address] [place], [place] [address] Vijay Park DO [address] [place] [address] Knee pain [facility] Comment on above: Knee pain Start: 09-23-2024 End: 12-23-2024 Thyrotropin [Units/volume] in Serum or Plasma THYROID STIMULATING HORMONE Lab Routine Hypothyroidism, acquired Expected: 09/23/2024, Expires: 12/23/2024 [facility] Comment on above: Expected: 09/23/2024, Expires: Start: 09-23-2024 End: 12-23-2024 Thyroxine (T4) free [Mass/volume] in Serum or Plasma T4 FREE/FREE THYROXINE Lab Routine Hypothyroidism, acquired Expected: 09/23/2024, Expires: 12/23/2024 [facility] Comment on above: Expected: 09/23/2024, Expires: Start: 09-02-2024 Advance Directive Discussion Advance Directive Discussion [facility] Start: 05-03-2024 Covid-19 Vaccine () Covid-19 Vaccine () [facility] Start: 05-03-2024 Influenza vaccination Influenza Vaccine (#1) [facility] Start: 04-18-2024 DIABETES SCREEN DIABETES SCREEN [facility] Start: 01-14-2024 End: 04-14-2024 Cobalamin (Vitamin B12) [Mass/volume] in Serum or Plasma VITAMIN B12 BLOOD Lab Routine Hypothyroidism, acquired Expected: 01/14/2024, Expires: 04/14/2024 [facility] Work Phone: Comment on above: Expected: 01/14/2024, Expires: 4 Start: 10-16-2023 End: 01-15-2024 25-hydroxyvitamin D3 [Mass/volume] in Serum or Plasma VITAMIN D 25 HYDROXY Lab Routine Vitamin D deficiency Hypothyroidism, acquired Expected: 10/16/2023, Expires: 01/15/2024 [facility] Work Phone: Comment on above: Expected: 10/16/2023, Expires: 4 Start: 10-16-2023 End: 01-15-2024 Ascorbate [Mass/volume] in Serum or Plasma VITAMIN C Lab Routine Spontaneous bruising Hypothyroidism, acquired Expected: 10/16/2023, Expires: 01/15/2024 [facility] Work Phone: Comment on above: Expected: 10/16/2023, Expires: 4 Start: 10-16-2023 End: 01-15-2024 Comprehensive metabolic 2000 panel - Serum or Plasma COMP METABOLIC PANEL Lab Routine Hyperparathyroidism (HCC) Expected: 10/16/2023, Expires: 01/15/2024 [facility] Work Phone: Comment on above: Expected: 10/16/2023, Expires: 4 Start: 10-16-2023 End: 01-15-2024 Magnesium [Mass/volume] in Serum or Plasma MAGNESIUM BLD Lab Routine Frequent headaches Expected: 10/16/2023, Expires: 01/15/2024 [facility] Work Phone: Comment on above: Expected: 10/16/2023, Expires: Start: 10-16-2023 End: 01-15-2024 Parathyrin.intact [Mass/volume] in Serum or Plasma PTH INTACT BLD Lab Routine Hyperparathyroidism (HCC) Expected: 10/16/2023, Expires: 01/15/2024 [facility] Work Phone: Comment on above: Expected: 10/16/2023, Expires: 4 Start: 10-16-2023 End: 01-15-2024 Thyrotropin [Units/volume] in Serum or Plasma TSH BLD Lab Routine Hypothyroidism, acquired Expected: 10/16/2023, Expires: 01/15/2024 [facility] Work Phone: Comment on above: Expected: 10/16/2023, Expires: 4 Start: 10-16-2023 End: 01-15-2024 Thyroxine (T4) free [Mass/volume] in Serum or Plasma T4 FREE/FREE THYROX Lab Routine Hypothyroidism, acquired Expected: 10/16/2023, Expires: 01/15/2024 [facility] Work Phone: Comment on above: Expected: 10/16/2023, Expires: 4 Start: 10-16-2023 End: 01-15-2024 Triiodothyronine (T3) Free [Mass/volume] in Serum or Plasma T3 FREE BLD Lab Routine Hypothyroidism, acquired Expected: 10/16/2023, Expires: 01/15/2024 [facility] Work Phone: Comment on above: Expected: 10/16/2023, Expires: Start: 2023 Advance Directive Discussion Advance Directive Discussion [facility] Start: 2023 Pneumococcal Vaccine: 65+ (1 of 1 - PCV) Pneumococcal Vaccine: 65+ (1 of 1 - PCV) [facility] Start: 09-02-2023 Depression Assessment Depression Assessment [facility] Start: 08-02-2023 Patient discharge [facility] Start: 08-02-2023 Cardiac monitoring [facility] Start: 08-02-2023 Cardiac rehabilitation - phase 1 [facility] Start: 08-02-2023 Cardiac rehabilitation - phase 2 [facility] Start: 08-02-2023 End: 08-02-2023 Notification of physician [facility] Start: 08-02-2023 Oxygen therapy [facility] Start: 08-02-2023 Patient discharge [facility] Start: 08-02-2023 Systemic arterial pressure monitoring [facility] Start: 08-02-2023 Vascular disease risk assessment [facility] Start: 08-02-2023 Vital signs measurements [facility] Start: 08-02-2023 End: 08-02-2023 [facility] Start: 08-02-2023 Patient education [facility] Start: 08-02-2023 Provision of activity privileges [facility] Start: 08-02-2023 Pulse taking [facility] Start: 08-02-2023 End: 08-02-2023 Taking patient vital signs [facility] Start: 08-02-2023 Wound care [facility] Start: 08-02-2023 Admission procedure [facility] Start: 08-02-2023 Assessment of risk of venous thromboembolism [facility] Start: 08-02-2023 Insertion of catheter into peripheral vein [facility] Start: 08-02-2023 Measuring intake and output [facility] Start: 08-02-2023 Providing care according to standard [facility] Start: 08-02-2023 Patient discharge [facility] Start: 07-19-2023 Mammography [facility] Start: 07-19-2023 Screening for malignant neoplasm of breast Mammogram Screening [facility] Start: 07-12-2023 Hepatitis B surface antibody level LDL CHOLESTEROL [facility] Start: 07-10-2023 ANNUAL PCP TEAM CHRONIC DISEASE VISIT ANNUAL PCP TEAM CHRONIC DISEASE VISIT [facility] Start: 07-10-2023 BP CONTROLLED (<130/80) BP CONTROLLED (<130/80) [facility] in Start: 05-03-2023 Covid-19 Vaccine () Covid-19 Vaccine () [facility] Start: 05-03-2023 Influenza vaccination Influenza Vaccine (#1) [facility] Start: 09-02-2022 DEPRESSION ASSESSMENT DEPRESSION ASSESSMENT [facility] Start: 08-29-2022 Following clinical pathway protocol [facility] Start: 07-11-2022 End: 09-10-2022 Bacteria identified in Urine by Culture URINE CULTURE Microbiology Routine Dysuria Expected: 07/11/2022, Expires: 09/10/2022 [facility] Work Phone: Comment on above: Expected: 07/11/2022, Expires: 3 Start: 07-11-2022 End: 09-10-2022 Urinalysis complete panel - Urine URINALYSIS, WITH MICROSCOPIC Lab Routine Dysuria Expected: 07/11/2022, Expires: 09/10/2022 [facility] Work Phone: Comment on above: Expected: 07/11/2022, Expires: 3 Start: 05-03-2022 Influenza vaccination INFLUENZA (#1) [facility] Start: 04-18-2022 Adult depression screening assessment DEPRESSION SCREENING [facility] Start: 04-18-2022 ANNUAL PCP TEAM CHRONIC DISEASE VISIT ANNUAL PCP TEAM CHRONIC DISEASE VISIT [facility] Start: 04-18-2022 BP CONTROLLED (<130/80) BP CONTROLLED (<130/80) [facility] Start: 04-18-2022 Hepatitis B surface antibody level LDL CHOLESTEROL [facility] Start: 01-03-2022 COVID-19 VACCINE (4 - Booster for Moderna series) COVID-19 VACCINE (4 - Booster for Moderna series) [facility] Start: 10-31-2021 COVID-19 VACCINE (4 - Booster for Moderna series) COVID-19 VACCINE (4 - Booster for Moderna series) [facility] Start: 09-02-2021 DEPRESSION ASSESSMENT DEPRESSION ASSESSMENT [facility] Start: 06-24-2019 Mammography MAMMOGRAM [facility] Start: 2018 RSV Vaccine (1 - 1-dose 60+ series) RSV Vaccine (1 - 1-dose 60+ series) [facility] Start: 06-19-2018 End: 06-19-2018 Appointment Appointment [facility] Work Phone: Start: 06-18-2017 End: 06-18-2017 SEM MANAGER SEM MANAGER [facility] Work Phone: Start: 06-18-2017 End: 06-18-2017 Follow Up Appt 1 year Follow Up Appt 1 year [facility] Work Phone: Start: 03-13-2016 End: 03-13-2016 Follow Up Appt 1 year Follow Up Appt 1 year [facility] Work Phone: Start: 03-13-2016 End: 03-13-2016 MMM MMM [facility] Work Phone: Start: 03-01-2016 End: 08-16-2015 *Hepatic Function Panel *Hepatic Function Panel [facility] Work Phone: Start: 03-01-2016 End: 08-16-2015 Lipid panel [AGGREGATE] *Lipid Profile CC PCP [facility] Work Phone: Start: 12-29-2015 End: 03-06-2017 *Hepatic Function Panel *Hepatic Function Panel [facility] Work Phone: Start: 12-29-2015 End: 03-06-2017 Lipid panel [AGGREGATE] *Lipid Profile CC PCP [facility] Work Phone: Start: 08-16-2015 End: 08-16-2015 SEM MANAGER SEM MANAGER [facility] Work Phone: Start: 08-16-2015 End: 08-16-2015 Follow Up Appt 6 months Follow Up Appt 6 months [facility] Work Phone: Start: 07-05-2015 End: 07-05-2015 Follow Up Appt 6 weeks Follow Up Appt 6 weeks [facility] Work Phone: Start: 07-05-2015 End: 07-05-2015 MMM MMM [facility] Work Phone: Start: 06-16-2015 End: 06-29-2015 *Hepatic Function Panel *Hepatic Function Panel [facility] Work Phone: Start: 06-16-2015 End: 06-29-2015 Lipid panel [AGGREGATE] *Lipid Profile CC PCP [facility] Work Phone: Start: 12-07-2014 End: 12-15-2014 *BMP *BMP [facility] Work Phone: Start: 12-07-2014 End: 12-15-2014 *Hepatic Function Panel *Hepatic Function Panel [facility] Work Phone: Start: 12-07-2014 End: 12-07-2014 Follow Up Appt 6 months Follow Up Appt 6 months [facility] Work Phone: Start: 12-07-2014 End: 12-15-2014 Lipid panel [AGGREGATE] *Lipid Profile CC PCP [facility] Work Phone: Start: 12-07-2014 End: 12-07-2014 MMM MMM [facility] Work Phone: Start: 12-07-2014 End: 12-07-2014 Nuclear stress test -exercise Nuclear stress test -exercise [facility] Work Phone: Start: 07-03-2014 End: 12-15-2014 *Hepatic Function Panel *Hepatic Function Panel [facility] Work Phone: Start: 07-03-2014 End: 12-15-2014 Lipid panel [AGGREGATE] *Lipid Profile CC PCP [facility] Work Phone: Start: 01-27-2014 End: 01-27-2014 *Hepatic Function Panel *Hepatic Function Panel [facility] Work Phone: Start: 01-27-2014 End: 01-27-2014 Lipid panel [AGGREGATE] *Lipid Profile CC PCP [facility] Work Phone: Start: 12-08-2013 End: 12-08-2013 SEM MANAGER SEM MANAGER [facility] Work Phone: Start: 12-08-2013 End: 12-08-2013 Follow Up Appt 1 year Follow Up Appt 1 year [facility] Work Phone: Start: 08-05-2013 End: 08-05-2013 SEM MANAGER SEM MANAGER [facility] Work Phone: Start: 08-05-2013 End: 08-05-2013 Follow Up Appt 4 months Follow Up Appt 4 months [facility] Work Phone: Start: 05-13-2013 End: 08-05-2013 *Hepatic Function Panel *Hepatic Function Panel [facility] Work Phone: Start: 05-13-2013 End: 05-13-2013 Follow Up Appt 2 months Follow Up Appt 2 months [facility] Work Phone: Start: 05-13-2013 End: 08-05-2013 Lipid panel [AGGREGATE] *Lipid Profile CC PCP [facility] Work Phone: Start: 05-13-2013 End: 05-13-2013 MMM MMM [facility] Work Phone: Start: 05-06-2013 End: 05-06-2013 *BMP *BMP [facility] Work Phone: Start: 05-06-2013 End: 05-06-2013 CBC W Auto Differential panel - Blood *CBC without Diff [facility] Work Phone: Start: 05-06-2013 End: 05-13-2013 Chest x-ray X-Ray, Chest, PA & Lateral [facility] Work Phone: Start: 05-06-2013 End: 05-13-2013 SEM MANAGER SEM MANAGER [facility] Work Phone: Start: 05-06-2013 End: 05-13-2013 Ecg routine ecg w/least 12 lds w/i&r EKG (In office) [facility] Work Phone: Start: 05-06-2013 End: 05-06-2013 INR Coag RelTime (PPP) *PT/INR [facility] Work Phone: Start: 05-06-2013 End: 05-06-2013 Left Heart Cath Left Heart Cath [facility] Work Phone: Start: 2008 Pneumococcal Vaccine: 50+ (1 of 1 - PCV) Pneumococcal Vaccine: 50+ (1 of 1 - PCV) [facility] Start: 2008 SHINGRIX VACCINE (1 of 2) SHINGRIX VACCINE (1 of 2) [facility] Start: 2003 COLOGUARD (FIT-DNA) COLOGUARD (FIT-DNA) [facility] Start: [address] COLONOGRAPHY [facility] Start: 2003 FECAL OCCULT BLOOD FECAL OCCULT BLOOD [facility] Start: 2003 Screening for malignant neoplasm of colon [facility] Start: 2003 SIGMOIDOSCOPY SIGMOIDOSCOPY [facility] Start: 1977 Urine microalbumin profile [facility] Start: 1976 Anxiety Screening Anxiety Screening [facility] Start: 1976 Depression Screening Depression Screening [facility] Start: 1976 HIV SCREENING HIV SCREENING [facility] Start: 1976 HIV screening HIV Screening [facility] Bacteria identified in Unspecified specimen by Anaerobe culture [facility] Bacteria identified in Urine by Culture URINE CULTURE Microbiology Routine Dysuria 07/12/2022 9:09 AM EST [facility] Work Phone: Bacteria identified in Urine by Culture BACTERIAL CULTURE, URINE Microbiology Routine Dysuria 11/12/2024 1:45 PM EDT [facility] Work Phone: Catheterization of l eft heart [facility] End: 01-08-2025 DBT Breast - bilateral screening [facility] Work Phone: Comment on above: ONCE for 1 Occurrences starting 01/09/20 until 01/08/2025 End: 10-23-2025 DXA Skeletal system.axial Views for bone density DXA-AXIAL SKELETON Radiology Routine Osteopenia, senile Screening for osteoporosis Post-menopausal 1 Occurrences starting 09/23/2024 until 10/23/2025 [facility] Comment on above: 1 Occurrences starting 09/23/2024 until 10/23/2025 DXA Skeletal system. axial Views for bone density DXA-AXIAL SKELETON Radiology Routine Osteopenia, senile Screening for osteoporosis Post-menopausal 10/30/2024 9:23 AM EST [facility] Work Phone: ECG COMPLETE ECG COMPLETE ECG Routine Preoperative clearance 10/19/2024 9:21 AM EST [facility] Work Phone: End: 10-03-2024 IBRAHIMA SCREENING IBRAHIMA SCREENING Radiology Routine Encounter for screening mammogram for breast cancer 1 Occurrences starting 09/04/2023 until 10/03/2024 [facility] Work Phone: Comment on above: 1 Occurrences starting 09/04/2023 until 10/03/2024 MG Breast Screening IBRAHIMA SCREENIN G Radiology Routine Encounter for screening mammogram for breast cancer 11/06/2023 10:25 AM EST [facility] Work Phone: End: 10-23-2025 MG Breast Screening IBRAHIMA SCREENING Radiology Routine Encounter for screening mammogram for malignant neoplasm of breast 1 Occurrences starting 09/23/2024 until 10/23/2025 [facility] Work Phone: Comment on above: 1 Occurrences starting 09/23/2024 until 10/23/2025 Patient Education [facility] Work Phone: Patient referral [facility] [place] [place] Work Phone: End: 03-30-2023 Screening mammography bi 2-view breast inc cad IBRAHIMA SCREENING Radiology Routine Encounter for screening mammogram for breast cancer 1 Occurrences starting 02/28/2022 until 03/30/2023 [facility] Work Phone: Comment on above: 1 Occurrences starting 02/28/2022 until 03/30/2023 Urinalysis complete panel - Urine URINALYSIS, WITH MICROSCOPIC Lab Routine Dysuria 07/12/2022 9:09 AM EST [facility] Work Phone: URINALYSIS, REFLEX MICROSCOPIC URINALYSIS, REFLEX MICROSCOPIC Lab Routine Burning with urination 11/03/2024 12:26 PM HERMINIO [facility] Work Phone: End: 05-28-2026 US Lower extremity - left US FOOT/ANKLE SYNOVIAL SCREEN LEFT Radiology Routine Rheumatoid factor positive Arthralgia, unspecified joint 1 Occurrences starting 04/28/2025 until 05/28/2026 [facility] Comment on above: 1 Occurrences starting 04/28/2025 until 05/28/2026 End: 05-28-2026 US Lower extremity - right US FOOT/ANKLE SYNOVIAL SCREEN RIGHT Radiology Routine Rheumatoid factor positive Arthralgia, unspecified joint 1 Occurrences starting 04/28/2025 until 05/28/2026 [facility] Comment on above: 1 Occurrences starting 04/28/2025 until 05/28/2026 End: 05-28-2026 US Upper extremity - left US HAND/WRIST SYNOVIAL SCREEN LEFT Radiology Routine Rheumatoid factor positive Arthralgia, unspecified joint 1 Occurrences starting 04/28/2025 until 05/28/2026 [facility] Comment on above: 1 Occurrences starting 04/28/2025 until 05/28/2026 End: 05-28-2026 US Upper extremity - right US HAND/WRIST SYNOVIAL SCREEN RIGHT Radiology Routine Rheumatoid factor positive Arthralgia, unspecified joint 1 Occurrences starting 04/28/2025 until 05/28/2026 [facility] Comment on above: 1 Occurrences starting 04/28/2025 until 05/28/2026 Wound microscopy, cu lture and sensitivities [facility] XR Foot - bilateral AP and Lateral and oblique XR FOOT GENERAL 3V AP/LAT/OBL BILATERAL Radiology Routine Rheumatoid factor positive Arthralgia, unspecified joint 01/08/2025 9:06 AM EDT [facility] End: 12-11-2025 XR Foot - bilateral AP and Lateral and oblique XR FOOT GENERAL 3V AP/LAT/OBL BILATERAL Radiology Routine Rheumatoid factor positive Arthralgia, unspecified joint 1 Occurrences starting 11/11/2024 until 12/11/2025 [facility] Comment on above: 1 Occurrences starting 11/11/2024 until 12/11/2025 XR Hand - bilateral PA and Lateral and Oblique XR HAND GENERAL 3V PA/LAT/OBL BILATERAL Radiology Routine Rheumatoid factor positive Arthralgia, unspecified joint 01/08/2025 9:05 AM EDT [facility] Work Phone: End: 12-11-2025 XR Hand - bilateral PA and Lateral and Oblique XR HAND GENERAL 3V PA/LAT/OBL BILATERAL Radiology Routine Rheumatoid factor positive Arthralgia, unspecified joint 1 Occurrences starting 11/11/2024 until 12/11/2025 [facility] Work Phone: Comment on above: 1 Occurrences starting 11/11/2024 until 12/11/2025 End: 10-23-2025 XR Knee - bilateral 4 Views XR KNEE GENERAL 4V AP BOTH/PA BOTH/LAT/MERC BILATERAL Radiology Routine Chronic pain of both knees 1 Occurrences starting 09/23/2024 until 10/23/2025 [facility] Comment on above: 1 Occurrences starting 09/23/2024 until 10/23/2025 XR Knee - bilateral 4 Views XR KNEE GENERAL 4V AP BOTH/PA BOTH/LAT/MERC BILATERAL Radiology Routine Chronic pain of both knees 09/30/2024 10:31 AM EST [facility] Work Phone: [facility] Immunizations Immunization Date Immunization Notes Care Provider Inga marie 09-23-2024 pneumococcal Conjuga te, unspecified formulation Vijay Park DO Work Phone: [facility] 09-23-2024 pneumococcal conjuga te (PCV20) vaccine, 20 valent (PREVNAR 20) Vijay Park DO Work Phone: [facility] 08-04-2024 influenza, high dose seasonal, preservative-free Franck Desai MD Work Phone: [facility] 08-04-2024 influenza virus vaccine, unspecified formulation Liza Mauricio MA [facility] 07-31-2023 influenza, seasonal, injectable Vijay Park DO Work Phone: [facility] 07-31-2023 influenza virus vaccine, unspecified formulation Yari Moore APRN.LAST INSERTER Work Phone: [facility] 06-05-2022 COVID-19 booster vaccine, age 12+ yr, bivalent (Flipaste-BIONTECH) Vijay Park DO Work Phone: [facility] Work Phone: 06-05-2022 influenza, seasonal, injectable Vijay Park DO Work Phone: [facility] Work Phone: 06-05-2022 influenza virus vaccine, unspecified formulation Screen Wstr [facility] 09-05-2021 COVID-19 vaccine, ag e 12+ yr (Flipaste-BIONTAlter-G - PURPLE TOP) Yari Zurawick RECORDING STUDIO SET UP WORKER.LAST INSERTER Work Phone: [facility] 06-26-2021 influenza, seasonal, injectable Yari Zurawick RECORDING STUDIO SET UP WORKER.LAST INSERTER Work Phone: [facility] Work Phone: 06-28-2020 influenza, seasonal, injectable Yari Zurawick RECORDING STUDIO SET UP WORKER.LAST INSERTER Work Phone: [facility] Work Phone: 09-08-2019 influenza, seasonal, injectable Yari Zurawick RECORDING STUDIO SET UP WORKER.LAST INSERTER Work Phone: [facility] 09-26-2017 influenza, seasonal, injectable Yari Zurawick RECORDING STUDIO SET UP WORKER.LAST INSERTER Work Phone: [facility] Payers Date Payer Category Payer Self-pay [id number] 2023 Medicare [id number] 2023 Private Health Insurance [id number] 2023 Medicare [id number] 2023 [facility] [id number] 2019 Unknown [place] [place] PPO [id number] 2019-Present [phone] [address] [place] [id number] PPO [id number] 2019 Unknown [id number]. [id number] 2013 Unknown [id number] Unknown [facility] PACKAGE PLAN [id number] Unknown [id number]. 462 Unknown [id number] 2.16.840.1.156959.3.579.2. 462 Unknown [id number] 2.16.840.1.144038.3.579.2. 462 Unknown [id number] 2.16.840.1.402732.3.579.2. 462 Unknown [id number] 2.16.840.1.959442.3.579.2. 462 Unknown [id number] 2.16.840.1.676217.3.579.2. 462 Unknown [id number] 2.16.840.1.540600.3.579.2. 462 Unknown [id number] 2.16.840.1.056550.3.579.2. 462 Unknown [id number] 2.16.840.1.829141.3.579.2. 462 Unknown [id number] 2.16.840.1.601514.3.579.2. 462 Unknown [id number] 2.16.840.1.786141.3.579.2. 462 Unknown [id number] 2.16.840.1.673971.3.579.2. 462 Unknown [id number] 2.16.840.1.278919.3.579.2. 462 Unknown [id number] 2.16.840.1.788360.3.579.2. 462 Unknown [id number] 2.16.840.1.068889.3.579.2. 462 Unknown [id number] 2.16.840.1.157752.3.579.2. 462 Unknown [id number] 2.16.840.1.242819.3.579.2. 462 Social History Date Type Detail Facility Start: 10-02-2011 End: 02-02-2025 Tobacco smoking status NHIS Never smoked tobacco [facility] Start: 04-18-2021 End: 04-28-2025 Alcohol intake Current drinker of alcohol (finding) [facility] Start: 1960 Sex Assigned At Not on file [facility] Start: 10-02-2011 Tobacco use and exposure Smoke less tobacco non-user [facility] Start: 05-09-2022 End: 05-19-2022 Exposure to SARS-CoV-2 (event) Unable to assess [facility] Start: 07-10-2022 History SDOH Alcohol Frequency 3 [facility] Start: 07-10-2022 History SDOH Alcohol Std Drinks 1 [facility] Start: 07-10-2022 History SDOH Social Connections Phone 5 [facility] Start: 07-10-2022 History SDOH Social Connections Get Together 2 [facility] Start: 07-10-2022 History SDOH Physica l Activity DPW 6 [facility] Start: 07-10-2022 History SDOH Physica l Activity MPS 12 [facility] Start: 07-10-2022 History SDOH Financial 4 [facility] Start: 06-30-2022 End: 07-19-2022 Exposure to SARS-CoV-2 (event) Not sure [facility] Work Phone: Start: 06-28-2022 End: 08-02-2023 Tobacco smoking status NHIS Unknown if ever smoked [facility] Start: 1960 Sex Assigned At Female [facility] Start: 08-07-2020 End: 07-09-2022 History of Social function [facility] Start: 08-07-2020 End: 07-09-2022 Social connection and isolation panel [facility] Do you belong to any clubs or organizations such as alevism groups, unions, fraternal or athletic groups, or school groups? Yes [facility] Are you now , , , , never or living with a partner? [facility] How often to you hav e a drink containing alcohol? 2-4 times a month [facility] How many standard dr inks containing alcohol do you have on a typical day? 1 or 2 [facility] How often do you hav e 6 or more drinks on 1 occasion? Never [facility] How hard is it for y ou to pay for the very basics like food, housing, medical care, and heating Not very hard [facility] Start: 08-03-2012 Adult Depression Screening Assessment 0 [facility] Work Phone: Do you feel stress - tense, restless, nervous, or anxious, or unable to sleep at night because your mind is troubled all the time - these days [OSQ] Only a little [facility] (I/We) worried wheth er (my/our) food would run out before (I/we) got money to buy more. Never true [facility] In the past 12 month s, was there a time when you were not able to pay the mortgage or rent on time? No [facility] How often to you hav e a drink containing alcohol? Monthly or less [facility] Do you feel stress - tense, restless, nervous, or anxious, or unable to sleep at night because your mind is troubled all the time - these days [OSQ] To some extent [facility] Start: 11-13-2024 End: 12-18-2024 Sex Female (finding) [facility] NEGATED: Highlighted row Not [facility] Medical Equipment Procedure Code Equipment Code Equipment Origin al Text Equipment Identifier Dates Bunionectomy phalinx implant, medium FDA Start: 11-13-2024 Bunionectomy phalinx implant, small FDA Start: 11-13-2024 Bunionectomy phalinx implant, small FDA Start: 11-13-2024 Bunionectomy Orthopaedic bone staple, non-adjustable [id number] FDA Start: 11-13-2024 Bunionectomy phalinx implant, medium FDA Start: 11-13-2024 Bunionectomy phalinx implant, small FDA Start: 11-13-2024 Bunionectomy phalinx implant, small FDA Start: 11-13-2024 Bunionectomy phalinx implant, medium FDA Start: 11-13-2024 Bunionectomy phalinx implant, small FDA Start: 11-13-2024 Bunionectomy phalinx implant, small FDA Start: 11-13-2024 Bunionectomy phalinx implant, medium FDA Start: 11-13-2024 Bunionectomy phalinx implant, small FDA Start: 11-13-2024 Bunionectomy phalinx implant, small FDA Start: 11-13-2024 Bunionectomy phalinx implant, medium FDA Start: 11-13-2024 Bunionectomy phalinx implant, small FDA Start: 11-13-2024 Bunionectomy phalinx implant, small FDA Start: 11-13-2024 Bunionectomy phalinx implant, medium FDA Start: 11-13-2024 Bunionectomy phalinx implant, small FDA Start: 11-13-2024 Bunionectomy phalinx implant, small FDA Start: 11-13-2024 Bunionectomy phalinx implant, medium FDA Start: 11-13-2024 Bunionectomy phalinx implant, small FDA Start: 11-13-2024 Bunionectomy phalinx implant, small FDA Start: 11-13-2024 Bunionectomy phalinx implant, medium FDA Start: 11-13-2024 Bunionectomy phalinx implant, small FDA Start: 11-13-2024 Bunionectomy phalinx implant, small FDA Start: 11-13-2024 Bunionectomy phalinx implant, medium FDA Start: 11-13-2024 Bunionectomy phalinx implant, small FDA Start: 11-13-2024 Bunionectomy phalinx implant, small FDA Start: 11-13-2024 Drug-eluting cor onary artery stent, [id number] ymer-coated [id number] FDA Start: 08-02-2023 Goals Date Patient Goal Desired Activity /State Functional Status Date Assessment Result Facility 10-12-2024 Total score [AUDIT-C] 1 10/12/19 25 7:12 PM EST User, [email or web address] [facility] 10-12-2024 Within the last year , have you been humiliated or emotionally abused in other ways by your partner or ex-partner? No 10/12/2024 7:12 PM EST User, Mychart No [facility] 10-12-2024 Within the last year , have you been afraid of your partner or ex-partner? No 10/12/2024 7:12 PM EST User, Mychart [facility] 10-12-2024 Within the last year , have you been raped or forced to have any kind of sexual activity by your partner or ex-partner? No 10/12/2024 7:12 PM EST User, Jaimehart No [facility] 10-12-2024 Within the last year , have you been kicked, hit, slapped, or otherwise physically hurt by your partner or ex-partner? No 10/12/2024 7:12 PM EST User, Mychart No [facility] 10-12-2024 How often to you hav e a drink containing alcohol? Monthly or less 10/12/2024 7:12 PM EST User, [email or web address] Monthly or less [facility] 10-12-[address] inks containing alcohol do you have on a typical day? 1 or 2 10/12/2024 7:12 PM EST User, Mychart 1 or 2 [facility] 10-12-2024 How often do you hav e 6 or more drinks on 1 occasion? Never 10/12/2024 7:12 PM EST User, [email or web address] Never [facility] 02-01-2015 Are you deaf, or do you have serious difficulty hearing No 02/01/2015 1:55 PM ANDRYT Karen Mcmillan LPN No [facility] 02-01-2015 Are you blind, or do you have serious difficulty seeing, even when wearing glasses No 02/01/2015 1:55 PM EDT Karen Mcmillan LPN No [facility] 02-01-2015 Do you have serious difficulty walking or climbing stairs No 02/01/2015 1:55 PM EDT Karen Mcmillan LPN No [facility] 02-01-2015 Do you have difficul ty dressing or bathing No 02/01/2015 1:55 PM EDT Karen Mcmillan LPN No [facility] 02-01-2015 Because of a physica l, mental, or emotional condition, do you have difficulty doing errands alone such as visiting a physician's office or shopping No 02/01/2015 1:55 PM EDT Karen Mcmillan LPN No [facility] Mental Status Date Assessment Result Facility 02-02-2025 Cognitive function Level Of Cons ciousness Awake;Alert;Appropriate;Fol lows Commands [facility] Work Phone: 11-13-2024 Cognitive function Voice/Name [facility] Work Phone: 08-29-2022 Cognitive function Voice/Name [facility] Work Phone: 02-01-2015 Because of a physica l, mental, or emotional condition, do you have serious difficulty concentrating, remembering, or making decisions No 02/01/2015 1:55 PM EDT Karen Mcmillan LPN No [facility] Clinical Notes 09-10-2008 to 06-15-2025 Liza Mauricio MA - 05/17/2025 1:36 PM EDT Note Date & Type Note Facility 06-15-2025 Note HNO ID: [id number] Author: LIZA MAURICIO MA Service: ? Author Type: Registered Nurse Fetal Type: Progress Notes Filed: 06/15/2025 09:19 Note Text: POPULATION HEALTH NAVIGATION OUTREACH Action/FYI LVM Alter-GHART MESSAGE SENT Topic Due (Y or N) Comments Medicare Wellness y PCP Follow up Colorectal Cancer Screening y Controlling Blood Pressure A1C HCC Flu Vaccine y Care Everywhere Reviewed MyChart Activation Updated Appointment Note Reason for Outreach Care Gap/HCC or Scheduling Wellness Visits Care Gaps due: Medicare Annual Wellness Visit Colorectal Cancer Screening Flu Vaccine Patient Contacted: Unable or unnecessary to reach patient: Left message [employer] message sent Navigation Signature: Liza Mauricio MA June 15, 2025 9:16 AM [facility] 06-15-2025 Note Patient Outreach (NE TNAV) MAUREEN RODRIGUEZ ([id number]) 1960 F NFR Date Time Provider Department 06/15/25 LIZA MAURICIOV During your visit today, we recorded the following information about you: Liza Mauricio MA 06/15/2025 9:19 AM Signed POPULATION HEALTH NAVIGATION OUTREACH Action/FYI [facility] [employer] MESSAGE SENT Topic Due (Y or N) Comments Medicare Wellness y PCP Follow up Colorectal Cancer Screening y Controlling Blood Pressure A1C HCC Flu Vaccine y Care Everywhere Reviewed [employer] Activation Updated Appointment Note Reason for Outreach Care Gap/HCC or Scheduling Wellness Visits Care Gaps due: Medicare Annual Wellness Visit Colorectal Cancer Screening Flu Vaccine Patient Contacted: Unable or unnecessary to reach patient: Left message [employer] message sent Navigation Signature: Liza Mauricio MA June 15, 2025 9:16 AM Allergies As of Date: 06/15/2025 Noted Allergy Reaction BEES 12/24/2005 Comments: possibly GRASS POLLEN 03/14/2020 14 - Other: See Comments Comments: Sneezing, itchy eyes TRIAMTERENE-HYDROCHLOROTHIAZID 09/01/2010 2 - Rash Comments: photodermatitis Date Reviewed: 06/07/2025 Reviewed by: Jane Russo MA - Fully Assessed Reason for Visit: Population Health Navigation Outreach [3910] Cmt: JUAN WILSONBEHALEIGH CLARK PCSA Prescriptions as of 06/15/2025 - levothyroxine (SYNTHROID) 112 mcg tablet Take 1 tablet by mouth once daily. - pravastatin (PRAVACHOL) 10 mg tablet Take 10 mg by mouth once daily. - dexAMETHasone 0.1 % ophthalmic solution 1 Drop two times a day as needed. Into bilateral outer ear canal - diclofenac (VOLTAREN) 1 % topical gel Apply 0.5 g to affected area four times daily as needed. - GLUCOSAMINE HCL (GLUCOSAMINE, BULK, MISC) - MULTIVIT-MINERALS/FERROUS FUM (MULTI VITAMIN ORAL) Take by mouth. - estradiol (ESTRACE) 0.01 % (0.1 mg/gram) vaginal cream Use fingertip amount vaginally nightly x 2 weeks then every other night x 2 weeks then 1-3x weekly - metoprolol succinate XL, long acting, 25 mg 24 hr tablet Take 25 mg by mouth once daily. - Aspirin 81 mg Tab Take 81 mg by mouth. - Calcium Carbonate-Vitamin D3 500 mg(1,250mg) -600 unit Chew Take 1 tablet by mouth three times daily. Problem List As Of Date 06/15/2025 Noted Resolved BENIGN HYPERTENSION [I10] 12/24/2005 Hyperlipidemia, mixed [E78.2] 12/24/2005 IRRITABLE COLON [K58.9] 12/24/2005 URIN TRACT INFECTION NOS [N39.0] 12/24/2005 04/25/2007 OBESITY NOS [E66.9] 04/25/2007 IMPAIRED FASTING GLUCOSE [R73.01] 06/26/2007 HYPERLIPIDEMIA NEC/NOS [E78.5] 09/10/2008 09/10/2008 Acquired hypothyroidism [E03.9] 09/10/2008 Hyperparathyroidism [E21.3] 12/02/2012 Carpal tunnel syndrome [G56.00] 07/10/2013 Ramirez esophagus [K22.70] 07/10/2013 Biliary dyskinesia [K82.8] 07/10/2013 Dyslipidemia [E78.5] 08/11/2013 CAD (coronary artery disease) [I25.10] 08/11/2013 Primary osteoarthritis of both knees [M17.0] 08/03/2015 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] 08/03/2015 History of Ramirez's esophagus [Z87.19] 08/03/2015 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 [K22.70] 08/04/2015 Chronic pain of both knees [M25.561, M25.562, G*03/13/2017 Osteoarthritis of knees, bilateral [M17.0] Coronary artery disease involving modoc larson*10/28/2018 Hypothyroidism, acquired [E03.9] 10/28/2018 Screening for osteoporosis [Z13.820] 10/28/2018 Chronic right shoulder pain [M25.511, G89.29] 10/28/2018 Acquired deformity of toe [M20.60] 04/18/2021 Paresthesia of foot, bilateral [R20.2] 04/18/2021 Eczema of external ear, 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 Author Type: Registered Nurse Fetal Type: Progress Notes Filed: 06/07/2025 12:11 Note Text: Durolane injection into bilateral knees. Right knee LOT # [id number] EXP 08/01/2027 Left knee LOT # [id number] EXP 08/01/2027 Nalini Joe MA [facility] 06-07-2025 Note HNO ID: [id number] Author: DARIUSZ TSAI MD Service: ? Author Type: Physician Type: Progress Notes Filed: 06/07/2025 12:11 Note Text: AMB ROOMING INTAKE FLOWSHEET DATA Pain Pain Level: 3 Pain Location: Knee-Left (knee right) Description: Sharp, Dull Duration Amount of Time: 5 Duration Units: Weeks Frequency: Continuous Intervention/Comfort measure: Massage, Heat, Medication, Reposition Large Joint Arthro/Inj: bilateral knee joints 06/07/2025 11:03 AM The procedure site was prepped in the usual sterile fashion. Site: bilateral knee joints Medications (Right): 3 mL hyaluronate sodium, stabilized 60 mg/3 mL Medications (Left): 3 mL hyaluronate sodium, stabilized 60 mg/3 mL Outcome: Tolerated well, no immediate complications Post-injection instructions were reviewed with the patient and the patient voiced understanding of these instructions. Informed Consent Consent Obtained: Verbal [place] Protocol A moment to CARE was completed. SIGN IN Personnel directly involved with the procedure wore the appropriate PPE. Special Equipment: N/A Patient/Surrogate Stated/Verified: Patient name, Date of , Relevant allergies and Intended procedure TIME OUT Relevant labs, photos, and/or imaging studies have been reviewed. Consent documented and matches the intended procedure. Correct side/site marked and visible. Medications required for procedure verified. No fire risk assessment and interventions applicable. No implant(s) inserted. SIGN OUT No specimen collected. All instruments, equipment, possible retained foreign bodies accounted for. No post-procedure POC communication to the patient or surrogate applicable. No post-procedure POC communication to the patient's multidisciplinary team (including the bedside nurse for hospitalized patients) applicable. [facility] 05-17-2025 Note HNO ID: [id number] Author: LIZA MAURICIO MA Service: ? Author Type: Registered Nurse Fetal Type: Progress Notes Filed: 05/17/2025 13:42 Note Text: POPULATION HEALTH NAVIGATION OUTREACH Action/FYI [employer] MESSAGE SENT Topic Due (Y or N) Comments Medicare Wellness Y PCP Follow up Colorectal Cancer Screening Y Controlling Blood Pressure A1C HCC Flu Vaccine Care Everywhere Reviewed [employer] Activation Updated Appointment Note Reason for Outreach Care Gap/HCC or Scheduling Wellness Visits Care Gaps due: Medicare Annual Wellness Visit Colorectal Cancer Screening Patient Contacted: Unable or unnecessary to reach patient: Left message HCC related Navigation Signature: Liza Mauricio MA May 17, 2025 1:36 PM [facility] 05-17-2025 History of Present illness Narrative POPULATION HEALTH NAVIGATION OUTREACH Action/FYI [employer] MESSAGE SENT Topic Due (Y or N) Comments Medicare Wellness Y PCP Follow up Colorectal Cancer Screening Y Controlling Blood Pressure A1C HCC Flu Vaccine Care Everywhere Reviewed MyChart Activation Updated Appointment Note Reason for Outreach Care Gap/HCC or Scheduling Wellness Visits Care Gaps due: Medicare Annual Wellness Visit Colorectal Cancer Screening Patient Contacted: Unable or unnecessary to reach patient: Left message HCC related Navigation Signature: Liza Mauricio MA May 17, 2025 1:36 PM documented in this encounter [facility] 05-17-2025 Note Patient Outreach (NE TNAV) MAUREEN RODRIGUEZ ([id number]) 1960 F NFR Date Time Provider Department 05/17/25 LIZA MAURICIO NETNAV During your visit today, we recorded the following information about you: Liza Mauricio MA 05/17/2025 1:42 PM Signed POPULATION HEALTH NAVIGATION OUTREACH Action/FYI [employer] MESSAGE SENT Topic Due (Y or N) Comments Medicare Wellness Y PCP Follow up Colorectal Cancer Screening Y Controlling Blood Pressure A1C HCC Flu Vaccine Care Everywhere Reviewed [employer] Activation Updated Appointment Note Reason for Outreach Care Gap/HCC or Scheduling Wellness Visits Care Gaps due: Medicare Annual Wellness Visit Colorectal Cancer Screening Patient Contacted: Unable or unnecessary to reach patient: Left message HCC related Navigation Signature: Liza Mauricio MA May 17, 2025 1:36 PM Allergies As of Date: 05/17/2025 Noted Allergy Reaction BEES 12/24/2005 Comments: possibly GRASS POLLEN 03/14/2020 14 - Other: See Comments Comments: Sneezing, itchy eyes TRIAMTERENE-HYDROCHLOROTHIAZID 09/01/2010 2 - Rash Comments: photodermatitis Date Reviewed: 04/28/2025 Reviewed by: Nalini Joe MA - Fully Assessed Reason for Visit: Population Health Navigation Outreach [3910] Cmt: ACO STEVEBESARA EDUARDO PCSA Prescriptions as of 05/17/2025 - apixaban (ELIQUIS) 5 mg (74 tabs) .COMPLEX - levothyroxine (SYNTHROID) 112 mcg tablet Take 1 tablet by mouth once daily. - pravastatin (PRAVACHOL) 10 mg tablet Take 10 mg by mouth once daily. - dexAMETHasone 0.1 % ophthalmic solution 1 Drop two times a day as needed. Into bilateral outer ear canal - diclofenac (VOLTAREN) 1 % topical gel Apply 0.5 g to affected area four times daily as needed. - GLUCOSAMINE HCL (GLUCOSAMINE, BULK, MISC) - MULTIVIT-MINERALS/FERROUS FUM (MULTI VITAMIN ORAL) Take by mouth. - estradiol (ESTRACE) 0.01 % (0.1 mg/gram) vaginal cream Use fingertip amount vaginally nightly x 2 weeks then every other night x 2 weeks then 1-3x weekly - metoprolol succinate XL, long acting, 25 mg 24 hr tablet Take 25 mg by mouth once daily. - Aspirin 81 mg Tab Take 81 mg by mouth. - Calcium Carbonate-Vitamin D3 500 mg(1,250mg) -600 unit Chew Take 1 tablet by mouth three times daily. 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] 07/10/2013 Biliary dyskinesia [K82.8] 07/10/2013 Dyslipidemia [E78.5] 08/11/2013 CAD (coronary artery disease) [I25.10] 08/11/2013 Primary osteoarthritis of both knees [M17.0] 08/03/2015 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] 08/03/2015 History of Ramirez's esophagus [Z87.19] 08/03/2015 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 [K22.70] 08/04/2015 Chronic pain of both knees [M25.561, M25.562, G*03/13/2017 Osteoarthritis of knees, bilateral [M17.0] Coronary artery disease involving modoc larson*10/28/2018 Hypothyroidism, acquired [E03.9] 10/28/2018 Screening for osteoporosis [Z13.820] 10/28/2018 Chronic right shoulder pain [M25.511, G89.29] 10/28/2018 Acquired deformity of toe [M20.60] 04/18/2021 Paresthesia of foot, bilateral [R20.2] 04/18/2021 Eczema of external ear, 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] 04/18/2021 Osteopenia, senile [M85.80] 07/10/2022 Frequent headaches [R51.9] 10/16/2023 Vitamin D deficiency [E55.9] 10/16/2023 Spontaneous bruising [R23.3] 10/16/2023 Bilateral hand pain [M79.641, M79.642] 10/16/2023 Foot pain, bilateral [M79.671, M79.672] 10/16/2023 Abdominal pain, epigastric [R10.13] 09/23/2024 Bloating [R14.0] 09/23/2024 Post-menopausal [Z78.0] 09/23/2024 Encounter Status:Closed by LIZA MAURICIO on 05/17/25 [facility] 05-11-2025 Progress note [facility] 05-11-2025 Progress note Note Date/Time May 11, 2025 10:19am [facility] [address] [place] [address] OFFICE VISIT Date of Service: 05/11/25 MR#: [id number] Acct: [id number] Name: MAUREEN RODRIGUEZ ANN Rep #: [id number] : 1960 Provider: TOÑO Pete Age/Sex: 64/F Location: [facility] [place] Status: Signed HPI HPI History of Present Illness Details: Maureen Rodriguez is a 64-year-old female that presents here today for a cardiovascular follow-up. She has a history of moderate coronary artery disease, hypertension and hyperlipidemia. She underwent a cardiac catheterization in 2012 which demonstrated 60 to 70% stenosis of a large diagonal vessel. Underwent FFR which was 0.87. In 2017 she underwent a stress test which demonstrated no evidence of ischemia on a stress echo and then a stress test in June 2021 where he exercised for 7.5 METS with no evidence of ischemia. She had a Coronary CT which demonstrated Moderate calcification notedin the midsegment of the left anterior descending artery and mild calcification noted in the mid circumflex artery. She underwent a stress test in march, there was not obvious ischemia but she did have chest pain with exertion. This was concerning for angina. On account of continual symptoms despite a negative stress test, she underwent a heart catheterization on 08/02/2023 that showed leftmain is angiographically normal, LAD with moderate calcification, circumflex with mild luminal irregularities less than 30%, and RCA with mild luminal irregularities. She proceeded with drug-eluting stent to proximal LAD. Ejection fraction was reported at 60%. She acknowledges weekly sharp, chest pressure. This occurs 1-2 times per week. This is noted when she lies down in bed. She attributes this to her her diet. This is located midsternal and last for minutes. This improves with Tums or other antacid. She acknowledges palpitations that she describes as skipping andfluttering. She acknowledges right lower foot edema. She denies shortness breath activity, shortness of breath at rest, orthopnea, cough, or PND. She denies lightheadedness, dizziness, near-syncope, syncope, weakness, or fatigue. 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 Is patient in pain?: No Allergies triamterene (Triamterene) Allergy (Verified 05/11/25 09:51) Rash venom-honey bee (bee venom (honey bee)) Allergy (Verified 05/11/25 09:51) Swelling Medications ?Medication ?Instructions ?Recorded ?Confirmed ?Type multivitamin,by-hnxn-nvsykjuc 1 tab PO DAILY 06/25/19 05/11/25 History (Complete Multivitamin tablet) levothyroxine 112 mcg tablet 112 mcg PO DAILY 07/19/20 05/11/25 History nitroglycerin 0.4 mg sublingual 0.4 mg sublingual Q5-1 5M PRN chest 04/04/23 05/11/25 Rx tablet (Nitrostat) pain #25 tabs pravastatin 10 mg tablet 10 mg PO QHS #90 tabs 05/11/25 Rx calcium 600 mg (as 2 tab PO QDAY 08/10/2405/11 History carbonate)-vitamin D3 20 mcg (800 unit) tablet glucosamine 750 nj-vcoquorfmmx-llr 1 tab PO BID 05/11/25 History no1 644 mg-C 30 mg-luis 1 mg tablet (Osteo Bi-Flex Triple Strength) vitamin B complex 1 tab PO QDAY 08/10/2405/11 History pantoprazole 40 mg tablet,delayed 40 mg PO DAILY 11/1205/11/25 History release (Protonix) acetaminophen 500 mg capsule 500 mg PO Q6H PRN fever o r pain 11/13/24 05/11/25 Rx #30 caps ibuprofen 600 mg tablet 600 mg PO Q6H PRN fever or p ain 11/13/24 05/11/25 Rx #30 tabs aspirin 81 mg tablet,delayed 81 mg PO DAILY 05/11/25 History release cranberry 500 mg capsule 500 mg PO BID 05/11/2505/11 History elderberry fruit 200 mg capsule 200 mg PO DAILY PRN 05/11/25 History metoprolol succinate 25 mg 25 mg PO DAILY #90 tabs 05/2705/11/25 Rx tablet,extended release 24 hr turmeric root extract 500 mg 500 mg PO QDAY 05/11/25 0 05/11/25 History capsule Ejection fraction %: 60 Have you fallen in the past year?: No PFSH Medical History DVT (deep venous thrombosis) Wears glasses Post-menopausal Arthritis Fatty liver High cholesterol Easy bruising Back pain History of hiatal hernia Non-smoker Shortness of breath on exertion History of pain when walking History of stress test Cardiology follow-up encounter GERD (gastroesophageal reflux disease) Hypothyroidism Obesity Atherosclerosis of coronary artery of [place] heart without angina pectoris HLD (hyperlipidemia) Essential (primary) hypertension Surgical History History of bunionectomy of right great toe History of esophagogastroduodenoscopy (EGD) Hx of colonoscopy Hx of parathyroidectomy Stented coronary artery (08/02/23) History of left heart catheterization (05/07/13) Hx laparoscopic cholecystectomy History of LAVH History of carpal tunnel surgery Family History Mother CAD (coronary artery disease) Hypertension Father CAD (coronary artery disease) Hypertension CVA (cerebral vascular accident) Brother CAD (coronary artery disease) Stents Myocardial infarction, Onset Age: 64 Brother CAD (coronary artery disease) CABG Myocardial infarction Other Atherosclerosis of coronary artery of [place] heart without angina pectoris Essential (primary) hypertension HLD (hyperlipidemia) Social History Smoking Status: Never smoker alcohol intake: never substance use type: does not use caffeine: Yes what type of physical activity do you participate in: walking seatbelt use: sometimes do you feel safe at home: Yes 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 ROS Const Const: Negative for fatigue or weakness Eyes Eyes: Negative for change in vision ENT ENT: Negative for dizziness or balance problems Cardio Chest Pain: Yes Frequency: weekly (1-2 times per week) Character: sharp and other (pressure) Onset: other (when she lays down for bed, often relates to what she ate.) Location: mid sternal Duration: minutes Relieving: other (Tums or peptobismol) Palpitations: Yes (Gets the feeling that heart rate is regular but it is not when she checks ) feels like its: skipping and other (fluttering) Edema: Right (Relates to previous surgery on right foot.) Muscle aches with walking: None Resp Respiratory: Negative for SOB with activity, SOB at rest or SOB orthopnea\\SOB lying down GI GI: Negative nausea or heartburn : Negative for hematuria or frequent nighttime urination/ nocturia Musc Musc: Negative for balance problems Skin Skin: Negative non-healing lesions or rash Neuro Neuro: Negative for dizziness, lightheadedness, near syncope, syncope or weakness Endo Endo: Negative for fatigue Allergy Allergy/Immunology: Negative for rash Cardiology Exam Const Appearance: cooperative, healthy appearing, comfortable and no acute distress Nutritional Appearance: well nourished and obese Orientation: alert, awake and oriented x3 Head Head: normal to inspection Ears: hearing grossly normal bilaterally Nose: external nose normal Face and Sinus: face symmetric Mouth: moist mucous membranes Eyes General: appearance normal, both eyes and all related structures Eyelids: eyelids normal EOM: EOM intact bilaterally Neck Neck: normal visual inspection and no JVD Carotids: normal carotid upstroke Chest Chest inspection: normal inspection of the chest, symmetric chest movement and normal respiratory effort; Negative cough Auscultation: Bilateral: Clear to Auscultation Cardio Rate: regular rate Rhythm: regular rhythm Heart sounds: S1 normal and S2 normal; Negative rub, gallop or murmur GI GI: normal to inspection and obese Neuro General: patient alert, patient awake, patient oriented x3 and CN's II-XI intactbilaterally Skin Skin: no rashes or lesions noted Extremities Pulses: Normal: Right Posterior Tibial Pulse, Left Posterior Tibial Pulse, RightRadial Pulse and Left Radial Pulse Lower Extremity Edema: None: Bilateral Psych Psychological: normal affect Supplemental Info Supplemental Information Exercise myocardial perfusion stress test 04/01/2023: Conclusion: Normal exercise myocardial perfusion stress test at a moderate workload Preserved ejection fraction ejection fraction. Mild chest tightness of unclear significance. CTA 09/2022: Moderate calcification noted in the midsegment of the left anterior descending artery and mild calcification noted in the mid circumflex artery. Cardiac Cath 08/02/23 CONCLUSIONS Moderately severe mid LAD disease with mild calcification present and minimal disease in the rest of the vessels. RECOMMENDATIONS Referred for immediate PCI CORONARY ANGIOGRAPHY DOMINANCE: Right Dominant LEFT HEART ASSESSMENT Left Ventricular Ejection Fraction: by LV Gram 60 % Normal LV wall motion Normal Left Ventricular systolic function LEFT MAIN: Angiographically normal LEFT ANTERIOR DESCENDING ARTERY: Moderate calcification CIRCUMFLEX ARTERY: Mild calcification, Mild luminal irregularities less than 30% RIGHT CORONARY ARTERY: Mild luminal irregularities CONCLUSIONS Successful ADRIANE to pLAD Assessment and Plan Assessment and Plan (1) Stented coronary artery: Status: Chronic Comment: [place] 2.5 X 38 mm ADRIANE to pLAD 08/02/2023; Plan: Heart catheterization August 2023 resulted in drug-eluting stent to proximal LAD. At this time, her symptoms are thought to be noncardiac. She was encouraged to follow-up with primary care provider for GI related evaluation. She wishes to change metoprolol to tartrate to long-acting metoprolol succinate due to convenience and not having to split medication. New prescription sent for metoprolol succinate 25 mg p.o. daily. (2) Essential (primary) hypertension: Status: Chronic Comment: CONTROLLED WITH MED Plan: Patient's blood pressure is well-controlled. We will continue to monitor. We will not make any medication regimen changes. (3) HLD (hyperlipidemia): Status: Chronic Qualifiers: Hyperlipidemia type: mixed hyperlipidemia Qualified Code(s): E78.2 - Mixed hyperlipidemia Plan: Lipid panel on 03/18/2024 showed total cholesterol: 185, triglyceride: 104, HDL: 51, and LDL: 113. The patient was reminded of LDL goal of 70 and below for secondary prevention. We briefly reviewed potential for Zetia and/or PCSK9 inhibitor. This is being monitored with primary care provider. Risk factor andlifestyle modification encouraged and promoted. Her recent testing will be requested. Medications: New metoprolol succinate ER 25 mg PO DAILY 90 tabs 3RF Discontinued metoprolol tartrate Discontinued Reason: Order Changed 12.5 mg (1/2 x 25 mg) PO BID 90 tabs 3RF Plan Details Additional Comments: Thank you for allowing us to participate in the patients plan of care, if you have any questions please do not hesitate to call. Plan was reviewed with patient/family member along with red flag symptoms. Understanding was acknowledged. Questions were answered to apparent satisfaction. This note was generated using a voice recognition system and there may be incorrect words, spelling or punctuation that were not noted when reviewing the office note prior to saving. Portions of this documentation were copied and pasted from previous office visitnotes to provide a cohesive continuity of the history. The note has been reviewed, edited, and updated, as necessary. Follow Up: PCP Lipids (For Continuity of Care) 12-15 Month (SEM MANAGER) 6 Months (PAD TUFTER/PA) Coding Level of Care Code Off vis,est,level 4 Diagnoses Stented coronary artery Z95.5 Essential (primary) hypertension I10 Mixed hyperlipidemia E78.2 Hyperlipidemia type: mixed hyperlipidemia Coding Level of Care Code Off vis,est,level 4 Diagnoses Stented coronary artery Z95.5 Essential (primary) hypertension I10 Mixed hyperlipidemia E78.2 Hyperlipidemia type: mixed hyperlipidemia Clinical Quality Measures Falls Risk Screening/Assistive Devices Have you fallen in the past year?: No Cardiac Ejection fraction %: 60 05/11/25 1019 <Electronically signed by Charlie Pete N P PAD TUFTER-C> Date _ Charlie Pete NP PAD TUFTER-C Cosigner Signature: Date (if applicable) CC: Dr. Vijay Park, DO ~ [facility] Work Phone: [phone] Telephone encounter Note* Telephone Encounter - Susi Marion RN - 05/01/2025 9:25 AM EDT PATIENT NOTIFIED OF INFORMATION patient is feeling alil better but will see how things go and if not completely better will come to[facility] on saturday [facility]08-30-2025 Miscellaneous Notes* Telephone Encounter - Susi Marion RN - 05/01/2025 9:25 AM EDT PATIENT NOTIFIED OF INFORMATION patient is feeling alil better but will see how things go and if not completely better will come to[facility] on saturday * Telephone Encounter - Nadya Amos RN - 04/30/2025 4:42 PM EDT Message left for pt to call PCP office back for message below. Nadya Amos RN * Telephone Encounter - Vijay Park DO - 04/30/2025 4:38 PM EDT Her urine culture is normal appearing, no signs of UTI If she is still not feeling well, needs to be seen by a provider Vijay Park DO * Telephone Encounter - Nadya Amos RN - 04/29/2025 10:32 AM EDT Images from the original note were not included. Patient reports she was seen by Rheumatology yesterday and updated them of the off and on urinary sx's she has been having over the course of several weeks. Urine testing orders were placed by Rheumatology provider and completed by pt. UA result has returned. Culture still pending. Pt was advised by Rheumatology, as copied: Leigh Pal PA-C 04/29/25 9:53 AM Result Note Labs look Ok from Rheum standpoint. Urinalysis is mildly abnormal but not strongly convincing of infection. The culture is pending I would follow up with your primary care provider if you continue to have infectious symptoms. Leigh Pal PA-C Current sx's: -urine frequency -urine urgency -possible low grade temp but has not confirmed this -"a little pain" with urination -reports she feels like she can't concentrate as good as she usually does -reports she has chronic diarrhea but it has increased some -no weakness -no severe fatigue -no back/flank pain -denies confusion -no visible bleeding Patient asking if provider wishes to order anything for her at this time, while awaiting culture? Please advise patient. Nadya Amos RN [facility] Telephone encounter Note * Telephone Encounter - Nadya Amos RN - 04/30/2025 4:42 PM EDT Message left for pt to call PCP office back for message below. Nadya Amos RN [facility]08-29-2025 Telephone encounter Note* Telephone Encounter - Vijay Park DO - 04/30/2025 4:38 PM EDT Her urine culture is normal appearing, no signs of UTI If she is still not feeling well, needs to be seen by a provider Vijay Park DO [facility]08-28-2025 Telephone encounter Note* Telephone Encounter - Nadya Amos RN - 04/29/2025 10:32 AM EDT Images from the original note were not included. Patient reports she was seen by Rheumatology yesterday and updated them of the off and on urinary sx's she has been having over the course of several weeks. Urine testing orders were placed by Rheumatology provider and completed by pt. UA result has returned. Culture still pending. Pt was advised by Rheumatology, as copied: Leigh Pal PA-C 04/29/25 9:53 AM Result Note Labs look Ok from Rheum standpoint. Urinalysis is mildly abnormal but not strongly convincing of infection. The culture is pending I would follow up with your primary care provider if you continue to have infectious symptoms. Leigh Pal PA-C Current sx's: -urine frequency -urine urgency -possible low grade temp but has not confirmed this -"a little pain" with urination -reports she feels like she can't concentrate as good as she usually does -reports she has chronic diarrhea but it has increased some -no weakness -no severe fatigue -no back/flank pain -denies confusion -no visible bleeding Patient asking if provider wishes to order anything for her at this time, while awaiting culture? Please advise patient. Nadya Amos RN [facility]08-27-2025 Instructions* Patient Instructions* Leigh Pal PA-C - 04/28/2025 10:14 AM EDT Look over the counter ACT Dry mouth rinse ACT Lozenges Sugar free candies documented in this encounterKind[facility]08-27-2025 NoteHNO ID: [id number] Author: LEIGH PAL PA-C Service: ? Author Type: Physician Senior Research Scientist Type: Progress Notes Filed: 04/28/2025 10:56 Note Text: Rheumatology FOLLOW UP VISIT Date of Service: 04/28/2025 Patient: Maureen Rodriguez Medical Record: [id number] Primary Care Physician: Vijay Park DO Last Rheumatology visit: 01/21/2025 (with Leigh Pal) History of Present Illness Maureen Rodriguez is a 64 year old White female who presents on 04/28/2025 for an in-person visit for evaluation of established patient. She is currently taking diclofenac sodium. Maureen reports a current pain level of 2 . She describes the pain as Tingling. The pain is Intermittent . Interventions tried include Other: See comment (none). Maureen is RF positive - 21 (10/19/2024) and CCP negative - 13.5 (10/19/2024). Her most recent ASHLEY was negative (11/01/2014). Still has issues from R foot bunion surgery 11/13/24 done by external environmental air specialist DVT also in R leg in January after our last visit Only took 1 month of Eliquis. Now just taking baby aspirin BID due to cost. Ultrasound every few weeks to see progression Rash on R inner lower leg - non itchy. Resolving itself. Had Knee injectoins with some improvement in knee pain. Not complete esolution Planning to get another set of injections. Joint pain: bilateral knees, bilateral hands (PIPs) R ankle Frequent UTIs/ Dysuria. Symptoms come and go. Admits trying gluten avoiding diet, and feels joint pain does improve some. HPI per AI Maureen Rodriguez is a 64-year-old female with a history of bunion surgery, presenting for evaluation of persistent right foot and ankle pain, joint pain, recurrent UTIs, and xerostomia. Maureen underwent bunion surgery on 11/13, involving correction of three toes and the bunion on the right foot. Since the surgery, she has experienced persistent discomfort in the entire foot, describing it as "not right" but not severely painful. She attributes this to the surgery and notes that the issues began postoperatively. She also reports new-onset right ankle pain, which she believes is due to altered gait post-surgery. The pain is located on the top and side of the ankle and was not present before the surgery. She is currently seeing a foot and ankle specialist who has suggested steroid injections to aid in healing. On 02/02, she was diagnosed with a DVT in the right lower leg and was initially prescribed Eliquis for one month. Due to insurance issues, she switched to taking baby aspirin twice daily. She has been undergoing regular ultrasounds to monitor the DVT's progression. Recently, she developed a rash on the right inner leg, which she describes as red and dark but not pruritic. The rash appeared after a day of heat exposure and walking at a fair and is now resolving. She also reports ongoing joint pain in both knees and the PIP joints of her hands, with the middle finger being the most tender. She experiences morning stiffness lasting about 30 minutes, which improves with movement. She has been receiving knee injections, which have provided partial relief. She takes acetaminophen for pain management and cannot take NSAIDs due to her cardiac history and current anticoagulation therapy. She has a low positive rheumatoid factor but normal inflammatory markers in the past. Additionally, she reports recurrent UTI symptoms over the past few months, with symptoms currently present. She was treated for a UTI before her surgery. She also experiences significant xerostomia, which sometimes disrupts her sleep. She notes minimal dry eyes. She has a history of indigestion-type chest pain and is scheduled to see her engineering analyst next month. She has been trying to limit gluten intake and reports that it seems to help with her joint pain, though she has not been strictly gluten-free. Pain Evaluation 10/22/2024 01/18/2025 01/21/2025 02/16/2025 04/28/2025 Pain Evaluation Pain Score 3 2 4 2 Location -- Knee-Right Generalized Knee-Left -- Location Comment Bilateral knees Legs Description Aching;Sharp;Burning;Itching Aching;Sore;Stiffness Burning;Dull;Pressure;Stiffness;Tenderness Tingling Duration (#) 5 -- Duration (Timeframe) Years Months Months Frequency Continuous Continuous Continuous Intermittent Intervention Medication Heat;Massage;Pillow support;Positioning Medication;Heat;Massage;Pillow support Other: See comment Data saved with a previous flowsheet row definition Rheum/Ortho Arthrocentesis Injections (last 5) 02/18/2025 08:57 Injection History Medication - Right 6 mg betamethasone acetate-betamethasone sodium phosphate 6 mg/mL Medication - Left 6 mg betamethasone acetate-betamethasone sodium phosphate 6 mg/mL Location knee Knee Site bilateral knee joints Patient-Entered Data PROMIS Assessments 09/22/2024 01/18/2025 04/22/2025 PROMIS Global Health - (T-Scores - the mean of general population = 50. Five points i (more content not included)...[facility]08-27-2025 History of Present illness Narrative* Leigh Pal PA-C - 04/28/2025 9:42 AM EDT Images from the original note were not included. Rheumatology FOLLOW UP VISIT Date of Service: 04/28/2025 Patient: Maureen Rodriguez Medical Record: [id number] Primary Care Physician: Vijay Park DO Last Rheumatology visit: 01/21/2025 (with Leigh Pal) History of Present Illness Maureen Rodriguez is a 64 year old White female who presents on 04/28/2025 for an in-person visit forevaluation of established patient. She is currently taking diclofenac sodium. Maureen reports a current pain level of 2 . She describes the pain as Tingling. The pain is Intermittent . Interventions tried include Other: See comment (none). Maureen is RF positive - 21 (10/19/2024) and CCP negative - 13.5 (10/19/2024). Her most recent ASHLEY was negative (11/01/2014). Still has issues from R foot bunion surgery 11/13/24 done by external environmental air specialist DVT also in R leg in January after our last visit Only took 1 month of Eliquis. Now just taking baby aspirin BID due to cost. Ultrasound every few weeks to see progression Rash on R inner lower leg - non itchy. Resolving itself. Had Knee injectoins with some improvement in knee pain. Not complete esolution Planning to get another set of injections. Joint pain: bilateral knees, bilateral hands (PIPs) R ankle Frequent UTIs/ Dysuria. Symptoms come and go. Admits trying gluten avoiding diet, and feels joint pain does improve some. HPI orion MALCOLM Maureen Rodriguez is a 64-year-old female with a history of bunion surgery, presenting for evaluation of persistent right foot and ankle pain, joint pain, recurrent UTIs, and xerostomia. Maureen underwent bunion surgery on 11/13, involving correction of three toes and the bunion on the right foot. Since the surgery, she has experienced persistent discomfort in the entire foot, describingit as "not right" but not severely painful. She attributes this to the surgery and notes that the issues began postoperatively. She also reports new-onset right ankle pain, which she believes is due to altered gait post-surgery. The pain is located on the top and side of the ankle and was not present before the surgery. She is currently seeing a foot and ankle specialist who has suggested steroidinjections to aid in healing. On 02/02, she was diagnosed with a DVT in the right lower leg and was initially prescribed Eliquis for one month. Due to insurance issues, she switched to taking baby aspirin twice daily. She has been undergoing regular ultrasounds to monitor the DVT's progression. Recently, she developed a rash on the right inner leg, which she describes as red and dark but not pruritic. The rash appeared after a day of heat exposure and walking at a fair and is now resolving. She also reports ongoing joint pain in both knees and the PIP joints of her hands, with the middle finger being the most tender. She experiences morning stiffness lasting about 30 minutes, which improves with movement. She has been receiving knee injections, which have provided partial relief. She takes acetaminophen for pain management and cannot take NSAIDs due to her cardiac history and current anticoagulation therapy. She has a low positive rheumatoid factor but normal inflammatory markers in the past. Additionally, she reports recurrent UTI symptoms over the past few months, with symptoms currently present. She was treated for a UTI before her surgery. She also experiences significant xerostomia, which sometimes disrupts her sleep. She notes minimal dry eyes. She has a history of indigestion-type chest pain and is scheduled to see her engineering analyst next month. She has been trying to limit gluten intake and reports that it seems to help with her joint pain, though she has not been strictly gluten-free. Pain Evaluation 10/22/2024 01/18/2025 01/21/2025 02/16/2025 04/28/2025 Pain Evaluation Pain Score 3 2 4 2 Location -- Knee-Right Generalized Knee-Left -- Location Comment Bilateral knees Legs Description Aching;Sharp;Burning;Itching Aching;Sore;Stiffness Burning;Dull;Pressure;Stiffness;Tenderness Tingling Duration (#) 5 -- Duration (Timeframe) Years Months Months Frequency Continuous Continuous Continuous Intermittent Intervention Medication Heat;Massage;Pillow support;Positioning Medication;Heat;Massage;Pillow support Other: See comment Data saved with a previous flowsheet row definition Rheum/Ortho Arthrocentesis Injections (last 5) 02/18/2025 08:57 Injection History Medication - Right 6 mg betamethasone acetate-betamethasone sodium phosphate 6 mg/mL Medication - Left 6 mg betamethasone acetate-betamethasone sodium phosphate 6 mg/mL Location knee Knee Site bilateral knee joints Patient-Entered Data PROMIS Assessments 09/22/2024 01/18/2025 04/22/2025 PROMIS Global Health - (T-Scores - the mean of general population = 50. Five points is a clinicallymeaningful difference.) Physical T-Score 44.9 47.7 47.7 Mental T-Score 48.3 43.5 45.8 09/22/2024 01/18/2025 04/22/2025 PROMIS CAT Pain Interference PROMIS Pain Interference T-Score (range: 10 - 90) 60 (mild) 57 (mild) PROMIS Pain Interference Percentile 16 24 PROMIS Adult Short Form-Global Health Score (Mental) 48.3 (Very Good) 43.5 (Good) 45.8 (Good) 01/18/2025 04/22/2025 PROMIS CAT Fatigue PROMIS Fatigue T-Score 51 (within normal limits) 53 (within normal limits) PROMIS Fatigue Percentile 46 38 01/18/2025 04/22/2025 PROMIS PHYSICAL FUNCTION T-SCORE PROMIS Physical Function T-Score 43 (mild dysfunction) 42 (mild dysfunction) Physical Function Percentile 24 21 RAPID 3 [place] Activities of Daily Living 04/22/2025 9:20 PM 01/18/2025 8:22 PM Dress self? Without ANY difficulty Without ANY difficulty Get in and out of bed? With SOME difficulty Without ANY difficulty Walk outdoors? With SOME difficulty With SOME difficulty Wash and dry body? Without ANY difficulty With SOME difficulty Get in and out of car? With SOME difficulty With SOME difficulty RAPID 3 Disease Activity Weighed Score Levels: 0 - 1: Near Remission 1.3 - 2.0: Low Severity 2.3 - 4.0: Moderate Severity 4.3 - 10.0: High Severity 01/18/2025 04/22/2025 RAPID-3 Weighed Score RAPID 3 Weighed Score 2.44 (Moderate severity ) 2.72 (Moderate severity ) 04/22/2025 RAPID-3 Weighed Score Percentage Change Compared to Last Score 11.48 Review of Systems Review of Systems CONSTITUTION: Positive for: Recent weight change Negative for: Fever HEENT: Positive for: Dry mouth Negative for: Nosebleeds, Mouth sores and Trouble swallowing RESPIRATORY: Negative for: Cough, Shortness of breath and Pain with breathing GASTROINTESTINAL: Positive for: Diarrhea, Heartburn and Abdominal pain Negative for: Melena MUSCULOSKELETAL: Positive for: Arthralgias, Myalgias, Muscle weakness, Joint swelling and Morning Joint Stiffness NEUROLOGICAL: Positive for: Headaches and Numbness Negative for: Memory loss SKIN: Positive for: Hair loss Negative for: Rash, Skin changes and Nail changes EYES: Negative for: Eye pain, Eye redness, Eye dryness and visual disturbance CARDIOVASCULAR: Positive for: Chest pain (normal indigestion chest discomfort - Sees cardoilogy) Negative for: Leg swelling GENITOURINARY: Positive for: Dysuria Negative for: Hematuria HEMATOLOGIC/LYMPHATIC: Positive for: Swollen glands All other reviewed and negative other than HPI. Past Medical History PAST MEDICAL HISTORY Diagnosis Date Arrhythmia Ramirez's esophagus determined by endoscopy Coronary artery disease minimal, no surgical procedure, Dr. 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 Eczema of both external ears Essential hypertension, benign 2002 Hyperparathyroidism (HCC) Impaired fasting blood sugar 10/2014 a1c 5.7% Irritable bowel syndrome resolved mostly with cholecystectomy Osteoarthritis of knees, bilateral Other and unspecified hyperlipidemia Other premature beats 2003 symptomatic in past, atenolol helps Other specified acquired hypothyroidism 09/10/2008 Snoring Past Surgical History PAST SURGICAL HISTORY Procedure Laterality Date ; PARATHYROIDECTOMY/EXPL PARATHYRD 12/2012 BUNIONECTOMY, [place]IDUS-TYPE Right 11/13/2024 COLONOSCOPY FLX DX W/COLLJ SPEC WHEN PFRMD 07/08/2013 Colonoscopy COLONOSCOPY FLX DX W/COLLJ SPEC WHEN PFRMD 08/05/2015 EGD 07/08/2013 EGD TRANSORAL BIOPSY SINGLE/MULTIPLE 08/05/2015 HEART CATHETERIZATION 04/2013 LAPS SURG CHOLECYSTECTOMY W/CHOLANGIOGRAPHY 07/22/2013 NEUROPLASTY &/TRANSPOS MEDIAN NRV CARPAL TUNNE ~2005 Carpal tunnel decomp- right wrist NEUROPLASTY &/TRANSPOS MEDIAN NRV CARPAL TUNNE 08/19/2013 LEFT PT ED HEART AND VASCULAR 08/02/2023 1 stent heart VAGINAL HYSTERECTOMY UTERUS 250 GM/< 2004 due to bleeding, no cancer, still has both ovaries Family History FAMILY HISTORY Problem Relation Age of Onset Hypertension Mother Cancer Mother skin - not melanoma Thyroid Mother hyperthyroidism (had thyroidectomy) Coronary Artery Disease Mother Heart Mother other (Poly Myalgia Rheumatica (PMR)) Mother Hypertension Father Heart Father PA age 75 other (Dementia) Father Allergies Sister food Heart Brother heart attack Heart Brother PA age 56 Hypertension Brother other (nephrolithiasis) Brother x 2 Heart Maternal Grandmother CAD, age 79 other (Other) Paternal Grandmother age 74, unknown cause other (pancreatic cancer) Paternal Grandfather at 86 Heart Paternal Uncle PA x 2 uncles Prostate Cancer Paternal Uncle Social History SOCIAL HISTORY[1] Current Medications Current Outpatient Medications Medication Sig levothyroxine (SYNTHROID) 112 mcg tablet Take 1 tablet by mouth once daily. pravastatin (PRAVACHOL) 10 mg tablet Take 10 mg by mouth once daily. diclofenac (VOLTAREN) 1 % topical gel Apply 0.5 g to affected area four times daily as needed. GLUCOSAMINE HCL (GLUCOSAMINE, BULK, MISC) metoprolol succinate XL, long acting, 25 mg 24 hr tablet Take 25 mg by mouth once daily. Aspirin 81 mg Tab Take 81 mg by mouth. Calcium Carbonate-Vitamin D3 500 mg(1,250mg) -600 unit Chew Take 1 tablet by mouth three times daily. apixaban (ELIQUIS) 5 mg (74 tabs) .COMPLEX dexAMETHasone 0.1 % ophthalmic solution 1 Drop two times a day as needed. Into bilateral outer ear canal (Patient not taking: Reported on 10/19/2024) MULTIVIT-MINERALS/FERROUS FUM (MULTI VITAMIN ORAL) Take by mouth. estradiol (ESTRACE) 0.01 % (0.1 mg/gram) vaginal cream Use fingertip amount vaginally nightly x 2 weeks then every other night x 2 weeks then 1-3x weekly (Patient not taking: Reported on 02/18/2025) Labs Latest Ref Rng & Units 08/23/2020 04/18/2021 07/12/2022 10/19/2024 CBC WBC 3.70 - 11.00 k/uL 5.32 5.70 5.93 5.83 Hemoglobin 11.5 - 15.5 g/dL 14.6 14.5 14.8 14.9 Hematocrit 36.0 - 46.0 % 43.0 45.3 45.7 45.0 Platelet Count 150 - 400 k/uL 215 206 233 225 Abs Neut (ANC) 1.45 - 7.50 k/uL 3.19 3.50 3.47 3.19 Abs Lymph 1.00 - 4.00 k/uL 1.55 1.61 1.72 1.72 Latest Ref Rng & Units 07/12/2022 11/06/2023 03/18/2024 10/19/2024 CMP Sodium 136 - 144 mmol/L 138 137 140 Potassium 3.7 - 5.1 mmol/L 4.4 4.1 4.5 Chloride 98 - 107 mmol/L 103 104 105 CO2 22 - 30 mmol/L 26 25 24 Glucose 74 - 99 mg/dL 95 131 94 BUN 7 - 21 mg/dL 16 21 13 Creatinine 0.58 - 0.96 mg/dL 0.84 0.72 0.80 Calcium 8.5 - 10.2 mg/dL 9.7 10.0 9.9 AST 13 - 35 U/L 19 25 25 25 ALT 7 - 38 U/L 21 26 23 23 Alkaline Phosphatase 34 - 123 U/L 105 96 98 101 Latest Ref Rng & Units 11/28/2012 Uric Acid Uric Acid, 24 Hr Urine 250 - 750 mg/24hr 551.8 Latest Ref Rng & Units 09/10/2012 11/01/2014 03/09/2016 10/19/2024 ESR, WSR WSR 0 - 20 mm/hr 3 8 6 8 Latest Ref Rng & Units 11/01/2014 03/09/2016 10/19/2024 CRP CRP <0.9 mg/dL 0.1 0.1 <0.3 Latest Ref Rng & Units 10/02/2011 CK CK, Eduardo 30 - 220 U/L 117 Latest Ref Rng & Units 11/01/2014 10/19/2024 RF and CCP Rheumatoid Factor <16 IU/mL 16 21 CCP Antibody IgG Qualitative Negative Negative CCP Antibody, IgG <20 Units <15 Latest Ref Rng & Units 03/07/2017 Hepatitis Screen Hep C Antibody IA Negative Negative Latest Ref Rng & Units 11/01/2014 10/19/2024 Antibodies ASHLEY NEGAT Negative ASHLEY Titer NEGAT Negative ASHLEY Pattern Not applicable for negative result. DNA Antibody <=200 IU/mL 106 SSA Antibody Qual Negative Negative Anti-SSA <1.0 AI <0.2 Anti-SSB <1.0 AI <0.2 AUTOMATIC [employer]SOLE CUTTER Antibody QUAL Negative Negative Latest Ref Rng & Units 09/12/2016 07/12/2022 11/03/2024 11/12/2024 Urinalysis Protein, Urine Negative Negative Negative Trace PROTEIN UA (POCT) Negative mg/dL Negative RBC, Urine 0-2 /HPF 0-3 0-3 /HPF 11-20 /HPF Imaging EXTERNAL MRI R Forefoot: - (08/2021) MRI of the right forefoot: - First through fourth MTP plantar plates normal - Small focal tear of the plantar plate at the fifth metatarsal head on the tibial side - Moderate degenerative arthritis with a joint effusion in the first MTP joint, consistent with degenerative changes Last XR Foot - Impression Only XR FOOT GENERAL 3V AP/LAT/OBL BILATERAL Exam End: 01/08/2025 9:06 AM (Final result) Impression: IMPRESSION: Degenerative osteoarthritis. No radiographic evidence for inflammatory arthritis Inspector Rag Sorting: [facility] Transcribe Date/Time: Jan 13 2025 8:04A Dictated by : VERONA GROVES MD... Last XR Hand/Finger - Impression Only XR HAND GENERAL 3V PA/LAT/OBL BILATERAL Exam End: 01/08/2025 9:05 AM (Final result) Impression: IMPRESSION: Degenerative osteoarthritis. No radiographic evidence for inflammatory arthritis Inspector Rag Sorting: [facility] Transcribe Date/Time: Jan 13 2025 8:04A Dictated by : VERONA GROVES MD... Last XR Chest - Impression Only XR CHEST 2V FRONTAL/LAT Exam End: 08/22/2024 11:40 AM (Final result) Impression: IMPRESSION: No acute radiographic abnormality. ... Health Maintenance Current Immunizations Reviewed on 12/05/2012 Name Date COVID-19 vaccine, bivalent (PFIZER-BIONTECH) 06/05/2022 COVID-19 vaccine, monovalent (MODERNA) 12/22/2020, 11/24/2020 COVID-19 vaccine, monovalent (PFIZER-BIONTECH) 09/05/2021 influenza (HD-IIV3) vaccine 08/04/2024 influenza (IIV3) vaccine 07/31/2023, 06/05/2022, 06/26/2021, 06/28/2020, 09/08/2019, 09/26/2017 pneumococcal (PCV20) vaccine 09/23/2024 Physical Exam GENERAL APPEARANCE: Well groomed. Alert and oriented x 3. In no distress. VITAL SIGNS: BP 117/75 Pulse 55 Wt 204 lb 12.8 oz (92.9kg) SpO2 97% Physical Exam Constitutional: General: She is not in acute distress. Appearance: Normal appearance. She is not toxic-appearing. HENT: Head: Normocephalic and atraumatic. Eyes: General: No scleral icterus. Conjunctiva/sclera: Conjunctivae normal. Cardiovascular: Rate and Rhythm: Normal rate and regular rhythm. Pulses: Normal pulses. Heart sounds: Normal heart sounds. Pulmonary: Effort: Pulmonary effort is normal. Breath sounds: Normal breath sounds. No stridor. No wheezing or rales. Musculoskeletal: Cervical back: Normal range of motion and neck supple. No tenderness. Right lower leg: No edema. Left lower leg: No edema. Comments: + TTP to All PIP joints in R hand with bony enlargement. ? Synovial thickening. No swelling, synovitis, or TTP in left hand. FROM bilateral elbows no TTP FROM of shoulders bilaterally, No swelling, synovitis, or TTP. Bilateral knee ROM R ankle mildly swollen tender on dorsal aspect of ankle margin. Post-op findings of bunionectomy noted in R foot. Lymphadenopathy: Cervical: No cervical adenopathy. Skin: General: Skin is warm and dry. Findings: No rash. Comments: Hyperpigmentation in Inner lower medial lower leg. Neurological: General: No focal deficit present. Mental Status: She is alert. Mental status is at baseline. Psychiatric: Mood and Affect: Mood normal. Behavior: Behavior normal. Thought Content: Thought content normal. Judgment: Judgment normal. There is currently no [facility] Go to the Rheumatology activity andcomplete the [facility] exam. Joint Exam 04/28/2025 No joint exam has been documented for this visit Joint Exam Data (across time) Impression Diagnoses: (R76.8) Rheumatoid factor positive (primary encounter diagnosis) (M25.50) Arthralgia, unspecified joint (R21) Rash and nonspecific skin eruption (M17.0) Primary osteoarthritis of both knees (M19.071, M19.072) Primary osteoarthritis of both feet (M25.571, G89.29) Chronic pain of right ankle (M35.00) Sicca syndrome (HCC) # Rheumatoid factor positive (R76.8) # Arthralgia, unspecified joint (M25.50) Low-positive rheumatoid factor with arthralgias in the hands and knees, right ankle and R foot s/P bunionectomy in October; not convinced this is rheumatoid arthritis, as presentation is more consistent with osteoarthritis and no significant synovitis on exam, although R ankle I swollen. She did not receive aspiration of knee for fluid analysis with knee injection, but did have some benefit. - Order ultrasound of hands, feet, and ankles to assess for synovitis or soft tissue inflammation. - Repeat inflammatory markers to assess for evidence of systemic inflammation. - Discussed empiric trial of hydroxychloroquine; patient prefers objective evidence prior to starting new medication. - Discussed gluten sensitivity as a potential contributor to joint pain; advised to continue glutenavoidance if beneficial. # Rash and nonspecific skin eruption (R21) Rash on right lower leg is resolving; etiology unclear, but not classic for autoimmune disease. - Advised to seek dermatology evaluation if rash recurs. # Primary osteoarthritis of both knees (M17.0) # Primary osteoarthritis of both feet (M19.071) # Chronic pain of right ankle (M25.571) Osteoarthritis confirmed by imaging; chronic pain in right ankle likely related to osteoarthritis and altered gait post-surgery. - Continue orthopedic knee injections as needed. - Advised to continue follow-up with foot and ankle specialist for ongoing management. - Recommended trial of topical Voltaren gel for symptomatic relief. # Sicca syndrome (HCC) (M35.00) Dry mouth and mild dry eyes; Sjogren's syndrome labs previously checked. - Recommended [id number] dry mouth rinses (e.g., ACT) and sugar-free lozenges for symptomaticrelief. Plan Orders this visit: Office Visit on 04/28/25 US FOOT/ANKLE SYNOVIAL SCREEN RIGHT US FOOT/ANKLE SYNOVIAL SCREEN LEFT US HAND/WRIST SYNOVIAL SCREEN RIGHT US HAND/WRIST SYNOVIAL SCREEN LEFT SEDIMENTATION RATE, WESTERGREN C-REACTIVE PROTEIN BASIC METABOLIC PANEL HEP REMOTE PANEL BL URINALYSIS (WITH MICROSCOPIC) WITH CULTURE IF INDICATED CONSULT TO DERMATOLOGY Follow up 3-4 months with rheum physician as new patient to establish care, final recommendations. Happy to see in collaborative manner therafter I spent a total of 35 minutes on the date of the service which included preparing to see the patient, [id number] patient care, completing clinical documentation, obtaining and/or reviewing separately obtained history, performing a medically appropriate examination, counseling and educating the pat ient/family/caregiver, ordering medications, tests, or procedures, and communicating results to thepatient/family/caregiver. Leigh Pal PA-C Rheumatology Date: April 28, 2025 Time: 10:56 AM [1] Social History Tobacco Use Smoking status: Never Smokeless tobacco: Never Vaping Use Vaping status: Never Used Substance Use Topics Alcohol use: Yes Comment: very rarely Drug use: No documented in this encounterKindred [facility]08-11-2025 NoteHNO ID: [id number] Author: LIZA MAURICIO MA Service: ? Author Type: Registered Nurse Fetal Type: Progress Notes Filed: 04/12/2025 14:00 Note Text: POPULATION HEALTH NAVIGATION OUTREACH Action/FYI LVM [employer] MESSAGE SENT Topic Due (Y or N) Comments Medicare Wellness Y DUE AFTER 1- PCP Follow up Colorectal Cancer Screening Controlling Blood Pressure A1C HCC Flu Vaccine Care Everywhere Reviewed MyChart Activation Updated Appointment Note Reason for Outreach Care Gap/HCC or Scheduling Wellness Visits Care Gaps due: Next Year's Annual Wellness Visit Patient Contacted: Unable or unnecessary to reach patient: Left message [employer] message sent Navigation Signature: Liza Mauricio MA April 12, 2025 1:56 PMCMer[facility] History of Present illness Narrative* Liza Mauricio MA - 04/12/2025 1:56 PM EDT POPULATION HEALTH NAVIGATION OUTREACH Action/FYI LVM MYCHART MESSAGE SENT Topic Due (Y or N) Comments Medicare Wellness Y DUE AFTER 1- PCP Follow up Colorectal Cancer Screening Controlling Blood Pressure A1C HCC Flu Vaccine Care Everywhere Reviewed MyChart Activation Updated Appointment Note Reason for Outreach Care Gap/HCC or Scheduling Wellness Visits Care Gaps due: Next Year's Annual Wellness Visit Patient Contacted: Unable or unnecessary to reach patient: Left message [employer] message sent Navigation Signature: Liza Mauricio MA April 12, 2025 1:56 PM documented in this encounterKindred Healthcare08-11-2025 NotePatient Outreach (NETNAV) MAUREEN RODRIGUEZ ([id number]) 1960 F NFR Date Time Provider Department 04/12/25 LIZA MAURICIO NETNAV During your visit today, we recorded the following information about you: Liza Mauricio MA 04/12/2025 2:00 PM Signed POPULATION HEALTH NAVIGATION OUTREACH Action/FYI LVM MYCHART MESSAGE SENT Topic Due (Y or N) Comments Medicare Wellness Y DUE AFTER 1- PCP Follow up Colorectal Cancer Screening Controlling Blood Pressure A1C HCC Flu Vaccine Care Everywhere Reviewed MyChart Activation Updated Appointment Note Reason for Outreach Care Gap/HCC or Scheduling Wellness Visits Care Gaps due: Next Year's Annual Wellness Visit Patient Contacted: Unable or unnecessary to reach patient: Left message [employer] message sent Navigation Signature: Liza Mauricio MA April 12, 2025 1:56 PM Allergies As of Date: 04/12/2025 Noted Allergy Reaction BEES 12/24/2005 Comments: possibly GRASS POLLEN 03/14/2020 14 - Other: See Comments Comments: Sneezing, itchy eyes TRIAMTERENE-HYDROCHLOROTHIAZID 09/01/2010 2 - Rash Comments: photodermatitis Date Reviewed: 02/18/2025 Reviewed by: Jennifer Pearl MA - Fully Assessed Reason for Visit: Population Health Navigation Outreach [3910] Cmt: [facility] PCSA Prescriptions as of 04/12/2025 - apixaban (ELIQUIS) 5 mg (74 tabs) .COMPLEX - levothyroxine (SYNTHROID) 112 mcg tablet Take 1 tablet by mouth once daily. - pravastatin (PRAVACHOL) 10 mg tablet Take 10 mg by mouth once daily. - dexAMETHasone 0.1 % ophthalmic solution 1 Drop two times a day as needed. Into bilateral outer ear canal - diclofenac (VOLTAREN) 1 % topical gel Apply 0.5 g to affected area four times daily as needed. - GLUCOSAMINE HCL (GLUCOSAMINE, BULK, MISC) - MULTIVIT-MINERALS/FERROUS FUM (MULTI VITAMIN ORAL) Take by mouth. - estradiol (ESTRACE) 0.01 % (0.1 mg/gram) vaginal cream Use fingertip amount vaginally nightly x 2 weeks then every other night x 2 weeks then 1-3x weekly - metoprolol succinate XL, long acting, 25 mg 24 hr tablet Take 25 mg by mouth once daily. - Aspirin 81 mg Tab Take 81 mg by mouth. - Calcium Carbonate-Vitamin D3 500 mg(1,250mg) -600 unit Chew Take 1 tablet by mouth three times daily. Problem List As Of Date 04/12/2025 Noted Resolved BENIGN HYPERTENSION [I10] 12/24/2005 Hyperlipidemia, mixed [E78.2] 12/24/2005 IRRITABLE COLON [K58.9] 12/24/2005 URIN TRACT INFECTION NOS [N39.0] 12/24/2005 04/25/2007 OBESITY NOS [E66.9] 04/25/2007 IMPAIRED FASTING GLUCOSE [R73.01] 06/26/2007 HYPERLIPIDEMIA NEC/NOS [E78.5] 09/10/2008 09/10/2008 Acquired hypothyroidism [E03.9] 09/10/2008 Hyperparathyroidism [E21.3] 12/02/2012 Carpal tunnel syndrome [G56.00] 07/10/2013 Ramirez esophagus [K22.70] 07/10/2013 Biliary dyskinesia [K82.8] 07/10/2013 Dyslipidemia [E78.5] 08/11/2013 CAD (coronary artery disease) [I25.10] 08/11/2013 Primary osteoarthritis of both knees [M17.0] 08/03/2015 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] 08/03/2015 History of Ramirez's esophagus [Z87.19] 08/03/2015 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 [K22.70] 08/04/2015 Chronic pain of both knees [M25.561, M25.562, G*03/13/2017 Osteoarthritis of knees, bilateral [M17.0] Coronary artery disease involving modoc larson*10/28/2018 Hypothyroidism, acquired [E03.9] 10/28/2018 Screening for osteoporosis [Z13.820] 10/28/2018 Chronic right shoulder pain [M25.511, G89.29] 10/28/2018 Acquired deformity of toe [M20.60] 04/18/2021 Paresthesia of foot, bilateral [R20.2] 04/18/2021 Eczema of external ear, 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] 04/18/2021 Osteopenia, senile [M85.80] 07/10/2022 Frequent headaches [R51.9] 10/16/2023 Vitamin D deficiency [E55.9] 10/16/2023 Spontaneous bruising [R23.3] 10/16/2023 Bilateral hand pain [M79.641, M79.642] 10/16/2023 Foot pain, bilateral [M79.671, M79.672] 10/16/2023 Abdominal pain, epigastric [R10.13] 09/23/2024 Bloating [R14.0] 09/23/2024 Post-menopausal [Z78.0] 09/23/2024 Encounter Status:Closed by LIZA MAURICIO on 04/12/25[place] [address]-07-2025 NoteHNO ID: [id number] Author: LIZA MAURICIO MA Service: ? Author Type: Registered Nurse Fetal Type: Progress Notes Filed: 03/08/2025 13:56 Note Text: POPULATION HEALTH NAVIGATION OUTREACH Action/FYI LVM MYCHART MESSAGE SENT Topic Due (Y or N) Comments Medicare Wellness Y dUE AFTER 09-23-25 PCP Follow up Colorectal Cancer Screening Controlling Blood Pressure A1C HCC Flu Vaccine Care Everywhere Reviewed MyChart Activation Updated Appointment Note Reason for Outreach Care Gap/HCC or Scheduling Wellness Visits Care Gaps due: Next Year's Annual Wellness Visit Patient Contacted: Unable or unnecessary to reach patient: Left message [employer] message sent Navigation Signature: Liza Mauricio MA March 08, 2025 1:50 PMCMer[facility]07-07-2025 History of Present illness Narrative* Liza Mauricio MA - 03/08/2025 1:50 PM EDT POPULATION HEALTH NAVIGATION OUTREACH Action/I [facility] Alter-GHART MESSAGE SENT Topic Due (Y or N) Comments Medicare Wellness Y dUE AFTER 09-23-25 PCP Follow up Colorectal Cancer Screening Controlling Blood Pressure A1C HCC Flu Vaccine Care Everywhere Reviewed MyChart Activation Updated Appointment Note Reason for Outreach Care Gap/HCC or Scheduling Wellness Visits Care Gaps due: Next Year's Annual Wellness Visit Patient Contacted: Unable or unnecessary to reach patient: Left message [employer] message sent Navigation Signature: Liza Mauricio MA March 08, 2025 1:50 PM documented in this encounterKindred Healthcare07-07-2025 NotePatient Outreach (NETNAV) MAUREEN RODRIGUEZ ([id number]) 1960 F NFR Date Time Provider Department 03/08/25 LIZA MAURICIO During your visit today, we recorded the following information about you: Liza Mauricio MA 03/08/2025 1:56 PM Signed POPULATION HEALTH NAVIGATION OUTREACH Action/FYI [employer] MESSAGE SENT Topic Due (Y or N) Comments Medicare Wellness Y dUE AFTER 09-23-25 PCP Follow up Colorectal Cancer Screening Controlling Blood Pressure A1C HCC Flu Vaccine Care Everywhere Reviewed MyChart Activation Updated Appointment Note Reason for Outreach Care Gap/HCC or Scheduling Wellness Visits Care Gaps due: Next Year's Annual Wellness Visit Patient Contacted: Unable or unnecessary to reach patient: Left message [employer] message sent Navigation Signature: Liza Mauricio MA March 08, 2025 1:50 PM Allergies As of Date: 03/08/2025 Noted Allergy Reaction BEES 12/24/2005 Comments: possibly GRASS POLLEN 03/14/2020 14 - Other: See Comments Comments: Sneezing, itchy eyes TRIAMTERENE-HYDROCHLOROTHIAZID 09/01/2010 2 - Rash Comments: photodermatitis Date Reviewed: 02/18/2025 Reviewed by: Jennifer Pearl MA - Fully Assessed Reason for Visit: Population Health Navigation Outreach [3910] Cmt: JUAN CLARK PCSA Prescriptions as of 03/08/2025 - apixaban (ELIQUIS) 5 mg (74 tabs) .COMPLEX - levothyroxine (SYNTHROID) 112 mcg tablet Take 1 tablet by mouth once daily. - pravastatin (PRAVACHOL) 10 mg tablet Take 10 mg by mouth once daily. - dexAMETHasone 0.1 % ophthalmic solution 1 Drop two times a day as needed. Into bilateral outer ear canal - diclofenac (VOLTAREN) 1 % topical gel Apply 0.5 g to affected area four times daily as needed. - GLUCOSAMINE HCL (GLUCOSAMINE, BULK, MISC) - MULTIVIT-MINERALS/FERROUS FUM (MULTI VITAMIN ORAL) Take by mouth. - estradiol (ESTRACE) 0.01 % (0.1 mg/gram) vaginal cream Use fingertip amount vaginally nightly x 2 weeks then every other night x 2 weeks then 1-3x weekly - metoprolol succinate XL, long acting, 25 mg 24 hr tablet Take 25 mg by mouth once daily. - Aspirin 81 mg Tab Take 81 mg by mouth. - Calcium Carbonate-Vitamin D3 500 mg(1,250mg) -600 unit Chew Take 1 tablet by mouth three times daily. Problem List As Of Date 03/08/2025 Noted Resolved BENIGN HYPERTENSION [I10] 12/24/2005 Hyperlipidemia, mixed [E78.2] 12/24/2005 IRRITABLE COLON [K58.9] 12/24/2005 URIN TRACT INFECTION NOS [N39.0] 12/24/2005 04/25/2007 OBESITY NOS [E66.9] 04/25/2007 IMPAIRED FASTING GLUCOSE [R73.01] 06/26/2007 HYPERLIPIDEMIA NEC/NOS [E78.5] 09/10/2008 09/10/2008 Acquired hypothyroidism [E03.9] 09/10/2008 Hyperparathyroidism [E21.3] 12/02/2012 Carpal tunnel syndrome [G56.00] 07/10/2013 Ramirez esophagus [K22.70] 07/10/2013 Biliary dyskinesia [K82.8] 07/10/2013 Dyslipidemia [E78.5] 08/11/2013 CAD (coronary artery disease) [I25.10] 08/11/2013 Primary osteoarthritis of both knees [M17.0] 08/03/2015 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] 08/03/2015 History of Ramirez's esophagus [Z87.19] 08/03/2015 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 [K22.70] 08/04/2015 Chronic pain of both knees [M25.561, M25.562, G*03/13/2017 Osteoarthritis of knees, bilateral [M17.0] Coronary artery disease involving modoc larson*10/28/2018 Hypothyroidism, acquired [E03.9] 10/28/2018 Screening for osteoporosis [Z13.820] 10/28/2018 Chronic right shoulder pain [M25.511, G89.29] 10/28/2018 Acquired deformity of toe [M20.60] 04/18/2021 Paresthesia of foot, bilateral [R20.2] 04/18/2021 Eczema of external ear, 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] 04/18/2021 Osteopenia, senile [M85.80] 07/10/2022 Frequent headaches [R51.9] 10/16/2023 Vitamin D deficiency [E55.9] 10/16/2023 Spontaneous bruising [R23.3] 10/16/2023 Bilateral hand pain [M79.641, M79.642] 10/16/2023 Foot pain, bilateral [M79.671, M79.672] 10/16/2023 Abdominal pain, epigastric [R10.13] 09/23/2024 Bloating [R14.0] 09/23/2024 Post-menopausal [Z78.0] 09/23/2024 Encounter Status:Closed by LIZA MAURICIO on 03/08/25[facility] Evaluation note* Diagnosis Onset Date Resolution Status Admit Date DVT (deep venous thrombosis) acute February 24, 2025 10:58am [facility] Work Phone: 1(894) 857-306106-25-2025 Evaluation note* Diagnosis Onset Date Resolution Status Admit Date DVT (deep venous thrombosis) acute February 24, 2025 10:58am Essential (primary) hypertension chronic May 11 025 9:20am HLD (hyperlipidemia) chronic Sept ember 2024 9:20am Stented coronary artery August 02, 2023 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 Author Type: Physician Type: Progress Notes Filed: 02/18/2025 09:06 Note Text: Dariusz Tsai MD Department of Orthopaedics Orthopaedics [address] [address] Dept: [phone] Dept February 18, 2025 CHIEF COMPLAINT: Follow Up and Knee Pain of the Right Knee and Follow Up and Knee Pain of the Left Knee (17 weeks post visit OA bilateral knees) HPI: HPI Patient here for follow up OA bilateral knees. Patient recently had foot surgery and was positive for DVT in her right leg on 02/02. She is currently on Eliquis. Patient wants to discuss having cortisone injections. Taking Tylenol for the pain and helps dull the pain. ASSESSMENT: M25.561, M25.562, G89.29 Chronic pain of both knees (primary encounter diagnosis) M17.0 Primary osteoarthritis of both knees I82.4Y9 Acute deep vein thrombosis (DVT) of proximal vein of lower extremity, unspecified laterality (HCC) Z79.01 Anticoagulated on Eliquis PLAN: Patient would Like to try cortisone injections today. We discussed the possibility of viscosupplementation as well. OBJECTIVE: Ms. Maureen Rodriguez is a pleasant 64 year old in no apparent distress. Gen:There were no vitals taken for this visit. nl development, non obese, no deformities ENT: Normocephalic, normal hearing, moist mucosa CV: Pulses:DP/PT= 2+ and symmetric, capillary refill < 2 secs, no peripheral edema/varicosities Skin: no rash, bruising or lesions. Good turgor. Psych: cooperative and appropriate, alert and oriented x 3, good mood and affect. Musculoskeletal: Mild worsening of her varus, TTP over the medial joint lines, scant, BL effusions. In addition to the comprehensive evaluation, assessment and plan outlined above, and as a distinct and separate element to the visit today, separate from her post-op DVT, we have made the determination to proceed with an injection to aid in the management of the patient's condition. We discussed the risks, benefits, alternatives and expected outcomes of this injection in detail, and the patient agreed to proceed. The procedure was performed as detailed below. Large Joint Arthro/Inj: bilateral knee joints 02/18/2025 8:57 AM The procedure site was prepped in the usual sterile fashion. Site: bilateral knee joints Medications (Right): 6 mg betamethasone acetate-betamethasone sodium phosphate 6 mg/mL Medications (Left): 6 mg betamethasone acetate-betamethasone sodium phosphate 6 mg/mL Anesthetics (Right): 4 mL lidocaine (PF) 10 mg/mL (1 %) Anesthetics (Left): 4 mL lidocaine (PF) 10 mg/mL (1 %) Outcome: Tolerated well, no immediate complications Post-injection instructions were reviewed with the patient and the patient voiced understanding of these instructions. Informed Consent Consent Obtained: Verbal [place] Protocol A moment to CARE was completed. SIGN IN Personnel directly involved with the procedure wore the appropriate PPE. Special Equipment: N/A Patient/Surrogate Stated/Verified: Patient name, Date of , Relevant allergies and Intended procedure TIME OUT Relevant labs, photos, and/or imaging studies have been reviewed. Consent documented and matches the intended procedure. Correct side/site marked and visible. Medications required for procedure verified. No fire risk assessment and interventions applicable. No implant(s) inserted. SIGN OUT No specimen collected. All instruments, equipment, possible retained foreign bodies accounted for. No post-procedure POC communication to the patient or surrogate applicable. No post-procedure POC communication to the patient's multidisciplinary team (including the bedside nurse for hospitalized patients) applicable. 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 Eczema of both external ears Essential hypertension, benign 2002 Hyperparathyroidism (HCC) Impaired fasting blood sugar 10/2014 a1c 5.7% Irritable bowel syndrome resolved mostly with cholecystectomy Osteoarthritis of knees, bilateral Other and unspecified hyperlipidemia Other premature beats 2002 symptomatic in past, atenolol helps Other specified acquired hypothyroidism 09/10/2008 Snoring Past Surgical History: PAST SURGICAL HISTORY Procedure Laterality Date ; PARATHYROIDECTOMY/EXPL PARATHYRD 12/2012 BUNIONECTOMY, LAPIDUS-TYPE Right 11/13/2024 COLONOSCOPY FLX DX W/COLLJ SPEC WHEN PFRMD 07/08/2013 Colonoscopy COLONOSCOPY FLX DX W/COLLJ SPEC WHEN PFRMD 08/05/2015 EGD 07/08/2013 EGD TRANSORAL BIOPSY SINGLE/MULTIPLE 08/05/2015 HEART CATHETERIZATION 04/2013 LAPS SURG CHOLECYSTECTOMY W/CHOLANGIOGRAPHY 07/22/2013 NEUROPLASTY AND/TRANSPOS MEDIAN NRV CARPAL TUNNE ~2005 Carpal (more content not included)...[facility]06-19-2025 History of Present illness Narrative* Dariusz Tsai MD - 02/18/2025 7:59 AM EDTAssociated Order(s): Large Joint Arthro/Inj: bilateral knee joints Post-Procedure Diagnose(s): Chronic pain of both knees; Primary osteoarthritis of both knees Dariusz Tsai MD Department of Orthopaedics Orthopaedics [address] [address] Dept: [phone] Dept February 18, 2025 CHIEF COMPLAINT: Follow Up and Knee Pain of the Right Knee and Follow Up and Knee Pain of the Left Knee (17 weeks post visit OA bilateral knees) HPI: HPI Patient here for follow up OA bilateral knees. Patient recently had foot surgery and was positive for DVT in her right leg on 02/02. She is currently on Eliquis. Patient wants to discuss having cortisone injections. Taking Tylenol for the pain and helps dull the pain. ASSESSMENT: M25.561, M25.562, G89.29 Chronic pain of both knees (primary encounter diagnosis) M17.0 Primary osteoarthritis of both knees I82.4Y9 Acute deep vein thrombosis (DVT) of proximal vein of lower extremity, unspecified laterality (HCC) Z79.01 Anticoagulated on Eliquis PLAN: Patient would Like to try cortisone injections today. We discussed the possibility of viscosupplementation as well. OBJECTIVE: Ms. Maureen Rodriguez is a pleasant 64 year old in no apparent distress. Gen:There were no vitals taken for this visit. nl development, non obese, no deformities ENT: Normocephalic, normal hearing, moist mucosa CV: Pulses:DP/PT= 2+ and symmetric, capillary refill < 2 secs, no peripheral edema/varicosities Skin: no rash, bruising or lesions. Good turgor. Psych: cooperative and appropriate, alert and oriented x 3, good mood and affect. Musculoskeletal: Mild worsening of her varus, TTP over the medial joint lines, scant, BL effusions. In addition to the comprehensive evaluation, assessment and plan outlined above, and as a distinct and separate element to the visit today, separate from her post-op DVT, we have made the determination to proceed with an injection to aid in the management of the patient's condition. We discussed the risks, benefits, alternatives and expected outcomes of this injection in detail, and the patient agreed to proceed. The procedure was performed as detailed below. Large Joint Arthro/Inj: bilateral knee joints 02/18/2025 8:57 AM The procedure site was prepped in the usual sterile fashion. Site: bilateral knee joints Medications (Right): 6 mg betamethasone acetate-betamethasone sodium phosphate 6 mg/mL Medications (Left): 6 mg betamethasone acetate-betamethasone sodium phosphate 6 mg/mL Anesthetics (Right): 4 mL lidocaine (PF) 10 mg/mL (1 %) Anesthetics (Left): 4 mL lidocaine (PF) 10 mg/mL (1 %) Outcome: Tolerated well, no immediate complications Post-injection instructions were reviewed with the patient and the patient voiced understanding of these instructions. Informed Consent Consent Obtained: Verbal [place]oy Protocol A moment to CARE was completed. SIGN IN Personnel directly involved with the procedure wore the appropriate PPE. Special Equipment: N/A Patient/Surrogate Stated/Verified: Patient name, Date of , Relevant allergies and Intended procedure TIME OUT Relevant labs, photos, and/or imaging studies have been reviewed. Consent documented and matches the intended procedure. Correct side/site marked and visible. Medications required for procedure verified. No fire risk assessment and interventions applicable. No implant(s) inserted. SIGN OUT No specimen collected. All instruments, equipment, possible retained foreign bodies accounted for. No post-procedure POC communication to the patient or surrogate applicable. No post-procedure POC communication to the patient's multidisciplinary team (including the bedside nurse for hospitalized patients) applicable. 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 Eczema of both external ears Essential hypertension, benign 2002 Hyperparathyroidism (HCC) Impaired fasting blood sugar 10/2014 a1c 5.7% Irritable bowel syndrome resolved mostly with cholecystectomy Osteoarthritis of knees, bilateral Other and unspecified hyperlipidemia Other premature beats 2003 symptomatic in past, atenolol helps Other specified acquired hypothyroidism 09/10/2008 Snoring Past Surgical History: PAST SURGICAL HISTORY Procedure Laterality Date ; PARATHYROIDECTOMY/EXPL PARATHYRD 12/2012 BUNIONECTOMY, LAPIDUS-TYPE Right 11/13/2024 COLONOSCOPY FLX DX W/COLLJ SPEC WHEN PFRMD 07/08/2013 Colonoscopy COLONOSCOPY FLX DX W/COLLJ SPEC WHEN PFRMD 08/05/2015 EGD 07/08/2013 EGD TRANSORAL BIOPSY SINGLE/MULTIPLE 08/05/2015 HEART CATHETERIZATION 04/2013 LAPS SURG CHOLECYSTECTOMY W/CHOLANGIOGRAPHY 07/22/2013 NEUROPLASTY &/TRANSPOS MEDIAN NRV CARPAL TUNNE ~2005 Carpal tunnel decomp- right wrist NEUROPLASTY &/TRANSPOS MEDIAN NRV CARPAL TUNNE 08/19/2013 LEFT PT ED HEART AND VASCULAR 08/02/2023 1 stent heart VAGINAL HYSTERECTOMY UTERUS 250 GM/< 2004 due to bleeding, no cancer, still has both ovaries Medications: Current Outpatient Medications Medication Sig apixaban (ELIQUIS) 5 mg (74 tabs) .COMPLEX levothyroxine (SYNTHROID) 112 mcg tablet Take 1 tablet by mouth once daily. pravastatin (PRAVACHOL) 10 mg tablet Take 10 mg by mouth once daily. diclofenac (VOLTAREN) 1 % topical gel Apply 0.5 g to affected area four times daily as needed. GLUCOSAMINE HCL (GLUCOSAMINE, BULK, MISC) MULTIVIT-MINERALS/FERROUS FUM (MULTI VITAMIN ORAL) Take by mouth. metoprolol succinate XL, long acting, 25 mg 24 hr tablet Take 25 mg by mouth once daily. Aspirin 81 mg Tab Take 81 mg by mouth. (Patient taking differently: Take 81 mg by mouth. On Hold) Calcium Carbonate-Vitamin D3 500 mg(1,250mg) -600 unit Chew Take 1 tablet by mouth three times daily. dexAMETHasone 0.1 % ophthalmic solution 1 Drop two times a day as needed. Into bilateral outer ear canal (Patient not taking: Reported on 10/19/2024) estradiol (ESTRACE) 0.01 % (0.1 mg/gram) vaginal cream Use fingertip amount vaginally nightly x 2 weeks then every other night x 2 weeks then 1-3x weekly (Patient not taking: Reported on 02/18/2025) No current facility-administered medications for this visit. Allergies: Bees, Grass Pollen, and Triamterene-Hydrochlorothiazid ROS: General (negative for fatigue, malaise, weight loss/gain) HEENT (negative for headache, earache, recent vision changes, sinus pain, sore throat) Respiratory (no recent shortness of breath, hemoptysis) CV (negative for chest tightness, palpitations) Musculoskeletal (see HPI) Psych (no depression, anxiety) Dariusz Tsai MD [facility] Medical Records Department [address] [place] [address] Emergency Department Summary 02/02/25 MR#: [id number] Acct: [id number] Name: MAUREEN RODRIGUEZ Rep #:[id number] : 1960 64 From: Jason Philip MD PCP: Dr. Vijay Park, DO Status:RE G ER Location: ED HPI History of Present Illness Chief Complaint: Edema Narrative Narrative: Six 4-year-old female past medical history of coronary artery disease with stenting, states she hadfoot surgery by Dr. Brown 2 months ago. Over the last few weeks she may have started having increased swelling of her right lowerextremity as she has been more immobile. She denies any chest pain or shortnessof breath. She went saw her adobe developer today who wrote for outpatient ultrasound. She presents to the emergency department with positive DVT study. It was reported that the right peroneal vein is dilated noncompressible from themid calf to the ankle. The proximal portion is compressible. [facility] Medical History Wears glasses Post-menopausal Arthritis Fatty liver High cholesterol Easy bruising Back pain History of hiatal hernia Non-smoker Shortness of breath on exertion History of pain when walking History of stress test Cardiology follow-up encounter GERD (gastroesophageal reflux disease) Hypothyroidism Obesity Atherosclerosis of coronary artery of mod[place] heart without angina pectoris HLD (hyperlipidemia) Essential (primary) hypertension Home Medications ?Medication ?Instructions ?Recorded ?Last Taken ?Type multivitamin,uy-doth-ijjtzwba 1 tab PO DAILY 06/25/19 11/12/24 History (Complete Multivitamin tablet) levothyroxine 112 mcg tablet 112 mcg PO DAILY 07/19/20 11/13/24 History nitroglycerin 0.4 mg sublingual 0.4 mg sublingual Q5-1 5M PRN chest 04/04/23 Unknown Rx tablet (Nitrostat) pain #25 tabs metoprolol tartrate 25 mg tablet 12.5 mg (1/2 x 25 mg) PO BID #90 07/29/24 11/13/24 Rx tabs pravastatin 10 mg tablet 10 mg PO QHS #90 tabs 11/12/24 Rx calcium 600 mg (as 2 tab PO QDAY 08/10/2411/12 History carbonate)-vitamin D3 20 mcg (800 unit) tablet glucosamine 750 qw-wwjtadlepwp-kvh 1 tab PO BID 11/12/24 History no1 644 mg-C 30 mg-luis 1 mg tablet (Osteo Bi-Flex Triple Strength) turmeric root extract 500 mg 500 mg PO BID 08/10/24 History capsule vitamin B complex 1 tab PO QDAY 08/10/2411/12 History elderberry fruit 200 mg capsule 200 mg PO DAILY 11/11/24 History pantoprazole 40 mg tablet,delayed 40 mg PO DAILY 11/1211/13/24 History release (Protonix) zinc gluconate 50 mg tablet 50 mg PO DAILY 11/12/24 History acetaminophen 500 mg capsule 500 mg PO Q6H PRN fever o r pain 11/13/24 Unknown Rx #30 caps aspirin 81 mg tablet,delayed 162 mg (2 x 81 mg) PO BELEN LY 14 11/13/24 Unknown Rx release days #28 tabs ibuprofen 600 mg tablet 600 mg PO Q6H PRN fever or p ain 11/13/24 Unknown Rx #30 tabs oxycodone 5 mg tablet 5 mg PO Q4H PRN pain 7 days #42 11/13/24 Unknown Rx tabs apixaban 5 mg (74 tabs) tablets in See Rx Instructions PO .COMPLEX 02/02/25 Unknown Rx a dose pack (Eliquis DVT-PE Treat #74 tabs 30D Start) Allergy/AdvReac Type Severity Reaction Status Date / Time triamterene (Triamterene) Allergy Rash Verified 02/02/25 16:18 venom-honey bee (bee venom Allergy Swelling Verified 02/02/25 16:18 (honey bee)) Family History Mother CAD (coronary artery disease) Hypertension Father CAD (coronary artery disease) Hypertension CVA (cerebral vascular accident) Brother CAD (coronary artery disease) Stents Myocardial infarction, Onset Age: 64 Brother CAD (coronary artery disease) CABG Myocardial infarction Other Atherosclerosis of coronary artery of mod[place] heart without angina pectoris Essential (primary) hypertension HLD (hyperlipidemia) Surgical History History of esophagogastroduodenoscopy (EGD) Hx of colonoscopy Hx of parathyroidectomy Stented coronary artery (08/02/23) History of left heart catheterization (09/05/13) Hx laparoscopic cholecystectomy History of LAVH History of carpal tunnel surgery Social History Smoking Status: Never smoker alcohol intake: never substance use type: does not use caffeine: Yes what type of physical activity do you participate in: walking seatbelt use: sometimes do you feel safe at home: Yes 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 Positive pain. No chest pain, no shortness of breath. Denies other symptoms. EXAM Physical Exam Narrative Exam Narrative: Afebrile. Vital signs noted. Nontoxic-appearing. Cardiovascular examination reveals mild bradycardia. Lungs clear to auscultation bilaterally. Abdomen soft and nontender with normoactive bowel sounds. Neurological examination is nonfocal, nonlateralizing. Right lower extremity is wrapped in Ami bandage withpostoperative shoe. Mild swelling noted diffusely. Const Vital Signs: 02/02/25 16:19 02/02/25 16:27 Temperature 97.7 F L Temperature Source Temporal Pulse Rate 56 L Respiratory Rate 18 Respiratory Pattern Normal Blood Pressure 140/81 H Blood Pressure Mean 100 Pulse Ox 99 Oxygen Delivery Method Room Air MDM MDM MDM Narrative Medical decision making narrative: I do not feel differential diagnosis is applicable here. I do not feel she requires lab work or CT scanning of the chest. I reviewed the venous Doppler report and as stated previously she has a rightperoneal vein that is dilated and noncompressible from mid calf to ankle. Although it is below the knee, she will be started on Eliquis and given her first dose of 10 mg here. She was toldof the riskof intracranial hemorrhage and GI bleeding. She should stop her baby aspirin as she will be anticoagulated. She was referred to Dr. May for further management of the DVT. Return instructions to the emergency department were reviewed. Disposition is discharged home in stable condition. History & Record Review Discussion w/independent historian: Patient Discharge Plan Triage Chief Complaint: Edema ED Provider: Jason Philip Dx/Rx/DC Orders Clinical Impression: DVT (deep venous thrombosis), History of foot surgery Instructions: ED Deep Vein Thrombosis (DVT) Prescriptions: New Eliquis DVT-PE Treat 30D Start 5 mg (74 tabs) tablets,dose pack See Rx Instructions .ROUTE .COMPLEX Qty: 74 0RF Rx Instructions: orally per package directions No Action Complete Multivitamin Tablet 1 tab PO DAILY levothyroxine 112 mcg tablet 112 mcg PO DAILY Patient Comments: TAKE 1 TABLET BY MOUTH ONCE DAILY turmeric root extract 500 mg capsule 500 mg PO BID Osteo Bi-Flex Triple Strength 750 mg-644 mg- 30 mg-1 mg tablet 1 tab PO BID vitamin B complex Tablet 1 tab PO QDAY calcium carbonate-vitamin D3 600 mg-20 mcg (800 unit) tablet 2 tab PO QDAY elderberry fruit 200 mg capsule 200 mg PO DAILY pantoprazole [Protonix] 40 mg tablet,delayed release (DR/EC) 40 mg PO DAILY zinc gluconate 50 mg tablet 50 mg PO DAILY oxycodone 5 mg tablet 5 mg PO Q4H PRN (Reason: pain) 7 Days Qty: 42 0RF aspirin 81 mg tablet,delayed release (DR/EC) 162 mg PO DAILY 14 Days Qty: 28 0RF acetaminophen 500 mg capsule 500 mg PO Q6H PRN (Reason: fever or pain) Qty: 30 0RF ibuprofen 600 mg tablet 600 mg PO Q6H PRN (Reason: fever or pain) Qty: 30 0RF nitroglycerin [Nitrostat] 0.4 mg tablet, sublingual 0.4 mg sublingual Q5-15M PRN (Reason: chest pain) Qty: 25 3RF Rx Instructions: do not exceed 3 doses per episode metoprolol tartrate 25 mg tablet 12.5 mg PO BID Qty: 90 3RF pravastatin 10 mg tablet 10 mg PO QHS Qty: 90 3RF Primary Care Provider: Vijay Park Referrals: Trevin May MD [Med Staff - Active Staff] - 1-2 Weeks Vijay Park DO [Primary Care Provider] - Activity Restrictions/Additional Instructions: Take your Eliquis as directed. Return with chest pain, shortness of breath, newor worsening symptoms. You may need to stop taking your baby aspirin as you areall already be on a blood thinner. Print Language: Tanzanian Disposition Disposition: Home, Self Care What to do if you have Problems For any increased pain, shortness of breath, bleeding, nausea or vomiting, chestpain, or any unexpected problems, contact your Primary Care Provider. Call [facility] ([phone]) or report tothe closest Emergency Room. Call 911 if necessary. 02/02/25 [phone] Cosigner Signature (if applicable): CC: Dr. Vijay Park, DO ~ Signed [facility]06-03-2025 Discharge summary Author Jason Philip [facility] Note Date/Time February 02, 2025 4:58p m [facility] Medical Records Department [address] [place] [address] Emergency Department Summary 02/02/25 MR#: [id number] Acct: [id number] Name: MAUREEN RODRIGUEZ Rep #:[id number] : 1960 64 From: Jason Philip MD PCP: Dr. Vijay Park, Status:RE G ER Location: ED HPI History of Present Illness Chief Complaint: Edema Narrative Narrative: Six 4-year-old female past medical history of coronary artery disease with stenting, states she had foot surgery by Dr. Brown 2 months ago. Over the last few weeks she may have started having increased swelling of her right lowerextremity as she has been more immobile. She denies any chest pain or shortnessof breath. She went saw her adobe developer today who wrote for outpatient ultrasound. She presents to the emergency department with positive DVT study. It was reported that the right peroneal vein is dilated noncompressible from themid calf to the ankle. The proximal portion is compressible. [facility] Medical History Wears glasses Post-menopausal Arthritis Fatty liver High cholesterol Easy bruising Back pain History of hiatal hernia Non-smoker Shortness of breath on exertion History of pain when walking History of stress test Cardiology follow-up encounter GERD (gastroesophageal reflux disease) Hypothyroidism Obesity Atherosclerosis of coronary artery of [place] heart without angina pectoris HLD (hyperlipidemia) Essential (primary) hypertension Home Medications ?Medication ?Instructions ?Recorded ?Last Taken ?Type multivitamin,py-krtj-mhotjewj 1 tab PO DAILY 06/25/19 11/12/24 History (Complete Multivitamin tablet) levothyroxine 112 mcg tablet 112 mcg PO DAILY 07/19/20 11/13/24 History nitroglycerin 0.4 mg sublingual 0.4 mg sublingual Q5-1 5M PRN chest 04/04/23 Unknown Rx tablet (Nitrostat) pain #25 tabs metoprolol tartrate 25 mg tablet 12.5 mg (1/2 x 25 mg) PO BID #90 07/29/24 11/13/24 Rx tabs pravastatin 10 mg tablet 10 mg PO QHS #90 tabs 11/12/24 Rx calcium 600 mg (as 2 tab PO QDAY 08/10/2411/12 History carbonate)-vitamin D3 20 mcg (800 unit) tablet glucosamine 750 wr-nrpikizbakx-eyl 1 tab PO BID 11/12/24 History no1 644 mg-C 30 mg-luis 1 mg tablet (Osteo Bi-Flex Triple Strength) turmeric root extract 500 mg 500 mg PO BID 08/10/24 History capsule vitamin B complex 1 tab PO QDAY 08/10/2411/12 History elderberry fruit 200 mg capsule 200 mg PO DAILY 11/11/24 History pantoprazole 40 mg tablet,delayed 40 mg PO DAILY 11/1211/13/24 History release (Protonix) zinc gluconate 50 mg tablet 50 mg PO DAILY 11/12/24 History acetaminophen 500 mg capsule 500 mg PO Q6H PRN fever o r pain 11/13/24 Unknown Rx #30 caps aspirin 81 mg tablet,delayed 162 mg (2 x 81 mg) PO BELEN LY 14 11/13/24 Unknown Rx release days #28 tabs ibuprofen 600 mg tablet 600 mg PO Q6H PRN fever or p ain 11/13/24 Unknown Rx #30 tabs oxycodone 5 mg tablet 5 mg PO Q4H PRN pain 7 days #42 11/13/24 Unknown Rx tabs apixaban 5 mg (74 tabs) tablets in See Rx Instructions PO .COMPLEX 02/02/25 Unknown Rx a dose pack (Eliquis DVT-PE Treat #74 tabs 30D Start) Allergy/AdvReac Type Severity Reaction Status Date / Time triamterene (Triamterene) Allergy Rash Verified 02/02/25 16:18 venom-honey bee (bee venom Allergy Swelling Verified 02/02/25 16:18 (honey bee)) Family History Mother CAD (coronary artery disease) Hypertension Father CAD (coronary artery disease) Hypertension CVA (cerebral vascular accident) Brother CAD (coronary artery disease) Stents Myocardial infarction, Onset Age: 64 Brother CAD (coronary artery disease) CABG Myocardial infarction Other Atherosclerosis of coronary artery of [place] heart without angina pectoris Essential (primary) hypertension HLD (hyperlipidemia) Surgical History History of esophagogastroduodenoscopy (EGD) Hx of colonoscopy Hx of parathyroidectomy Stented coronary artery (08/02/23) History of left heart catheterization (05/07/13) Hx laparoscopic cholecystectomy History of LAVH History of carpal tunnel surgery Social History Smoking Status: Never smoker alcohol intake: never substance use type: does not use caffeine: Yes what type of physical activity do you participate in: walking seatbelt use: sometimes do you feel safe at home: Yes 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 Positive pain. No chest pain, no shortness of breath. Denies other symptoms. EXAM Physical Exam Narrative Exam Narrative: Afebrile. Vital signs noted. Nontoxic-appearing. Cardiovascular examination reveals mild bradycardia. Lungs clear to auscultation bilaterally. Abdomen soft and nontender with normoactive bowel sounds. Neurological examination is nonfocal, nonlateralizing. Right lower extremity is wrapped in Ami bandage withpostoperative shoe. Mild swelling noted diffusely. Const Vital Signs: 02/02/25 16:19 02/02/25 16:27 Temperature 97.7 F L Temperature Source Temporal Pulse Rate 56 L Respiratory Rate 18 Respiratory Pattern Normal Blood Pressure 140/81 H Blood Pressure Mean 100 Pulse Ox 99 Oxygen Delivery Method Room Air MDM MDM MDM Narrative Medical decision making narrative: I do not feel differential diagnosis is applicable here. I do not feel she requires lab work or CT scanning of the chest. I reviewed the venous Doppler report and as stated previously she has a right peroneal vein that is dilated and noncompressible from mid calf to ankle. Although it is below the knee, she will be started on Eliquis and given her first dose of 10 mg here. She was toldof the risk of intracranial hemorrhage and GI bleeding. She should stop her baby aspirin as she will be anticoagulated. She was referred to Dr. May for further management of the DVT. Return instructions to the emergency department were reviewed. Disposition is discharged home in stable condition. History & Record Review Discussion w/independent historian: Patient Discharge Plan Triage Chief Complaint: Edema ED Provider: Jason Philip Dx/Rx/DC Orders Clinical Impression: DVT (deep venous thrombosis), History of foot surgery Instructions: ED Deep Vein Thrombosis (DVT) Prescriptions: New Eliqu DVT-PE Treat 30D Start 5 mg (74 tabs) tablets,dose pack See Rx Instructions .ROUTE .COMPLEX Qty: 74 0RF Rx Instructions: orally per package directions No Action Complete Multivitamin Tablet 1 tab PO DAILY levothyroxine 112 mcg tablet 112 mcg PO DAILY Patient Comments: TAKE 1 TABLET BY MOUTH ONCE DAILY turmeric root extract 500 mg capsule 500 mg PO BID Osteo Bi-Flex Triple Strength 750 mg-644 mg- 30 mg-1 mg tablet 1 tab PO BID vitamin B complex Tablet 1 tab PO QDAY calcium carbonate-vitamin D3 600 mg-20 mcg (800 unit) tablet 2 tab PO QDAY elderberry fruit 200 mg capsule 200 mg PO DAILY pantoprazole [Protonix] 40 mg tablet,delayed release (DR/EC) 40 mg PO DAILY zinc gluconate 50 mg tablet 50 mg PO DAILY oxycodone 5 mg tablet 5 mg PO Q4H PRN (Reason: pain) 7 Days Qty: 42 0RF aspirin 81 mg tablet,delayed release (DR/EC) 162 mg PO DAILY 14 Days Qty: 28 0RF acetaminophen 500 mg capsule 500 mg PO Q6H PRN (Reason: fever or pain) Qty: 30 0RF ibuprofen 600 mg tablet 600 mg PO Q6H PRN (Reason: fever or pain) Qty: 30 0RF nitroglycerin [Nitrostat] 0.4 mg tablet, sublingual 0.4 mg sublingual Q5-15M PRN (Reason: chest pain) Qty: 25 3RF Rx Instructions: do not exceed 3 doses per episode metoprolol tartrate 25 mg tablet 12.5 mg PO BID Qty: 90 3RF pravastatin 10 mg tablet 10 mg PO QHS Qty: 90 3RF Primary Care Provider: Vijay Park Referrals: Trevin May MD [Med Staff - Active Staff] - 1-2 Weeks Vijay Park DO [Primary Care Provider] - Activity Restrictions/Additional Instructions: Take your Eliquis as directed. Return with chest pain, shortness of breath, newor worsening symptoms. You may need to stop taking your baby aspirin as you areall already be on a blood thinner. Print Language: Tanzanian Disposition Disposition: Home, Self Care What to do if you have Problems For any increased pain, shortness of breath, bleeding, nausea or vomiting, chestpain, or any unexpected problems, contact your Primary Care Provider. Call [facility] ([phone]) or report to the closest Emergency Room. Call 911 if necessary. 02/02/25 5306 <Electronically signed by Jason Philip MD> Cosigner Signature (if applicable): CC: Dr. Vijay Park DO ~ Signed [facility] Work Phone: 1(248) 375-146306-03-2025 NoteHNO ID: [id number] Author: LIZA MAURICIO MA Service: ? Author Type: Registered Nurse Fetal Type: Progress Notes Filed: 02/02/2025 13:47 Note Text: POPULATION HEALTH NAVIGATION OUTREACH Action/FYI . No answer [email or web address] message sent Topic Due (Y or N) Comments Medicare Wellness y After 09-23-25 PCP Follow up Colorectal Cancer Screening Controlling Blood Pressure y A1C HCC Flu Vaccine Care Everywhere Reviewed [employer] Activation Updated Appointment Note Reason for Outreach Care Gap/HCC or Scheduling Wellness Visits Care Gaps due: Next Year's Annual Wellness Visit Controlling Blood Pressure Patient Contacted: Unable or unnecessary to reach patient: Unable to leave message [employer] message sent Navigation Signature: Liza Mauricio MA February 02, 2025 1:42 [facility]06-03-2025 History of Present illness Narrative* Liza Mauricio MA - 02/02/2025 1:42 PM EDT POPULATION HEALTH NAVIGATION OUTREACH Action/FYI . No answer [employer] message sent Topic Due (Y or N) Comments Medicare Wellness y After 09-23-25 PCP Follow up Colorectal Cancer Screening Controlling Blood Pressure y A1C HCC Flu Vaccine Care Everywhere Reviewed [employer] Activation Updated Appointment Note Reason for Outreach Care Gap/HCC or Scheduling Wellness Visits Care Gaps due: Next Year's Annual Wellness Visit Controlling Blood Pressure Patient Contacted: Unable or unnecessary to reach patient: Unable to leave message [employer] message sent Navigation Signature: Liza Mauricio MA February 02, 2025 1:42 PM documented in this encounterKindred [facility]06-[facility]-2025 NotePatient Outreach (NETNAV) MAUREEN RODRIGUEZ ([id number]) 1960 F NFR Date Time Provider Department 02/02/25 LIZA MAURICIO NETDAVID During your visit today, we recorded the following information about you: Liza Mauricio MA 02/02/2025 1:47 PM Signed POPULATION HEALTH NAVIGATION OUTREACH Action/ . No answer [employer] message sent Topic Due (Y or N) Comments Medicare Wellness y After 09-23-25 PCP Follow up Colorectal Cancer Screening Controlling Blood Pressure y A1C HCC Flu Vaccine Care Everywhere Reviewed [employer] Activation Updated Appointment Note Reason for Outreach Care Gap/HCC or Scheduling Wellness Visits Care Gaps due: Next Year's Annual Wellness Visit Controlling Blood Pressure Patient Contacted: Unable or unnecessary to reach patient: Unable to leave message [employer] message sent Navigation Signature: Liza Mauricio MA February 02, 2025 1:42 PM Allergies As of Date: 02/02/2025 Noted Allergy Reaction BEES 12/24/2005 Comments: possibly GRASS POLLEN 03/14/2020 14 - Other: See Comments Comments: Sneezing, itchy eyes TRIAMTERENE-HYDROCHLOROTHIAZID 09/01/2010 2 - Rash Comments: photodermatitis Date Reviewed: 01/21/2025 Reviewed by: Susu Ariza, RN - Fully Assessed Reason for Visit: Population Health Navigation Outreach [3910] Cmt: JUAN CLARK PCSA Prescriptions as of 02/02/2025 - levothyroxine (SYNTHROID) 112 mcg tablet Take 1 tablet by mouth once daily. - pravastatin (PRAVACHOL) 10 mg tablet Take 10 mg by mouth once daily. - dexAMETHasone 0.1 % ophthalmic solution 1 Drop two times a day as needed. Into bilateral outer ear canal - diclofenac (VOLTAREN) 1 % topical gel Apply 0.5 g to affected area four times daily as needed. - GLUCOSAMINE HCL (GLUCOSAMINE, BULK, MISC) - MULTIVIT-MINERALS/FERROUS FUM (MULTI VITAMIN ORAL) Take by mouth. - estradiol (ESTRACE) 0.01 % (0.1 mg/gram) vaginal cream Use fingertip amount vaginally nightly x 2 weeks then every other night x 2 weeks then 1-3x weekly - metoprolol succinate XL, long acting, 25 mg 24 hr tablet Take 25 mg by mouth once daily. - Aspirin 81 mg Tab Take 81 mg by mouth. - Calcium Carbonate-Vitamin D3 500 mg(1,250mg) -600 unit Chew Take 1 tablet by mouth three times daily. Problem List As Of Date 02/02/2025 Noted Resolved BENIGN HYPERTENSION [I10] 12/24/2005 Hyperlipidemia, mixed [E78.2] 12/24/2005 IRRITABLE COLON [K58.9] 12/24/2005 URIN TRACT INFECTION NOS [N39.0] 12/24/2005 04/25/2007 OBESITY NOS [E66.9] 04/25/2007 IMPAIRED FASTING GLUCOSE [R73.01] 06/26/2007 HYPERLIPIDEMIA NEC/NOS [E78.5] 09/10/2008 09/10/2008 Acquired hypothyroidism [E03.9] 09/10/2008 Hyperparathyroidism [E21.3] 12/02/2012 Carpal tunnel syndrome [G56.00] 07/10/2013 Ramirez esophagus [K22.70] 07/10/2013 Biliary dyskinesia [K82.8] 07/10/2013 Dyslipidemia [E78.5] 08/11/2013 CAD (coronary artery disease) [I25.10] 08/11/2013 Primary osteoarthritis of both knees [M17.0] 08/03/2015 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] 08/03/2015 History of Ramirez's esophagus [Z87.19] 08/03/2015 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 [K22.70] 08/04/2015 Chronic pain of both knees [M25.561, M25.562, G*03/13/2017 Osteoarthritis of knees, bilateral [M17.0] Coronary artery disease involving [place] larson*10/28/2018 Hypothyroidism, acquired [E03.9] 10/28/2018 Screening for osteoporosis [Z13.820] 10/28/2018 Chronic right shoulder pain [M25.511, G89.29] 10/28/2018 Acquired deformity of toe [M20.60] 04/18/2021 Paresthesia of foot, bilateral [R20.2] 04/18/2021 Eczema of external ear, 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] 04/18/2021 Osteopenia, senile [M85.80] 07/10/2022 Frequent headaches [R51.9] 10/16/2023 Vitamin D deficiency [E55.9] 10/16/2023 Spontaneous bruising [R23.3] 10/16/2023 Bilateral hand pain [M79.641, M79.642] 10/16/2023 Foot pain, bilateral [M79.671, M79.672] 10/16/2023 Abdominal pain, epigastric [R10.13] 09/23/2024 Bloating [R14.0] 09/23/2024 Post-menopausal [Z78.0] 09/23/2024 Encounter Status:Closed by LIZA MAURICIO on 02/02/25[facility]05-22-2025 NoteHNO ID: [id number] Author: LEIGH PAL PA-C Service: ? Author Type: Physician Senior Research Scientist Type: Progress Notes Filed: 01/21/2025 16:09 Note Text: Rheumatology CONSULTATION Date of Service: 01/21/2025 Patient: Maureenbritt Reedsujatha Medical Record: [id number] Primary Care Physician: Vijay Park DO Last Rheumatology visit: [facility] Referring Provider: Vijay Park [address] [facility] [id number] Maureen Pily Rodriguez is here today at request of Dr. Park specifically for consultation of my opinion in regards to the chief complaint listed below. Correspondence will be shared today via the [place] electronic health record or through regular mail, where applicable. Recording using [employer] software for draft documentation of the visit was discussed with the patient/authorized energy conservation representative; all questions welcomed and answered. Patient/authorized energy conservation representative agreed to proceed History of Present Illness Maureen is a 64-year-old female with a history of carpal tunnel syndrome, chronic knee pain, chronic shoulder pain, frequent headaches, HTN, HLD, CAD, eczema, IBS, Ramirez's esophagus, hypothyroidism, hypoparathyroidism, dyslipidemia, osteopenia, obesity, and vitamin D deficiency, presenting for evaluation of joint pain. Maureen reports a current pain level of 2 (Generalized). She describes the pain as Aching, Sore, Stiffness. The pain is Continuous . Interventions tried include Heat, Massage, Pillow support, Positioning. She is currently taking diclofenac sodium. Maureen is RF positive - 21 (10/19/2024) and CCP negative - 13.5 (10/19/2024). Her most recent ASHLEY was negative (11/01/2014). Maureen reports a long-standing history of joint pain that has gradually worsened over the years. The most affected areas are the PIP joints of both hands, with the right third PIP joint being the most painful. She experiences sharp pain in this joint occasionally. She also reports pain in her knees, right shoulder, and lower back. She notes that her knees and hands sometimes feel swollen, particularly in the mornings. Morning stiffness lasts until she starts moving around. Maureen rates her knee pain as 3-4/10 at its worst and mentions that it sometimes keeps her from sleeping. She has tried acetaminophen and Voltaren gel with minimal relief. She cannot take ibuprofen due to her history of Ramirez's esophagus and a heart stent placed in 2022. She has a family history of polymyalgia rheumatica in her mother. She denies any history of rheumatoid arthritis, lupus, Crohn's disease, or ulcerative colitis in her family. She denies oral or nasal ulcers, Raynaud's phenomenon, fevers, inflamed eyes, iritis or uveitis. She reports dry mouth and occasional itching in her eyes. She also reports occasional diarrhea and constipation but denies any blood in her stool. She denies foot pain but mentions that her knees have been hurting more since her bunion surgery on 11/13/2024. She has an appointment for knee injections on 02/18/2025. She denies any history of miscarriages or blood clots but mentions occasional numbness and tingling in the tips of her toes, particularly the big toes. She denies any unintentional weight loss but reports occasional night sweats and hot flashes. 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 She is with two grown children in their 30s. She denies smoking, alcohol use, vaping, or drug use. Recent lab work showed a low positive rheumatoid factor (21) with a negative CCP antibody. Other autoimmune workup including Sjogren's and lupus antibodies were negative. Inflammation markers (CRP and ESR) were normal. X-rays of her hands and feet showed osteoarthritis. Pain Evaluation 09/22/2024 10/19/2024 10/22/2024 01/18/2025 01/21/2025 Pain Evaluation Pain Score 4 3 2 Location Knee-Right Knee-Right -- Knee-Right Generalized Location Comment Bilateral knees Description Burning;Dull;Radiating;Tenderness Burning;Itching;Radiating;Sore;Stiffness;Tenderness Aching;Sharp;Burning;Itching Aching;Sore;Stiffness Duration (#) 5 Duration (Timeframe) Months Years Months Frequency Continuous Continuous Continuous Continuous Intervention Heat Heat;Massage;Pillow support;Positioning Medication Heat;Massage;Pillow support;Positioning Patient-Entered Data PROMIS Assessments 10/15/2023 09/22/2024 01/18/2025 PROMIS Global Health - (T-Scores - the mean of general population = 50. Five points is a clinically meaningful difference.) Physical T-Score 47.7 44.9 47.7 Mental T-Score 50.8 48.3 43.5 10/15/2023 09/22/2024 01/18/2025 PROMIS CAT Pain Interference PROMIS Pain Interference T-Score (range: 10 - 90) 60 (mild) PROMIS Pain Interference Percentile 16 PROMIS Adult Short Form-Global Health Score (Mental) 50.8 (Very Good) 48.3 (Very Good) 43.5 (Good) 01/18/2025 PROMIS CAT Fatigue PROMIS Fatigue T-Score 51 (within normal limits) PROMIS Fati (more content not included)...[facility]05-16-2025 Telephone encounter Note* Telephone Encounter - Jennifer Crenshaw LPN - 01/15/2025 9:04 AM EDT Left message to return call. [facility]05-16-2025 Miscellaneous Notes* Telephone Encounter - Jennifer Crenshaw LPN - 01/15/2025 9:04 AM EDT Left message to return call. * Telephone Encounter - Vijay Park DO - 01/13/2025 8:34 PM EDT Please let her know that her xrays of her hands and feet show that she has significant osteoarthritis, no signs of rheumatoid arthritis or other inflammatory arthritis. Vijay Park DO documented in this encounterKind[facility]05-14-2025 Telephone encounter Note * Telephone Encounter - Vijay Park DO - 01/13/2025 8:34 PM EDT Please let her know that her xrays of her hands and feet show that she has significant osteoarthritis, no signs of rheumatoid arthritis or other inflammatory arthritis. Vijay Park DO [facility]05-12-2025 Telephone encounter Note* Telephone Encounter - Karen Mcmillan LPN - 01/11/2025 1:27 PM EDT Pt. informed via My Chart. [facility]05-12-2025 Miscellaneous Notes* Telephone Encounter - Karen Truong LPN - 01/11/2025 1:27 PM EDT Pt. informed via My Chart. * Telephone Encounter - Vijay Park DO - 01/11/2025 7:50 AM EDT Please inform patient that her mammogram is normal/negative. She will need routine screening mammogram in 1 year. Thanks Vijay Park DO' documented in this encounterKindred [facility]05-12-2025 Telephone encounter Note * Telephone Encounter - Vijay Park DO - 01/11/2025 7:50 AM EDT Please inform patient that her mammogram is normal/negative. She will need routine screening mammogram in 1 year. Thanks Vijay Park DO' [facility]05-09-2025 History of Present illness Narrative* Qasim Emanuel Mammo Tech - 01/08/2025 9:10 AM EDT Radiology Service Progress Note PATIENT NAME: Maureen Rodriguez DATE OF SERVICE: January 08, 2025 TIME: 9:56 AM PATIENT IDENTITY VERIFICATION COMPLETED USING TWO (2) IDENTIFIERS: Name and Date of confirmedby patient verbally. FALL SCREENING: Has the patient had 2 falls in the last year or 1 fall with injury or currently using an Ambulatory Assistive Device (Walker, Cane, Wheelchair, Crutches, etc.)? No PATIENT GENDER DATA: Assigned female at . status: : No status:NO. PATIENT RELEVANT IMPLANT DATA REVIEWED: Not Applicable PATIENT PRESENTS WITH AN IMPLANTABLE OR ATTACHED BUILDING CONSTRUCTION ESTIMATOR: No RADIOLOGY DEPARTMENT: Mammography PERIPHERAL IV DATA: Not applicable SIGNED BY: Светлана Luio Ephraim January 08, 2025 9:56 AM documented in this encounterKindred Healthcare05-09-2025 NoteHNO ID: [id number] Author: QASIM EMANUEL Mammo Tech Service: ? Author Type: Art History Instructor Type: Progress Notes Filed: 01/08/2025 09:57 Note Text: Radiology Service Progress Note PATIENT NAME: Maureen Rodriguez DATE OF SERVICE: January 08, 2025 TIME: 9:56 AM PATIENT IDENTITY VERIFICATION COMPLETED USING TWO (2) IDENTIFIERS: Name and Date of confirmed by patient verbally. FALL SCREENING: Has the patient had 2 falls in the last year or 1 fall with injury or currently using an Ambulatory Assistive Device (Walker, Cane, Wheelchair, Crutches, etc.)? No PATIENT GENDER DATA: Assigned female at . status: : No status: NO. PATIENT RELEVANT IMPLANT DATA REVIEWED: Not Applicable PATIENT PRESENTS WITH AN IMPLANTABLE OR ATTACHED BUILDING CONSTRUCTION ESTIMATOR: No RADIOLOGY DEPARTMENT: Mammography PERIPHERAL IV DATA: Not applicable SIGNED BY: Beatrice Lui January 08, 2025 9:56 [facility]03-25-2025 Telephone encounter Note * Telephone Encounter - Ct Akhtar MA - 11/24/2024 5:07 PM EDT ----- Message from Yas Todd sent at 11/24/2024 3:21 PM EDT ----- 1st attempt - left message. Please schedule orders from 11/11/24. ----- Message ----- From: Jennifer Crenshaw LPN Sent: 11/12/2024 8:42 AM EDT To: [facility] Clerical Pool [facility]03-25-2025 Miscellaneous Notes* Telephone Encounter - tC Akhtar MA - 11/24/2024 5:07 PM EDT ----- Message from Yas Perez sent at 11/24/2024 3:21 PM EDT ----- 1st attempt - left message. Please schedule orders from 11/11/24. ----- Message ----- From: Jennifer Crenshaw LPN Sent: 11/12/2024 8:42 AM EDT To: [facility] Clerical Pool * Telephone Encounter - Yas Todd - 11/24/2024 3:17 PM EDT Called pt she said she had surgery and [facility] Pt said she will walk in for hand xr and rheum consult is scheduled * Telephone Encounter - Yas Todd - 11/13/2024 11:25 AM EDT 2nd attempt lvm * Telephone Encounter - Jennifer Crenshaw LPN - 11/12/2024 8:40 AM EDT Spoke with pt gave information provided. Pt voices understanding. She is going to be having surgeryWednday but will have set up appts after. Please assist in scheduling with rheum. * Telephone Encounter - Vijay Park DO - 11/11/2024 9:06 PM EDT Please inform patient that her recent previous lab results are showing a few abnormal results Her Celiac testing shows that her antibody levels are negative for Celiac disease but her HLA genotype lab is category 7 which means she has a high chance of having sensitivity to gluten and really should try to avoid eating wheat/gluten in her diet. Should try to be on a gluten free diet as much as able to help her pain and bowel symptoms and bloating and overall health. Her rheumatoid factor is also positive, but inflammation levels were normal. I Would like her to have an opinion from a Film Historian to see if she is developing Rheumatoid arthritis. Also would like her to have hand and feet xrays to make sure no signs of joint destruction is occurring Vijay Park DO documented in this encounterKindred Healthcare03-25-2025 Telephone encounter Note * Telephone Encounter - Yas Todd - 11/24/2024 3:17 PM EDT Called pt she said she had surgery and X-rays on her foot in [facility]. Pt said she will walk in for hand xr and rheum consult is scheduled [facility]03-14-2025 Consult note [facility] Medical Records Department [address] [place] [address] Pre-Anesthesia Evaluation 11/13/24 0713 MR#: [id number] Acct: [id number] Name: MAUREEN RODRIGUEZ Rep #:[id number] : 1960 64 From: Gigi Rodriguez MD PCP: Dr. Vijay Park DO Status: G [facility] Y Race: C Location: [place] [address] ASA Classification* ASA Classification ASA Classification: 2 Assessment & Plan Anesthesia* Anesthesia Assessment Anesthesia Assessment: Discussed sedation and/or anesthesia options, risks, benefits, and alternatives with patient/parents/legal guardian/POA. Questions invited. The patient/parents/legal guardian/POA seems to understand and agrees to proceedwith anesthesia plan. Reviewed the physical assessment, medical history, allergy history and patient home medications list prior to surgery/procedure/anesthetic and documented any changes. Performed airway and anesthesia risk assessments. Anesthesia Type Anesthesia Type: General and Block Anesthesia Focused Assessment* Temperature: 99.3 F Pulse Rate: 61 Blood Pressure: 134/77 Respiratory Rate: 16 Pulse Ox: 97 Airway Assessment Mouth opens: >3 cm Mallampati Score: II Focused Labs Anesthesia Preop lab: CBC WBC 6.4 K/mm3 (4.4-11.0) 07/31/23 10:24 07/31/23 RBC 4.72 M/mm3 (4.2-5.4) 07/31/23 10:24 07/31/23 Hgb 14.5 g/dL (12.0-15.0) 07/31/23 10:24 07/31/23 Hct 45.4 % (37-47) 07/31/23 10:24 07/31/23 Plt Count 226 K/mm3 (150-450) 07/31/23 10:24 07/31/23 CHEMISTRY Potassium 4.5 mmol/L (3.5-5.1) 07/31/23 10:24 07/31/23 Sodium 140 mmol/L (136-145) 07/31/23 10:24 07/31/23 BUN 18 mg/dL (7-18) 07/31/23 10:24 07/31/23 Creatinine 0.76 mg/dL (0.55-1.02) 07/31/23 10:24 07/31/23 Glucose 94 mg/dL (74-106) 07/31/23 10:24 07/31/23 COAG PT 13.7 SECONDS (11.7-14.9) 07/31/23 10:24 Pre-Assessment Diagnosis/Proposed Procedure Planned Operative Procedure(s): RIGHT FOOT BUNIONECTOMY WITH SECOND THIRD AND FOURTH HAMMERTOE REPAIR Anesthesia History 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 When Was Last Pacemaker Check QUESTION #4 FULL TEXT: You/Your Family Experience fever (hyperthermia) with Anesthesia Last Oral Intake Last Oral intake: Last Oral Intake NPO since 02:00 11/13/24 06:28 Meds taken in AM with sips of Yes 11/13/24 06:28 water? 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 Female Yes 11/12/24 09:26 HX of Motion Sickness Yes 11/12/24 09:26 HX of N/V After Surgery No 11/12/24 09:26 Non-Smoker Yes 11/12/24 09:26 Duration of Surgery greater Yes 11/12/24 09:26 than 60 minutes Number of Risk Factors 4 11/12/24 09:26 PONV Score Severe Risk 11/12/24 09:26 Height & Weight Height & Weight: Anesthesia: Height & Weight Height 5 ft 5 in 11/13/24 06:28 Weight: 93.1 kg 11/13/24 06:28 Body Mass Index (BMI) 34.1 11/13/24 06:28 Respiratory Assessment Respiratory Assessment - deck lid fitter: Respiratory Tract Infection Hx - deck lid fitter Hx Respiratory Tract Infection No 11/12/24 09:26 STOP Sleep Apnea STOP Sleep Apnea - deck lid fitter: STOP Sleep Apnea - deck lid fitter Hx Hypertension Yes: CONTROLLED WITH MED 11/12/24 09:26 Hx Sleep Apnea No 11/12/24 09:26 CPAP No 08/19/13 08:07 BIPAP No 08/19/13 06:57 Do you snore loudly (louder Yes 11/12/24 09:26 than talking or can be heard Do you often feel tired/ No 11/12/24 09:26 fatigued/ sleepy during daytime? Has anyone observed you stop No 11/12/24 09:26 breathing during sleep? STOP Results Positive 11/12/24 09:26 QUESTION #5 FULL TEXT : Do you snore loudly (louder than talking or can be heard through closeddoors)? 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 Specify any problems Hx of Preganancy in last 3 No 11/12/24 09:26 Months Nurse Filling Out Transfusion DSCHRIBER 11/12/24 09:26 & Questions: Date: 11/12/24 11/12/24 09:26 Time: 11/12/24 09:26 Patient unable to answer at this time (ie. confused, unrespo /Reproduction History /Reproductive History - deck lid fitter: /Reproductive Hx- deck lid fitter Hx Now No 11/12/24 09:26 Gestational Age (in weeks): EDC: Hx Hx Para Hx Section SAB No 11/12/24 09:26 Active Medications Active Medications: Current Medications Generic Name Dose Route Start Last Admin Trade Name Freq PRN Reason Stop Dose Admin Cefazolin Sodium 2 gm/ N/A 20 mls @ 400 mls/hr 11/13/24 07:30 IV 11/13/24 07:32 PREOP ONE Sodium Chloride 1,000 mls @ 15 mls/hr 11/13/24 06:05 11/13/24 06:35 IV 15 mls/hr .Q48H CINTHIA Administration PFSH Medical History Wears glasses Post-menopausal Arthritis Fatty liver High cholesterol Easy bruising Back pain History of hiatal hernia Non-smoker Shortness of breath on exertion History of pain when walking History of stress test Cardiology follow-up encounter GERD (gastroesophageal reflux disease) Hypothyroidism Obesity Atherosclerosis of coronary artery of [place] heart without angina pectoris HLD (hyperlipidemia) Essential (primary) hypertension Home Medications ?Medication ?Instructions ?Recorded ?Last Taken ?Type multivitamin,ru-trvi-vhqoekrt 1 tab PO DAILY 06/25/19 11/12/24 History (Complete Multivitamin tablet) levothyroxine 112 mcg tablet 112 mcg PO DAILY 07/19/20 11/13/24 History nitroglycerin 0.4 mg sublingual 0.4 mg sublingual Q5-1 5M PRN chest 04/04/23 Unknown Rx tablet (Nitrostat) pain #25 tabs aspirin 81 mg tablet,delayed 81 mg PO DAILY 08/14/23 0 11/08/24 History release metoprolol tartrate 25 mg tablet 12.5 mg (1/2 x 25 mg) PO BID #90 07/29/24 11/13/24 Rx tabs pravastatin 10 mg tablet 10 mg PO QHS #90 tabs 11/12/24 Rx calcium 600 mg (as 2 tab PO QDAY 08/10/2411/12 History carbonate)-vitamin D3 20 mcg (800 unit) tablet glucosamine 750 we-fyguuxewljx-rbg 1 tab PO BID 11/12/24 History no1 644 mg-C 30 mg-luis 1 mg tablet (Osteo Bi-Flex Triple Strength) turmeric root extract 500 mg 500 mg PO BID 08/10/24 History capsule vitamin B complex 1 tab PO QDAY 08/10/2411/12 History elderberry fruit 200 mg capsule 200 mg PO DAILY 11/11/24 History pantoprazole 40 mg tablet,delayed 40 mg PO DAILY 11/1211/13/24 History release (Protonix) zinc gluconate 50 mg tablet 50 mg PO DAILY 11/12/24 History Allergy/AdvReac Type Severity Reaction Status Date / Time triamterene (Triamterene) Allergy Rash Verified 11/12/24 09:23 venom-honey bee (bee venom Allergy Swelling Verified 11/12/24 09:23 (honey bee)) Family History Mother CAD (coronary artery disease) Hypertension Father CAD (coronary artery disease) Hypertension CVA (cerebral vascular accident) Brother CAD (coronary artery disease) Stents Myocardial infarction, Onset Age: 64 Brother CAD (coronary artery disease) CABG Myocardial infarction Other Atherosclerosis of coronary artery of [place] heart without angina pectoris Essential (primary) hypertension HLD (hyperlipidemia) Surgical History History of esophagogastroduodenoscopy (EGD) Hx of colonoscopy Hx of parathyroidectomy Stented coronary artery (08/02/23) History of left heart catheterization (05/07/13) Hx laparoscopic cholecystectomy History of LAVH History of carpal tunnel surgery Social History Smoking Status: Never smoker alcohol intake: never substance use type: does not use caffeine: Yes what type of physical activity do you participate in: walking seatbelt use: sometimes do you feel safe at home: Yes 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 11/13/24 0713 > Date _ Gigi Rodriguez MD Cosigner Signature: Date CC: ~ Signed [facility]03-14-2025 Telephone encounter Note* Telephone Encounter - Yas Todd - 11/13/2024 11:25 AM EDT 2nd attempt lvm [facility]03-14-2025 Procedure note [facility] Medical Records Department [address] [place] [address] Operative Report 11/13/24 1028 MR#: [id number] Acct: [id number] Name: MAUREEN RODRIGUEZ ANN Rep #:[id number] : 1960 64 From: Luis A Brown DPM PCP: Dr. Vijay Park, DO Status:[facility] Location: [place] [address] Operative Report (Standard) Operative Information Date of Procedure: 11/13/24 Pre-Operative Diagnosis: 1) Hallux Valgus, Right foot 2) Hammertoes to digits 2,3,4 right foot Post-Operative Diagnosis: same Surgery/Procedure Performed: 1) Bunionectomy via lapiplasty, right foot 2) hammertoe correction x3 via PIPJ arthrodesis right 2nd, 3rd and 4th toes global process owner: Yes Laboratory Technical Specialist: MAURICIO Tasks completed by first sampler: Opening, Closing and Implanting device Type of Anesthesia: General RN Documented Start/Stop Times: Operation Date: 11/13/24 07:30 Case Time Into Pre-Op 11/13/24 06:02 Anesthesia Start 11/13/24 07:35 Into Room 11/13/24 07:35 Procedure Start 11/13/24 07:58 Procedure End 11/13/24 10:10 Anesthesia End 11/13/24 10:14 Out of Room 11/13/24 10:14 Into Recovery 11/13/24 10:17 Procedure Start Time: 07:45 Procedure Stop Time: 10:15 Select all DRAINS/GRAFTS/IMPLANTS that apply: None and Implanted device Implanted device details: ReadWave phalinx x3, 2 4 prong speed plates treace Estimated Blood Loss: minimal Specimen collected: No Description of surgery: Preoperative Diagnosis: * Right foot hallux valgus (bunion deformity) * Right first TMT joint arthritis * Hammertoes of the 2nd, 3rd, and 4th toes * Right second to fourth toe deformities requiring correction Postoperative Diagnosis: * Right foot hallux valgus * Right first TMT joint arthritis * Hammertoes of the 2nd, 3rd, and 4th toes Procedure Performed: * Right Foot Bunionectomy via Lapiplasty * First TMT Joint Fusion with 2 Treace Speedplates * Hammertoe Repairs to Toes 2, 3, and 4 * PIPJ Arthrodesis using NitroPCR Medical Phalanx Implants * MPJ Capsulotomies Indications for Surgery: The patient is a [64] year-old female who presented with significant right foot hallux valgus deformity, associated with first TMT joint arthritis. The patient also exhibited hammertoes affecting the2nd, 3rd, and 4th toes, leading to difficulty with gait, footwear, and significant discomfort. Conservative treatments, including orthotics and shoe modifications, were unsuccessful in managing the symptoms. Given the severity of the deformity and the failure of conservative management, surgical correction was recommended and consent was obtained. Procedure Details: The patient was positioned supine on the operating table with the right foot draped in a sterile fashion. General anesthesia was administered, and the extremity was prepped and draped in the usual sterile manner. A thigh tourniquet was placed on the right thigh and inflated to 300 mmHg prior to making the incision. Fluoroscopy was used throughout the case for guidance and verification of appropriate alignment and positioning. * Bunionectomy via Lapiplasty: A longitudinal incision was made over the dorsomedial aspect of the first tarsometatarsal joint. Dissection was carried down to the capsule and periosteum. The first TMTJ was exposed, and dissected out. The metatarsal was then repositioned using a Lapiplasty system reducing IM 1,2. A medial release was performed, and the first metatarsal was realigned into proper position. The alignment was confirmed fluoroscopically. * First TMT Joint Fusion with Treace Speedplates: The first TMT joint was identified, and joint surfaces were prepared for fusion. using the guided saw cuts, then flushing, followed by subchondral drilling with a 2.0 drill bit. Two Treace Speedplates were used for fixation of the first TMT joint, placed in a 90/90 orientation for optimal stability. One plate was placed dorsally, and the other plate was placed medially. The joint surfaces were appropriately compressed, and the plates were secured with screws to ensure fusion. The position was again confirmed fluoroscopically, and adequate joint alignment was noted. * Hammertoe Repair and PIPJ Arthrodesis: For toes 2, 3, and 4, each toe was approached through a dorsal incision. The appropriate tendons and joint capsules were released to correct the hammertoe deformity. Phalangeal head resections were performed, followed by PIPJ arthrodesis using WANdisco implants. The implants were secured in place, ensuring proper alignment and fixation. The joints were stabilized in the corrected position, and final alignment was confirmed under fluoroscopy. * MPJ Capsulotomies: Capsular releases were performed at the metatarsophalangeal joints of the second, third, and fourth toes to allow for optimal joint alignment and improve postoperative function. The capsules were re- approximated after the correction of the hammertoe deformities. Hemostasis: Hemostasis was achieved using electrocautery throughout the procedure. No significant bleeding complications were noted. The thigh tourniquet was released prior to the closure of the incisions, and hemostasis was carefully verified. The surgical site was irrigated thoroughly with saline. Closure: The incisions were closed in layers with absorbable sutures for deep tissues and non-absorbable sutures for skin closure. Sterile dressings and a surgical boot were applied to the right foot. Postoperative Plan: * The patient will be placed in a splint for 2 weeks non-weightbearing, then be transferred to a boot for protected weightbearing * Follow-up appointments will be scheduled to monitor the healing of the foot and evaluate fusion at the first TMT joint. * Pain management with NSAIDs and narcotics as needed. * Physical therapy will be initiated once fusion has progressed and weight- bearing is permitted. * The patient will be instructed on wound care and signs of infection to watch for. Complications: There were no intraoperative complications. The patient tolerated the procedure well. Surgical Findings: as dictated above Complications Complications: No 11/13/24 1036 Cosigner Signature (if applicable): CC: SUMIT Brown; Dr. Vijay Park, DO~ Signed [facility]03-14-2025 Consult note Author Gigi patrice [facility] Note Date/Time November 13, 2024 12: 07pm [facility] Medical Records Department [address] [place] [address] Pre-Anesthesia Evaluation 11/13/24 0713 MR#: [id number] Acct: [id number] Name: MAUREEN RODRIGUEZ Rep #:[id number] : 1960 64 From: Gigi Rodriguez MD PCP: Dr. Vijay Park, DO Status:RE G SDC Y Race: C Location: [place] [address] ASA Classification* ASA Classification ASA Classification: 2 Assessment & Plan Anesthesia* Anesthesia Assessment Anesthesia Assessment: Discussed sedation and/or anesthesia options, risks, benefits, and alternatives with patient/parents/legal guardian/POA. Questions invited. The patient/parents/legal guardian/POA seems to understand and agrees to proceedwith anesthesia plan. Reviewed the physical assessment, medical history, allergy history and patient home medications list prior to surgery/procedure/anesthetic and documented any changes. Performed airway and anesthesia risk assessments. Anesthesia Type Anesthesia Type: General and Block Anesthesia Focused Assessment* Temperature: 99.3 F Pulse Rate: 61 Blood Pressure: 134/77 Respiratory Rate: 16 Pulse Ox: 97 Airway Assessment Mouth opens: >3 cm Mallampati Score: II Focused Labs Anesthesia Preop lab: CBC WBC 6.4 K/mm3 (4.4-11.0) 07/31/23 10:24 07/31/23 RBC 4.72 M/mm3 (4.2-5.4) 07/31/23 10:24 07/31/23 Hgb 14.5 g/dL (12.0-15.0) 07/31/23 10:24 07/31/23 Hct 45.4 % (37-47) 07/31/23 10:24 07/31/23 Plt Count 226 K/mm3 (150-450) 07/31/23 10:24 07/31/23 CHEMISTRY Potassium 4.5 mmol/L (3.5-5.1) 07/31/23 10:24 07/31/23 Sodium 140 mmol/L (136-145) 07/31/23 10:24 07/31/23 BUN 18 mg/dL (7-18) 07/31/23 10:24 07/31/23 Creatinine 0.76 mg/dL (0.55-1.02) 07/31/23 10:24 07/31/23 Glucose 94 mg/dL (74-106) 07/31/23 10:24 07/31/23 COAG PT 13.7 SECONDS (11.7-14.9) 07/31/23 10:24 Pre-Assessment Diagnosis/Proposed Procedure Planned Operative Procedure(s): RIGHT FOOT BUNIONECTOMY WITH SECOND THIRD AND FOURTH HAMMERTOE REPAIR Anesthesia History 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 When Was Last Pacemaker Check QUESTION #4 FULL TEXT: You/Your Family Experience fever (hyperthermia) with Anesthesia Last Oral Intake Last Oral intake: Last Oral Intake NPO since 02:00 11/13/24 06:28 Meds taken in AM with sips of Yes 11/13/24 06:28 water? 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 Female Yes 11/12/24 09:26 HX of Motion Sickness Yes 11/12/24 09:26 HX of N/V After Surgery No 11/12/24 09:26 Non-Smoker Yes 11/12/24 09:26 Duration of Surgery greater Yes 11/12/24 09:26 than 60 minutes Number of Risk Factors 4 11/12/24 09:26 PONV Score Severe Risk 11/12/24 09:26 Height & Weight Height & Weight: Anesthesia: Height & Weight Height 5 ft 5 in 11/13/24 06:28 Weight: 93.1 kg 11/13/24 06:28 Body Mass Index (BMI) 34.1 11/13/24 06:28 Respiratory Assessment Respiratory Assessment - deck lid fitter: Respiratory Tract Infection Hx - deck lid fitter Hx Respiratory Tract Infection No 11/12/24 09:26 STOP Sleep Apnea STOP Sleep Apnea - deck lid fitter: STOP Sleep Apnea - deck lid fitter Hx Hypertension Yes: CONTROLLED WITH MED 11/12/24 09:26 Hx Sleep Apnea No 11/12/24 09:26 CPAP No 08/19/13 08:07 BIPAP No 08/19/13 06:57 Do you snore loudly (louder Yes 11/12/24 09:26 than talking or can be heard Do you often feel tired/ No 11/12/24 09:26 fatigued/ sleepy during daytime? Has anyone observed you stop No 11/12/24 09:26 breathing during sleep? STOP Results Positive 11/12/24 09:26 QUESTION #5 FULL TEXT : Do you snore loudly (louder than talking or can be heard through closed doors)? 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 Specify any problems Hx of Preganancy in last 3 No 11/12/24 09:26 Months Nurse Filling Out Transfusion DSCHRIBER 11/12/24 09:26 & Questions: Date: 11/12/24 11/12/24 09:26 Time: :11/12/24 09:26 Patient unable to answer at this time (ie. confused, unrespo /Reproduction History /Reproductive History - deck lid fitter: /Reproductive Hx- deck lid fitter Hx Now No 11/12/24 09:26 Gestational Age (in weeks): EDC: Hx Hx Para Hx Section SAB No 11/12/24 09:26 Active Medications Active Medications: Current Medications Generic Name Dose Route Start Last Admin Trade Name Freq PRN Reason Stop Dose Admin Cefazolin Sodium 2 gm/ N/A 20 mls @ 400 mls/hr 11/13/24 07:30 IV 11/13/24 07:32 PREOP ONE Sodium Chloride 1,000 mls @ 15 mls/hr 11/13/24 06:05 11/13/24 06:35 IV 15 mls/hr .Q48H CINTHIA Administration PFSH Medical History Wears glasses Post-menopausal Arthritis Fatty liver High cholesterol Easy bruising Back pain History of hiatal hernia Non-smoker Shortness of breath on exertion History of pain when walking History of stress test Cardiology follow-up encounter GERD (gastroesophageal reflux disease) Hypothyroidism Obesity Atherosclerosis of coronary artery of [place] heart without angina pectoris HLD (hyperlipidemia) Essential (primary) hypertension Home Medications ?Medication ?Instructions ?Recorded ?Last Taken ?Type multivitamin,lu-gsms-megrknmm 1 tab PO DAILY 06/25/19 11/12/24 History (Complete Multivitamin tablet) levothyroxine 112 mcg tablet 112 mcg PO DAILY 07/19/20 11/13/24 History nitroglycerin 0.4 mg sublingual 0.4 mg sublingual Q5-1 5M PRN chest 04/04/23 Unknown Rx tablet (Nitrostat) pain #25 tabs aspirin 81 mg tablet,delayed 81 mg PO DAILY 08/14/23 0 11/08/24 History release metoprolol tartrate 25 mg tablet 12.5 mg (1/2 x 25 mg) PO BID #90 07/29/24 11/13/24 Rx tabs pravastatin 10 mg tablet 10 mg PO QHS #90 tabs 11/12/24 Rx calcium 600 mg (as 2 tab PO QDAY 08/10/2411/12 History carbonate)-vitamin D3 20 mcg (800 unit) tablet glucosamine 750 vq-evwwcdbpqpw-jnc 1 tab PO BID 11/12/24 History no1 644 mg-C 30 mg-luis 1 mg tablet (Osteo Bi-Flex Triple Strength) turmeric root extract 500 mg 500 mg PO BID 08/10/24 History capsule vitamin B complex 1 tab PO QDAY 08/10/2411/12 History elderberry fruit 200 mg capsule 200 mg PO DAILY 11/11/24 History pantoprazole 40 mg tablet,delayed 40 mg PO DAILY 11/1211/13/24 History release (Protonix) zinc gluconate 50 mg tablet 50 mg PO DAILY 11/12/24 History Allergy/AdvReac Type Severity Reaction Status Date / Time triamterene (Triamterene) Allergy Rash Verified 11/12/24 09:23 venom-honey bee (bee venom Allergy Swelling Verified 11/12/24 09:23 (honey bee)) Family History Mother CAD (coronary artery disease) Hypertension Father CAD (coronary artery disease) Hypertension CVA (cerebral vascular accident) Brother CAD (coronary artery disease) Stents Myocardial infarction, Onset Age: 64 Brother CAD (coronary artery disease) CABG Myocardial infarction Other Atherosclerosis of coronary artery of [place] heart without angina pectoris Essential (primary) hypertension HLD (hyperlipidemia) Surgical History History of esophagogastroduodenoscopy (EGD) Hx of colonoscopy Hx of parathyroidectomy Stented coronary artery (08/02/23) History of left heart catheterization (05/07/13) Hx laparoscopic cholecystectomy History of LAVH History of carpal tunnel surgery Social History Smoking Status: Never smoker alcohol intake: never substance use type: does not use caffeine: Yes what type of physical activity do you participate in: walking seatbelt use: sometimes do you feel safe at home: Yes 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 11/13/24712 <Electronically signed by Gigi Rodriguez MD > Date _ Gigi Rodriguez MD Cosigner Signature: Date CC: ~ Signed [facility] Work Phone: [phone]) 478-590903-13-2025 Note* Addendum Note - Yari Moore APRN.CNP - 11/12/2024 1:15 PM EDTAddended by: YARI MOORE on: 11/12/2024 01:15 PM Modules accepted: Orders [facility]03-13-2025 Miscellaneous Notes* Addendum Note - Yari Moore APRN.CNP - 11/12/2024 1:15 PM EDTAddended by: YARI MOORE on: 11/12/2024 01:15 PM Modules accepted: [facility] History of Present illness Narrative* Yari Moore APRN.CNP - 11/12/2024 11:40 AM EDT Chief Complaint Patient presents with: Rash: On thighs, knees and ankles for a few days , itches HPI Maureen Rodriguez is a 64 year old female who presents here today for Above Complaints. Maureen is an established patient of Dr. Xavier DO. Concerns today... Per triage from yesterday: Patient calls for rash. Nurse triage recommends homecare. Patient requests provider recommendationd/t upcoming surgery. Appt scheduled. Care advice reviewed. Patient verbalized understanding. Reason for Disposition Mild localized rash Answer Assessment - Initial Assessment Questions 1. APPEARANCE of RASH: Patient reports rash to bilateral ankles and upper legs. Red and slightly red. Rash is itchy. Patient completed antibiotic for UTI on Saturday. Reports that she had flu symptoms all of last week (chills, fever, nausea, vomiting, diarrhea) all subsided as of Saturday as well. 2. LOCATION: Bilateral ankles and upper thigh areas. 3. NUMBER: Several 4. SIZE: Several small areas but each area not as big as a coin 5. ONSET: Yesterday 6. ITCHING:Moderate 7. PAIN: - MILD (1-3): Doesn't interfere with normal activities 8. OTHER SYMPTOMS: No fever Answer Assessment - Initial Assessment Questions Selected in Error. Protocols used: Rash or Redness - [id number], Wound Infection Idzjihkvn-SETMZ-KD" In office today... Pt reports a rash on her knees, ankles, and feet. States she noticed it a couple days ago and it started after sleeping in her bedsheets that she washed with Tide laundrey detergent. Pt thinks this is the cause, as she is "sensitive" to a lot of things and had allergic reactions to Tide as a child.Pt states the rash has been improving. Is using calamine lotion which is helping. Pt was concerned that the rash would interfere with her having her foot surgery tomorrow. Pt states she had a UTI one week ago, c/o burning with urination. Was given Macrobid 100mg BID for 5 days. Pt states in the past week she has had fever and chills that would come and go. Took tylenolone time and thinks this helped, has not had fever/chills since Saturday11/08/24. Pt states she is still experiencing mild burning with urination and that it never completely went away since onset. Denies back/flank pain. Past medical history, appointments, medications, allergies reviewed. Previous Medical History PAST MEDICAL HISTORY Diagnosis Date Arrhythmia Ramirez's esophagus determined by endoscopy Coronary artery disease minimal, no surgical procedure, Dr. 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 Eczema of both external ears Essential hypertension, benign 2002 Hyperparathyroidism (HCC) Impaired fasting blood sugar 10/2014 a1c 5.7% Irritable bowel syndrome resolved mostly with cholecystectomy Osteoarthritis of knees, bilateral Other and unspecified hyperlipidemia Other premature beats 2002 symptomatic in past, atenolol helps Other specified acquired hypothyroidism 09/10/2008 Snoring Previous Surgical History PAST SURGICAL HISTORY Procedure Laterality Date ; PARATHYROIDECTOMY/EXPL PARATHYRD 12/2012 COLONOSCOPY FLX DX W/COLLJ SPEC WHEN PFRMD 07/08/2013 Colonoscopy COLONOSCOPY FLX DX W/COLLJ SPEC WHEN PFRMD 08/05/2015 EGD 07/08/2013 EGD TRANSORAL BIOPSY SINGLE/MULTIPLE 08/05/2015 HEART CATHETERIZATION 04/2013 LAPS SURG CHOLECYSTECTOMY W/CHOLANGIOGRAPHY 07/22/2013 NEUROPLASTY &/TRANSPOS MEDIAN NRV CARPAL TUNNE ~2005 Carpal tunnel decomp- right wrist NEUROPLASTY &/TRANSPOS MEDIAN NRV CARPAL TUNNE 08/19/2013 LEFT PT ED HEART AND VASCULAR 08/02/2023 1 stent heart VAGINAL HYSTERECTOMY UTERUS 250 GM/< 2004 due to bleeding, no cancer, still has both ovaries Family History FAMILY HISTORY Problem Relation Age of Onset Hypertension Mother Cancer Mother skin - not melanoma Thyroid Mother hyperthyroidism (had thyroidectomy) Coronary Artery Disease Mother Heart Mother other (Poly Myalgia Rheumatica (PMR)) Mother Hypertension Father Heart Father PA age 75 other (Dementia) Father Allergies Sister food Heart Brother heart attack Heart Brother PA age 56 Hypertension Brother other (nephrolithiasis) Brother x 2 Heart Maternal Grandmother CAD, age 79 other (Other) Paternal Grandmother age 74, unknown cause other (pancreatic cancer) Paternal Grandfather at 86 Heart Paternal Uncle PA x 2 uncles Prostate Cancer Paternal Uncle Patient Allergies ALLERGIES Allergen Reactions Bees possibly Grass Pollen Other: See Comments Sneezing, itchy eyes Triamterene-Hydroch* Rash photodermatitis Current Medications Current Outpatient Medications on File Prior to Visit Medication Sig clopidogrel (PLAVIX) 75 mg tablet TAKE 4 TABLETS BY MOUTH ON DAY ONE, THEN TAKE 1 TABLET DAILY BEGINNING ON DAY TWO. levothyroxine (SYNTHROID) 112 mcg tablet Take 1 tablet by mouth once daily. pravastatin (PRAVACHOL) 10 mg tablet Take 10 mg by mouth once daily. aspirin-caffeine 1,000-150 mg pwpk .qod (Patient not taking: Reported on 10/22/2024) dexAMETHasone 0.1 % ophthalmic solution 1 Drop two times a day as needed. Into bilateral outer ear canal (Patient not taking: Reported on 10/19/2024) diclofenac (VOLTAREN) 1 % topical gel Apply 0.5 g to affected area four times daily as needed. dexAMETHasone 0.1 % ophthalmic solution 1 Drop twice daily as needed. Into bilateral outer ear canal GLUCOSAMINE HCL (GLUCOSAMINE, BULK, MISC) MULTIVIT-MINERALS/FERROUS FUM (MULTI VITAMIN ORAL) Take by mouth. estradiol (ESTRACE) 0.01 % (0.1 mg/gram) vaginal cream Use fingertip amount vaginally nightly x 2 weeks then every other night x 2 weeks then 1-3x weekly metoprolol succinate XL, long acting, 25 mg 24 hr tablet Take 25 mg by mouth once daily. Aspirin 81 mg Tab Take 81 mg by mouth. Calcium Carbonate-Vitamin D3 500 mg(1,250mg) -600 unit Chew Take 1 tablet by mouth three times daily. No current facility-administered medications on file prior to visit. Social History Social History Tobacco Use Smoking status: Never Smokeless tobacco: Never Vaping Use Vaping status: Never Used Substance Use Topics Alcohol use: Yes Comment: very rarely Drug use: No REVIEW OF SYSTEMS: as above Reviewed relevant PMHx, PSHx, Social Hx, current medications and allergies. Review of Symptoms REVIEW OF SYSTEMS See HPI. Otherwise negative EXAM: BP 110/82 Pulse 72 Resp 12 Wt 93.6 kg (206 lb 5.6 oz) SpO2 96% BMI 33.16 kg/m General Appearance: Well appearing, alert, in no acute distress, well-hydrated, well nourished.. Skin: Positives: Rash: Mild reddened papules scattered over knees, ankles, and tops of feet. Lungs: Lungs clear to auscultation. No wheezing, rhonchi, rales.. Heart: RRR without murmur, gallop, or rubs. No ectopy. Health Maintenance List Depression Screening Never done Anxiety Screening Never done BP Controlled (<130/80) due on 07/10/2023 Advance Directive Discussion Never done Mammogram Screening due on 11/05/2024 DTaP,Tdap,Td Vaccine(1 - Tdap) due on 10/19/2025 Shingrix Vaccine(1 of 2) due on 10/19/2025 Covid-19 Vaccine( season) due on 10/19/2025 Colorectal Cancer Screening due on 08/05/2025 LDL Cholesterol due on 10/19/2025 Annual PCP Team Chronic Disease Visit due on 11/12/2025 Diabetes Screening due on 10/19/2027 Lipid Screening due on 10/19/2029 RSV Vaccine(1 - 1-dose 75+ series) due on 2033 Bone Density Screening Completed Influenza Vaccine Completed Hepatitis C Screening Completed Pneumococcal Vaccine: 50+ Completed Cervical Cancer Screening Discontinued ASSESSMENT/PLAN: 1. Irritant contact dermatitis due to detergent - ICD9: 692.0, ICD10: L24.0 (primary diagnosis) - Continue using calamine lotion and avoid using Tide laundry detergent. Offered triamcinolone cream for itching, patient declines and will continue with calamine lotion and will inform us if not improving. Informed patient that rash will not interfere with upcoming surgery. Follow-up as needed 2. Dysuria - ICD9: 788.1, ICD10: R30.0 Acute, mild. Likely irritation from recent infection that is now cleared. UA dip completely negative. Will still send for culture. Monitor for now and if symptoms continue, let us know. - Patient education for prevention given - UA DIP, URINE (POC) Haily Cr RTO as needed. Prescription instructions reviewed with patient as applicable. Potential red flag symptoms discussed with the patient. Reviewed appropriate action plan to take if red flag symptoms occur. Patient agreeable to treatment plan. Attending Note I have personally performed a face to face assessment of the patient and have reviewed the JAVON note. My laboy findings agree with above. Other additions or changes: As edited Signature: Yari Moore Date: 11/12/2024 Time: 12:55 PM [address] [place] [address] documented in this encounter[facility]03-[facility]25 NoteHNO ID: [id number] Author: YARI MOORE APRN.LAST INSERTER Service: ? Author Type: Nurse Practitioner Type: Progress Notes Filed: 11/12/2024 12:56 Note Text: Chief Complaint Patient presents with: Rash: On thighs, knees and ankles for a few days , itches HPI Maureen Rodriguez is a 64 year old female who presents here today for Above Complaints. Maureen is an established patient of Dr. Xavier DO. Concerns today... Per triage from yesterday: Patient calls for rash. Nurse triage recommends homecare. Patient requests provider recommendation d/t upcoming surgery. Appt scheduled. Care advice reviewed. Patient verbalized understanding. Reason for Disposition Mild localized rash Answer Assessment - Initial Assessment Questions 1. APPEARANCE of RASH: Patient reports rash to bilateral ankles and upper legs. Red and slightly red. Rash is itchy. Patient completed antibiotic for UTI on Saturday. Reports that she had flu symptoms all of last week (chills, fever, nausea, vomiting, diarrhea) all subsided as of Saturday as well. 2. LOCATION: Bilateral ankles and upper thigh areas. 3. NUMBER: Several 4. SIZE: Several small areas but each area not as big as a coin 5. ONSET: Yesterday 6. ITCHING:Moderate 7. PAIN: - MILD (1-3): Doesn't interfere with normal activities 8. OTHER SYMPTOMS: No fever Answer Assessment - Initial Assessment Questions Selected in Error. Protocols used: Rash or Redness - Xrdubikuh-QBXRF-KE, Wound Infection Yojbdxxsy-YZBLP-GZ" In office today... Pt reports a rash on her knees, ankles, and feet. States she noticed it a couple days ago and it started after sleeping in her bedsheets that she washed with Tide laundrey detergent. Pt thinks this is the cause, as she is "sensitive" to a lot of things and had allergic reactions to Tide as a child. Pt states the rash has been improving. Is using calamine lotion which is helping. Pt was concerned that the rash would interfere with her having her foot surgery tomorrow. Pt states she had a UTI one week ago, c/o burning with urination. Was given Macrobid 100mg BID for 5 days. Pt states in the past week she has had fever and chills that would come and go. Took tylenol one time and thinks this helped, has not had fever/chills since Saturday11/08/24. Pt states she is still experiencing mild burning with urination and that it never completely went away since onset. Denies back/flank pain. Past medical history, appointments, medications, allergies reviewed. Previous Medical History PAST MEDICAL HISTORY Diagnosis Date Arrhythmia Ramirez's esophagus determined by endoscopy Coronary artery disease minimal, no surgical procedure, Dr. 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 Eczema of both external ears Essential hypertension, benign 2002 Hyperparathyroidism (HCC) Impaired fasting blood sugar 10/2014 a1c 5.7% Irritable bowel syndrome resolved mostly with cholecystectomy Osteoarthritis of knees, bilateral Other and unspecified hyperlipidemia Other premature beats 2003 symptomatic in past, atenolol helps Other specified acquired hypothyroidism 09/10/2008 Snoring Previous Surgical History PAST SURGICAL HISTORY Procedure Laterality Date ; PARATHYROIDECTOMY/EXPL PARATHYRD 12/2012 COLONOSCOPY FLX DX W/COLLJ SPEC WHEN PFRMD 07/08/2013 Colonoscopy COLONOSCOPY FLX DX W/COLLJ SPEC WHEN PFRMD 08/05/2015 EGD 07/08/2013 EGD TRANSORAL BIOPSY SINGLE/MULTIPLE 08/05/2015 HEART CATHETERIZATION 04/2013 LAPS SURG CHOLECYSTECTOMY W/CHOLANGIOGRAPHY 07/22/2013 NEUROPLASTY AND/TRANSPOS MEDIAN NRV CARPAL TUNNE ~2005 Carpal tunnel decomp- right wrist NEUROPLASTY AND/TRANSPOS MEDIAN NRV CARPAL TUNNE 08/19/2013 LEFT PT ED HEART AND VASCULAR 08/02/2023 1 stent heart VAGINAL HYSTERECTOMY UTERUS 250 GM/< 2004 due to bleeding, no cancer, still has both ovaries Family History FAMILY HISTORY Problem Relation Age of Onset Hypertension Mother Cancer Mother skin - not melanoma Thyroid Mother hyperthyroidism (had thyroidectomy) Coronary Artery Disease Mother Heart Mother other (Poly Myalgia Rheumatica (PMR)) Mother Hypertension Father Heart Father PA age 75 other (Dementia) Father Allergies Sister food Heart Brother heart attack Heart Brother PA age 56 Hypertension Brother other (nephrolithiasis) Brother x 2 Heart Maternal Grandmother CAD, age 79 other (Other) Paternal Grandmother age 74, unknown cause other (pancreatic cancer) Paternal Grandfather at 86 Heart Paternal Uncle PA x 2 uncles Prostate Cancer Paternal Uncle Patient Allergies ALLERGIES Allergen Reactions Bees possibly Grass Pollen Other: See Comments Sneezing, itchy eyes Triamterene-Hydroch* Rash photodermatitis Current Medications Current Outpatient Medications on File Prior to Visit Medication Sig clopidogrel (PLAVIX) 75 mg tablet TAKE 4 TABLETS BY MOUTH ON DAY ONE, THEN TAKE 1 TABLET DAILY BE (more content not included)...[facility] 11-12-2024 Telephone encounter Note* Telephone Encounter - Jennifer Crenshaw LPN - 11/12/2024 8:40 AM EDT Spoke with pt gave information provided. Pt voices understanding. She is going to be having surgeryWednesday but will have set up appts after. Please assist in scheduling with rheum. [facility]03-12-2025 Telephone encounter Note* Telephone Encounter - Vijay Park DO - 11/11/2024 9:06 PM EDT Please inform patient that her recent previous lab results are showing a few abnormal results Her Celiac testing shows that her antibody levels are negative for Celiac disease but her HLA genotype lab is category 7 which means she has a high chance of having sensitivity to gluten and really should try to avoid eating wheat/gluten in her diet. Should try to be on a gluten free diet as much as able to help her pain and bowel symptoms and bloating and overall health. Her rheumatoid factor is also positive, but inflammation levels were normal. I Would like her to have an opinion from a Film Historian to see if she is developing Rheumatoid arthritis. Also would like her to have hand and feet xrays to make sure no signs of joint destruction is occurring Vijay Park DO [facility]03-12-2025 Telephone encounter Note* Telephone Encounter - Lacy Del Rosario RN - 11/11/2024 9:47 AM EDT Patient calls for rash. Nurse triage recommends homecare. Patient requests provider recommendation d/t upcoming surgery. Appt scheduled. Care advice reviewed. Patient verbalized understanding. Reason for Disposition Mild localized rash Answer Assessment - Initial Assessment Questions 1. APPEARANCE of RASH: Patient reports rash to bilateral ankles and upper legs. Red and slightly red. Rash is itchy. Patient completed antibiotic for UTI on Saturday. Reports that she had flu symptoms all of last week (chills, fever, nausea, vomiting, diarrhea) all subsided as of Saturday as well. 2. LOCATION: Bilateral ankles and upper thigh areas. 3. NUMBER: Several 4. SIZE: Several small areas but each area not as big as a coin 5. ONSET: Yesterday 6. ITCHING:Moderate 7. PAIN: - MILD (1-3): Doesn't interfere with normal activities 8. OTHER SYMPTOMS: No fever. Answer Assessment - Initial Assessment Questions Selected in Error. Protocols used: Rash or Redness - Ogqjpvgyv-MLFRT-JC, Wound Infection Ncgzryioz-NUIWR-LE [facility]03-12-2025 Miscellaneous Notes* Telephone Encounter - Lacy Del Rosario RN - 11/11/2024 9:47 AM EDT Patient calls for rash. Nurse triage recommends homecare. Patient requests provider recommendation d/t upcoming surgery. Appt scheduled. Care advice reviewed. Patient verbalized understanding. Reason for Disposition Mild localized rash Answer Assessment - Initial Assessment Questions 1. APPEARANCE of RASH: Patient reports rash to bilateral ankles and upper legs. Red and slightly red. Rash is itchy. Patient completed antibiotic for UTI on Saturday. Reports that she had flu symptoms all of last week (chills, fever, nausea, vomiting, diarrhea) all subsided as of Saturday as well. 2. LOCATION: Bilateral ankles and upper thigh areas. 3. NUMBER: Several 4. SIZE: Several small areas but each area not as big as a coin 5. ONSET: Yesterday 6. ITCHING:Moderate 7. PAIN: - MILD (1-3): Doesn't interfere with normal activities 8. OTHER SYMPTOMS: No fever. Answer Assessment - Initial Assessment Questions Selected in Error. Protocols used: Rash or Redness - Ooymhoklo-BAHNB-WU, Wound Infection Kbhsbehbp-KUKMJ-NF documented in this encounterKindred [facility]03-04-2025 NoteHNO ID: [id number] Author: MATTHEW BERMEO APRN.LAST INSERTER Service: ? Author Type: Nurse Practitioner Type: Progress Notes Filed: 11/03/2024 12:30 Note Text: Chief Complaint Patient presents with: UTI HPI Maureen Rodriguez is a 64 year old female who presents here today for Above Complaints.. Patient presents today for frequency, urgency, burning x5 days. Patient states she took a bath and started noticing her symptoms a few days after that. Patient states she has been nauseated a couple of times and has noticed some chills and a fever. She tried Azol which helped with her symptoms. She has had UTI in the past and this does feel similar to those times. Patient states she is currently sexually active. She is having more discharge and some slight itching but hasn't noticed any redness. Patient denies seeing blood in her urine, back pain, pelvic pressure and abdominal pressure. Past medical history, appointments, medications, allergies reviewed. Previous Medical History PAST MEDICAL HISTORY Diagnosis Date Arrhythmia Ramirez's esophagus determined by endoscopy Coronary artery disease minimal, no surgical procedure, Dr. 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 Eczema of both external ears Essential hypertension, benign 2002 Hyperparathyroidism (HCC) Impaired fasting blood sugar 10/2014 a1c 5.7% Irritable bowel syndrome resolved mostly with cholecystectomy Osteoarthritis of knees, bilateral Other and unspecified hyperlipidemia Other premature beats 2003 symptomatic in past, atenolol helps Other specified acquired hypothyroidism 09/10/2008 Snoring Previous Surgical History PAST SURGICAL HISTORY Procedure Laterality Date ; PARATHYROIDECTOMY/EXPL PARATHYRD 12/2012 COLONOSCOPY FLX DX W/COLLJ SPEC WHEN PFRMD 07/08/2013 Colonoscopy COLONOSCOPY FLX DX W/COLLJ SPEC WHEN PFRMD 08/05/2015 EGD 07/08/2013 EGD TRANSORAL BIOPSY SINGLE/MULTIPLE 08/05/2015 HEART CATHETERIZATION 04/2013 LAPS SURG CHOLECYSTECTOMY W/CHOLANGIOGRAPHY 07/22/2013 NEUROPLASTY AND/TRANSPOS MEDIAN NRV CARPAL TUNNE ~2005 Carpal tunnel decomp- right wrist NEUROPLASTY AND/TRANSPOS MEDIAN NRV CARPAL TUNNE 08/19/2013 LEFT PT ED HEART AND VASCULAR 08/02/2023 1 stent heart VAGINAL HYSTERECTOMY UTERUS 250 GM/< 2004 due to bleeding, no cancer, still has both ovaries Family History FAMILY HISTORY Problem Relation Age of Onset Hypertension Mother Cancer Mother skin - not melanoma Thyroid Mother hyperthyroidism (had thyroidectomy) Coronary Artery Disease Mother Heart Mother other (Poly Myalgia Rheumatica (PMR)) Mother Hypertension Father Heart Father PA age 75 other (Dementia) Father Allergies Sister food Heart Brother heart attack Heart Brother PA age 56 Hypertension Brother other (nephrolithiasis) Brother x 2 Heart Maternal Grandmother CAD, age 79 other (Other) Paternal Grandmother age 74, unknown cause other (pancreatic cancer) Paternal Grandfather at 86 Heart Paternal Uncle PA x 2 uncles Prostate Cancer Paternal Uncle Patient Allergies ALLERGIES Allergen Reactions Bees possibly Grass Pollen Other: See Comments Sneezing, itchy eyes Triamterene-Hydroch* Rash photodermatitis Current Medications Current Outpatient Medications on File Prior to Visit Medication Sig clopidogrel (PLAVIX) 75 mg tablet TAKE 4 TABLETS BY MOUTH ON DAY ONE, THEN TAKE 1 TABLET DAILY BEGINNING ON DAY TWO. levothyroxine (SYNTHROID) 112 mcg tablet Take 1 tablet by mouth once daily. pravastatin (PRAVACHOL) 10 mg tablet Take 10 mg by mouth once daily. aspirin-caffeine 1,000-150 mg pwpk .qod (Patient not taking: Reported on 10/22/2024) dexAMETHasone 0.1 % ophthalmic solution 1 Drop two times a day as needed. Into bilateral outer ear canal (Patient not taking: Reported on 10/19/2024) diclofenac (VOLTAREN) 1 % topical gel Apply 0.5 g to affected area four times daily as needed. dexAMETHasone 0.1 % ophthalmic solution 1 Drop twice daily as needed. Into bilateral outer ear canal GLUCOSAMINE HCL (GLUCOSAMINE, BULK, MISC) MULTIVIT-MINERALS/FERROUS FUM (MULTI VITAMIN ORAL) Take by mouth. estradiol (ESTRACE) 0.01 % (0.1 mg/gram) vaginal cream Use fingertip amount vaginally nightly x 2 weeks then every other night x 2 weeks then 1-3x weekly metoprolol succinate XL, long acting, 25 mg 24 hr tablet Take 25 mg by mouth once daily. Aspirin 81 mg Tab Take 81 mg by mouth. Calcium Carbonate-Vitamin D3 500 mg(1,250mg) -600 unit Chew Take 1 tablet by mouth three times daily. No current facility-administered medications on file prior to visit. Social History Social History Tobacco Use Smoking status: Never Smokeless tobacco: Never Vaping Use Vaping status: Never Used Substance Use Topics Alcohol use: Yes Comment: very rarely Drug use: No Review of Symptoms REVIEW OF SYSTEMS GENERAL: No weight loss, malaise or fevers RESPIRATORY: Negative for (more content not included)...[facility]03-04-2025 History of Present illness Narrative* Matthew Bermeo APRN.[facility] - 11/03/2024 12:12 PM EST Chief Complaint Patient presents with: UTI HPI Maureen Rodriguez is a 64 year old female who presents here today for Above Complaints.. Patient presents today for frequency, urgency, burning x5 days. Patient states she took a bath and started noticing her symptoms a few days after that. Patient states she has been nauseated a couple of times and has noticed some chills and a fever. She tried Azol which helped with her symptoms. Shehas had UTI in the past and this does feel similar to those times. Patient states she is currently sexually active. She is having more discharge and some slight itching but hasn't noticed any redness. Patient denies seeing blood in her urine, back pain, pelvic pressure and abdominal pressure. Past medical history, appointments, medications, allergies reviewed. Previous Medical History PAST MEDICAL HISTORY Diagnosis Date Arrhythmia Ramirez's esophagus determined by endoscopy Coronary artery disease minimal, no surgical procedure, Dr. Juarze [employer] Work[employer] Eczema of both external ears Essential hypertension, benign 2002 Hyperparathyroidism (HCC) Impaired fasting blood sugar 10/2014 a1c 5.7% Irritable bowel syndrome resolved mostly with cholecystectomy Osteoarthritis of knees, bilateral Other and unspecified hyperlipidemia Other premature beats 2003 symptomatic in past, atenolol helps Other specified acquired hypothyroidism 09/10/2008 Snoring Previous Surgical History PAST SURGICAL HISTORY Procedure Laterality Date ; PARATHYROIDECTOMY/EXPL PARATHYRD 12/2012 COLONOSCOPY FLX DX W/COLLJ SPEC WHEN PFRMD 07/08/2013 Colonoscopy COLONOSCOPY FLX DX W/COLLJ SPEC WHEN PFRMD 08/05/2015 EGD 07/08/2013 EGD TRANSORAL BIOPSY SINGLE/MULTIPLE 08/05/2015 HEART CATHETERIZATION 04/2013 LAPS SURG CHOLECYSTECTOMY W/CHOLANGIOGRAPHY 07/22/2013 NEUROPLASTY &/TRANSPOS MEDIAN NRV CARPAL TUNNE ~2005 Carpal tunnel decomp- right wrist NEUROPLASTY &/TRANSPOS MEDIAN NRV CARPAL TUNNE 08/19/2013 LEFT PT ED HEART AND VASCULAR 08/02/2023 1 stent heart VAGINAL HYSTERECTOMY UTERUS 250 GM/< 2004 due to bleeding, no cancer, still has both ovaries Family History FAMILY HISTORY Problem Relation Age of Onset Hypertension Mother Cancer Mother skin - not melanoma Thyroid Mother hyperthyroidism (had thyroidectomy) Coronary Artery Disease Mother Heart Mother other (Poly Myalgia Rheumatica (PMR)) Mother Hypertension Father Heart Father PA age 75 other (Dementia) Father Allergies Sister food Heart Brother heart attack Heart Brother PA age 56 Hypertension Brother other (nephrolithiasis) Brother x 2 Heart Maternal Grandmother CAD, age 79 other (Other) Paternal Grandmother age 74, unknown cause other (pancreatic cancer) Paternal Grandfather at 86 Heart Paternal Uncle PA x 2 uncles Prostate Cancer Paternal Uncle Patient Allergies ALLERGIES Allergen Reactions Bees possibly Grass Pollen Other: See Comments Sneezing, itchy eyes Triamterene-Hydroch* Rash photodermatitis Current Medications Current Outpatient Medications on File Prior to Visit Medication Sig clopidogrel (PLAVIX) 75 mg tablet TAKE 4 TABLETS BY MOUTH ON DAY ONE, THEN TAKE 1 TABLET DAILY BEGINNING ON DAY TWO. levothyroxine (SYNTHROID) 112 mcg tablet Take 1 tablet by mouth once daily. pravastatin (PRAVACHOL) 10 mg tablet Take 10 mg by mouth once daily. aspirin-caffeine 1,000-150 mg pwpk .qod (Patient not taking: Reported on 10/22/2024) dexAMETHasone 0.1 % ophthalmic solution 1 Drop two times a day as needed. Into bilateral outer ear canal (Patient not taking: Reported on 10/19/2024) diclofenac (VOLTAREN) 1 % topical gel Apply 0.5 g to affected area four times daily as needed. dexAMETHasone 0.1 % ophthalmic solution 1 Drop twice daily as needed. Into bilateral outer ear canal GLUCOSAMINE HCL (GLUCOSAMINE, BULK, MISC) MULTIVIT-MINERALS/FERROUS FUM (MULTI VITAMIN ORAL) Take by mouth. estradiol (ESTRACE) 0.01 % (0.1 mg/gram) vaginal cream Use fingertip amount vaginally nightly x 2 weeks then every other night x 2 weeks then 1-3x weekly metoprolol succinate XL, long acting, 25 mg 24 hr tablet Take 25 mg by mouth once daily. Aspirin 81 mg Tab Take 81 mg by mouth. Calcium Carbonate-Vitamin D3 500 mg(1,250mg) -600 unit Chew Take 1 tablet by mouth three times daily. No current facility-administered medications on file prior to visit. Social History Social History Tobacco Use Smoking status: Never Smokeless tobacco: Never Vaping Use Vaping status: Never Used Substance Use Topics Alcohol use: Yes Comment: very rarely Drug use: No Review of Symptoms REVIEW OF SYSTEMS GENERAL: No weight loss, malaise or fevers RESPIRATORY: Negative for cough, hemoptysis, wheezing, COPD, dyspnea or shortness of breath CARDIOVASCULAR: Negative for chest pain, leg swelling, hypertension, CHF or palpitations REJOGGER: Negative for abnormal vaginal bleeding and breast symptoms or Positive for abnormal vaginal discharge increased and vaginal itching slight EXAM: BP 127/75 Pulse 62 Wt 93 kg (205 lb 0.4 oz) BMI 32.95 kg/m General Appearance: Well appearing, alert, in no acute distress, well-hydrated, well nourished.. Lungs: Lungs clear to auscultation. No wheezing, rhonchi, rales.. Heart: RRR without murmur, gallop, or rubs. No ectopy. Abdomen: Normal abdominal exam, Negative CVA tenderness, Positive findings: tenderness mild LLQ. Health Maintenance List Depression Screening Never done Anxiety Screening Never done Advance Directive Discussion Never done Mammogram Screening due on 11/05/2024 DTaP,Tdap,Td Vaccine(1 - Tdap) due on 10/19/2025 Shingrix Vaccine(1 of 2) due on 10/19/2025 Covid-19 Vaccine( - ) due on 10/19/2025 Colorectal Cancer Screening due on 08/05/2025 LDL Cholesterol due on 10/19/2025 Annual PCP Team Chronic Disease Visit due on 10/19/2025 BP Controlled (<130/80) due on 10/19/2025 Diabetes Screening due on 10/19/2027 Lipid Screening due on 10/19/2029 RSV Vaccine(1 - 1-dose 75+ series) due on 2033 Bone Density Screening Completed Influenza Vaccine Completed Hepatitis C Screening Completed Pneumococcal Vaccine: 50+ Completed Cervical Cancer Screening Discontinued ASSESSMENT/PLAN: 1. Burning with urination - ICD9: 788.1, ICD10: R30.0 acute - Send urine for culture - Begin treatment with Macrobid 100 mg BID for 5 days - Patient education for prevention given - URINALYSIS, REFLEX MICROSCOPIC - NITROFURANTOIN MONOHYDRATE & MACROCRYSTAL 100 MG ORAL CAP Matthew Bermeo APRN.LAST INSERTER documented in this encounterKind[facility]03-04-2025 Telephone encounter Note * Telephone Encounter - Nadya Amos RN - 11/03/2024 9:47 AM EST Patient calling with concern for urinary symptoms that began approximately 5 days ago. Appt made with available provider today for evaluation. Symptoms include: urinary frequency, burning, painful urination, slight nausea and pt having hot/cold episodes. Denies back/flank pain, visible blood in urine, or other sx's. Nadya Amos RN [facility]03-04-2025 Miscellaneous Notes* Telephone Encounter - Nadya Amos RN - 11/03/2024 9:47 AM EST Patient calling with concern for urinary symptoms that began approximately 5 days ago. Appt made with available provider today for evaluation. Symptoms include: urinary frequency, burning, painful urination, slight nausea and pt having hot/cold episodes. Denies back/flank pain, visible blood in urine, or other sx's. Nadya Amos RN documented in this encounterKind[facility]03-03-2025 Telephone encounter Note * Telephone Encounter - Sandra Mcwilliams RN - 11/02/2024 9:25 AM EST Dee Dee from [facility] calling in to check on preop clearance form. She is asking for the office visit note, lab results and the actual preop clearance form. Per Jennifer in Yarilorena Moore's office, preop clearance form ready to be faxed. I will fax OV note and labs to [phone]. [facility]03-03-2025 Miscellaneous Notes* Telephone Encounter - Sandra Mcwilliams RN - 11/02/2024 9:25 AM EST Dee Dee from [facility] calling in to check on preop clearance form. She is asking for the office visit note, lab results and the actual preop clearance form. Per Jennifer in Yari Moore's office, preop clearance form ready to be faxed. I will fax OV note and labs to [phone]. documented in this encounterKindred Healthcare02-28-2025 History of Present illness Narrative* Gómez Palomo RT(R) - 10/30/2024 8:55 AM EST Radiology Service Progress Note PATIENT NAME: Maureen Rodriguez DATE OF SERVICE: October 30, 2024 TIME: 9:01 AM PATIENT IDENTITY VERIFICATION COMPLETED USING TWO (2) IDENTIFIERS: Name and Date of confirmedby patient verbally. FALL SCREENING: Has the patient had 2 falls in the last year or 1 fall with injury or currently using an Ambulatory Assistive Device (Walker, Cane, Wheelchair, Crutches, etc.)? No PATIENT GENDER DATA: Assigned female at . status: : No status:NO. PATIENT RELEVANT IMPLANT DATA REVIEWED: Not Applicable PATIENT PRESENTS WITH AN IMPLANTABLE OR ATTACHED BUILDING CONSTRUCTION ESTIMATOR: No RADIOLOGY DEPARTMENT: Bone Density PERIPHERAL IV DATA: Not applicable SIGNED BY: RT Jamaal(R) October 30, 2024 9:01 AM documented in this encounterKindred Healthcare02-28-2025 NoteHNO ID: [id number] Author: GÓMEZ PALOMO RT(R) Service: ? Author Type: Technologist Type: Progress Notes Filed: 10/30/2024 09:09 Note Text: Radiology Service Progress Note PATIENT NAME: Maureen Rodriguez DATE OF SERVICE: October 30, 2024 TIME: 9:01 AM PATIENT IDENTITY VERIFICATION COMPLETED USING TWO (2) IDENTIFIERS: Name and Date of confirmed by patient verbally. FALL SCREENING: Has the patient had 2 falls in the last year or 1 fall with injury or currently using an Ambulatory Assistive Device (Walker, Cane, Wheelchair, Crutches, etc.)? No PATIENT GENDER DATA: Assigned female at . status: : No status: NO. PATIENT RELEVANT IMPLANT DATA REVIEWED: Not Applicable PATIENT PRESENTS WITH AN IMPLANTABLE OR ATTACHED BUILDING CONSTRUCTION ESTIMATOR: No RADIOLOGY DEPARTMENT: Bone Density PERIPHERAL IV DATA: Not applicable SIGNED BY: RT Jamaal(Lili) October 30, 2024 9:01 [facility]02-20-2025 NoteHNO ID: [id number] Author: DARIUSZ TSAI MD Service: ? Author Type: Physician Type: Progress Notes Filed: 11/17/2024 22:39 Note Text: Dariusz Tsai MD Department of Orthopaedics Orthopaedics [address] [place] [address] Dept: [phone] Dept October 22, 2024 CHIEF COMPLAINT: New and Knee Pain of the Right Knee and New and Knee Pain of the Left Knee (Referred by Dr. Park) HPI Patient here for evaluation bilateral knee pain. At times her right knee is worse than her left, but today she is having more pain in her left knee. She is having all over pain in her knee. Her pain is worse on the posterior aspect. She is retired. Taking Tylenol for the pain and only helps take the edge off. She has only tried the Voltaren gel a few times. X-rays done on 09/30/24. ASSESSMENT: M17.0 Primary osteoarthritis of both knees (primary encounter diagnosis) M25.561, M25.562, G89.29 Chronic pain of both knees PLAN: We reviewed non-op and op for knee OA. On Plavix so she has to be careful with Nsaids. We discussed injections, strengthening, etc. Will continue to monitor patient for Chronic pain of both knees Primary osteoarthritis of both knees (primary encounter diagnosis), patient to schedule visit as per follow up discussed. FOLLOW UP INSTRUCTIONS: As needed OBJECTIVE: Ms. Maureen Rodriguez is a pleasant 64 year old in no apparent distress. Gen:There were no vitals taken for this visit. nl development, non obese, no deformities ENT: Normocephalic, normal hearing, moist mucosa CV: Pulses:DP/PT= 2+ and symmetric, capillary refill < 2 secs, no peripheral edema/varicosities Skin: no rash, bruising or lesions. Good turgor. Psych: cooperative and appropriate, alert and oriented x 3, good mood and affect. Musculoskeletal: Patient walks with mild antalgia, normal station. Hip motion without pain. Each knee with scant effusion. Patella tracks normally. There is no patellar crepitance. No pain along the medial or lateral facets. Range of motion 5-120, each. Positive medial, without lateral joint line pain on palpation. Ligamentous exam stable on varus and valgus stress testing at 0 and 30 degrees, with some medial widening with valgus stress. Robson's examination is negative. Posterior drawer is negative. Negative McMurrays, without palpable click. Extremity is warm and well perfused. Sensation is grossly intact to light touch, subjectively. IMAGING: IMPRESSION: Moderate-severe medial compartment osteoarthritis in both knees progressed since 06/08/2020. Inspector Rag Sorting: BILLY Transcribe Date/Time: Oct 02 2024 2:58P Dictated by : DAYA BARRIOS DO This examination was interpreted and the report reviewed and electronically signed by: DAYA BARRIOS DO on Oct 02 2024 3:00PM EST Results-Findings * * *Final Report* * * DATE OF EXAM: Sep 30 2024 10:31AM [id number] - XR KNEE 4V AP/PA/LAT/[facility] HÉCTOR / PROCEDURE REASON: multiple diagnoses * * * * Physician Interpretation * * * * EXAMINATION: XR KNEE 4V AP/PA/LAT/[facility]CTOR PATIENT/TECHNOLOGIST PROVIDED HISTORY: PT STATES BILAT KNEE PAIN > ON RIGHT CLINICAL INFORMATION: 64 years old Female with Chronic pain of both knees TECHNIQUE: XR KNEE 4V AP/PA/LAT/[facility]CTOR Laterality: BILATERAL Number of different views (projections): 4 views of each knee COMPARISON: Radiographs 06/08/2020 RESULT: Small tricompartmental osteophytes with moderate-severe medial compartment joint space narrowing in both knees with near hfhm-co-llyx contact progressed since 06/08/2020. No joint effusion in either knee. No acute fracture. 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 Eczema of both external ears Essential hypertension, benign 2002 Hyperparathyroidism (HCC) Impaired fasting blood sugar 10/2014 a1c 5.7% Irritable bowel syndrome resolved mostly with cholecystectomy Osteoarthritis of knees, bilateral Other and unspecified hyperlipidemia Other premature beats 2003 symptomatic in past, atenolol helps Other specified acquired hypothyroidism 09/10/2008 Snoring Past Surgical History: PAST SURGICAL HISTORY Procedure Laterality Date ; PARATHYROIDECTOMY/EXPL PARATHYRD 12/2012 COLONOSCOPY FLX DX W/COLLJ SPEC WHEN PFRMD 07/08/2013 Colonoscopy COLONOSCOPY FLX DX W/COLLJ SPEC WHEN PFRMD 08/05/2015 EGD 07/08/2013 EGD TRANSORAL BIOPSY SINGLE/MULTIPLE 08/05/2015 HEART CATHETERIZATION 04/2013 LAPS SURG CHOLECYSTECTOMY W/CHOLANGIOGRAPHY 07/22/2013 NEUROPLASTY AND/TRANSPOS MEDIAN NRV CARPAL TUNNE ~2005 Carpal tunnel decomp- right wrist NEUROPLASTY AND/TRANSPOS MEDIAN NRV CARPAL TUNNE 08/19/2013 LEFT PT ED HEART AND VASCULAR 08/02/2023 1 stent heart VAGINAL HYSTERECT (more content not included)...[facility] 10-22-2024 History of Present illness Narrative* Dariusz Tsai MD - 10/22/2024 9:06 AM EST Dariusz Tsai MD Department of Orthopaedics Orthopaedics [address] [facility] [address] Dept: [phone] Dept October 22, 2024 CHIEF COMPLAINT: New and Knee Pain of the Right Knee and New and Knee Pain of the Left Knee (Referred by Dr. Park) HPI Patient here for evaluation bilateral knee pain. At times her right knee is worse than her left, but today she is having more pain in her left knee. She is having all over pain in her knee. Her pain is worse on the posterior aspect. She is retired. Taking Tylenol for the pain and only helps take the edge off. She has only tried the Voltaren gel a few times. X-rays done on 09/30/24. ASSESSMENT: M17.0 Primary osteoarthritis of both knees (primary encounter diagnosis) M25.561, M25.562, G89.29 Chronic pain of both knees PLAN: We reviewed non-op and op for knee OA. On Plavix so she has to be careful with Nsaids. We discussed injections, strengthening, etc. Will continue to monitor patient for Chronic pain of both knees Primary osteoarthritis of both knees (primary encounter diagnosis), patient to schedule visit as per follow up discussed. FOLLOW UP INSTRUCTIONS: As needed OBJECTIVE: Ms. Maureen Rodriguez is a pleasant 64 year old in no apparent distress. Gen:There were no vitals taken for this visit. nl development, non obese, no deformities ENT: Normocephalic, normal hearing, moist mucosa CV: Pulses:DP/PT= 2+ and symmetric, capillary refill < 2 secs, no peripheral edema/varicosities Skin: no rash, bruising or lesions. Good turgor. Psych: cooperative and appropriate, alert and oriented x 3, good mood and affect. Musculoskeletal: Patient walks with mild antalgia, normal station. Hip motion without pain. Each knee with scant effusion. Patella tracks normally. There is no patellar crepitance. No pain along the medial or lateralfacets. Range of motion 5-120, each. Positive medial, without lateral joint line pain on palpation.Ligamentous exam stable on varus and valgus stress testing at 0 and 30 degrees, with some medial widening with valgus stress. Robson's examination is negative. Posterior drawer is negative. NegativeMcMurrays, without palpable click. Extremity is warm and well perfused. Sensation is grossly intactto light touch, subjectively. IMAGING: IMPRESSION: Moderate-severe medial compartment osteoarthritis in both knees progressed since 06/08/2020. Inspector Rag Sorting: BILLY Transcribe Date/Time: Oct 02 2024 2:58P Dictated by : DAYA BARRIOS DO This examination was interpreted and the report reviewed and electronically signed by: DAYA BARRIOS DO on Oct 02 2024 3:00PM EST Results-Findings * * *Final Report* * * DATE OF EXAM: Sep 30 2024 10:31AM [id number] - XR KNEE 4V AP/PA/LAT/[facility] H[facility]CTOR / PROCEDURE REASON: multiple diagnoses * * * * Physician Interpretation * * * * EXAMINATION: XR KNEE 4V AP/PA/LAT/[facility] H[facility]CTOR PATIENT/TECHNOLOGIST PROVIDED HISTORY: PT STATES BILAT KNEE PAIN > ON RIGHT CLINICAL INFORMATION: 64 years old Female with Chronic pain of both knees TECHNIQUE: XR KNEE 4V AP/PA/LAT/[facility]CTOR Laterality: BILATERAL Number of different views (projections): 4 views of each knee COMPARISON: Radiographs 06/08/2020 RESULT: Small tricompartmental osteophytes with moderate-severe medial compartment joint space narrowing in both knees with near ugil-ms-zgiw contact progressed since 06/08/2020. No joint effusion in either knee. No acute fracture. 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 Eczema of both external ears Essential hypertension, benign 2002 Hyperparathyroidism (HCC) Impaired fasting blood sugar 10/2014 a1c 5.7% Irritable bowel syndrome resolved mostly with cholecystectomy Osteoarthritis of knees, bilateral Other and unspecified hyperlipidemia Other premature beats 2003 symptomatic in past, atenolol helps Other specified acquired hypothyroidism 09/10/2008 Snoring Past Surgical History: PAST SURGICAL HISTORY Procedure Laterality Date ; PARATHYROIDECTOMY/EXPL PARATHYRD 12/2012 COLONOSCOPY FLX DX W/COLLJ SPEC WHEN PFRMD 07/08/2013 Colonoscopy COLONOSCOPY FLX DX W/COLLJ SPEC WHEN PFRMD 08/05/2015 EGD 07/08/2013 EGD TRANSORAL BIOPSY SINGLE/MULTIPLE 08/05/2015 HEART CATHETERIZATION 04/2013 LAPS SURG CHOLECYSTECTOMY W/CHOLANGIOGRAPHY 07/22/2013 NEUROPLASTY &/TRANSPOS MEDIAN NRV CARPAL TUNNE ~2005 Carpal tunnel decomp- right wrist NEUROPLASTY &/TRANSPOS MEDIAN NRV CARPAL TUNNE 08/19/2013 LEFT PT ED HEART AND VASCULAR 08/02/2023 1 stent heart VAGINAL HYSTERECTOMY UTERUS 250 GM/< 2004 due to bleeding, no cancer, still has both ovaries Family History: FAMILY HISTORY Problem Relation Age of Onset Hypertension Mother Cancer Mother skin - not melanoma Thyroid Mother hyperthyroidism (had thyroidectomy) Coronary Artery Disease Mother Heart Mother other (Poly Myalgia Rheumatica (PMR)) Mother Hypertension Father Heart Father PA age 75 other (Dementia) Father Allergies Sister food Heart Brother heart attack Heart Brother PA age 56 Hypertension Brother other (nephrolithiasis) Brother x 2 Heart Maternal Grandmother CAD, age 79 other (Other) Paternal Grandmother age 74, unknown cause other (pancreatic cancer) Paternal Grandfather at 86 Heart Paternal Uncle PA x 2 uncles Prostate Cancer Paternal Uncle Social History: Social History Tobacco Use Smoking status: Never Smokeless tobacco: Never Vaping Use Vaping status: Never Used Substance Use Topics Alcohol use: Yes Comment: very rarely Drug use: No Medications: Current Outpatient Medications Medication Sig clopidogrel (PLAVIX) 75 mg tablet TAKE 4 TABLETS BY MOUTH ON DAY ONE, THEN TAKE 1 TABLET DAILY BEGINNING ON DAY TWO. levothyroxine (SYNTHROID) 112 mcg tablet Take 1 tablet by mouth once daily. pravastatin (PRAVACHOL) 10 mg tablet Take 10 mg by mouth once daily. diclofenac (VOLTAREN) 1 % topical gel Apply 0.5 g to affected area four times daily as needed. dexAMETHasone 0.1 % ophthalmic solution 1 Drop twice daily as needed. Into bilateral outer ear canal GLUCOSAMINE HCL (GLUCOSAMINE, BULK, MISC) MULTIVIT-MINERALS/FERROUS FUM (MULTI VITAMIN ORAL) Take by mouth. estradiol (ESTRACE) 0.01 % (0.1 mg/gram) vaginal cream Use fingertip amount vaginally nightly x 2 weeks then every other night x 2 weeks then 1-3x weekly metoprolol succinate XL, long acting, 25 mg 24 hr tablet Take 25 mg by mouth once daily. Aspirin 81 mg Tab Take 81 mg by mouth. Calcium Carbonate-Vitamin D3 500 mg(1,250mg) -600 unit Chew Take 1 tablet by mouth three times daily. aspirin-caffeine 1,000-150 mg pwpk .qod (Patient not taking: Reported on 10/22/2024) dexAMETHasone 0.1 % ophthalmic solution 1 Drop two times a day as needed. Into bilateral outer ear canal (Patient not taking: Reported on 10/19/2024) No current facility-administered medications for this visit. Allergies: Bees, Grass Pollen, and Triamterene-Hydrochlorothiazid ROS: General (negative for fatigue, malaise, weight loss/gain) HEENT (negative for headache, earache, recent vision changes, sinus pain, sore throat) Respiratory (no recent shortness of breath, hemoptysis) CV (negative for chest tightness, palpitations) Musculoskeletal (see HPI) Psych (no depression, anxiety) REFERRING PHYSICIAN: Consultation requested by Dr. Park for an opinion regarding knee pain. My final recommendationswill be communicated back to the requesting physician by way of shared Medical record or letter to requesting physician via US mail. Vijay Park DO [address] [facility] [id number] Dariusz Tsai MD documented in this encounterKindred Healthcare02-17-2025 NoteHNO ID: [id number] Author: YARI MOORE APRN.LAST INSERTER Service: ? Author Type: Nurse Practitioner Type: Progress Notes Filed: 10/19/2024 09:44 Note Text: Chief Complaint Patient presents with: Pre-Op Exam: Foot surgery HPI Maureen Rodriguez is a 64 year old female who presents here today for Above Complaints. Maureen is an established patient of Dr. Xavier DO. Concerns today.. Pre-op clearance. Scheduled on 11/13/24 for R foot bunionectomy with second, third, and fourth hammertoe repair with [facility]. Anticipated anesthesia: general with popliteal/saphenous nerve block. Hx of previous anesthesia problems: No. Family hx of anesthesia problems: No. Current signs of infection: No. Chest pain: No. Only heart burn symptoms occassionally which is her baseline. Resolves with TUMS. Shortness of breath: No. Known sleep apnea: No. Hx of clotting issues: No. On Plavix d/t cardiac stent in 2022. Current bleeding or bruising: No. Had routine wellness exam on 09/23/[address] Park. Pt does report mild occasionally headaches that resolve on their own after a few minutes. Otherwise, no new symptoms since last visit. Got lab work done today, ordered at last visit. HTN -- well controlled on current regimen. Last 14 Encounter BP Readings: Date: BP: 10/19/2024 112/58 09/23/2024 116/80 08/22/2024 140/82 10/16/2023 120/60 07/10/2022 136/80 04/18/2021 120/84 03/14/2020 112/74 10/28/2018 100/60 09/18/2017 116/80 03/13/2017 110/60 09/12/2016 120/80 03/09/2016 110/70 08/03/2015 100/60 07/13/2015 109/60 Hypothyroidism -- stable, no new symptoms. Labs done today. Knee pain -- following with Dr. Tsai ( has appointment this week) d/t osteoarthritis. Follows with cardiology for CAD. Taking her plavix, pravstatin, and metoprolol. No recent symptoms. Past medical history, appointments, medications, allergies reviewed. Previous Medical History PAST MEDICAL HISTORY Diagnosis Date Arrhythmia Ramirez's esophagus determined by endoscopy Coronary artery disease minimal, no surgical procedure, Dr. 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 Eczema of both external ears Essential hypertension, benign 2002 Hyperparathyroidism (HCC) Impaired fasting blood sugar 10/2014 a1c 5.7% Irritable bowel syndrome resolved mostly with cholecystectomy Osteoarthritis of knees, bilateral Other and unspecified hyperlipidemia Other premature beats 2003 symptomatic in past, atenolol helps Other specified acquired hypothyroidism 09/10/2008 Snoring Previous Surgical History PAST SURGICAL HISTORY Procedure Laterality Date ; PARATHYROIDECTOMY/EXPL PARATHYRD 12/2012 COLONOSCOPY FLX DX W/COLLJ SPEC WHEN PFRMD 07/08/2013 Colonoscopy COLONOSCOPY FLX DX W/COLLJ SPEC WHEN PFRMD 08/05/2015 EGD 07/08/2013 EGD TRANSORAL BIOPSY SINGLE/MULTIPLE 08/05/2015 HEART CATHETERIZATION 04/2013 LAPS SURG CHOLECYSTECTOMY W/CHOLANGIOGRAPHY 07/22/2013 NEUROPLASTY AND/TRANSPOS MEDIAN NRV CARPAL TUNNE ~2005 Carpal tunnel decomp- right wrist NEUROPLASTY AND/TRANSPOS MEDIAN NRV CARPAL TUNNE 08/19/2013 LEFT PT ED HEART AND VASCULAR 08/02/2023 1 stent heart VAGINAL HYSTERECTOMY UTERUS 250 GM/< 2004 due to bleeding, no cancer, still has both ovaries Family History FAMILY HISTORY Problem Relation Age of Onset Hypertension Mother Cancer Mother skin - not melanoma Thyroid Mother hyperthyroidism (had thyroidectomy) Coronary Artery Disease Mother Heart Mother other (Poly Myalgia Rheumatica (PMR)) Mother Hypertension Father Heart Father PA age 75 other (Dementia) Father Allergies Sister food Heart Brother heart attack Heart Brother PA age 56 Hypertension Brother other (nephrolithiasis) Brother x 2 Heart Maternal Grandmother CAD, age 79 other (Other) Paternal Grandmother age 74, unknown cause other (pancreatic cancer) Paternal Grandfather at 86 Heart Paternal Uncle PA x 2 uncles Prostate Cancer Paternal Uncle Patient Allergies ALLERGIES Allergen Reactions Bees possibly Grass Pollen Other: See Comments Sneezing, itchy eyes Triamterene-Hydroch* Rash photodermatitis Current Medications Current Outpatient Medications on File Prior to Visit Medication Sig clopidogrel (PLAVIX) 75 mg tablet TAKE 4 TABLETS BY MOUTH ON DAY ONE, THEN TAKE 1 TABLET DAILY BEGINNING ON DAY TWO. levothyroxine (SYNTHROID) 112 mcg tablet Take 1 tablet by mouth once daily. pravastatin (PRAVACHOL) 10 mg tablet Take 10 mg by mouth once daily. aspirin-caffeine 1,000-150 mg pwpk .qod dexAMETHasone 0.1 % ophthalmic solution 1 Drop two times a day as needed. Into bilateral outer ear canal diclofenac (VOLTAREN) 1 % topical gel Apply 0.5 g to affected area four times daily as needed. dexAMETHasone 0.1 % ophthalmic solution 1 Drop twice daily as needed. Into bilateral outer ear canal GLUCOSAMINE HCL (GLUCOSAMINE, BULK, MISC) (more content not included)... [facility]02-17-2025 History of Present illness Narrative* Yari Moore, RECORDING STUDIO SET UP WORKER.LAST INSERTER - 10/19/2024 8:44 AM EST Chief Complaint Patient presents with: Pre-Op Exam: Foot surgery HPI Maureen Rodriguez is a 64 year old female who presents here today for Above Complaints. Maureen is an established patient of Dr. Xavier DO. Concerns today.. Pre-op clearance. Scheduled on 11/13/24 for R foot bunionectomy with second, third, and fourth hammertoe repair with [facility]. Anticipated anesthesia: general with popliteal/saphenous nerve block. Hx of previous anesthesia problems: No. Family hx of anesthesia problems: No. Current signs of infection: No. Chest pain: No. Only heart burn symptoms occassionally which is her baseline. Resolves with TUMS. Shortness of breath: No. Known sleep apnea: No. Hx of clotting issues: No. On Plavix d/t cardiac stent in 2022. Current bleeding or bruising: No. Had routine wellness exam on 09/23/[address] Park. Pt does report mild occasionally headaches that resolve on their own after a few minutes. Otherwise, no new symptoms since last visit. Got lab work done today, ordered at last visit. HTN -- well controlled on current regimen. Last 14 Encounter BP Readings: Date: BP: 10/19/2024 112/58 09/23/2024 116/80 08/22/2024 140/82 10/16/2023 120/60 07/10/2022 136/80 04/18/2021 120/84 03/14/2020 112/74 10/28/2018 100/60 09/18/2017 116/80 03/13/2017 110/60 09/12/2016 120/80 03/09/2016 110/70 08/03/2015 100/60 07/13/2015 109/60 Hypothyroidism -- stable, no new symptoms. Labs done today. Knee pain -- following with Dr. Tsai ( has appointment this week) d/t osteoarthritis. Follows with cardiology for CAD. Taking her plavix, pravstatin, and metoprolol. No recent symptoms. Past medical history, appointments, medications, allergies reviewed. Previous Medical History PAST MEDICAL HISTORY Diagnosis Date Arrhythmia Ramirez's esophagus determined by endoscopy Coronary artery disease minimal, no surgical procedure, Dr. 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 Eczema of both external ears Essential hypertension, benign 2002 Hyperparathyroidism (HCC) Impaired fasting blood sugar 10/2014 a1c 5.7% Irritable bowel syndrome resolved mostly with cholecystectomy Osteoarthritis of knees, bilateral Other and unspecified hyperlipidemia Other premature beats 2003 symptomatic in past, atenolol helps Other specified acquired hypothyroidism 09/10/2008 Snoring Previous Surgical History PAST SURGICAL HISTORY Procedure Laterality Date ; PARATHYROIDECTOMY/EXPL PARATHYRD 12/2012 COLONOSCOPY FLX DX W/COLLJ SPEC WHEN PFRMD 07/08/2013 Colonoscopy COLONOSCOPY FLX DX W/COLLJ SPEC WHEN PFRMD 08/05/2015 EGD 07/08/2013 EGD TRANSORAL BIOPSY SINGLE/MULTIPLE 08/05/2015 HEART CATHETERIZATION 04/2013 LAPS SURG CHOLECYSTECTOMY W/CHOLANGIOGRAPHY 07/22/2013 NEUROPLASTY &/TRANSPOS MEDIAN NRV CARPAL TUNNE ~2004 Carpal tunnel decomp- right wrist NEUROPLASTY &/TRANSPOS MEDIAN NRV CARPAL TUNNE 08/19/2013 LEFT PT ED HEART AND VASCULAR 08/02/2023 1 stent heart VAGINAL HYSTERECTOMY UTERUS 250 GM/< 2004 due to bleeding, no cancer, still has both ovaries Family History FAMILY HISTORY Problem Relation Age of Onset Hypertension Mother Cancer Mother skin - not melanoma Thyroid Mother hyperthyroidism (had thyroidectomy) Coronary Artery Disease Mother Heart Mother other (Poly Myalgia Rheumatica (PMR)) Mother Hypertension Father Heart Father PA age 75 other (Dementia) Father Allergies Sister food Heart Brother heart attack Heart Brother PA age 56 Hypertension Brother other (nephrolithiasis) Brother x 2 Heart Maternal Grandmother CAD, age 79 other (Other) Paternal Grandmother age 74, unknown cause other (pancreatic cancer) Paternal Grandfather at 86 Heart Paternal Uncle PA x 2 uncles Prostate Cancer Paternal Uncle Patient Allergies ALLERGIES Allergen Reactions Bees possibly Grass Pollen Other: See Comments Sneezing, itchy eyes Triamterene-Hydroch* Rash photodermatitis Current Medications Current Outpatient Medications on File Prior to Visit Medication Sig clopidogrel (PLAVIX) 75 mg tablet TAKE 4 TABLETS BY MOUTH ON DAY ONE, THEN TAKE 1 TABLET DAILY BEGINNING ON DAY TWO. levothyroxine (SYNTHROID) 112 mcg tablet Take 1 tablet by mouth once daily. pravastatin (PRAVACHOL) 10 mg tablet Take 10 mg by mouth once daily. aspirin-caffeine 1,000-150 mg pwpk .qod dexAMETHasone 0.1 % ophthalmic solution 1 Drop two times a day as needed. Into bilateral outer ear canal diclofenac (VOLTAREN) 1 % topical gel Apply 0.5 g to affected area four times daily as needed. dexAMETHasone 0.1 % ophthalmic solution 1 Drop twice daily as needed. Into bilateral outer ear canal GLUCOSAMINE HCL (GLUCOSAMINE, BULK, MISC) MULTIVIT-MINERALS/FERROUS FUM (MULTI VITAMIN ORAL) Take by mouth. estradiol (ESTRACE) 0.01 % (0.1 mg/gram) vaginal cream Use fingertip amount vaginally nightly x 2 weeks then every other night x 2 weeks then 1-3x weekly metoprolol succinate XL, long acting, 25 mg 24 hr tablet Take 25 mg by mouth once daily. Aspirin 81 mg Tab Take 81 mg by mouth. Calcium Carbonate-Vitamin D3 500 mg(1,250mg) -600 unit Chew Take 1 tablet by mouth three times daily. No current facility-administered medications on file prior to visit. Social History Social History Tobacco Use Smoking status: Never Smokeless tobacco: Never Substance Use Topics Alcohol use: Yes Comment: very rarely Drug use: No REVIEW OF SYSTEMS: as above Reviewed relevant PMHx, PSHx, Social Hx, current medications and allergies. Review of Symptoms REVIEW OF SYSTEMS See HPI. EXAM: BP 112/58 (BP Site: Left Arm, BP Position: Sitting, BP Cuff Size: Large Adult) Pulse (!) 52 Resp 12 Ht 168 cm (5' 6.14") Wt 93.6 kg (206 lb 6.4 oz) SpO2 97% BMI 33.17 kg/m General Appearance: Well appearing, alert, in no acute distress, well-hydrated, well nourished.. Skin: Skin color, texture, turgor normal, no suspicious rashes or lesions. Head: Normocephalic, no masses, lesions, tenderness or abnormalities. Back:no pain to palpation of vertebrae, good flexion and extension, good range of motion, no muscletenderness Lungs: Lungs clear to auscultation. No wheezing, rhonchi, rales.. Heart: RRR without murmur, gallop, or rubs. No ectopy. Abdomen: Normal abdominal exam, Abdomen soft, non-tender. Bowel sounds normal. No masses, organomegaly. Extremities: No deformities, edema, skin discoloration, clubbing or cyanosis. Good capillary refill. . Musculoskeletal: No joint swelling, deformity, or tenderness. Peripheral Pulses: Normal. Neurologic: Gait normal. Reflexes normal and symmetric. Sensation grossly intact.. Health Maintenance List Depression Screening Never done Anxiety Screening Never done BP Controlled (<130/80) due on 07/10/2023 Advance Directive Discussion Never done Mammogram Screening due on 11/05/2024 DTaP,Tdap,Td Vaccine(1 - Tdap) due on 10/19/2025 Shingrix Vaccine(1 of 2) due on 10/19/2025 Covid-19 Vaccine() due on 10/19/2025 LDL Cholesterol due on 03/18/2025 Colorectal Cancer Screening due on 08/05/2025 Annual PCP Team Chronic Disease Visit due on 09/23/2025 Diabetes Screening due on 11/05/2026 Lipid Screening due on 03/18/2029 RSV Vaccine(1 - 1-dose 75+ series) due on 2033 Bone Density Screening Completed Influenza Vaccine Completed Hepatitis C Screening Completed Pneumococcal Vaccine: 50+ Completed Cervical Cancer Screening Discontinued ASSESSMENT/PLAN: 1. Preoperative clearance - ICD9: V72.84, ICD10: Z01.818 (primary diagnosis) EKG sinus bradycardia. Surgical clearance from PCP standpoint pending lab work results drawn today. Not anticipating any abnormalities that will hinder surgery clearance. Will fax paperwork once I review labs. - ECG COMPLETE 2. Hypothyroidism, acquired - ICD9: 244.9, ICD10: E03.9 - Instructed patient on importance of taking on an empty stomach either first thing in the morning or at bedtime. - check TSH and free T4 today - continue current dose of Synthroid 3. Hyperlipidemia, mixed - ICD9: 272.2, ICD10: E78.2 - Control undetermined, due for labs Labs pending. - Continue current medications - Counseled on healthy diet and regular exercise 4. Essential hypertension, benign - ICD9: 401.1, ICD10: I10 - Controlled - Continue current medications - Recommend home blood pressure monitoring, to bring results to next visit - Encouraged sodium restriction, DASH or Mediterranean diet - Recommend regular aerobic exercise 5. Coronary artery disease involving modoc coronary artery of modoc heart without angina pectoris- ICD9: 414.01, ICD10: I25.10 Stable. Continue with cards recommendations. 6. Chronic pain of both knees - ICD9: 719.46, 338.29, ICD10: M25.561, M25.562, G89.[address] Tsai follow up this week 7. Frequent headaches - ICD9: 784.0, ICD10: R51.9 Continue to monitor. Use NSAIDs otc as needed if they do not resolve on their own. RTO in 6 months, sooner if needed. Medical Decision Making: Problems: Moderate: 2+ stable chronic illnesses Data: Unique test(s) ordered: 1 Risk: Moderate: Decision on minor surgery w/ risk factors Medical Decision Making Level: 4 - Moderate Prescription instructions reviewed with patient as applicable. Potential red flag symptoms discussed with the patient. Reviewed appropriate action plan to take if red flag symptoms occur. Patient agreeable to treatment plan. Yari Linton APRN.LAST INSERTER [address] [place] [address] documented in this [facility]02-[facility] Telephone encounter Note * Telephone Encounter - Chasity Arthur MA - 10/06/2024 9:04 AM EST Patient notified and verbalized understanding. Scheduled with Jarrod on 10/22/24. .Chasity Arthur MA [facility]02-04-2025 Miscellaneous Notes* Telephone Encounter - Chasity Arthur MA - 10/06/2024 9:04 AM EST Patient notified and verbalized understanding. Scheduled with Jarrod on 10/22/24. .Chasity Arthur MA * Telephone Encounter - Jennifer Crenshaw LPN - 10/05/2024 9:57 AM EST Left message to return call for results, * Telephone Encounter - Vijay Park DO - 10/02/2024 5:31 PM EST Please let her know that her xrays of her knees show IMPRESSION: Moderate-severe medial compartment osteoarthritis in both knees progressed since 06/08/2020. Recommend follow up with Orthopedics specialist for opinion as next steps Vijay Park DO documented in this encounterKind[facility]02-03-2025 Telephone encounter Note * Telephone Encounter - Jennifer Crenshaw LPN - 10/05/2024 9:57 AM EST Left message to return call for results, [facility]01-31-2025 Telephone encounter Note* Telephone Encounter - Vijay Park DO - 10/02/2024 5:31 PM EST Please let her know that her xrays of her knees show IMPRESSION: Moderate-severe medial compartment osteoarthritis in both knees progressed since 06/08/2020. Recommend follow up with Orthopedics specialist for opinion as next steps Vijay Park DO [facility]01-29-2025 History of Present illness Narrative* Dana Betancourt RT(R) - 09/30/2024 10:10 AM EST Radiology Service Progress Note PATIENT NAME: Maureen Rodriguez DATE OF SERVICE: September 30, 2024 TIME: 2:32 PM PATIENT IDENTITY VERIFICATION COMPLETED USING TWO (2) IDENTIFIERS: Name and Date of confirmedby patient verbally. FALL SCREENING: Has the patient had 2 falls in the last year or 1 fall with injury or currently using an Ambulatory Assistive Device (Walker, Cane, Wheelchair, Crutches, etc.)? No PATIENT GENDER DATA: Assigned female at . status: : No status:NO. PATIENT RELEVANT IMPLANT DATA REVIEWED: Not Applicable PATIENT PRESENTS WITH AN IMPLANTABLE OR ATTACHED BUILDING CONSTRUCTION ESTIMATOR: No RADIOLOGY DEPARTMENT: General X-ray: Exam(s) Completed: Lower Extremity X- Ray(s): Knee, AP / Lat / Tunne / Merchant Bilateral and Wt. Bearing PERIPHERAL IV DATA: Not applicable SIGNED BY: RT Kylah(R) September 30, 2024 2:32 PM documented in this encounterKindred Healthcare01-29-2025 NoteHNO ID: [id number] Author: DANA BETANCOURT RT(R) Service: ? Author Type: Technologist Type: Progress Notes Filed: 09/30/2024 14:32 Note Text: Radiology Service Progress Note PATIENT NAME: Maureen Rodriguez DATE OF SERVICE: September 30, 2024 TIME: 2:32 PM PATIENT IDENTITY VERIFICATION COMPLETED USING TWO (2) IDENTIFIERS: Name and Date of confirmed by patient verbally. FALL SCREENING: Has the patient had 2 falls in the last year or 1 fall with injury or currently using an Ambulatory Assistive Device (Walker, Cane, Wheelchair, Crutches, etc.)? No PATIENT GENDER DATA: Assigned female at . status: : No status: NO. PATIENT RELEVANT IMPLANT DATA REVIEWED: Not Applicable PATIENT PRESENTS WITH AN IMPLANTABLE OR ATTACHED BUILDING CONSTRUCTION ESTIMATOR: No RADIOLOGY DEPARTMENT: General X-ray: Exam(s) Completed: Lower Extremity X-Ray(s): Knee, AP / Lat / Tunne / Merchant Bilateral and Wt. Bearing PERIPHERAL IV DATA: Not applicable SIGNED BY: RT Kylah(R) September 30, 2024 2:32 [facility]01-22-2025 NoteHNO ID: [id number] Author: VIJAY PARK DO Service: ? Author Type: Physician Type: Progress Notes Filed: 09/23/2024 21:01 Note Text: CC: Maureen Rodriguez is a 64 year old female who presents to the office for follow up HPI: Upper abdominal bloating and intermittent gassiness. Feels that she may have a food intolerance. Hasn't been able to figure out what she may be sensitive to with food. No vomiting, no blood in stool. Does have occasional diarrhea/loose stools as well. HTN, well controlled, no CP or dyspnea or dizziness. Had recent cardiac stent last year and continues routine follow up with [employer] HPL, CAD, taking Plavix and pravastatin and metoprolol., no recent symptoms, Had recent cardiac stent last year and continues routine follow up with [employer] Hx of osteopenia, willing to have bone density follow up Hypothyroidism,taking levothyroxine 112 mcg, willing to have blood work recheck TSH Date Value Ref Range Status 11/06/2023 1.440 0.270 - 4.200 mIU/L Final Knee pain, b/l, last xrays >4-5 years ago, feels her pain is worsening to the point that she is limiting her physical activity. She has been gaining weight due to this and knows need to lose the weight as well. Interested in new xrays and referral to specialist for opinion. IFG, need for diet control, knows need to lose weight too PAST MEDICAL HISTORY Diagnosis Date Arrhythmia Ramirez's esophagus determined by endoscopy Coronary artery disease minimal, no surgical procedure, Dr. 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 Eczema of both external ears Essential hypertension, benign 2002 Hyperparathyroidism (HCC) Impaired fasting blood sugar 10/2014 a1c 5.7% Irritable bowel syndrome resolved mostly with cholecystectomy Osteoarthritis of knees, bilateral Other and unspecified hyperlipidemia Other premature beats 2003 symptomatic in past, atenolol helps Other specified acquired hypothyroidism 09/10/2008 Snoring PAST SURGICAL HISTORY Procedure Laterality Date ; PARATHYROIDECTOMY/EXPL PARATHYRD 12/2012 COLONOSCOPY FLX DX W/COLLJ SPEC WHEN PFRMD 07/08/2013 Colonoscopy COLONOSCOPY FLX DX W/COLLJ SPEC WHEN PFRMD 08/05/2015 EGD 07/08/2013 EGD TRANSORAL BIOPSY SINGLE/MULTIPLE 08/05/2015 HEART CATHETERIZATION 04/2013 LAPS SURG CHOLECYSTECTOMY W/CHOLANGIOGRAPHY 07/22/2013 NEUROPLASTY AND/TRANSPOS MEDIAN NRV CARPAL TUNNE ~2005 Carpal tunnel decomp- right wrist NEUROPLASTY AND/TRANSPOS MEDIAN NRV CARPAL TUNNE 08/19/2013 LEFT PT ED HEART AND VASCULAR 08/02/2023 1 stent heart VAGINAL HYSTERECTOMY UTERUS 250 GM/< 2004 due to bleeding, no cancer, still has both ovaries Social History: Social History Tobacco Use Smoking status: Never Smokeless tobacco: Never Substance Use Topics Alcohol use: Yes Comment: very rarely Drug use: No FAMILY HISTORY Problem Relation Age of Onset Hypertension Mother Cancer Mother skin - not melanoma Thyroid Mother hyperthyroidism (had thyroidectomy) Coronary Artery Disease Mother Heart Mother other (Poly Myalgia Rheumatica (PMR)) Mother Hypertension Father Heart Father PA age 75 other (Dementia) Father Allergies Sister food Heart Brother heart attack Heart Brother PA age 56 Hypertension Brother other (nephrolithiasis) Brother x 2 Heart Maternal Grandmother CAD, age 79 other (Other) Paternal Grandmother age 74, unknown cause other (pancreatic cancer) Paternal Grandfather at 86 Heart Paternal Uncle PA x 2 uncles Prostate Cancer Paternal Uncle Current Outpatient prescriptions: clopidogrel (PLAVIX) 75 mg tablet TAKE 4 TABLETS BY MOUTH ON DAY ONE, THEN TAKE 1 TABLET DAILY BEGINNING ON DAY TWO. levothyroxine (SYNTHROID) 112 mcg tablet Take 1 tablet by mouth once daily. pravastatin (PRAVACHOL) 10 mg tablet Take 10 mg by mouth once daily. ticagrelor (BRILINTA) 90 mg tablet Take 90 mg by mouth two times a day. (Patient not taking: Reported on 08/22/2024) aspirin-caffeine 1,000-150 mg pwpk .qod dexAMETHasone 0.1 % ophthalmic solution 1 Drop two times a day as needed. Into bilateral outer ear canal diclofenac (VOLTAREN) 1 % topical gel Apply 0.5 g to affected area four times daily as needed. dexAMETHasone 0.1 % ophthalmic solution 1 Drop twice daily as needed. Into bilateral outer ear canal GLUCOSAMINE HCL (GLUCOSAMINE, BULK, MISC) MULTIVIT-MINERALS/FERROUS FUM (MULTI VITAMIN ORAL) Take by mouth. estradiol (ESTRACE) 0.01 % (0.1 mg/gram) vaginal cream Use fingertip amount vaginally nightly x 2 weeks then every other night x 2 weeks then 1-3x weekly metoprolol succinate XL, long acting, 25 mg 24 hr tablet Take 25 mg by mouth once daily. Aspirin 81 mg Tab Take 81 mg by mouth. Calcium Carbonate-Vitamin D3 500 mg(1,250mg) -600 unit Chew Take 1 tablet by mouth three times daily. Allergies: ALLERGIES Allergen Reactions Bees possibly Grass Pollen Other: See Comments Sneezing, it (more content not included)...[facility]01-22-2025 History of Present illness Narrative* Vijay Park, - 09/23/2024 8:50 PM EST CC: Maureen Rodriguez is a 64 year old female who presents to the office for follow up HPI: Upper abdominal bloating and intermittent gassiness. Feels that she may have a food intolerance. Hasn't been able to figure out what she may be sensitive to with food. No vomiting, no blood in stool.Does have occasional diarrhea/loose stools as well. HTN, well controlled, no CP or dyspnea or dizziness. Had recent cardiac stent last year and continues routine follow up with [employer] HPL, CAD, taking Plavix and pravastatin and metoprolol., no recent symptoms, Had recent cardiac stent last year and continues routine follow up with [employer] Hx of osteopenia, willing to have bone density follow up Hypothyroidism,taking levothyroxine 112 mcg, willing to have blood work recheck TSH Date Value Ref Range Status 11/06/2023 1.440 0.270 - 4.200 mIU/L Final Knee pain, b/l, last xrays >4-5 years ago, feels her pain is worsening to the point that she is limiting her physical activity. She has been gaining weight due to this and knows need to lose the weight as well. Interested in new xrays and referral to specialist for opinion. IFG, need for diet control, knows need to lose weight too PAST MEDICAL HISTORY Diagnosis Date Arrhythmia Ramirez's esophagus determined by endoscopy Coronary artery disease minimal, no surgical procedure, Dr. 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 Eczema of both external ears Essential hypertension, benign 2002 Hyperparathyroidism (HCC) Impaired fasting blood sugar 10/2014 a1c 5.7% Irritable bowel syndrome resolved mostly with cholecystectomy Osteoarthritis of knees, bilateral Other and unspecified hyperlipidemia Other premature beats 2003 symptomatic in past, atenolol helps Other specified acquired hypothyroidism 09/10/2008 Snoring PAST SURGICAL HISTORY Procedure Laterality Date ; PARATHYROIDECTOMY/EXPL PARATHYRD 12/2012 COLONOSCOPY FLX DX W/COLLJ SPEC WHEN PFRMD 07/08/2013 Colonoscopy COLONOSCOPY FLX DX W/COLLJ SPEC WHEN PFRMD 08/05/2015 EGD 07/08/2013 EGD TRANSORAL BIOPSY SINGLE/MULTIPLE 08/05/2015 HEART CATHETERIZATION 04/2013 LAPS SURG CHOLECYSTECTOMY W/CHOLANGIOGRAPHY 07/22/2013 NEUROPLASTY &/TRANSPOS MEDIAN NRV CARPAL TUNNE ~2005 Carpal tunnel decomp- right wrist NEUROPLASTY &/TRANSPOS MEDIAN NRV CARPAL TUNNE 08/19/2013 LEFT PT ED HEART AND VASCULAR 08/02/2023 1 stent heart VAGINAL HYSTERECTOMY UTERUS 250 GM/< 2004 due to bleeding, no cancer, still has both ovaries Social History: Social History Tobacco Use Smoking status: Never Smokeless tobacco: Never Substance Use Topics Alcohol use: Yes Comment: very rarely Drug use: No FAMILY HISTORY Problem Relation Age of Onset Hypertension Mother Cancer Mother skin - not melanoma Thyroid Mother hyperthyroidism (had thyroidectomy) Coronary Artery Disease Mother Heart Mother other (Poly Myalgia Rheumatica (PMR)) Mother Hypertension Father Heart Father PA age 75 other (Dementia) Father Allergies Sister food Heart Brother heart attack Heart Brother PA age 56 Hypertension Brother other (nephrolithiasis) Brother x 2 Heart Maternal Grandmother CAD, age 79 other (Other) Paternal Grandmother age 74, unknown cause other (pancreatic cancer) Paternal Grandfather at 86 Heart Paternal Uncle PA x 2 uncles Prostate Cancer Paternal Uncle Current Outpatient prescriptions: clopidogrel (PLAVIX) 75 mg tablet TAKE 4 TABLETS BY MOUTH ON DAY ONE, THEN TAKE 1 TABLET DAILY BEGINNING ON DAY TWO. levothyroxine (SYNTHROID) 112 mcg tablet Take 1 tablet by mouth once daily. pravastatin (PRAVACHOL) 10 mg tablet Take 10 mg by mouth once daily. ticagrelor (BRILINTA) 90 mg tablet Take 90 mg by mouth two times a day. (Patient not taking: Reported on 08/22/2024) aspirin-caffeine 1,000-150 mg pwpk .qod dexAMETHasone 0.1 % ophthalmic solution 1 Drop two times a day as needed. Into bilateral outer ear canal diclofenac (VOLTAREN) 1 % topical gel Apply 0.5 g to affected area four times daily as needed. dexAMETHasone 0.1 % ophthalmic solution 1 Drop twice daily as needed. Into bilateral outer ear canal GLUCOSAMINE HCL (GLUCOSAMINE, BULK, MISC) MULTIVIT-MINERALS/FERROUS FUM (MULTI VITAMIN ORAL) Take by mouth. estradiol (ESTRACE) 0.01 % (0.1 mg/gram) vaginal cream Use fingertip amount vaginally nightly x 2 weeks then every other night x 2 weeks then 1-3x weekly metoprolol succinate XL, long acting, 25 mg 24 hr tablet Take 25 mg by mouth once daily. Aspirin 81 mg Tab Take 81 mg by mouth. Calcium Carbonate-Vitamin D3 500 mg(1,250mg) -600 unit Chew Take 1 tablet by mouth three times daily. Allergies: ALLERGIES Allergen Reactions Bees possibly Grass Pollen Other: See Comments Sneezing, itchy eyes Triamterene-Hydroch* Rash photodermatitis ROS: See HPI PE: 09/23/24 1405 BP: 116/80 Pulse: 64 Resp: 16 Temp: 36.3 C (97.3 F) TempSrc: Temporal Weight: 93.4 kg (206 lb) Gen: A&O, NAD, non-toxic appearing, Pleasant, cooperative HEENT: NT/AC, PERRLA, wearing glasses, EOMs intact b/l, nares clear and patent b/l, pharynx withouterythema, exudate or lesions. MMM, Uvula midline. EACs without erythema or debris. TMs pearly qureshi with intact landmarks b/l. Neck: supple, No cervical LAD, no thyromegaly, no carotid bruits CV: RRR, normal S1 and S2, no murmurs, no gallops, no rubs, Pulses 2+ and symmetric in UE and LE b/l Lungs: normal respiratory effort, CTA b/l, no wheezing or rhonchi or rales Abd: soft, NT, ND, +BS, no hepatosplenomegaly MS: pain b/l joint line right and left knees with mild effusions present Neuro: CN II-XII intact b/l, strength 5/5 b/l UE and LE, DTRs 2/4 UE and LE, sensation intact. Skin: warm, dry, intact, No rashes or lesions on exposed skin. No edema legs, normal pulses ASSESSMENT/PLAN: 1. Medicare annual wellness visit, subsequent - ICD9: V70.0, ICD10: Z00.00 (primary diagnosis) - Counseled on healthy diet and regular exercise - Discussed need and benefit for weight loss. BMI 34.95 kg/(m^2) 2. Chronic pain of both knees - ICD9: 719.46, 338.29, ICD10: M25.561, M25.562, G89.29 Xray and referral to orthopedics for opinion Not improving with conservative measures. - XR KNEE GENERAL 4V AP BOTH/PA BOTH/LAT/MERC BILATERAL - CONSULT PANEL TO ORTHOPAEDICS 3. Osteopenia, senile - ICD9: 733.90, ICD10: M85.80 - set up for BMD AP Spine and Hip Unilateral - Reviewed the need for Calcium and Vitamin D supplements and weight bearing exercise as tolerated - DXA-AXIAL SKELETON 4. Need for pneumococcal 20-valent conjugate vaccination - ICD9: V03.82, ICD10: Z23 - PNEUMOCOCCAL VACCINE, 20 VALENT (PREVNAR 20) 5. Encounter for screening mammogram for malignant neoplasm of breast - ICD9: V76.12, ICD10: Z12.31 - Set up for mammogram, yearly mammogram recommended - Encouraged monthly BSE - IBRAHIMA SCREENING 6. Screening for osteoporosis - ICD9: V82.81, ICD10: Z13.820 - DXA-AXIAL SKELETON 7. Post-menopausal - ICD9: V49.81, ICD10: Z78.0 - DXA-AXIAL SKELETON 8. Impaired fasting glucose - ICD9: 790.21, ICD10: R73.01 Recheck labs, Needs to start intermittent fasting and need for >20 lbs weight loss Consider adding on metformin or topamax if struggling to lose the weight. - HEMOGLOBIN A1C 9. Hypothyroidism, acquired - ICD9: 244.9, ICD10: E03.9 - Instructed patient on importance of taking on an empty stomach either first thing in the morning or at bedtime. - continue current dose of Synthroid - COMPREHENSIVE METABOLIC PANEL - COMPLETE BLOOD COUNT AND DIFFERENTIAL - THYROID STIMULATING HORMONE - T4 FREE/FREE THYROXINE 10. Vitamin D deficiency - ICD9: 268.9, ICD10: E55.9 - VITAMIN D 25 HYDROXY 11. Hyperlipidemia, mixed - ICD9: 272.2, ICD10: E78.2 - Control undetermined, due for labs - Continue current medications - Counseled on healthy diet and regular exercise - Discussed need for and benefit of weight loss. BMI 34.95 kg/(m^2) - LIPID PANEL BASIC 12. Bloating - ICD9: 787.3, ICD10: R14.0 Labs as ordered 1st Needs to start daily yogurt or probiotic Need for dietary changes. 13. Abdominal pain, epigastric - ICD9: 789.06, ICD10: R10.13 Labs as ordered 1st Needs to start daily yogurt or probiotic Need for dietary changes. - CELIAC COMPREHENSIVE PANEL 14. Class 1 obesity with body mass index (BMI) of 34.0 to 34.9 in adult, unspecified obesity type, unspecified whether serious comorbidity present - ICD9: 278.00, V85.34, ICD10: E66.811, Z68.34 Recheck labs, Needs to start intermittent fasting and need for >20 lbs weight loss Consider adding on metformin or topamax if struggling to lose the weight. Vijay Park, DO To ER if develops chest pain, shortness of breath, or severe worsening of symptoms. Discussed risks, benefits, alternatives, and potential side effects of medications. Patient expressed understanding and agreed with the plan. Vijay Park DO [address] [place] [address] * Vijay Park DO - 09/23/2024 8:48 PM EST Images from the original note were not included. Maureen Rodriguez is a 64 year old female here for a Medicare wellness visit. Medicare Health Risk Assessment General Health Good Exercise: Minutes/Day 30 min Exercise: Days/Week 5 days Alcohol: Daily Use Monthly or less Alcohol: Drinks/Day 1 or 2 Alcohol: 6 or more drinks Never Feel off balance no Concerns: Teeth/Dentures no Concerns: Sexual function no Troubled by feelings no Frequency: Eating healthy diet yes ADLs requiring help no Safety precautions in home/vehicle yes Smoke, vape, chews tobacco no Difficulty hearing no Difficulty seeing Has glasses Current Providers Specialists: I have reviewed specialist-related care of the patient in the medical record. Medical/Family history review Reviewed and updated problem list, medical/surgical/family/social history, medications, and allergies. Opioid use review Opioid Medications (last 90 days) No data to display Anxiety/Depression screening PHQ-2 Score: 0 (Lower risk for depression) MILLER-7 Score: 1 (Minimal Anxiety) Recommendation: no further intervention at this time Cognitive screening Cognitive screening reviewed and No further action needed (score 3-5). Functional Observation Was the patient's Timed Up & Go test unsteady or >= 12 seconds? No Advance Care Planning Surrogate decision maker and/or advance care plan documented Measurements BP 116/80 Pulse 64 Temp 36.3 C (97.3 F) (Temporal) Resp 16 Wt 93.4 kg (206 lb) BMI 34.95 kg/m Vision Screening: Follows with optometry/ophthalmology Assessment/Plan Medicare annual wellness visit, subsequent (Z00.00) - Counseled on healthy diet and regular exercise - Fall avoidance information provided - Personalized prevention plan provided - Discussed need for and benefit of weight loss. BMI 34.95 kg/(m^2) Vijay Park DO documented in this encounterKind[facility]01-22-2025 NoteHNO ID: [id number] Author: VIJAY PARK DO Service: ? Author Type: Physician Type: Progress Notes Filed: 09/23/2024 21:01 Note Text: Maureen Rodriguez is a 64 year old female here for a Medicare wellness visit. Medicare Health Risk Assessment General Health Good Exercise: Minutes/Day 30 min Exercise: Days/Week 5 days Alcohol: Daily Use Monthly or less Alcohol: Drinks/Day 1 or 2 Alcohol: 6 or more drinks Never Feel off balance no Concerns: Teeth/Dentures no Concerns: Sexual function no Troubled by feelings no Frequency: Eating healthy diet yes ADLs requiring help no Safety precautions in home/vehicle yes Smoke, vape, chews tobacco no Difficulty hearing no Difficulty seeing Has glasses Current Providers Specialists: I have reviewed specialist-related care of the patient in the medical record. Medical/Family history review Reviewed and updated problem list, medical/surgical/family/social history, medications, and allergies. Opioid use review Opioid Medications (last 90 days) No data to display Anxiety/Depression screening PHQ-2 Score: 0 (Lower risk for depression) MILLER-7 Score: 1 (Minimal Anxiety) Recommendation: no further intervention at this time Cognitive screening Cognitive screening reviewed and No further action needed (score 3-5). Functional Observation Was the patient's Timed Up AND Go test unsteady or >= 12 seconds? No Advance Care Planning Surrogate decision maker and/or advance care plan documented Measurements BP 116/80 Pulse 64 Temp 36.3 ?C (97.3 ?F) (Temporal) Resp 16 Wt 93.4 kg (206 lb) BMI 34.95 kg/m? Vision Screening: Follows with optometry/ophthalmology Assessment/Plan Medicare annual wellness visit, subsequent (Z00.00) - Counseled on healthy diet and regular exercise - Fall avoidance information provided - Personalized prevention plan provided - Discussed need for and benefit of weight loss. BMI 34.95 kg/(m2) [facility]* Patient Instructions* Vijay Park DO - 09/23/2024 3:03 PM EST Protein shakes daily Use protein whey powder- example brand is [employer] Can mix this with water or milk etc Goal of 75-100 grams of protein a day Work on losing 30-35 lbs If struggling to do this, consider Metformin or Topamax medication to help Intermittent fasting at least 15 hours a day of fast, at least 3-4 days a week Good source for you tube or pod casts or book is [facility] Dr.Widmer Dr.Pierce Lugo Get xrays of knees done Yogurt options Two Good brand Ch[employer]ani [employer]ik[employer] triple zero or high protein documented in this encounterKindred Healthcare12-21-2024 History of Present illness Narrative* Gómez Palomo RT(R) - 08/22/2024 11:40 AM EST Radiology Service Progress Note PATIENT NAME: Maureen Rodriguez DATE OF SERVICE: August 22, 2024 TIME: 11:36 AM PATIENT IDENTITY VERIFICATION COMPLETED USING TWO (2) IDENTIFIERS: Name and Date of confirmedby patient verbally. FALL SCREENING: Has the patient had 2 falls in the last year or 1 fall with injury or currently using an Ambulatory Assistive Device (Walker, Cane, Wheelchair, Crutches, etc.)? No PATIENT GENDER DATA: Female. status: : No status: NO. PATIENT RELEVANT IMPLANT DATA REVIEWED: Not Applicable PATIENT PRESENTS WITH AN IMPLANTABLE OR ATTACHED BUILDING CONSTRUCTION ESTIMATOR: No RADIOLOGY DEPARTMENT: General X-ray: Exam(s) Completed: Chest X-Ray PERIPHERAL IV DATA: Not applicable SIGNED BY: RT Jamaal(R) August 22, 2024 11:36 AM documented in this encounterKindred Healthcare12-21-2024 NoteHNO ID: [id number] Author: GÓMEZ PALOMO RT(Lili) Service: ? Author Type: Technologist Type: Progress Notes Filed: 08/22/2024 11:41 Note Text: Radiology Service Progress Note PATIENT NAME: Maureen Rodriguez DATE OF SERVICE: August 22, 2024 TIME: 11:36 AM PATIENT IDENTITY VERIFICATION COMPLETED USING TWO (2) IDENTIFIERS: Name and Date of confirmed by patient verbally. FALL SCREENING: Has the patient had 2 falls in the last year or 1 fall with injury or currently using an Ambulatory Assistive Device (Walker, Cane, Wheelchair, Crutches, etc.)? No PATIENT GENDER DATA: Female. status: : No status: NO. PATIENT RELEVANT IMPLANT DATA REVIEWED: Not Applicable PATIENT PRESENTS WITH AN IMPLANTABLE OR ATTACHED BUILDING CONSTRUCTION ESTIMATOR: No RADIOLOGY DEPARTMENT: General X-ray: Exam(s) Completed: Chest X-Ray PERIPHERAL IV DATA: Not applicable SIGNED BY: RT Jamaal(R) August 22, 2024 11:36 [facility]12-21-2024 NoteHNO ID: [id number] Author: FRANCK DESAI MD Service: ? Author Type: Physician Type: Progress Notes Filed: 08/22/2024 12:31 Note Text: Patient presents with: Cough: Sore throat, sneezing, chills, diarrhea, body aches, fever, head congestion x 11 days HPI: Feeling sick for 11 days with waxing and waning symptoms. Positive symptoms: Cough, sleep disturbance from cough, slight shortness of breath/Chest pain, Sore throat, Sinus pressure (not bad today), Nasal Congestion, Rhinorrhea (not colored), sneezing, Feverish/Chills (last experienced a few days ago), Body Aches, Malaise, Headache, Diarrhea, some nausea, Negative symptoms: Vomiting, OTC: Cold Medicine MEDICATIONS: Current Outpatient Medications Medication Sig clopidogrel (PLAVIX) 75 mg tablet TAKE 4 TABLETS BY MOUTH ON DAY ONE, THEN TAKE 1 TABLET DAILY BEGINNING ON DAY TWO. levothyroxine (SYNTHROID) 112 mcg tablet Take 1 tablet by mouth once daily. pravastatin (PRAVACHOL) 10 mg tablet Take 10 mg by mouth once daily. aspirin-caffeine 1,000-150 mg pwpk .qod dexAMETHasone 0.1 % ophthalmic solution 1 Drop two times a day as needed. Into bilateral outer ear canal diclofenac (VOLTAREN) 1 % topical gel Apply 0.5 g to affected area four times daily as needed. dexAMETHasone 0.1 % ophthalmic solution 1 Drop twice daily as needed. Into bilateral outer ear canal GLUCOSAMINE HCL (GLUCOSAMINE, BULK, MISC) MULTIVIT-MINERALS/FERROUS FUM (MULTI VITAMIN ORAL) Take by mouth. estradiol (ESTRACE) 0.01 % (0.1 mg/gram) vaginal cream Use fingertip amount vaginally nightly x 2 weeks then every other night x 2 weeks then 1-3x weekly metoprolol succinate XL, long acting, 25 mg 24 hr tablet Take 25 mg by mouth once daily. Aspirin 81 mg Tab Take 81 mg by mouth. Calcium Carbonate-Vitamin D3 500 mg(1,250mg) -600 unit Chew Take 1 tablet by mouth three times daily. ticagrelor (BRILINTA) 90 mg tablet Take 90 mg by mouth two times a day. (Patient not taking: Reported on 08/22/2024) No current facility-administered medications for this visit. ALLERGIES: ALLERGIES Allergen Reactions Bees possibly Grass Pollen Other: See Comments Sneezing, itchy eyes Triamterene-Hydroch* Rash photodermatitis VITALS: BP 140/82 Pulse 73 Temp 36.8 ?C (98.3 ?F) Resp 21 Wt 93.3 kg (205 lb 11 oz) SpO2 98% BMI 34.90 kg/m? PHYSICAL EXAM: GEN: mildly ill appearing HEENT: PERRL, EOMI, conjunctiva clear Ears: canals clear. TMs without erythema, bulge, or effusion Sinuses: non-tender frontal sinus, non-tender maxillary sinuses Throat: moist mucous membranes, mild erythema, no exudate Neck: supple, no thyromegaly, no lymphadenopathy HEART: regular rate, regular rhythm, no murmurs LUNGS: slight left lower lung wheeze - otherwise clear to auscultation, no crackles, no increased WOB ASSESSMENT/PLAN: 1. Acute cough - ICD9: 786.2, ICD10: R05.1 (primary diagnosis) 2. URI, acute - ICD9: 465.9, ICD10: J06.9 - XR CHEST 2V FRONTAL/LAT - no pneumonia. - suspect viral URI, potentially multiple stacked illnesses. - Discussed supportive care treatment with rest, cold medicine, and analgesia. - Discussed contagiousness risk (24h fever free + 5 days). - May be treated for secondary bacterial sinusitis if sinus symptoms worsen. Franck Desai, [facility]12-21-2024 History of Present illness Narrative* Franck Desai MD - 08/22/2024 11:16 AM EST Patient presents with: Cough: Sore throat, sneezing, chills, diarrhea, body aches, fever, head congestion x 11 days HPI: Feeling sick for 11 days with waxing and waning symptoms. Positive symptoms: Cough, sleep disturbance from cough, slight shortness of breath/Chest pain, Sorethroat, Sinus pressure (not bad today), Nasal Congestion, Rhinorrhea (not colored), sneezing, Feverish/Chills (last experienced a few days ago), Body Aches, Malaise, Headache, Diarrhea, some nausea, Negative symptoms: Vomiting, OTC: Cold Medicine MEDICATIONS: Current Outpatient Medications Medication Sig clopidogrel (PLAVIX) 75 mg tablet TAKE 4 TABLETS BY MOUTH ON DAY ONE, THEN TAKE 1 TABLET DAILY BEGINNING ON DAY TWO. levothyroxine (SYNTHROID) 112 mcg tablet Take 1 tablet by mouth once daily. pravastatin (PRAVACHOL) 10 mg tablet Take 10 mg by mouth once daily. aspirin-caffeine 1,000-150 mg pwpk .qod dexAMETHasone 0.1 % ophthalmic solution 1 Drop two times a day as needed. Into bilateral outer ear canal diclofenac (VOLTAREN) 1 % topical gel Apply 0.5 g to affected area four times daily as needed. dexAMETHasone 0.1 % ophthalmic solution 1 Drop twice daily as needed. Into bilateral outer ear canal GLUCOSAMINE HCL (GLUCOSAMINE, BULK, MISC) MULTIVIT-MINERALS/FERROUS FUM (MULTI VITAMIN ORAL) Take by mouth. estradiol (ESTRACE) 0.01 % (0.1 mg/gram) vaginal cream Use fingertip amount vaginally nightly x 2 weeks then every other night x 2 weeks then 1-3x weekly metoprolol succinate XL, long acting, 25 mg 24 hr tablet Take 25 mg by mouth once daily. Aspirin 81 mg Tab Take 81 mg by mouth. Calcium Carbonate-Vitamin D3 500 mg(1,250mg) -600 unit Chew Take 1 tablet by mouth three times daily. ticagrelor (BRILINTA) 90 mg tablet Take 90 mg by mouth two times a day. (Patient not taking: Reported on 08/22/2024) No current facility-administered medications for this visit. ALLERGIES: ALLERGIES Allergen Reactions Bees possibly Grass Pollen Other: See Comments Sneezing, itchy eyes Triamterene-Hydroch* Rash photodermatitis VITALS: BP 140/82 Pulse 73 Temp 36.8 C (98.3 F) Resp 21 Wt 93.3 kg (205 lb 11 oz) SpO2 98% BMI 34.90 kg/m PHYSICAL EXAM: GEN: mildly ill appearing HEENT: PERRL, EOMI, conjunctiva clear Ears: canals clear. TMs without erythema, bulge, or effusion Sinuses: non-tender frontal sinus, non-tender maxillary sinuses Throat: moist mucous membranes, mild erythema, no exudate Neck: supple, no thyromegaly, no lymphadenopathy HEART: regular rate, regular rhythm, no murmurs LUNGS: slight left lower lung wheeze - otherwise clear to auscultation, no crackles, no increased WOB ASSESSMENT/PLAN: 1. Acute cough - ICD9: 786.2, ICD10: R05.1 (primary diagnosis) 2. URI, acute - ICD9: 465.9, ICD10: J06.9 - XR CHEST 2V FRONTAL/LAT - no pneumonia. - suspect viral URI, potentially multiple stacked illnesses. - Discussed supportive care treatment with rest, cold medicine, and analgesia. - Discussed contagiousness risk (24h fever free + 5 days). - May be treated for secondary bacterial sinusitis if sinus symptoms worsen. 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 toby August 10, 2024 10:56am [facility] Work Phone: 1(767) 879-459510-23-2024 Telephone encounter Note* Telephone Encounter - Jennifer Crenshaw LPN - 06/24/2024 8:37 AM EDT Prescription Refill Information The patient has been identified by name and date of : Yes Caregiver verified no other encounters exist for this prescription request: Yes Caregiver confirmed with patient/requestor that no other refills are due, in the near future, with this provider at this time: Yes The last office visit in the department: 10/16/23 Does the patient have a future office visit with this provider/department: No Requested Prescriptions Pending Prescriptions Disp Refills levothyroxine (SYNTHROID) 112 mcg tablet 90 tablet 3 Sig: Take 1 tablet by mouth once daily. Jennifer Crenshaw LPN June 24, 2024 8:37 AM [facility]10-23-2024 Miscellaneous Notes* Telephone Encounter - Jennifer Crenshaw LPN - 06/24/2024 8:37 AM EDT Prescription Refill Information The patient has been identified by name and date of : Yes Caregiver verified no other encounters exist for this prescription request: Yes Caregiver confirmed with patient/requestor that no other refills are due, in the near future, with this provider at this time: Yes The last office visit in the department: 10/16/23 Does the patient have a future office visit with this provider/department: No Requested Prescriptions Pending Prescriptions Disp Refills levothyroxine (SYNTHROID) 112 mcg tablet 90 tablet 3 Sig: Take 1 tablet by mouth once daily. Jennifer Crenshaw LPN June 24, 2024 8:37 AM documented in this encounterKindred Healthcare03-14-2024 Miscellaneous Notes* Telephone Encounter - Kimberli Jamison OCCA - 11/14/2023 8:43 AM EDT TC to patient who verbalized understanding of providers message below with no questions at this time. TYE Alonso * Telephone Encounter - Vijay Park DO - 11/13/2023 10:22 PM EDT Please inform patient that her recent labs obtained last week are all normal Vijay L Park, DO documented in this encounterKindred Healthcare03-07-2024 Miscellaneous Notes* Letter - Coordinator, Mammography - 11/07/2023 2:38 PM EST November 08, 2023 PID: [id number] Maureen Rodriguez [address] [place] [address] Dear Ms. Rodriguez, We are pleased to inform you that the results of your recent breast imaging exam on 11/06/2023 are normal. Early detection of cancer is very important. We also understand recommendations regarding breast cancer screening are controversial. Please discuss with your primary care provider which strategy is best for you and whether a mammogram is right for you. Your imaging studies and report will be kept on [facility] at [facility] as part of your permanent medical record and are available for your continuing care. Thank you for allowing us to help in meeting your health care needs. Sincerely, Dr. Gonzalez Interpreting Radiologist [facility] (Normal over 40) documented in this encounterKindred Healthcare03-06-2024 History of Present illness Narrative* Qasim Emanuel Mammo Tech - 11/06/2023 10:10 AM EST Radiology Service Progress Note PATIENT NAME: Maureen Rodriguez DATE OF SERVICE: November 06, 2023 TIME: 10:21 AM PATIENT IDENTITY VERIFICATION COMPLETED USING TWO (2) IDENTIFIERS: Name and Date of confirmedby patient verbally. FALL SCREENING: Has the patient had 2 falls in the last year or 1 fall with injury or currently using an Ambulatory Assistive Device (Walker, Cane, Wheelchair, Crutches, etc.)? No PATIENT GENDER DATA: Female. status: : No status: NO. PATIENT RELEVANT IMPLANT DATA REVIEWED: Not Applicable PATIENT PRESENTS WITH AN IMPLANTABLE OR ATTACHED BUILDING CONSTRUCTION ESTIMATOR: No RADIOLOGY DEPARTMENT: Mammography PERIPHERAL IV DATA: Not applicable SIGNED BY: Beatrice Lui November 06, 2023 10:21 AM documented in this encounterKindred Healthcare02-14-2024 History of Present illness Narrative* ParkVijay, DO - 10/16/2023 12:39 PM EST CC: aMureen Rodriguez is a 63 year old female who presents to the office for follow up. HPI: HTN, taking medication as prescribed CAD, recently with cardiac stent placement per DR. Juarez office. Taking Brillinta medication and just started on pravastatin 10 mg a day. Brillinta does cause bruising but has had some other spontaneous bruising as well on left upper foot and right inner thigh area. IFG, diet controlled. HPL, taking statin therapy Hypothyroidism, taking levothyroxine medication. 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 Eczema of both external ears Essential hypertension, benign 2002 Hyperparathyroidism (HCC) Impaired fasting blood sugar 10/2014 a1c 5.7% Irritable bowel syndrome resolved mostly with cholecystectomy Osteoarthritis of knees, bilateral Other and unspecified hyperlipidemia Other premature beats 2003 symptomatic in past, atenolol helps Other specified acquired hypothyroidism 09/10/2008 Snoring PAST SURGICAL HISTORY Procedure Laterality Date ; PARATHYROIDECTOMY/EXPL PARATHYRD 12/2012 COLONOSCOPY FLX DX W/COLLJ SPEC WHEN PFRMD 07/08/2013 Colonoscopy COLONOSCOPY FLX DX W/COLLJ SPEC WHEN PFRMD 08/05/2015 EGD 07/08/2013 EGD TRANSORAL BIOPSY SINGLE/MULTIPLE 08/05/2015 HEART CATHETERIZATION 04/2013 LAPS SURG CHOLECYSTECTOMY W/CHOLANGIOGRAPHY 07/22/2013 NEUROPLASTY &/TRANSPOS MEDIAN NRV CARPAL TUNNE ~2005 Carpal tunnel decomp- right wrist NEUROPLASTY &/TRANSPOS MEDIAN NRV CARPAL TUNNE 08/19/2013 LEFT PT ED HEART AND VASCULAR 08/02/2023 1 stent heart VAGINAL HYSTERECTOMY UTERUS 250 GM/< 2004 due to bleeding, no cancer, still has both ovaries Social History: Social History Tobacco Use Smoking status: Never Smokeless tobacco: Never Substance Use Topics Alcohol use: Yes Comment: very rarely Drug use: No FAMILY HISTORY Problem Relation Age of Onset Hypertension Mother Cancer Mother skin - not melanoma Thyroid Mother hyperthyroidism (had thyroidectomy) Coronary Artery Disease Mother Heart Mother other (Poly Myalgia Rheumatica (PMR)) Mother Hypertension Father Heart Father PA age 75 other (Dementia) Father Allergies Sister food Heart Brother heart attack Heart Brother PA age 56 Hypertension Brother other (nephrolithiasis) Brother x 2 Heart Maternal Grandmother CAD, age 79 other (Other) Paternal Grandmother age 74, unknown cause other (pancreatic cancer) Paternal Grandfather at 86 Heart Paternal Uncle PA x 2 uncles Prostate Cancer Paternal Uncle Current Outpatient prescriptions: aspirin-caffeine 1,000-150 mg pwpk .qod dexAMETHasone 0.1 % ophthalmic solution 1 Drop two times a day as needed. Into bilateral outer ear canal levothyroxine (SYNTHROID) 112 mcg tablet Take 1 tablet by mouth once daily. diclofenac (VOLTAREN) 1 % topical gel Apply 0.5 g to affected area four times daily as needed. GLUCOSAMINE HCL (GLUCOSAMINE, BULK, MISC) MULTIVIT-MINERALS/FERROUS FUM (MULTI VITAMIN ORAL) Take by mouth. estradiol (ESTRACE) 0.01 % (0.1 mg/gram) vaginal cream Use fingertip amount vaginally nightly x 2 weeks then every other night x 2 weeks then 1-3x weekly metoprolol succinate XL, long acting, 25 mg 24 hr tablet Take 25 mg by mouth once daily. Aspirin 81 mg Tab Take 81 mg by mouth. Calcium Carbonate-Vitamin D3 500 mg(1,250mg) -600 unit Chew Take 1 tablet by mouth three times daily. pravastatin (PRAVACHOL) 10 mg tablet Take 10 mg by mouth once daily. ticagrelor (BRILINTA) 90 mg tablet Take 90 mg by mouth two times a day. dexAMETHasone 0.1 % ophthalmic solution 1 Drop twice daily as needed. Into bilateral outer ear canal Allergies: ALLERGIES Allergen Reactions Bees possibly Grass Pollen Other: See Comments Sneezing, itchy eyes Triamterene-Hydroch* Rash photodermatitis ROS: See HPI PE: 10/16/23 1027 BP: 120/60 Pulse: 60 Temp: 36.3 C (97.3 F) TempSrc: Temporal Weight: 90.7 kg (200 lb) Height: 163.5 cm (5' 4.37") Gen: A&O, NAD, non-toxic appearing, Pleasant, cooperative HEENT: NT/AC, wearing glasses, PERRLA, EOMs intact b/l, nares clear and patent b/l, pharynx withouterythema, exudate or lesions. Uvula midline. MMM, EACs without erythema or debris. TMs pearly qureshi with intact landmarks b/l. Neck: supple, No cervical LAD, no thyromegaly, no carotid bruits CV: RRR, normal S1 and S2, no murmurs, no gallops, no rubs, Pulses 2+ and symmetric in UE and LE b/l Lungs: normal respiratory effort, CTA b/l, no wheezing or rhonchi or rales Abd: soft, NT, ND, +BS, no hepatosplenomegaly MS: arthritis changes of DIP and PIP joints diffusely of hands, arthritis changes of feet and b/l knee joints Neuro: CN II-XII intact b/l, strength 5/5 b/l UE and LE, DTRs 2/4 UE and LE, sensation intact. Skin: warm, dry, intact, No rashes or lesions on exposed skin. Scattered seborrheic keratoses and angiomas. Bruising present dorsal left foot and right inner thigh ASSESSMENT/PLAN: 1. Hypothyroidism, acquired - ICD9: 244.9, ICD10: E03.9 (primary diagnosis) - Instructed patient on importance of taking on an empty stomach either first thing in the morning or at bedtime. - continue current dose of Synthroid - TSH BLD - T4 FREE/FREE THYROX - T3 FREE BLD - VITAMIN D 25 HYDROXY - VITAMIN B12 BLOOD - VITAMIN C 2. Spontaneous bruising - ICD9: 782.7, ICD10: R23.3 - VITAMIN C 3. Vitamin D deficiency - ICD9: 268.9, ICD10: E55.9 Continue supplement - VITAMIN D 25 HYDROXY 4. Hyperparathyroidism (HCC) - ICD9: 252.00, ICD10: E21.3 Recheck labs, no new symptoms - PTH INTACT BLD - COMP METABOLIC PANEL 5. Frequent headaches - ICD9: 784.0, ICD10: R51.9 Recheck labs as ordered. - MAGNESIUM BLD 6. Coronary artery disease involving modoc coronary artery of modoc heart without angina pectoris- ICD9: 414.01, ICD10: I25.10 Stable, hx of stent placement, taking Brillinta and having some SE with medication 7. Impaired fasting glucose - ICD9: 790.21, ICD10: R73.01 Diet controlled. 8. Dyslipidemia - ICD9: 272.4, ICD10: E78.5 - Control undetermined, due for labs - Counseled on healthy diet and regular exercise 9. Primary osteoarthritis of both knees - ICD9: 715.16, ICD10: M17.0 Supportive care, continue osteo biflex glucosamine chondroitin and turmeric 10. Bilateral hand pain - ICD9: 729.5, ICD10: M79.641, M79.642 Supportive care, continue osteo biflex glucosamine chondroitin and turmeric 11. Foot pain, bilateral - ICD9: 729.5, ICD10: M79.671, M79.672 Supportive care, continue osteo biflex glucosamine chondroitin and turmeric 12. Chronic pain of both knees - ICD9: 719.46, 338.29, ICD10: M25.561, M25.562, G89.29 Supportive care, continue osteo biflex glucosamine chondroitin and turmeric Vijay Park DO To ER if develops chest pain, shortness of breath, or severe worsening of symptoms. Discussed risks, benefits, alternatives, and potential side effects of medications. Patient expressed understanding and agreed with the plan. Vijay Park DO [address] [place] [address] documented in this encounterKindred Healthcare11-30-2023 History and physical note Author Mohamud Juarez [facility] August 01, 2023 9:02am Note Date/Time July 31, 2023 9:38am [facility] Medical Records Department [address] [place] [address] History & Physical Exam 07/31/23 0935 MR#: [id number] Acct: [id number] Name: MAUREEN RODRIGUEZ Rep #:[id number] : 1960 62 From: Mohamud Juarez MD PCP: Dr. Vijay Park DO Status:NM E SDC Location: [facility] History and Physical Date of Admission: 08/08/23 Maureen Rodriguez is a 62-year-old female who presents here today for a cardiac catheterization. She has a history of moderate coronary artery disease, hypertension and hyperlipidemia. She underwent a cardiac catheterization in 2012 which demonstrated 60 to 70% stenosis of a large diagonal vessel. Underwent FFR which was 0.87. In 2017 she underwent a stress test which demonstrated no evidence of ischemia on a stress echo and then a stress test in June 2021 where he exercised for 7.5 METS with no evidence of ischemia. She had a Coronary CT which demonstrated Moderate calcification noted in the midsegment of the left anterior descending artery and mild calcification noted in the mid circumflex artery. She underwent a stress test in march, there was notobvious ischemia but she did have chest pain with exertion. This was concerningfor angina. Heart cath was discussed at that time. Pt wanted to think about pursueing this and discuss further at her appt today. She does still have left arm discomfort that does radiate to her chest. This does go away at rest. She has also been diagnosed with a hiatal hernia. She doesnot have any worsening shortness of breath. She does not have any palpitations. She does not have any lightheadedness or dizziness. Intake Vital Signs See EMR Allergies See EMR Medications See EMR [facility] Medical History Atherosclerosis of coronary artery of modoc heart without angina pectoris Essential (primary) hypertension GERD (gastroesophageal reflux disease) Hiatal hernia HLD (hyperlipidemia) Hypothyroidism Obesity Surgical History History of carpal tunnel surgery History of [facility] History of left heart catheterization (05/07/13) History of thyroid surgery Hx laparoscopic cholecystectomy Family History Mother CAD (coronary artery disease) HypertensionFather CAD (coronary artery disease) Hypertension CVA (cerebral vascular accident)Brother CAD (coronary artery disease) Stents Myocardial infarction, Onset Age: 64Brother CAD (coronary artery disease) CABG Myocardial infarctionOther Atherosclerosis of coronary artery of modoc heart without angina pectoris Essential (primary) hypertension HLD (hyperlipidemia) Social History Smoking Status: Never smoker alcohol intake: never substance use type: does not use caffeine: Yes what type of physical activity do you participate in: walking seatbelt use: sometimes do you feel safe at home: Yes 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 ROS Const Const: Negative for fatigue, weakness, fever(s) or headache(s) Eyes Eyes: Negative for blind spots, loss of peripheral vision or transient loss of vision ENT ENT: Negative for headache(s), dizziness, tinnitus, Nosebleed/epistaxis or balance problems Cardio Chest Pain: Yes Palpitations: No Edema: None Muscle aches with walking: None Resp Respiratory: Negative for SOB with activity, SOB at rest, SOB orthopnea\\SOB lying down or Cough GI GI: Negative nausea, vomiting, heartburn or vomiting blood/hematemesis : Negative for hematuria Musc Musc: Negative for muscle aches/ myalgia, muscle weakness, joint pain or balanceproblems Neuro Neuro: Negative for dizziness, lightheadedness, near syncope, syncope, orthostatic symptoms, headache(s) or weakness Yoshi Hematologic/Lymphatic: Negative for easy bleeding Endo Endo: Negative for fatigue Cardiology Exam Const Appearance: cooperative, healthy appearing, comfortable, no acute distress and well developed Orientation: alert, awake and oriented x3 Head Head: normal to inspection Ears: hearing grossly normal bilaterally Nose: external nose normal Face and Sinus: face symmetric Mouth: oral mucosae normal, lip normal and moist mucous membranes Eyes General: appearance normal, both eyes and all related structures Eyelids: eyelids normal Conjunctivae: conjunctivae normal Pupils: PERRL EOM: EOM intact bilaterally Neck Neck: normal visual inspection and trachea midline; Negative no JVD Carotids: Negative bruit Chest Chest inspection: normal inspection of the chest Auscultation: Bilateral: Clear to Auscultation Cardio Palpation: normal PMI Rate: regular rate Rhythm: regular rhythm Heart sounds: S1 normal and S2 normal; Negative rub, gallop or murmur GI GI: soft, no hepatosplenomegaly and bowel sounds present Neuro General: patient alert, patient awake, patient oriented x3 and CN's II-XI intactbilaterally Extremities Pulses: Normal: Right Posterior Tibial Pulse, Left Posterior Tibial Pulse, RightRadial Pulse and Left Radial Pulse Lower Extremity Edema: None: Bilateral Psych Psychological: normal affect Supplemental Info Supplemental Information Exercise myocardial perfusion stress test 03/2023: 62-year-old lady with a history of coronary artery disease and chest pain Stress protocol: Resting EKG demonstrates sinus rhythm with a rate of 59 bpm resting blood pressure is 124/82 mmHg. The patient exercised according to the regular Mike protocol for a total duration of 6 minutes attaining a maximum heart rate of 125bpm which was 80% of maximum predicted heart rate; the maximum workload was 7 metabolic equivalents. At rest there were no ST or T wave changes noted to suggest ischemia and at peak exercise upsloping ST changes only were noted whichdid not meet the criteria for ischemia. No clinical angina was noted, though the patient did experience some chest tightness which she said got better. The test was terminated due to the target heart rate being achieved/fatigue. The peak blood pressure was 170/80 mmHg. Rate- pressure product was 20,900. Myocardial perfusion protocol. 14.3 mCi of technetium 99m sestamibi was injected at rest. The patient exercised according to regular Mike protocol for total duration of 6 minutes and at peak exercise 44.1 mCi of technetium 99m sestamibi was injected stress images were obtained stress and rest images were reconstructed in comparing the short axis vertical long and horizontal long axis. Gated images were also obtained. Perfusion SPECT analysis: Review of the stress images demonstrate normal uptake of tracer noted in all areas of the myocardium. The resting images similarly demonstrate normal uptakeof tracer noted in all areas of the myocardium. No areas of reversibility are noted to suggest ischemia no previous infarct was noted. Gated SPECT analysis: The gated ejection fraction is 74%. Conclusion: Normal exercise myocardial perfusion stress test at a moderate workload Preserved ejection fraction ejection fraction. Mild chest tightness of unclear significance. CTA 09/2022: Moderate calcification noted in the midsegment of the left anterior descending artery and mild calcification noted in the mid circumflex artery. EXERCISE MYOCARDIAL PERFUSION STRESS TEST 06/29/2021 Stress protocol: Resting EKG demonstrates normal sinus rhythm with a rate of 64 bpm resting bloodpressure is 142/84 mmHg.? The patient exercised according to regular Mike protocol for total duration of 6 minutes and 11 seconds the maximum heart rate attained was 139 bpm which was 87% of max impact on heart rate the maximum workload was 7.5 metabolic equivalents.? At rest there were no ST or T wave changes noted to suggest abnormal flow reserve or ischemia and at peak exercise upsloping ST changes were noted with did not meet the criteria for ischemia.? Noclinical angina was noted.? The maximum blood pressure was 170/70 mmHg.? The test was terminated due to dyspnea and fatigue. Perfusion SPECT analysis: Review of the stress images demonstrate normal uptake of tracer noted in all areas of the myocardium.? The resting images similarly demonstrate normal uptakeof tracer noted in all areas of the myocardium.? No areas of reversibility are noted to suggest ischemia. Gated SPECT analysis: The gated ejection fraction is 66%. Conclusion: Normal exercise myocardial perfusion stress protocol. Preserved ejection fraction. Good functional capacity. STRESS ECHOCARDIOGRAM 07/14/2018 ? Stress Echo Wall motion Data ? Resting WM ? Intermediate WM ? Stress WM Resting Wall Motion? Wall Motion Stress No regional wall motion? No regional wall motion abnormalities noted. ? abnormalitiesnoted. Ejection Fraction 55 %.? Ejection Fraction 70 %. Stress Results Normal blood pressure response to exercise. Exercise was stopped due to fatigue. Interpretation Summary Exercise stress echo. Stress protocol. Resting EKG demonstrates normal sinus rhythm with a rate of 64 bpm normal intervals and noted resting blood pressure 128/82 mmHg. The patient exercised according to regular Mike protocol for total duration of 7 minutes and 31 seconds. The maximum heart rate attained was 155 bpm which was 96% of maximum predicted heart rate the maximum workload was 10.1 metabolic equivalents. The patient maintained sinus rhythm throughout the recording at rest there were no ST or T wave changes noted suggest ischemia peak exercise no ST or T wave changes were noted suggest ischemia. The resting blood pressure was 128/82 with a peak blood pressure 194/84. Rate pressure product was 23,400. No clinical angina was noted the test was terminated due to leg fatigue. Stress echocardiographic images. The resting stress echocardiogram demonstrated ejection fraction of 55% with a peak ejection fraction of 70%. No wall motion abnormalities were noted. No ischemia was noted. Conclusion: Normal stress echocardiographic test with no evidence of ischemia. Assessment and Plan Assessment and Plan (1) Atherosclerosis of coronary artery of modoc heart without angina pectoris: Status: Chronic Plan: With patients symptoms of angina on her stress test despite negative images, concerned that this could be a false negative on the images as she does have known CAD and had moderate disease at her last heart cath in 2018. Would like to pursue a diagnostic heart cath. Pt is agreeable with this. (2) Coronary artery calcification seen on CAT scan: Status: Acute (3) Chest pain: 08/01/23901 <Electronically signed by Mohamud Juarez MD> Cosigner Signature (if applicable): 07/31/23 0938 <Electronically signed by Simin Bautista NP PAD TUFTER-C> CC: TOÑO Bautista; Dr. Mohamud Juarez MD; Dr. Vijay Park, DO~ Signed [facility] Work Phone: 1(865) 278-626011-07-2023 Miscellaneous Notes* Telephone Encounter - Gilma Gee LPN - 07/09/2023 1:05 PM EST Patient has been identified by name and date of : Yes Patient phones for refill(s): Requested Prescriptions Pending Prescriptions Disp Refills dexAMETHasone 0.1 % ophthalmic solution 5 mL 5 Si Drop two times a day as needed. Into bilateral outer ear canal levothyroxine (SYNTHROID) 112 mcg tablet 90 tablet 3 Sig: Take 1 tablet by mouth once daily. Date of last office visit in primary care: 07/10/2022 Date of next office visit in primary care: Visit date not found Please advise. Thank you. Gilma Gee LPN. documented in this encounterKindred Healthcare06-20-2023 Miscellaneous Notes* Telephone Encounter - Karen Mcmillan LPN - 02/19/2023 8:08 AM EDT Patient has been identified by name and date of : Patient phones for refill(s): Requested Prescriptions Pending Prescriptions Disp Refills simvastatin (ZOCOR) 10 mg tablet 90 tablet 1 Sig: Take 1 tablet by mouth daily at bedtime. Date of last office visit in primary care: 07/10/22 Last 2 Encounter Wt Readings: Date: Wt: 07/10/2022 91.2 kg (201 lb) 04/18/2021 91.2 kg (201 lb) Previous labs/tests for medication: Cholesterol: HDL Cholesterol (mg/dL) Date Value 07/12/2022 55 04/18/2021 51 LDL Cholesterol (mg/dL) Date Value 07/12/2022 121 04/18/2021 111 ALT (U/L) Date Value 07/12/2022 21 04/18/2021 22 Non HDL Cholesterol (mg/dL) Date Value 07/12/2022 143 04/18/2021 129 Please advise. Thank you. Karen Mcmillan LPN documented in this encounterKindred Healthcare03-27-2023 Discharge summary Author Gail Thibodeaux [facility] November 26, 2022 8:14am Note Date/Time November 26, 2022 8:1 4am [facility] Physical Therapy [facility] [address] [place] [address] [address] [place] [address] / REHABILITATION SERVICES DISCHARGE SUMMARY MR#: [id number] Acct: [id number] Name: MAUREEN RODRIGUEZ Rep #: [id number] : 1960 62 From: Gail ROTH T Referring Dr.: SUMIT Brown Status: REG R Insurance: [employer] SELF PAY INSURANCE MAUREEN RODRIGUEZ was seen in my office for initial evaluation on 08/01/22. The following Plan of Care was established for this patient: Initial Frequency: 1x/Week Initial Duration: 4 Weeks Patient/Client Instruction: Educate patient on: Benefits of Fitness Program This patient was last seen in our office . Pertinent comments regarding their Physical therapy will appear below: Patient has not attended PT in over 30 days- appropriate to be d/c from PT and return to MD as appropriate At this point I will be discontinuing this patient from physical therapy. I would be happy to see this patient again in the future if found appropriate by the physician. Thank you! Gail Thibodeaux, JILLIAN Balance/Gait/Functional tests - Balance/Special Test Scores Lower Extremity Functional Score: 59 <Electronically signed by Gail Thibodeaux DPT> 11/26/22 0814 CC: SUMIT Brown; Dr. Vijay Park, DO ~ ELR Signed [facility] Work Phone: 1(744) 650-693912-21-2022 Miscellaneous Notes* Telephone Encounter - BERHANE Alonso - 08/22/2022 10:39 AM EST Patient has been identified by name and date of : Yes Patient phones for refill(s): Requested Prescriptions Pending Prescriptions Disp Refills diclofenac (VOLTAREN) 1 % topical gel Sig: Apply 0.5 g to affected area four times daily as needed. Date of last office visit in primary care: HAYLEY 07/10/22 Appointment scheduled 05/29/23 This medication was last ordered in 2014, please advise if patient should be scheduled for appointment to refill medication. Last 2 Encounter Wt Readings: Date: Wt: 07/10/2022 91.2 kg (201 lb) 04/18/2021 91.2 kg (201 lb) documented in this encounterKindred Healthcare11-17-2022 History of Present illness Narrative* Shama Andrade Mammo Tech - 07/19/2022 11:10 AM EST Radiology Service Progress Note PATIENT NAME: Maureen Rodriguez DATE OF SERVICE: July 19, 2022 TIME: 11:12 AM PATIENT IDENTITY VERIFICATION COMPLETED USING TWO (2) IDENTIFIERS: Name and Date of confirmedby patient verbally. FALL SCREENING: Has the patient had 2 falls in the last year or 1 fall with injury or currently using an Ambulatory Assistive Device (Walker, Cane, Wheelchair, Crutches, etc.)? No PATIENT GENDER DATA: Female. status: : No status: NO. PATIENT RELEVANT IMPLANT DATA REVIEWED: Not Applicable RADIOLOGY DEPARTMENT: Mammography PERIPHERAL IV DATA: Not applicable SIGNED BY: Светлана Schmitto Ephraim July 19, 2022 11:12 AM documented in this encounterKindred Healthcare11-14-2022 Miscellaneous Notes* Telephone Encounter - Maureen Liu LPN - 07/16/2022 3:03 PM EST Patient returned call and went over notes below from Dr Park with understanding. Aware rx to pharmacy. * Telephone Encounter - Antionette Serna RN - 07/16/2022 2:56 PM EST Called and left a voicemail for the Patient to call back and ask for a nurse to receive the providers message. Antionette Serna RN * Telephone Encounter - Vijay Park DO - 07/16/2022 1:50 PM EST If she is still having symptoms, okay to treat with Bactrim x 5 days twice a day with meals. Her urine shows mild signs of possible infection Vijay Park DO * Telephone Encounter - Mica Eden Ma - 07/16/2022 10:04 AM EST Images from the original note were not included. Please see pt message and advise. Please review urine results from 07/12. Maureen Rodriguez [facility] My Chart Rx Pool (supporting Vijay Park DO) 1 hour ago (8:29AM) BT I'm still having symptoms of a UTI, worse again today with feeling like I need to go all the time, and slight pain. Did the urinalysis show an infection? About 3 weeks ago I had a tooth pulled and was taking an antibiotic. I usually end up with a yeast infection with an antibiotic, so I was taking a probiotic (Floragen) and Activia yogurt. Would this have anything to do with it? Maureen documented in this encounterKindred Healthcare11-10-2022 Miscellaneous Notes* Telephone Encounter - Antionette Serna RN - 07/12/2022 9:33 AM EST Pt called and is notified of providers message and instructions. Pt reports she already came in anddid them. Antionette Serna RN * Telephone Encounter - Vijay Park DO - 07/11/2022 11:12 PM EST Please call patient and let her know urinalysis and culture is now ordered, sorry for delay Vijay Park DO * Telephone Encounter - Roxie Vora RN - 07/11/2022 11:16 AM EST Patient reports she forgot to mention at appt yesterday, she is having UTI s/s for 1 week, worse today- frequency, burning, pain with urination. Will be having labs done tomorrow morning, and asking pcp to put in orders for UACNS. Pended. documented in this encounterKindred Healthcare10-04-2022 History of Present illness Narrative* RT Jamaal(R) - 06/05/2022 10:00 AM EDT Radiology Service Progress Note PATIENT NAME: Maureen Rodriguez DATE OF SERVICE: June 05, 2022 TIME: 10:01 AM PATIENT IDENTITY VERIFICATION COMPLETED USING TWO (2) IDENTIFIERS: Name and Date of confirmedby patient verbally. FALL SCREENING: Has the patient had 2 falls in the last year or 1 fall with injury or currently using an Ambulatory Assistive Device (Walker, Cane, Wheelchair, Crutches, etc.)? No PATIENT GENDER DATA: Female. status: : No status: NO. PATIENT RELEVANT IMPLANT DATA REVIEWED: Not Applicable RADIOLOGY DEPARTMENT: Bone Density PERIPHERAL IV DATA: Not applicable SIGNED BY: RT Jamaal(R) June 05, 2022 10:01 AM documented in this encounterKindred Healthcare10-04-2022 Miscellaneous Notes* Telephone Encounter - Nury Robert LPN - 06/05/2022 8:16 AM EDT in flight technician called wanting to know if wants additional views due to patient having hyperparathyroidism? There would be an extra view which be of the wrist and forearm. BD DXA tray. Patient's appointment is at 10 am today. Nury Robert LPN documented in this encounterKindred Healthcare08-18-2022 Miscellaneous Notes* Telephone Encounter - Sandra Jules LPN - 04/19/2022 2:05 PM EDT Patient phones requesting refills as follows: Requested Prescriptions Pending Prescriptions Disp Refills simvastatin (ZOCOR) 10 mg tablet 90 tablet 1 Sig: Take 1 tablet by mouth daily at bedtime. HAYLEY-04/18/21 Labs-04/18/21 NOV-none med filled 04/18/21 Please review and advise. Sandra Jules LPN documented in this encounterKindred Healthcare06-06-2022 Miscellaneous Notes* Telephone Encounter - Sandra Jules LPN - 02/05/2022 10:07 AM EDT Patient phones requesting refills as follows: Pending Prescriptions Disp Refills LEVOTHYROXINE 112 MCG TABLET 90 tablet 0 Sig: Take 1 tablet by mouth once daily. MONI: No HAYLEY-04/18/21 Labs-04/18/21 NOV-none med filled 11/16/21 Please review and advise. Sandra Jules LPN documented in this encounterKindred Healthcare01-09-2009 History of Past illness Narrative* Problem Noted Date Resolved Date Other and unspecified hyperlipidemia 09/10/2008 09/10/2008 Overview: ldl 155 Urinary tract infection, site not specified /12/200504/25/2007 documented as of this encounter (statuses as of 02/05/2022) [facility] History of Past illness Narrative* Problem Noted Date Resolved Date Other and unspecified hyperlipidemia 09/10/2008 09/10/2008 Overview: ldl 155 Urinary tract infection, site not specified /12/200504/25/2007 documented as of this encounter (statuses as of 03/05/2022) [facility] of Past illness Narrative* Problem Noted Date Resolved Date Other and unspecified hyperlipidemia 09/10/2008 09/10/2008 Overview: ldl 155 Urinary tract infection, site not specified /12/200504/25/2007 documented as of this encounter (statuses as of 04/19/2022) [facility] of Past illness Narrative* Problem Noted Date Resolved Date Other and unspecified hyperlipidemia 09/10/2008 09/10/2008 Overview: ldl 155 Urinary tract infection, site not specified /12/200504/25/2007 documented as of this encounter (statuses as of 06/06/2022) [facility] of Past illness Narrative* Problem Noted Date Resolved Date Other and unspecified hyperlipidemia 09/10/2008 09/10/2008 Overview: ldl 155 Urinary tract infection, site not specified /12/200504/25/2007 documented as of this encounter (statuses as of 06/06/2022) [facility] of Past illness Narrative* Problem Noted Date Resolved Date Other and unspecified hyperlipidemia 09/10/2008 09/10/2008 Overview: ldl 155 Urinary tract infection, site not specified 04/12/200504/25/2007 documented as of this encounter (statuses as of 07/12/2022) [facility] of Past illness Narrative* Problem Noted Date Resolved Date Other and unspecified hyperlipidemia 09/10/2008 09/10/2008 Overview: ldl 155 Urinary tract infection, site not specified /12/200504/25/2007 documented as of this encounter (statuses as of 07/17/2022) [facility] of Past illness Narrative* Problem Noted Date Resolved Date Other and unspecified hyperlipidemia 09/10/2008 09/10/2008 Overview: ldl 155 Urinary tract infection, site not specified /12/200504/25/2007 documented as of this encounter (statuses as of 08/23/2022) [address]09-2009 History of Past illness Narrative* Problem Noted Date Resolved Date Other and unspecified hyperlipidemia 09/10/2008 09/10/2008 Overview: ldl 155 Urinary tract infection, site not specified 12/0204/25/2007 documented as of this encounter (statuses as of 12/19/2022) [address]09-2009 History of Past illness Narrative* Problem Noted Date Resolved Date Other and unspecified hyperlipidemia 09/10/2008 09/10/2008 Overview: ldl 155 Urinary tract infection, site not specified 12/0204/25/2007 documented as of this encounter (statuses as of 02/19/2023) [facility] History of Past illness Narrative* Problem Noted Date Diagnosed Date Resolved Date Other and unspecified hyperlipidemia 09/10/2008 09/10/2008 Overview: ldl 155 Urinary tract infection, site not specified 12/24/2005 04/25/2007 documented as of this encounter (statuses as of 07/07/2023) [facility]2009 History of Past illness Narrative* Problem Noted Date Diagnosed Date Resolved Date Other and unspecified hyperlipidemia 09/10/2008 09/10/2008 Overview: ldl 155 Urinary tract infection, site not specified 12/24/2005 04/25/2007 documented as of this encounter (statuses as of 07/11/2023) [facility]2009 History of Past illness Narrative* Problem Noted Date Diagnosed Date Resolved Date Other and unspecified hyperlipidemia 09/10/2008 09/10/2008 Overview: ldl 155 Urinary tract infection, site not specified 12/24/2005 04/25/2007 documented as of this encounter (statuses as of 09/09/2023) [facility]2009 History of Past illness Narrative* Problem Noted Date Diagnosed Date Resolved Date Other and unspecified hyperlipidemia 09/10/2008 09/10/2008 Overview: ldl 155 Urinary tract infection, site not specified 12/24/2005 04/25/2007 documented as of this encounter (statuses as of 10/16/2023) [facility]2009 History of Past illness Narrative* Problem Noted Date Diagnosed Date Resolved Date Other and unspecified hyperlipidemia 09/10/2008 09/10/2008 Overview: ldl 155 Urinary tract infection, site not specified 12/24/2005 04/25/2007 documented as of this encounter (statuses as of 11/07/2023) [facility] History of Past illness Narrative* Problem Noted Date Diagnosed Date Resolved Date Other and unspecified hyperlipidemia 09/10/2008 09/10/2008 Overview: ldl 155 Urinary tract infection, site not specified 12/24/2005 04/25/2007 documented as of this encounter (statuses as of 11/09/2023) [facility] History of Past illness Narrative* Problem Noted Date Diagnosed Date Resolved Date Other and unspecified hyperlipidemia 09/10/2008 09/10/2008 Overview: ldl 155 Urinary tract infection, site not specified 12/24/2005 04/25/2007 documented as of this encounter (statuses as of 11/14/2023) [facility] Diagnosis Encounter for screening mammogram for breast cancer [facility] Diagnosis Coronary artery disease involving [place]oc coronary artery of [place] heart without angina pectoris [facility]* Diagnosis Osteopenia, senile Disorder of bone and cartilage, unspecified Hyperparathyroidism (HCC) Hyperparathyroidism, unspecified Screening for osteoporosis Special screening for osteoporosis [facility]* Diagnosis Dysuria- Primary [facility]* Diagnosis Recurrent UTI (urinary tract infection)- Primary Urinary tract infection, site not specified [facility]* Diagnosis Bilateral hand pain Pain in limb [facility] noteNo assessment information availableWChildren[facility] Work Phone: Evaluation note* Diagnosis Hyperparathyroidism (HCC)- Primary Hyperparathyroidism, unspecified Screening for osteoporosis Special screening for osteoporosis [facility] Diagnosis Coronary artery disease involving [place] coronary artery of [place] heart without angina pectoris documented [facility]* Diagnosis Encounter for screening mammogram for breast cancer [facility]* Diagnosis Eczema of external ear, bilateral [facility]* Diagnosis Onset Date Resolution Status Coronary artery calcification seen on CAT scan acute Atherosclerosis of coronary artery of mod[place] heart without angina pectoris chronic Essential (primary) hypertension chronic HLD (hyperlipidemia) chronic Chest pain resolved [facility] Work Phone: Evaluation note* Diagnosis Encounter for screening mammogram for breast cancer [facility]* Diagnosis Hypothyroidism, acquired- Primary Unspecified hypothyroidism Spontaneous bruising Spontaneous ecchymoses Vitamin D deficiency Unspecified vitamin D deficiency Hyperparathyroidism (HCC) Hyperparathyroidism, unspecified Frequent headaches Coronary artery disease involving [place] coronary artery of [place] heart without angina pectoris Impaired fasting glucose Dyslipidemia Other and unspecified hyperlipidemia Primary osteoarthritis of both knees Primary localized osteoarthrosis, lower leg Bilateral hand pain Pain in limb Foot pain, bilateral Pain in limb Chronic pain of both knees [facility]* Diagnosis Encounter for screening mammogram for breast cancer [facility]* Diagnosis Acute cough- Primary URI, acute Acute upper respiratory infections of unspecified site Acute cough [facility]* Diagnosis Acute cough [facility]* Diagnosis Medicare annual wellness visit, subsequent- Primary Routine general medical examination at a health care facility Chronic pain of both knees Osteopenia, senile Disorder of bone and cartilage, unspecified Need for pneumococcal 20-valent conjugate vaccination Encounter for screening mammogram for malignant neoplasm of breast Other screening mammogram Screening for osteoporosis Special screening for osteoporosis Post-menopausal Asymptomatic postmenopausal status (age-related) (natural) Impaired fasting glucose Hypothyroidism, acquired Unspecified hypothyroidism Vitamin D deficiency Unspecified vitamin D deficiency Hyperlipidemia, mixed Mixed hyperlipidemia Bloating Flatulence, eructation, and gas pain Abdominal pain, epigastric Class 1 obesity with body mass index (BMI) of 34.0 to 34.9 in adult, unspecified obesity type, unspecified whether serious comorbidity present [facility] Chronic pain of both knees [facility]* Diagnosis Preoperative clearance- Primary Preoperative examination, unspecified Hypothyroidism, acquired Unspecified hypothyroidism Hyperlipidemia, mixed Mixed hyperlipidemia Essential hypertension, benign Coronary artery disease involving [place] coronary artery of [place] heart without angina pectoris Chronic pain of both knees Frequent headaches [facility]* Diagnosis Osteopenia, senile Disorder of bone and cartilage, unspecified Screening for osteoporosis Special screening for osteoporosis Post-menopausal Asymptomatic postmenopausal status (age-related) (natural) [facility]* Diagnosis Burning with urination- Primary Dysuria [facility]* Diagnosis Irritant contact dermatitis due to detergent- Primary Contact dermatitis and other eczema due to detergents Dysuria [facility]* Diagnosis Primary osteoarthritis of both knees- Primary Primary localized osteoarthrosis, lower leg Chronic pain of both knees [facility]* Diagnosis Encounter for screening mammogram for malignant neoplasm of breast Other screening mammogram [facility]* Diagnosis Rheumatoid factor positive Other and unspecified nonspecific immunological findings Arthralgia, unspecified joint [facility] Diagnosis Rheumatoid factor positive- Primary Other and unspecified nonspecific immunological findings Arthralgia, unspecified joint [facility]* Diagnosis Chronic pain of both knees- Primary Primary osteoarthritis of both knees Primary localized osteoarthrosis, lower leg Acute deep vein thrombosis (DVT) of proximal vein of lower extremity, unspecified laterality (HCC) Anticoagulated on Eliquis [facility] Diagnosis Rheumatoid factor positive- Primary Other and unspecified nonspecific immunological findings Arthralgia, unspecified joint Rash and nonspecific skin eruption Rash and other nonspecific skin eruption Primary osteoarthritis of both knees Primary localized osteoarthrosis, lower leg Primary osteoarthritis of both feet Chronic pain of right ankle Sicca syndrome (HCC) Sicca syndrome [facility] Additional Instructions Keep dressings clean dry and intact to right foot. Maintain nonweightbearing assisted by knee scooter or crutches to right foot Ice behind knee for 3 times a day for 15 minutes at a time right lower extremity Maintain right lower extremity elevated when at rest above the level of heart to manage edema Take prescriptions as directed Contact our office with any uncontrolled pain, strikethrough to dressing or signs symptoms of due to infection Follow-up in 1 week we will change dressing at that time.[facility] Work Phone: Hospital Discharge instructions Additional Instructions Take your Eliquis as directed. Return with chest pain, shortness of breath, new or worsening symptoms. You may need to stop taking your baby aspirin as you are all already be on a blood thinner.[facility] Work Phone: Reason for referral (narrative)* Diagnostic Procedure Only (Routine) - Pending Review Specialty Diagnoses / Procedures Referred By Stephan blanc Referred To Contact [facility] Diagnoses Encounter for screening mammogram for breast cancer Procedures IBRAHIMA SCREENING SCREENING MAMMOGRAPHY BI 2-VIEW BREAST INC Vijay Brown DO [address] [place] [address] [facility] [address] [facility] [address] Referral ID Status Reason Start Date Expiration Date Visits Requested Visits Authorized [id number] Pending Review Auto-Generat ed Referral 02/28/2022 03/30/2023 1 1 [facility] for referral (narrative)* Diagnostic Procedure Only (Routine) - Closed Specialty Diagnoses / Procedures Referred By Stephan blanc Referred To Contact XR IMAGING Diagnoses Hyperparathyroidism (HCC) Screening for osteoporosis Procedures DXA-FOREARM SKELETON DXA BONE DENSITY STUDY 1/>SITES APPENDICLR SKEL Vijay Park DO [address] [place] [address] Xr Imaging Referral ID Status Reason Start Date Expiration Date V isits Requested Visits Authorized [id number] Closed Auto-Generate d Referral 06/05/2022 07/05/2023 1 1 T [facility] for referral (narrative)* Diagnostic Procedure Only (Routine) - Closed Specialty Diagnoses / Procedures Referred By Contac t Referred To Contact XR IMAGING Diagnoses Hyperparathyroidism (HCC) Screening for osteoporosis Procedures DXA-FOREARM SKELETON DXA BONE DENSITY STUDY 1/>SITES APPENDICLR Vijay uBll, DO [address] [place] [address] Xr Imaging Referral ID Status Reason Start Date Expiration Date V isits Requested Visits Authorized [id number] Closed Auto-Generate d Referral 06/05/2022 07/05/2023 1 1 [facility] for referral (narrative)* Diagnostic Procedure Only (Routine) - Closed Specialty Diagnoses / Procedures Referred By Contac t Referred To Contact BR IMAG[facility] Diagnoses Encounter for screening mammogram for breast cancer Procedures IBRAHIMA SCREENING SCREENING MAMMOGRAPHY BI 2-VIEW BREAST INC Vijay Brown, DO [address] [place] [address] Br Imaging [address] [place] [address] Referral ID Status Reason Start Date Expiration Date V isits Requested Visits Authorized [id number] Closed Auto-Generate d Referral 07/19/2022 09/01/2022 1 1 [facility] for referral (narrative)* Diagnostic Procedure Only (Routine) - Pending Review Specialty Diagnoses / Procedures Referred By Contac t Referred To Contact BR IMAGING Diagnoses Encounter for screening mammogram for breast cancer Procedures IBRAHIMA SCREENING SCREENING MAMMOGRAPHY BI 2-VIEW BREAST INC Vijay Brown, DO [address] [place] [address] Br Imaging [address] [place] [address] Referral ID Status Reason Start Date Expiration Date Visits Requested Visits Authorized [id number] Pending Review Auto-Generat ed Referral 09/04/2023 10/03/2024 1 1 [facility] for referral (narrative)No reason for referral information availableWChildren's [facility] Work Phone: [facility]* Diagnostic Procedure Only (Routine) - Closed Specialty Diagnoses / Procedures Referred By Contac t Referred To Contact BR IMAGING Diagnoses Encounter for screening mammogram for breast cancer Procedures IBRAHIMA SCREENING SCREENING MAMMOGRAPHY BI 2-VIEW BREAST INC CAD Vijay Park, DO [address] [place] [address] Br Imaging [address] [place] [address] Referral ID Status Reason Start Date Expiration Date V isits Requested Visits Authorized [id number] Closed Auto-Generate d Referral 07/19/2022 09/01/2022 1 1 [facility] for visit Narrative* Diagnostic Procedure Only (Routine) - Closed Specialty Diagnoses / Procedures Referred By Stephan t Referred To Contact BR IMAGING Diagnoses Encounter for screening mammogram for breast cancer Procedures IBRAHIMA SCREENING SCREENING MAMMOGRAPHY BI 2-VIEW BREAST INC CAD Vijay Park, DO [address] [place] [address] Br Imaging [address] [place] [address] Referral ID Status Reason Start Date Expiration Date V isits Requested Visits Authorized [id number] Closed Auto-Generate d Referral 09/04/2023 10/03/2024 1 1 [facility] for visit Narrative* Diagnostic Procedure Only (Routine) - Closed Specialty Diagnoses / Procedures Referred By Stephan t Referred To Contact XR IMAGING Diagnoses Chronic pain of both knees Procedures XR KNEE GENERAL 4V AP BOTH/PA BOTH/LAT/MERC BILATERAL RADIOLOGIC EXAM KNEE COMPLETE 4/MORE VIEWS Vijay Park, DO [address] [place] [address] [place] [address] Referral ID Status Reason Start Date Expiration Date V isits Requested Visits Authorized [id number] Closed Auto-Generate d Referral 09/23/2024 10/23/2025 1 1 [facility] for visit Narrative* Diagnostic Procedure Only (Routine) - Closed Specialty Diagnoses / Procedures Referred By Carliac t Referred To Contact XR IMAGING Diagnoses Osteopenia, senile Screening for osteoporosis Post-menopausal Procedures DXA-AXIAL SKELETON DXA BONE DENSITY STUDY / SITES AXIAL SKEL Vijay Park, DO [address] [place] [address] Phone: tel: fax: [place] [address] Referral ID Status Reason Start Date Expiration Date V isits Requested Visits Authorized [id number] Closed Auto-Generate d Referral 09/23/2024 10/23/2025 1 1 [facility] for visit Narrative* Diagnostic Procedure Only (Routine) - Closed Specialty Diagnoses / Procedures Referred By Stephan t Referred To Contact BR IMAGING Diagnoses Encounter for screening mammogram for malignant neoplasm of breast Procedures IBRAHIMA SCREENING SCREENING MAMMOGRAPHY BI 2-VIEW BREAST INC CAD Vijay Park, DO [address] [place] [address] Phone: tel: fax: [facility] [address] [facility] [place] [address] Referral ID Status Reason Start Date Expiration Date V isits Requested Visits Authorized [id number] Closed Auto-Generate d Referral 09/23/2024 10/23/2025 1 1 [facility] for visit Narrative* Diagnostic Procedure Only (Routine) - Closed Specialty Diagnoses / Procedures Referred By Contgretchen t Referred To Contact XR IMAGING Diagnoses Rheumatoid factor positive Arthralgia, unspecified joint Procedures XR FOOT GENERAL 3V AP/LAT/OBL BILATERAL RADEX FOOT COMPLETE MINIMUM 3 VIEWS Vijay Park, DO [address] [place] [address] Phone: tel: fax: [place] [address] Referral ID Status Reason Start Date Expiration Date V isits Requested Visits Authorized [id number] Closed Auto-Generate d Referral 11/11/2024 12/11/2025 1 1 [facility] Chief Complaint and Reason for Visit Chief Complaint LT ACHILLES TEND. RX HERE CHEST PAIN CHEST PAIN Chief Complaint Atherosclerotic hear t disease of [place] coronary a Atherosclerotic heart disease of [place] coronary a Chief Complaint 1 Y FU CP CP Reason for Visit Coronary artery calc ification seen on CAT scan Atherosclerosis of coronary artery of [place] heart without angina pectoris Essential (primary) hypertension HLD (hyperlipidemia) Chest pain Chief Complaint Admit Date 5-6 M FU August 10, 2024 1 0:56am Right foot bunionectomy with second, thi rd, and fo November 13, 2024 5:49am Reason for Visit Admit Date Essential (primary) hypertension Decembe r 2023 10:56am HLD (hyperlipidemia) August 10, 2024 10:56am Stented coronary artery August 10 10:56am Chief Complaint Admit Date Right foot bunionectomy with second, thi rd, and fo November 13, 2024 5:49am Chief Complaint Admit Date Right foot bunionectomy with second, thi rd, and fo November 13, 2024 5:49am Localized swelling, mass and lump, BOTH LIMBS February 02, 2025 2:56pm edema February 02, 2025 4:17p m Chief Complaint Admit Date Right foot bunionectomy with second, thi rd, and fo November 13, 2024 5:49am Localized swelling, mass and lump, BOTH LIMBS February 02, 2025 2:56pm edema February 02, 2025 4:17p m Consult DVT/[facility] ED F/U February 24, 2025 1 0:58am Chief Complaint Admit Date Localized swelling, mass and lump, BOTH LIMBS February 02, 2025 2:56pm edema February 02, 2025 4:17p m Consult DVT/[facility] ED F/U February 24, 2025 1 0:58am LOCALIZED EDEMA March 22, 2025 9:56 am Reason for Visit Admit Date DVT (deep venous thrombosis) February 24, 2025 10:58am Chief Complaint Admit Date Localized swelling, mass and lump, BOTH LIMBS February 02, 2025 2:56pm edema February 02, 2025 4:17p m Consult DVT/[facility] ED F/U February 24, 2025 1 0:58am LOCALIZED EDEMA March 22, 2025 9:56 am PAIN IN RIGHT LEG March 29, 2025 1:45 pm RT LEG PAIN April 07, 2025 9:5 2am Chief Complaint Admit Date Localized swelling, mass and lump, BOTH LIMBS February 02, 2025 2:56pm edema February 02, 2025 4:17p m Consult DVT/[facility] ED F/U February 24, 2025 1 0:58am LOCALIZED EDEMA March 22, 2025 9:56 am PAIN IN RIGHT LEG March 29, 2025 1:45 pm RT LEG PAIN April 07, 2025 9:5 2am other specified soft tissue disorders [facility] 2024 12:45pm Chief Complaint Admit Date Localized swelling, mass and lump, BOTH LIMBS February 02, 2025 2:56pm edema February 02, 2025 4:17p m Consult DVT/[facility] ED F/U February 24, 2025 1 0:58am LOCALIZED EDEMA March 22, 2025 9:56 am PAIN IN RIGHT LEG March 29, 2025 1:45 pm RT LEG PAIN April 07, 2025 9:5 2am other specified soft tissue disorders [facility] 2024 12:45pm 1 Y FU May 11, 2025 9:20am Reason for Visit Admit Date DVT (deep venous thrombosis) February 24, 2025 10:58am Essential (primary) hypertension Septemb 2024 9:20am HLD (hyperlipidemia) May 11, 2025 9:20am Stented coronary artery May 11, 025 9:20am Family History No Family History Records Found Relationship Condition Age at Onset Recorded Date/T dena mother Coronary artery disease Unknown Hypertension Unknown father Coronary artery disease Unknown Cerebrovascular accident (CVA) Unknown brother Coronary artery disease Unknown Myocardial infarction 62 Myocardial infarction Unknown Relationship Condition Age at Onset Recorded Date/T dena Not Specified Essential hypertension Unknown Hyperlipidemia Unknown Atherosclerosis of c oronary artery of [place] heart without angina pectoris Unknown mother Coronary artery disease Unknown Hypertension Unknown father Coronary artery disease Unknown Cerebrovascular accident (CVA) Unknown brother Coronary artery disease Unknown Myocardial infarction 62 Myocardial infarction Unknown Advance Directives No Advanced Directives Records Found Advance Directive Response Recorded Date/ Time Advance Directives No August 10:22am Living Will No August 14, 013 10:22am Power of Blood Bank Manager No August 14, 2013 10:22am Advance Directive Response Recorded Date/ Time Advance Directives on File No Decem castillo 1st, 2023 7:56am Advance Directives No August 02, 2023 7:56am Living Will No August 02 7:56am Power of Blood Bank Manager No August 02, 2023 7:56am Advance Directive Response Recorded Date/ Time Living Will No August 02 8:56am Power of Blood Bank Manager No August 02, 2023 8:56am Living Will Yes November 12, 2024 9:26am Power of Blood Bank Manager Yes November 12 9:26am Name of Medical Power of Blood Bank Manager SPOUSE November 12, 2024 9:26am Advance Directives No August 02, 2023 8:56am Advance Directive Response Recorded Date/ Time Living Will Yes November 12, 2024 9:26am Do you have a Healthcare Power of Blood Bank Manager? Yes November 12, 2024 9:26am Name of Medical Power of Blood Bank Manager SPOUSE November 12, 2024 9:26am Advance Directives No August 02, 2023 8:56am Advance Directive Response Recorded Date/ Time Living Will Yes November 12, 2024 9:26am Do you have a Healthcare Power of Blood Bank Manager? Yes November 12, 2024 9:26am Name of Medical Power of Blood Bank Manager SPOUSE November 12, 2024 9:26am Do you have a Healthcare Power of Blood Bank Manager? Yes February 02, 2025 4:33pm Advance Directives No August 02, 2023 8:56am Advance Directive Response Recorded Date/ Time Do you have a Healthcare Power of Blood Bank Manager? Yes February 02, 2025 4:33pm Advance Directives No August 02, 2023 8:56am Advance Directive Response Recorded Date/ Time Living Will No August 02 8:56am Do you have a Healthcare Power of Blood Bank Manager? No August 02, 2023 8:56am Do you have a Healthcare Power of Blood Bank Manager? Yes February 02, 2025 4:33pm Advance Directives No August 02, 2023 8:56am Reason for Referral Specialty Diagnoses / Procedures Referred By Stephan blanc Referred To Contact Orthopedics Diagnoses Chronic pain of both knees Procedures CONSULT PANEL TO ORTHOPAEDICS OFFICE/OUTPATIENT [facility] 60 MINUTES Vijay Park DO [address] [place] [address] Referral ID Status Reason Start Date Expiration Date Visits Requested Visits Authorized [id number] Authorized PCP Requested Referral 09/23/2024 09/23/2025 1 1 Specialty Diagnoses / Procedures Referred By Carliac t Referred To Contact XR IMAGING Diagnoses Chronic pain of both knees Procedures XR KNEE GENERAL 4V AP BOTH/PA BOTH/LAT/MERC BILATERAL RADIOLOGIC EXAM KNEE COMPLETE 4/MORE VIEWS Vijay Park, DO [address] [place] [address] [place] [address] Referral ID Status Reason Start Date Expiration Date Visits Requested Visits Authorized [id number] New Request Auto-Generat ed Referral 09/23/2024 10/23/2025 1 1 Specialty Diagnoses / Procedures Referred By Carliac t Referred To Contact XR IMAGING Diagnoses Osteopenia, senile Screening for osteoporosis Post-menopausal Procedures DXA-AXIAL SKELETON DXA BONE DENSITY STUDY 1/> SITES AXIAL SKEL Vijay Park, DO [address] [place] [address] [place] [address] Referral ID Status Reason Start Date Expiration Date Visits Requested Visits Authorized [id number] Authorized Auto-Generat ed Referral 09/23/2024 10/23/2025 1 1 Specialty Diagnoses / Procedures Referred By Stephan t Referred To Contact [facility] Diagnoses Encounter for screening mammogram for malignant neoplasm of breast Procedures IBRAHIMA SCREENING SCREENING MAMMOGRAPHY BI 2-VIEW BREAST INC CAD Vijay Park, DO [address] [place] [address] [facility] [address] [place] [address] Referral ID Status Reason Start Date Expiration Date Visits Requested Visits Authorized [id number] Authorized Auto-Generat ed Referral 09/23/2024 10/23/2025 1 1 Summary Purpose Additional Source Comments Source Comments (unrecognize d section and content) In the event this informatio n is protected by the Federal Confidentiality of Alcohol and Drug Abuse Patient Records regulations: The Federal rules restrict any use of the information to criminally investigate or prosecute any alcohol or drug abuse patient.[facility] HealthcareIn the event this information is protected by the Federal Confidentiality of Alcohol and Drug Abuse Patient Records regulations: The Federal rules restrict any use of the information to criminally investigate or prosecute any alcohol or drug abuse patient.[facility] HealthcareIn the event this information is protected by the Federal Confidentiality of Alcohol and Drug Abuse Patient Records regulations: The Federal rules restrict any use of the information to criminally investigate or prosecute any alcohol or drug abuse patient.[facility] HealthcareIn the event this information is protected by the Federal Confidentiality of Alcohol and Drug Abuse Patient Records regulations: The Federal rules restrict any use of the information to criminally investigate or prosecute any alcohol or drug abuse patient.[facility] HealthcareIn the event this information is protected by the Federal Confidentiality of Alcohol and Drug Abuse Patient Records regulations: The Federal rules restrict any use of the information to criminally investigate or prosecute any alcohol or drug abuse patient.[facility] HealthcareIn the event this information is protected by the Federal Confidentiality of Alcohol and Drug Abuse Patient Records regulations: The Federal rules restrict any use of the information to criminally investigate or prosecute any alcohol or drug abuse patient.[facility] HealthcareIn the event this information is protected by the Federal Confidentiality of Alcohol and Drug Abuse Patient Records regulations: The Federal rules restrict any use of the information to criminally investigate or prosecute any alcohol or drug abuse patient.[facility] HealthcareIn the event this information is protected by the Federal Confidentiality of Alcohol and Drug Abuse Patient Records regulations: The Federal rules restrict any use of the information to criminally investigate or prosecute any alcohol or drug abuse patient.[facility] HealthcareIn the event this information is protected by the Federal Confidentiality of Alcohol and Drug Abuse Patient Records regulations: The Federal rules restrict any use of the information to criminally investigate or prosecute any alcohol or drug abuse patient.[facility] the event this information is protected by the Federal Confidentiality of Alcohol and Drug Abuse Patient Records regulations: The Federal rules restrict any use of the information to criminally investigate or prosecute any alcohol or drug abuse patient.[facility] HealthcareIn the event this information is protected by the Federal Confidentiality of Alcohol and Drug Abuse Patient Records regulations: The Federal rules restrict any use of the information to criminally investigate or prosecute any alcohol or drug abuse patient.[facility] HealthcareIn the event this information is protected by the Federal Confidentiality of Alcohol and Drug Abuse Patient Records regulations: The Federal rules restrict any use of the information to criminally investigate or prosecute any alcohol or drug abuse patient.[facility] HealthcareIn the event this information is protected by the Federal Confidentiality of Alcohol and Drug Abuse Patient Records regulations: The Federal rules restrict any use of the information to criminally investigate or prosecute any alcohol or drug abuse patient.[facility] HealthcareIn the event this information is protected by the Federal Confidentiality of Alcohol and Drug Abuse Patient Records regulations: The Federal rules restrict any use of the information to criminally investigate or prosecute any alcohol or drug abuse patient.[facility] HealthcareIn the event this information is protected by the Federal Confidentiality of Alcohol and Drug Abuse Patient Records regulations: The Federal rules restrict any use of the information to criminally investigate or prosecute any alcohol or drug abuse patient.[facility] HealthcareIn the event this information is protected by the Federal Confidentiality of Alcohol and Drug Abuse Patient Records regulations: The Federal rules restrict any use of the information to criminally investigate or prosecute any alcohol or drug abuse patient.[facility] HealthcareIn the event this information is protected by the Federal Confidentiality of Alcohol and Drug Abuse Patient Records regulations: The Federal rules restrict any use of the information to criminally investigate or prosecute any alcohol or drug abuse patient.[facility] HealthcareIn the event this information is protected by the Federal Confidentiality of Alcohol and Drug Abuse Patient Records regulations: The Federal rules restrict any use of the information to criminally investigate or prosecute any alcohol or drug abuse patient.[facility] HealthcareIn the event this information is protected by the Federal Confidentiality of Alcohol and Drug Abuse Patient Records regulations: The Federal rules restrict any use of the information to criminally investigate or prosecute any alcohol or drug abuse patient.[facility] HealthcareIn the event this information is protected by the Federal Confidentiality of Alcohol and Drug Abuse Patient Records regulations: The Federal rules restrict any use of the information to criminally investigate or prosecute any alcohol or drug abuse patient.[facility] HealthcareIn the event this information is protected by the Federal Confidentiality of Alcohol and Drug Abuse Patient Records regulations: The Federal rules restrict any use of the information to criminally investigate or prosecute any alcohol or drug abuse patient.[facility] HealthcareIn the event this information is protected by the Federal Confidentiality of Alcohol and Drug Abuse Patient Records regulations: The Federal rules restrict any use of the information to criminally investigate or prosecute any alcohol or drug abuse patient.[facility] HealthcareIn the event this information is protected by the Federal Confidentiality of Alcohol and Drug Abuse Patient Records regulations: The Federal rules restrict any use of the information to criminally investigate or prosecute any alcohol or drug abuse patient.[facility] HealthcareIn the event this information is protected by the Federal Confidentiality of Alcohol and Drug Abuse Patient Records regulations: The Federal rules restrict any use of the information to criminally investigate or prosecute any alcohol or drug abuse patient.[facility] HealthcareIn the event this information is protected by the Federal Confidentiality of Alcohol and Drug Abuse Patient Records regulations: The Federal rules restrict any use of the information to criminally investigate or prosecute any alcohol or drug abuse patient.[facility] HealthcareIn the event this information is protected by the Federal Confidentiality of Alcohol and Drug Abuse Patient Records regulations: The Federal rules restrict any use of the information to criminally investigate or prosecute any alcohol or drug abuse patient.[facility] HealthcareIn the event this information is protected by the Federal Confidentiality of Alcohol and Drug Abuse Patient Records regulations: The Federal rules restrict any use of the information to criminally investigate or prosecute any alcohol or drug abuse patient.[facility] HealthcareIn the event this information is protected by the Federal Confidentiality of Alcohol and Drug Abuse Patient Records regulations: The Federal rules restrict any use of the information to criminally investigate or prosecute any alcohol or drug abuse patient.[facility] HealthcareIn the event this information is protected by the Federal Confidentiality of Alcohol and Drug Abuse Patient Records regulations: The Federal rules restrict any use of the information to criminally investigate or prosecute any alcohol or drug abuse patient.[facility] HealthcareIn the event this information is protected by the Federal Confidentiality of Alcohol and Drug Abuse Patient Records regulations: The Federal rules restrict any use of the information to criminally investigate or prosecute any alcohol or drug abuse patient.[facility] HealthcareIn the event this information is protected by the Federal Confidentiality of Alcohol and Drug Abuse Patient Records regulations: The Federal rules restrict any use of the information to criminally investigate or prosecute any alcohol or drug abuse patient.[facility] HealthcareIn the event this information is protected by the Federal Confidentiality of Alcohol and Drug Abuse Patient Records regulations: The Federal rules restrict any use of the information to criminally investigate or prosecute any alcohol or drug abuse patient.[facility] HealthcareIn the event this information is protected by the Federal Confidentiality of Alcohol and Drug Abuse Patient Records regulations: The Federal rules restrict any use of the information to criminally investigate or prosecute any alcohol or drug abuse patient.[facility] HealthcareIn the event this information is protected by the Federal Confidentiality of Alcohol and Drug Abuse Patient Records regulations: The Federal rules restrict any use of the information to criminally investigate or prosecute any alcohol or drug abuse patient.[facility] HealthcareIn the event this information is protected by the Federal Confidentiality of Alcohol and Drug Abuse Patient Records regulations: The Federal rules restrict any use of the information to criminally investigate or prosecute any alcohol or drug abuse patient.[facility] HealthcareIn the event this information is protected by the Federal Confidentiality of Alcohol and Drug Abuse Patient Records regulations: The Federal rules restrict any use of the information to criminally investigate or prosecute any alcohol or drug abuse patient.[facility] HealthcareIn the event this information is protected by the Federal Confidentiality of Alcohol and Drug Abuse Patient Records regulations: The Federal rules restrict any use of the information to criminally investigate or prosecute any alcohol or drug abuse patient.[facility] HealthcareIn the event this information is protected by the Federal Confidentiality of Alcohol and Drug Abuse Patient Records regulations: The Federal rules restrict any use of the information to criminally investigate or prosecute any alcohol or drug abuse patient.[facility] HealthcareIn the event this information is protected by the Federal Confidentiality of Alcohol and Drug Abuse Patient Records regulations: The Federal rules restrict any use of the information to criminally investigate or prosecute any alcohol or drug abuse patient.[facility] HealthcareIn the event this information is protected by the Federal Confidentiality of Alcohol and Drug Abuse Patient Records regulations: The Federal rules restrict any use of the information to criminally investigate or prosecute any alcohol or drug abuse patient.[facility] HealthcareIn the event this information is protected by the Federal Confidentiality of Alcohol and Drug Abuse Patient Records regulations: The Federal rules restrict any use of the information to criminally investigate or prosecute any alcohol or drug abuse patient.[facility] HealthcareIn the event this information is protected by the Federal Confidentiality of Alcohol and Drug Abuse Patient Records regulations: The Federal rules restrict any use of the information to criminally investigate or prosecute any alcohol or drug abuse patient.[facility] HealthcareIn the event this information is protected by the Federal Confidentiality of Alcohol and Drug Abuse Patient Records regulations: The Federal rules restrict any use of the information to criminally investigate or prosecute any alcohol or drug abuse patient.[facility] HealthcareIn the event this information is protected by the Federal Confidentiality of Alcohol and Drug Abuse Patient Records regulations: The Federal rules restrict any use of the information to criminally investigate or prosecute any alcohol or drug abuse patient.[facility] HealthcareIn the event this information is protected by the Federal Confidentiality of Alcohol and Drug Abuse Patient Records regulations: The Federal rules restrict any use of the information to criminally investigate or prosecute any alcohol or drug abuse patient.[facility] HealthcareIn the event this information is protected by the Federal Confidentiality of Alcohol and Drug Abuse Patient Records regulations: The Federal rules restrict any use of the information to criminally investigate or prosecute any alcohol or drug abuse patient.[facility] HealthcareIn the event this information is protected by the Federal Confidentiality of Alcohol and Drug Abuse Patient Records regulations: The Federal rules restrict any use of the information to criminally investigate or prosecute any alcohol or drug abuse patient.[facility] HealthcareIn the event this information is protected by the Federal Confidentiality of Alcohol and Drug Abuse Patient Records regulations: The Federal rules restrict any use of the information to criminally investigate or prosecute any alcohol or drug abuse patient.[facility] Reason for Visit (unrecogniz ed section and content) Reason Onset Date Comments Refill Request 02/05/2022 Reason Onset Date Comments Refill Request 04/19/2022 Specialty Diagnoses / Procedures Referred By Stephan blanc Referred To Contact Radiology / RADIO BONE DENSITY [facility] Diagnoses H/O bone density study bone density Procedures DXA BONE DENSITY STUDY 1/> SITES AXIAL SKEL BONE DENSITY ADULT 225 Self Radio [facility] [address] [place] [address] Referral ID Status Reason Start Date Expiration Date Visits Re quested Visits Authorized [id number] Closed 06/05/2022 09/01/2022 1 1 Reason Comments UTI s/s Reason Comments Results Orders Reason Onset Date Comments Refill Request 08/21/2022 Reason Comments Question bone density Reason Onset Date Comments Refill Request 02/18/2023 Reason Onset Date Comments Refill Request 07/08/2023 Reason Comments Yearly Exam Reason Comments Results Reason Onset Date Comments Refill Request 06/24/2024 Reason Comments Cough Sore throat, sneezin g, chills, diarrhea, body aches, fever, head congestion x 11 days Reason Comments Right Knee Pain Reason Comments Pre-Op Exam Foot surgery Reason Comments Pre op clearance Reason Comments Patient Update Reason Comments UTI Reason Comments Rash Reason Comments Rash On thighs, knees and ankles for a few days , itches Reason Comments New Knee Pain New Referred by Dr. Eladio krishnan Knee Pain Referred by Dr. Eladio krishnan Specialty Diagnoses / Procedures Referred By Contac t Referred To Contact Orthopedics Diagnoses Chronic pain of both knees Procedures CONSULT PANEL TO ORTHOPAEDICS OFFICE/OUTPATIENT [facility] 60 MINUTES Vijay Park, DO [address] [place] [address] Phone: tel: fax: Referral ID Status Reason Start Date Expiration Date V isits Requested Visits Authorized [id number] Closed PCP Requested Referral 09/23/2024 09/23/2025 1 1 Reason Onset Date Comments Population Health Navigation Outreach 02/02/2025 [facility] Reason Comments Follow Up Knee Pain Follow Up 17 weeks post visit OA bilateral knees Knee Pain 17 weeks post visit OA bilateral knees Reason Onset Date Comments Population Health Navigation Outreach 03/08/2025 [facility] Reason Onset Date Comments Population Health Navigation Outreach 04/12/2025 [facility] Reason Comments established patient Reason Comments Results urinary symptoms Reason Onset Date Comments Population Health Navigation Outreach 05/17/2025 [facility] Care Teams (unrecognized sec tion and content) Auto Technician Relationship Specialty Start Date End Date Vijay Park DO [address] [place] [address] PCP - General Family Practice 11/01/14 Auto Technician Relationship Specialty Start Date End Date Vijay Park DO [address] [place] [address] PCP - General Family Practice 11/01/14 Auto Technician Relationship Specialty Start Date End Date Vijay Park, DO [address] [place] [address] PCP - General Family Practice 11/01/14 Auto Technician Relationship Specialty Start Date End Date Vijay Park, DO [address] [place] [address] PCP - General Family Medicine 11/01/14 Auto Technician Relationship Specialty Start Date End Date Vijay Park DO [address] [place] [address] PCP - General Family Medicine 11/01/14 Auto Technician Relationship Specialty Start Date End Date Vijay Park DO [address] [place] [address] PCP - General Family Medicine 11/01/14 Auto Technician Relationship Specialty Start Date End Date Vijay Park DO [address] [place] [address] PCP - General Family Medicine 11/01/14 Team Status: Active Member Role Status Dates Dr. Vijay Park DO Family Provider Active Dr. Vijay Park DO Primary Care Provider Active Team Status: Active Member Role Status Dates Dr. Vijay Park DO Primary Care Provider Active Simin Bautista PAD TUFTER, PAD TUFTER-C Other Provider Active Dr. Mohamud Juarez MD Attending Provider Active Team Status: Inactive Member Role Status Dates Dr. Vijay Park DO Primary Care Provider Active Dr. Luis A Brown , DPM Attending Provider, Referring Provider Active Team Status: Inactive Member Role Status Dates Dr. Vijay Park DO Primary Care Provider Active Simin Bautista PAD TUFTER, PAD TUFTER-C Attending Provider Active Auto Technician Relationship Specialty Start Date End Date Vijay Park DO [address] [place] [address] PCP - General Family Medicine 11/01/14 Team Status: Active Member Role Status Dates Dr. Vijay Park DO Primary Care Provider Active Dr. Mohamud Juarez MD Attending Provider, Referring Provider, Other Provider Active Team Status: Inactive Member Role Status Dates Dr. Vijay Park DO Primary Care Provider Active Dr. Mohamud Juarez MD Attending Provider, Referring Pro vider Active Auto Technician Relationship Specialty Start Date End Date Vijay Park DO [address] [place] [address] PCP - General Family Medicine 11/01/14 Auto Technician Relationship Specialty Start Date End Date Vijay Park DO [address] [place] [address] PCP - General Family Medicine 11/01/14 Team Status: Inactive Member Role Status Dates Dr. Vijay Park DO Primary Care Provider, Referr ing Provider Active Susi HERNANDEZ, PA Attending Provider Active Team Status: Inactive Member Role Status Dates Dr. Vijay Park DO Primary Care Provider Active Susi HERNANDEZ, PA Attending Provider, Referr ing Provider Active Auto Technician Relationship Specialty Start Date End Date Vijay Park DO [address] [place] [address] PCP - General Family Medicine 11/01/14 Auto Technician Relationship Specialty Start Date End Date Vijay Park DO [address] [place] [address] PCP - General Family Medicine 11/01/14 Auto Technician Relationship Specialty Start Date End Date Vijay Park DO [address] [place] [address] PCP - General Family Medicine 11/01/14 Auto Technician Relationship Specialty Start Date End Date Vijay Park DO [address] [place] [address] PCP - General Family Medicine 11/01/14 Auto Technician Relationship Specialty Start Date End Date Vijay Park DO [address] [place] [address] PCP - General Family Medicine 11/01/14 Auto Technician Relationship Specialty Start Date End Date Vijay Park DO [address] [place] [address] PCP - General Family Medicine 11/01/14 Auto Technician Relationship Specialty Start Date End Date Vijay Park DO [address] [place] [address] PCP - General Family Medicine 11/01/14 Yari Moore, RECORDING STUDIO SET UP WORKER.LAST INSERTER [address] [place] [address] Sales Team Recruiter Family [facility] 08/09/24 [facility], RECORDING STUDIO SET UP WORKER.LAST INSERTER [address] [place] [address] [facility]24 Auto Technician Relationship Specialty Start Date End Date Vijay Park DO [address] [place] [address] PCP - General Family Medicine 11/01/14 Yari Moore, RECORDING STUDIO SET UP WORKER.LAST INSERTER [address] [place] [address] [facility] 08/09/24 [facility], RECORDING STUDIO SET UP WORKER.LAST INSERTER [address] [place] [address] Sales [facility] 08/09/24 Auto Technician Relationship Specialty Start Date End Date Vijay Park DO [address] [place] [address] PCP - General Family Medicine 11/01/14 Yari Mooer, RECORDING STUDIO SET UP WORKER.LAST INSERTER [address] [place] [address] Sales Team Recruiter Family [facility] 08/09/24 WallyOrquidea, RECORDING STUDIO SET UP WORKER.LAST INSERTER [address] [place] [address] Sales Team Recruiter Family [facility] 08/09/24 Auto Technician Relationship Specialty Start Date End Date Vijay Park DO [address] [facility] [place] [address] PCP - General Family Medicine 11/01/14 Yari Moore, RECORDING STUDIO SET UP WORKER.LAST INSERTER [address] [place] [address] Sales Team Recruiter Family [facility] 08/09/24 WallyOrquidea, RECORDING STUDIO SET UP WORKER.LAST INSERTER [address] [place] [address] Sales [facility] 08/09/24 Auto Technician Relationship Specialty Start Date End Date Vijay Park DO [address] [place] [address] PCP - General Family Medicine 11/01/14 Yari Moore, RECORDING STUDIO SET UP WORKER.LAST INSERTER [address] [place] [address] [facility] 08/09/24 WallyOrquidea, RECORDING STUDIO SET UP WORKER.LAST INSERTER [address] [place] [address] [facility] 08/09/24 Auto Technician Relationship Specialty Start Date End Date Vijay Park DO [address] [place] [address] PCP - General Family Medicine 11/01/14 Yari Moore, RECORDING STUDIO SET UP WORKER.LAST INSERTER [address] [place] [address] Sales Team Recruiter Family [facility] 08/09/24 Orquidea Leong, RECORDING STUDIO SET UP WORKER.LAST INSERTER [address] [place] [address] [facility] 08/09/24 Auto Technician Relationship Specialty Start Date End Date Vijay Park DO [address] [place] [address] PCP - General Family Medicine 11/01/14 Yari Moore, RECORDING STUDIO SET UP WORKER.LAST INSERTER [address] [place] [address] Sales [facility] 08/09/24 Orquidea Leong, RECORDING STUDIO SET UP WORKER.LAST INSERTER [address] [place] [address] [facility] 08/09/24 Auto Technician Relationship Specialty Start Date End Date Vijay Park DO [address] [place] [address] PCP - General Family Medicine 11/01/14 Yari Moore, RECORDING STUDIO SET UP WORKER.LAST INSERTER [address] [place] [address] Sales [facility] 08/09/24 Orquidea Leong, RECORDING STUDIO SET UP WORKER.LAST INSERTER [address] [place] [address] [facility] 08/09/24 Auto Technician Relationship Specialty Start Date End Date Vijay Park DO [address] [place] [address] PCP - General [facility] 11/01/14 Yari Moore, RECORDING STUDIO SET UP WORKER.LAST INSERTER [address] [place] [address] [facility] 08/09/24 Orquidea Leong, RECORDING STUDIO SET UP WORKER.LAST INSERTER [address] [place] [address] [facility] 08/09/24 Auto Technician Relationship Specialty Start Date End Date Vijay Park DO [address] [place] [address] PCP - General [facility] 11/01/14 Yari Moore, RECORDING STUDIO SET UP WORKER.LAST INSERTER [address] [place] [address] [facility] 08/09/24 WallyOrquidea, RECORDING STUDIO SET UP WORKER.LAST INSERTER [address] [place] [address] [facility] 08/09/24 Auto Technician Relationship Specialty Start Date End Date Vijay Park DO [address] [facility] [place] [address] PCP - [facility] 11/01/14 Yari Moore, RECORDING STUDIO SET UP WORKER.LAST INSERTER [address] [place] [address] [facility] 08/09/24 Orquidea Leong, RECORDING STUDIO SET UP WORKER.LAST INSERTER [address] [place] [address] [facility] 08/09/24 Team Status: Active Member Role Status Dates Dr. Vijay Park DO Primary Care Provider Active Team Status: Inactive Member Role Status Dates Dr. Vijay Park DO Primary Care Provider Active Start: August 10, 2024 End: August 10, 2024 Dr. Vijay Park DO Referring Provider Active Start: August 10, 2024 End: August 10, 2024 Charlie Pete PAD TUFTER, PAD TUFTER-C Attending Provider Active S tart: August 10, 2024 End: August 10, 2024 Team Status: Inactive Member Role Status Dates Dr. Vijay Park DO Primary Care Provider Active Start: November 13, 2024 End: November 13, 2024 Dr. Luis A Brown DPM Attending Provider Active Start: November 13, 2024 End: November 13, 2024 Dr. Luis A Brown DPM Referring Provider Active Start: November 13, 2024 End: November 13, 2024 Team Status: Inactive Member Role Status Dates Dr. Vijay Park DO Primary Care Provider Active Start: December 17, 2024 End: December 17, 2024 Dr. David Terrell MD Attending Provider Active Start: December 17, 2024 End: December 17, 2024 Auto Technician Relationship Specialty Start Date End Date Vijay Park DO [address] [place], [place] [id number] PCP - General Family Medicine 11/01/14 Yari Moore, RECORDING STUDIO SET UP WORKER.LAST INSERTER [address] [place], [place] [address] [facility] 08/09/24 11/20/24 Orquidea Leong, RECORDING STUDIO SET UP WORKER.LAST INSERTER [address] [place], [place] [address] [facility] 08/09/24 Auto Technician Relationship Specialty Start Date End Date Vijay Park DO [address] [place], [place] [id number] PCP - General Family Medicine 11/01/14 Orquidea Leong, RECORDING STUDIO SET UP WORKER.LAST INSERTER [address] [place] [address] [facility] 08/09/24 Auto Technician Relationship Specialty Start Date End Date Vijay Park DO [address] [place] [address] PCP - General Family Medicine 11/01/14 Yari Moore, RECORDING STUDIO SET UP WORKER.LAST INSERTER [address] [place] [address] [facility] 08/09/24 11/20/24 Orquidea Leong, RECORDING STUDIO SET UP WORKER.LAST INSERTER [address] [place] [address] [facility] 08/09/24 Auto Technician Relationship Specialty Start Date End Date Vijay Park DO [address] [place] [address] PCP - General Family Medicine 11/01/14 WallyOrquidea, RECORDING STUDIO SET UP WORKER.LAST INSERTER [address] [place] [address] [facility] 08/09/24 Auto Technician Relationship Specialty Start Date End Date Vijay Park DO [address] [place] [address] PCP - General Family Medicine 11/01/14 WallyOrquidea, RECORDING STUDIO SET UP WORKER.LAST INSERTER [address] [place] [address] [facility] 08/09/24 Team Status: Inactive Member Role Status Dates Dr. Vijay Park DO Primary Care Provider Active Start: February 02, 2025 End: February 02, 2025 Dr. Luis A Brown DPM Attending Provider Active Start: February 02, 2025 End: February 02, 2025 Dr. Luis A Brown DPM Referring Provider Active Start: February 02, 2025 End: February 02, 2025 Team Status: Active Member Role Status Dates Dr. Vijay Park DO Primary Care Provider Active Start: February 02, 2025 Dr. Trevin May MD Attending Provider Active S tart: February 02, 2025 Team Status: Inactive Member Role Status Dates Dr. Vijay Park DO Primary Care Provider Active Start: February 02, 2025 End: February 02, 2025 Jason Philip MD Attending Provider Active Star t: February 02, 2025 End: February 02, 2025 Jason Philip MD Emergency Provider Active Star t: February 02, 2025 End: February 02, 2025 Team Status: Active Member Role Status Dates Dr. Vijay Park DO Primary Care Provider Active Start: February 02, 2025 Dr. Luis A Brown DPM Attending Provider Active Start: February 02, 2025 Dr. Luis A Brown DPM Referring Provider Active Start: February 02, 2025 Team Status: Inactive Member Role Status Dates Dr. Vijay Park DO Primary Care Provider Active Start: February 02, 2025 End: February 02, 2025 Jason Philip MD Emergency Provider Active Star t: February 02, 2025 End: February 02, 2025 Auto Technician Relationship Specialty Start Date End Date Vijay Park DO [address] [place], [place] [address] PCP - General Family Medicine 11/01/14 Orquidea Leong, RECORDING STUDIO SET UP WORKER.LAST INSERTER [address] [place], [place] [address] [facility] 08/09/24 Asia Andersen, RECORDING STUDIO SET UP WORKER.LAST INSERTER [address] [place], [place] [id number] [facility] 02/15/25 Team Status: Active Member Role Status Dates Dr. Vijay Park DO Primary Care Provider Active Start: February 02, 2025 Dr. Trevin May MD Attending Provider Active S tart: February 02, 2025 Dr. Luis A Brown , DPM Referring Provider Active Start: February 02, 2025 Team Status: Inactive Member Role Status Dates Dr. Vijay Park DO Primary Care Provider Active Start: February 24, 2025 End: February 24, 2025 Dr. Vijay Park DO Referring Provider Active Start: February 24, 2025 End: February 24, 2025 MARY Estrada Attending Provider Active Star t: February 24, 2025 End: February 24, 2025 Auto Technician Relationship Specialty Start Date End Date Vijay Park DO [address] [place] [address] PCP - General Family Medicine 11/01/14 Orquidea Leong, RECORDING STUDIO SET UP WORKER.LAST INSERTER [address] [place] [address] [facility] 08/09/24 Asia Andersen, RECORDING STUDIO SET UP WORKER.LAST INSERTER [address] [place] [address] [facility] 02/15/25 Auto Technician Relationship Specialty Start Date End Date Vijay Park DO [address] [place] [address] PCP - General Family Medicine 11/01/14 WallyOrquidea, RECORDING STUDIO SET UP WORKER.LAST INSERTER [address] [place] [address] [facility] 08/09/24 Asia Andersen, RECORDING STUDIO SET UP WORKER.LAST INSERTER [address] [place] [address] Sales Team Rec[facility]iter [facility] 02/15/25 Team Status: Active Member Role/Relationship Status Dates Dr. Vijay Park DO Primary Care Provider Active Team Status: Inactive Member Role/Relationship Status Dates Dr. Vijay Park DO Primary Care Provider Active Start: December 17, 2024 End: December 17, 2024 Dr. David Terrell MD Attending Provider Active Start: December 17, 2024 End: December 17, 2024 Team Status: Inactive Member Role/Relationship Status Dates Dr. Vijay Park DO Primary Care Provider Active Start: February 02, 2025 End: February 02, 2025 Dr. Luis A Brown DPM Attending Provider Active Start: February 02, 2025 End: February 02, 2025 Dr. Luis A Brown DPM Referring Provider Active Start: February 02, 2025 End: February 02, 2025 Team Status: Active Member Role/Relationship Status Dates Dr. Vijay Park DO Primary Care Provider Active Start: February 02, 2025 Dr. Trevin May MD Attending Provider Active S tart: February 02, 2025 Dr. Luis A Brown DPM Referring Provider Active Start: February 02, 2025 Team Status: Inactive Member Role/Relationship Status Dates Dr. Vijay Park DO Primary Care Provider Active Start: February 02, 2025 End: February 02, 2025 Jason Philip MD Attending Provider Active Star t: February 02, 2025 End: February 02, 2025 Jason Philip MD Emergency Provider Active Star t: February 02, 2025 End: February 02, 2025 Team Status: Inactive Member Role/Relationship Status Dates Dr. Vijay Park DO Primary Care Provider Active Start: February 24, 2025 End: February 24, 2025 Dr. Vijay Park DO Referring Provider Active Start: February 24, 2025 End: February 24, 2025 MARY Estrada Attending Provider Active Star t: February 24, 2025 End: February 24, 2025 Team Status: Inactive Member Role/Relationship Status Dates Dr. Vijay Park DO Primary Care Provider Active Start: March 22, 2025 End: March 22, 2025 MARY Estrada Attending Provider Active Star t: March 22, 2025 End: March 22, 2025 MARY Estrada Referring Provider Active Star t: March 22, 2025 End: March 22, 2025 Team Status: Active Member Role/Relationship Status Dates Dr. Vijay Park DO Primary Care Provider Active Start: March 22, 2025 Dr. Trevin May MD Attending Provider Active S tart: March 22, 2025 Team Status: Inactive Member Role/Relationship Status Dates Dr. Vijay Park DO Primary Care Provider Active Start: March 29, 2025 End: March 29, 2025 MARY Estrada Attending Provider Active Star t: March 29, 2025 End: March 29, 2025 MARY Estrada Referring Provider Active Star t: March 29, 2025 End: March 29, 2025 Team Status: Active Member Role/Relationship Status Dates Dr. Vijay Park DO Primary Care Provider Active Start: March 29, 2025 Dr. Trevin May MD Attending Provider Active S tart: March 29, 2025 Team Status: Active Member Role/Relationship Status Dates Dr. Vijay Park DO Primary Care Provider Active Start: April 07, 2025 MARY Estrada Attending Provider Active Star t: April 07, 2025 MARY Estrada Referring Provider Active Star t: April 07, 2025 Team Status: Active Member Role/Relationship Status Dates Dr. Vijay Park DO Primary Care Provider Active Start: April 07, 2025 Dr. Trevin May MD Attending Provider Active S tart: April 07, 2025 Auto Technician Relationship Specialty Start Date End Date Vijay Park DO [address] [place] [address] PCP - General Family Medicine 11/01/14 Orquidea Leong, RECORDING STUDIO SET UP WORKER.LAST INSERTER [address] [place], [place] [address] Sales Team Recruiter [facility] 08/09/24 Asia Andersen, RECORDING STUDIO SET UP WORKER.LAST INSERTER [address] [place], [place] [id number] Sales Team Recruiter [facility] 02/15/25 Team Status: Active Member Role/Relationship Status Dates Dr. Vijay Park DO Primary Care Provider Active Start: March 22, 2025 Dr. Trevin May MD Attending Provider Active S tart: March 22, 2025 MARY Estrada Referring Provider Active Star t: March 22, 2025 Team Status: Inactive Member Role/Relationship Status Dates Dr. Vijay Park DO Primary Care Provider Active Start: April 07, 2025 End: April 07, 2025 MARY Estrada Attending Provider Active Star t: April 07, 2025 End: April 07, 2025 MARY Estrada Referring Provider Active Star t: April 07, 2025 End: April 07, 2025 Auto Technician Relationship Specialty Start Date End Date Vijay Park DO [address] [place] [address] PCP - General Family Medicine 11/01/14 WallyOrquidea, RECORDING STUDIO SET UP WORKER.LAST INSERTER [address] [place] [address] [facility] 08/09/24 Asia Andersen, RECORDING STUDIO SET UP WORKER.LAST INSERTER [address] [place] [address] [facility] 02/15/25 Auto Technician Relationship Specialty Start Date End Date Vijay Park DO [address] [place] [address] PCP - General Family Medicine 11/01/14 WallyOrquidea, RECORDING STUDIO SET UP WORKER.LAST INSERTER [address] [place] [address] [facility] 08/09/24 Asia Andersen, RECORDING STUDIO SET UP WORKER.LAST INSERTER [address] [place] [address] [facility] 02/15/25 Auto Technician Relationship Specialty Start Date End Date Vijay Park DO [address] [place] [address] PCP - General Family Medicine 11/01/14 Orquidea Leong, RECORDING STUDIO SET UP WORKER.LAST INSERTER [address] [place] [address] [facility] 08/09/24 Asia Andersen, RECORDING STUDIO SET UP WORKER.LAST INSERTER [address] [place] [address] [facility] 02/15/25 Team Status: Inactive Member Role/Relationship Status Dates Dr. Vijay Park DO Primary Care Provider Active Start: February 02, 2025 End: February 02, 2025 Dr. Luis A Brown DPM Attending Provider Active Start: February 02, 2025 End: February 02, 2025 Dr. Luis A Brown DPM Referring Provider Active Start: February 02, 2025 End: February 02, 2025 Team Status: Active Member Role/Relationship Status Dates Dr. Vijay Park DO Primary Care Provider Active Start: February 02, 2025 Dr. Trevin May MD Attending Provider Active S tart: February 02, 2025 Dr. Luis A Brown DPM Referring Provider Active Start: February 02, 2025 Team Status: Inactive Member Role/Relationship Status Dates Dr. Vijay Park DO Primary Care Provider Active Start: February 02, 2025 End: February 02, 2025 Jason Philip MD Attending Provider Active Star t: February 02, 2025 End: February 02, 2025 Jason Philip MD Emergency Provider Active Star t: February 02, 2025 End: February 02, 2025 Team Status: Inactive Member Role/Relationship Status Dates Dr. Vijay Park DO Primary Care Provider Active Start: February 24, 2025 End: February 24, 2025 Dr. Vijay Park DO Referring Provider Active Start: February 24, 2025 End: February 24, 2025 MARY Estrada Attending Provider Active Star t: February 24, 2025 End: February 24, 2025 Team Status: Inactive Member Role/Relationship Status Dates Dr. Vijay Park DO Primary Care Provider Active Start: March 22, 2025 End: March 22, 2025 MARY Estrada Attending Provider Active Star t: March 22, 2025 End: March 22, 2025 MARY Estrada Referring Provider Active Star t: March 22, 2025 End: March 22, 2025 Team Status: Active Member Role/Relationship Status Dates Dr. Vijay Park DO Primary Care Provider Active Start: March 22, 2025 Dr. Trevin May MD Attending Provider Active S tart: March 22, 2025 MARY Estrada Referring Provider Active Star t: March 22, 2025 Team Status: Inactive Member Role/Relationship Status Dates Dr. Vijay Park DO Primary Care Provider Active Start: March 29, 2025 End: March 29, 2025 MARY Estrada Attending Provider Active Star t: March 29, 2025 End: March 29, 2025 MARY Estrada Referring Provider Active Star t: March 29, 2025 End: March 29, 2025 Team Status: Active Member Role/Relationship Status Dates Dr. Vijay Park DO Primary Care Provider Active Start: March 29, 2025 Dr. Trevin May MD Attending Provider Active S tart: March 29, 2025 MARY Estrada Referring Provider Active Star t: March 29, 2025 Team Status: Inactive Member Role/Relationship Status Dates Dr. Vijay Park DO Primary Care Provider Active Start: April 07, 2025 End: April 07, 2025 MARY Estrada Attending Provider Active Star t: April 07, 2025 End: April 07, 2025 MARY Estrada Referring Provider Active Star t: April 07, 2025 End: April 07, 2025 Team Status: Active Member Role/Relationship Status Dates Dr. Vijay Park DO Primary Care Provider Active Start: April 07, 2025 Dr. Trevin May MD Attending Provider Active S tart: April 07, 2025 MARY Estrada Referring Provider Active Star t: April 07, 2025 Team Status: Inactive Member Role/Relationship Status Dates Dr. Vijay Park DO Primary Care Provider Active Start: April 27, 2025 End: April 27, 2025 MARY Estrada Attending Provider Active Star t: April 27, 2025 End: April 27, 2025 MARY Estrada Referring Provider Active Star t: April 27, 2025 End: April 27, 2025 Team Status: Active Member Role/Relationship Status Dates Dr. Vijay Park DO Primary Care Provider Active Start: April 27, 2025 Dr. Trevin May MD Attending Provider Active S tart: April 27, 2025 Team Status: Inactive Member Role/Relationship Status Dates Dr. Vijay Park DO Primary Care Provider Active Start: May 11, 2025 End: May 11, 2025 Dr. Vijay Park DO Referring Provider Active Start: May 11, 2025 End: May 11, 2025 Charlie Pete PAD TUFTER, PAD TUFTER-C Attending Provider Active S tart: May 11, 2025 End: May 11, 2025 Goals (unrecognized section and content) Goals may be documented in a n alternate sectionGoals may be documented in an alternate sectionGoals may be documented in an alternate sectionGoals may be documented in an alternate sectionGoals may be documented in an alternate sectionGoals may be documented in an alternate sectionGoals may be documented in an alternate sectionGoals may be documented in an alternate section INFORMATION SOURCE (unrecogn ized section and content) DATE CREATED AUTHOR 06/16/2025 [facility] DATE CREATED AUTHOR AUTHOR'S CHERYL ATNEAL 07/12/2025 [facility] FOR RECORDS PERTAINING TO PATIENTS WHO ARE OR HAVE BEEN ENROLLED IN A CHEMICAL DEPENDENCY/SUBSTANCEABUSE PROGRAM, SOME INFORMATION MAY BE OMITTED. This clinical summary was aggregated from multiple sources. Caution should be exercised in using it in the provision of clinical care. This summary normalizes information from multiple sources, and as a consequence, information in this document may materially change the coding, format and clinical context of patient data. In addition, data may be omitted in some cases. CLINICAL DECISIONS SHOULD BE BASED ON THE PRIMARY CLINICAL RECORDS. [employer] [facility]. provides no warranty or guarantee of the accuracy or completeness of information in this document.
--- NOTE | 2025-07-20 17:30 | STRESSREP ---
Stress Test Report Pharmacologic myocardial perfusion stress test. 64-year-old lady with a history of CP. Resting EKG demonstrates sinus bradycardia with a rate of 50 bpm. Resting blood pressure is 142/73 mmHg. 0.4 mg of regadenoson was infused per usual protocol followed by rapid intravenous saline flush injection. Continuous EKG monitoring was performed. The maximum heart rate was 85 bpm which was 55% of max impacted heart rate the maximum workload was 1 metabolic equivalent. At rest there were no ST or T wave changes noted to suggest ischemia and at peak infusion nonspecific ST changes were noted which did not meet the criteria for ischemia. No clinical angina is noted. The final blood pressure was 146/75 mmHg. Myocardial perfusion protocol. 14.2 mCi of technetium 99m sestamibi was injected at rest. 0.4 mg of regadenoson was infused per usual protocol. At peak infusion 44 mCi of technetium 99m sestamibi was injected stress images were obtained stress and rest images were reconstructed and compared in the short axis vertical long and horizontal long axis. Gated images were also obtained. Perfusion SPECT analysis: Review of the stress images demonstrate normal uptake of tracer noted in all areas of the myocardium. The resting images similar demonstrated normal uptake of tracer noted in all areas of the myocardium. No areas of reversibility are noted to suggest ischemia and no previous infarct is noted. Gated SPECT analysis: The gated ejection fraction is 73%. Conclusion: Normal pharmacologic myocardial perfusion stress test. Preserved ejection fraction.
== END | disposition home or self-care (01) ==
LOC: CVS 07:02
PROVIDERS: PCP Student in an Organized Health Care Education/Training Program; Referring Provider Nurse Practitioner Family; Visit Provider Nurse Practitioner Family
DX: R07.9 Chest pain, unspecified (principal); I10 Essential (primary) hypertension; E78.2 Mixed hyperlipidemia; Z95.5 Presence of coronary angioplasty implant and graft
CPT/HCPCS: 78452; 93017; A9500; A4216; J2785